=== PATIENT | female | born 1935 | race African-American/Black ===

== ENCOUNTER → 2016-06-04 | Outpatient (CLI) | payer MEDICARE, MEDICAID ==
--- NOTE | 2016-06-05 18:47 | XCELERA REPORT ---
[address] [address] Transthoracic Echocardiogram Report Name: ANI PELAYO Age: 80 yrs Gender: Female : 1935 Patient Status: Outpatient Patient Location: Study Date: 06/04/2016 01:20 PM Height: 65 in Weight: 117 lb BSA: 1.6 m2 Procedure: A two-dimensional transthoracic echocardiogram with color flow and Doppler was performed. Study Quality: Fair. Reason For Study: TIA History: TIA. Ordering Physician: BRYANNA THOMAS Performed By: Kahlil Joseph Interpretation Summary There is no obvious cardiac source of embolus noted on this transthoracic echocardiogram. Follow-up with a MONIKA is suggested if cardiac source is still suspected. The left ventricle is normal in size. There is normal left ventricular wall thickness. Left ventricular systolic function is normal. LV EF is > than 60% Doppler measurements suggest impaired left ventricular relaxation, which is associated with grade I/IV or mild diastolic dysfunction The left ventricular wall motion is normal. There is no thrombus. There is no ventricular septal defect visualized. The left atrial size is normal. The interatrial septum is intact with no evidence for an atrial septal defect. There is no evidence of mitral valve prolapse. There is no vegetation seen on the mitral valve. There is no mitral valve stenosis. There is a trace amount of mitral regurgitation There is no aortic valve stenosis There is no LVOT obstruction. No aortic regurgitation is present. There is no tricuspid stenosis. There is a trace amount of tricuspid regurgitation There is mild pulmonary hypertension by echo RVSP is 33 to 38 mm of Hg , with RA mean of 5 to 10. Small pericardial effusion. There are no echocardiographic or Doppler indications for cardiac tamponade MMode/2D Measurements \T\ Calculations RVDd: 2.9 cm LVIDd: 4.0 cm FS: 25.5 % Ao root diam: 3.2 cm IVSd: 0.79 cm LVIDs: 3.0 cm EDV(Teich): 70.6 ml LVPWd: 0.84 cm ESV(Teich): 34.7 ml Ao root area: 8.2 cm2 EF(Teich): 50.8 % LA dimension: 3.4 cm Doppler Measurements \T\ Calculations MV E max ariela: MV P1/2t max ariela: Ao V2 max: LV V1 max P.0 cm/sec 79.0 cm/sec 177.4 cm/sec 11.2 mmHg MV A max ariela: MV P1/2t: 54.3 msec Ao max PG: LV V1 max: 104.1 cm/sec 12.6 mmHg 167.5 cm/sec MV E/A: 0.77 MVA(P1/2t): 4.1 cm2 MV dec slope: 425.9 cm/sec2 PA V2 max: PI end-d ariela: TR max ariela: RAP systole: 84.4 cm/sec 122.2 cm/sec 263.3 cm/sec 10.0 mmHg PA max PG: TR max P.8 mmHg 27.7 mmHg RVSP(TR): 37.7 mmHg Left Ventricle The left ventricle is normal in size. There is normal left ventricular wall thickness. Left ventricular systolic function is normal. LV EF is > than 60%. Doppler measurements suggest impaired left ventricular relaxation, which is associated with grade I/IV or mild diastolic dysfunction. The left ventricular wall motion is normal. There is no thrombus. There is no ventricular septal defect visualized. Right Ventricle The right ventricle is normal in size and function. Atria The right atrium is normal. The left atrial size is normal. The interatrial septum is intact with no evidence for an atrial septal defect. Mitral Valve There is no evidence of mitral valve prolapse. There is no vegetation seen on the mitral valve. There is no mitral valve stenosis. There is a trace amount of mitral regurgitation. Aortic Valve The aortic valve is trileaflet. The aortic valve opens well. There is no aortic valvular vegetation. There is no aortic valve stenosis. There is no LVOT obstruction. No aortic regurgitation is present. Tricuspid Valve There is no tricuspid stenosis. There is a trace amount of tricuspid regurgitation. There is mild pulmonary hypertension by echo. RVSP is 33 to 38 mm of Hg , with RA mean of 5 to 10. Pulmonic Valve There is no pulmonic valvular stenosis. There is a trace amount of pulmonic regurgitation. Great Vessels The aortic root is normal size. Effusions Small pericardial effusion. There are no echocardiographic or Doppler indications for cardiac tamponade. : BRYANNA THOMAS > Kiera Hays
== END ==
LOC: SP 12:45
PROVIDERS: ATTEND Nurse Practitioner Family
DX: G45.9 Transient cerebral ischemic attack, unspecified (principal); R56.9 Unspecified convulsions
CPT/HCPCS: 93306

== ENCOUNTER 2016-09-22 11:49 | Inpatient (IN) | payer MEDICARE, MEDICAID ==
[2016-09-22] MEDS ORDERED: NORMAL SALINE 1000 ML 1,000 ML IV PRN (13:45)
[2016-09-22] MEDS ORDERED: GUAIFENESIN SYRP 200 MG/10 ML UDC PO PRN (15:16)
[2016-09-22 16:17] LABS: ABSOLUTE EOSINOPHILS # (AUTO) 0.2 10^3/uL (0.0-0.6); ABSOLUTE LYMPHOCYTES (AUTO) 0.7 10^3/uL (0.5-4.7); ABSOLUTE MONOCYTES (AUTO) 0.5 10^3/uL (0.1-1.4); ABSOLUTE NEUT (AUTO) 1.4 10^3/uL (1.7-8.2); BASOPHILS % (AUTO) 0.8 % (0-2); EOSINOPHILS % (AUTO) 5.5 % (0-6); HEMATOCRIT 21.9 % (36.0-47.0); HGB HCT DIFFERENCE -0.9; LYMPHOCYTES % (AUTO) 25.3 % (13-45); MEAN CORPUSCULAR HGB CONC 31.9 g/dL (32.0-36.0); MEAN CORPUSCULAR VOLUME 85 fl (80-97); MONOCYTES % (AUTO) 17.7 % (3-13); RED BLOOD COUNT 2.58 10^6/uL (3.72-5.28); RED CELL DISTRIBUTION WIDTH 15.9 % (11.5-14.0); SEGMENTED NEUTROPHILS % (AUTO) 50.7 % (42-78); WHITE BLOOD COUNT 2.8 10^3/uL (4.0-10.5)
[2016-09-22 16:31] LABS: ALANINE AMINOTRANSFERASE 22 U/L (9-52); ALBUMIN 3.4 g/dL (3.5-5.0); ALKALINE PHOSPHATASE 62 U/L (38-126); ANION GAP 13 (5-19); ASPARTATE AMINO TRANSFERASE 24 U/L (14-36); BILIRUBIN,DIRECT 0.1 mg/dL (0.0-0.4); BILIRUBIN,TOTAL 0.1 mg/dL (0.2-1.3); BLOOD UREA NITROGEN 20 mg/dL (7-20); CALCIUM 8.7 mg/dL (8.4-10.2); CARBON DIOXIDE 22 mmol/L (22-30); CHLORIDE 103 mmol/L (98-107); CREATININE RESULT 0.79 mg/dL (0.52-1.25); GLUCOSE 259 mg/dL (75-110); POTASSIUM 4.4 mmol/L (3.6-5.0); SODIUM 137.8 mmol/L (137-145)
--- NOTE | 2016-09-22 17:15 | PDOC CONSULTATION ---
Consultation Consult Date: 09/22/16 Attending physician:: LATOYA ALEXANDER Consult reason:: Hemorrhoids History of Present Illness Admission Date/PCP: 09/22/16 11:49 LEVI BENÍTEZ MD History of Present Illness: ANI PELAYO is a 81 year old female is admitted to the hospital value to thrive , possible sepsis. Surgery was consulted for evaluation and treatment of hemorrhoids. He reported the patient she's had hemorrhoids for years perhaps even decades. She denies history of hemorrhoidectomy or any treatment on her hemorrhoids. She reports her last colonoscopy was approximately [address] Link with unremarkable findings, however no documentation provided to verify. Patient has becoming increasingly, and is not as aware as she has been involving her bowel movements , bloody bowel movements etc. She states her stools are always dark due to taking iron. She is admitted to [facility] , medicine service with a hemoglobin of 7. Past Medical History Cardiac Medical History: Reports: Hyperlipidema - meds x 10 years, Hypertension - meds x 10 years, Heart Murmur - denies echo Denies: Atrial Fibrillation, Congestive Heart Failure, Coronary Artery Disease, Myocardial Infarction, Peripheral Vascular Disease, Pulmonary Embolism Pulmonary Medical History: Reports: Sleep Apnea - CPAP DC'ed x 1 year Denies: Asthma, Bronchitis, Chronic Obstructive Pulmonary Disease (COPD), Pneumonia, Respiratory Failure, Tuberculosis Neurological Medical History: Denies: Seizures Endocrine Medical History: Reports: Diabetes Mellitus Type 1 Denies: Hyperthyroidism, Hypothyroidism Malignancy Medical History: Reports: Breast Cancer - RT Denies: Cervical Cancer, Leukemia, Lung Cancer, Ovarian Cancer GI Medical History: Reports: Gastroesophageal Reflux Disease - meds x 15 years Denies: Crohn's Disease, Hiatal Hernia Musculoskeltal Medical History: Reports: Arthritis Denies: Fibromyalgia Psychiatric Medical History: Reports: Depression - meds x 30 years Denies: Bipolar Disorder, Dementia, Post Traumatic Stress Disorder Hematology: Reports: Anemia Denies: Hemophilia, Sickle Cell Disease Infectious Medical History: Denies: HIV Past Surgical History Past Surgical History: Reports: Appendectomy, Cholecystectomy, Hysterectomy - 1980, Mastectomy - "partial RIGHT" with lymph node dissection (20) Denies: Amputation, Section, Colostomy, Coronary Artery Bypass Graft , Gastric Bypass Surgery, Herniorrhaphy, Pacemaker, Tonsillectomy, Tubal Ligation Social History Smoking Status: Former Smoker Frequency of Alcohol Use: None Hx Recreational Drug Use: No Drugs: None Hx Prescription Drug Abuse: No Family History Family History: Reviewed & Not Pertinent Parental Family History Reviewed: Yes Children Family History Reviewed: Yes Sibling(s) Family History Reviewed.: Yes Medication/Allergy Allergies/Adverse Reactions: Penicillins Allergy (Severe, Verified 04/15/16 13:11) rash/swelling Sulfa (Sulfonamide Antibiotics) Allergy (Severe, Verified 04/15/16 13:11) rash/swelling Review of Systems Constitutional: PRESENT: as per HPI Eyes: ABSENT: visual disturbances Ears: ABSENT: hearing changes Cardiovascular: ABSENT: chest pain, dyspnea on exertion, edema, orthropnea, palpitations Physical Exam Vital Signs: Temp Pulse Resp BP Pulse Ox 97.4 F 78 16 123/67 99 09/22/16 13:03 09/22/16 13:17 09/22/16 13:03 09/22/16 13:03 09/22/16 13:03 Intake & Output 09/21/16 09/22/16 09/23/16 06:59 06:59 06:59 Weight 53.637 kg General appearance: PRESENT: no acute distress Head exam: PRESENT: normocephalic Eye exam: PRESENT: EOMI Pulses: PRESENT: normal carotid pulses GI/Abdominal exam: PRESENT: other - Soft and nontender. Rectal exam: PRESENT: hemorrhoids - Internal, grade 2, nonthrombosed. Results Laboratory Results: 09/22/16 15:40 09/22/16 15:25 09/22/16 09/22/16 09/22/16 14:30 15:25 15:40 WBC 2.8 L RBC 2.58 L Hgb 7.0 L Hct 21.9 L MCV 85 MCH 27.0 MCHC 31.9 L RDW 15.9 H Plt Count 223 Seg Neutrophils % 50.7 Lymphocytes % 25.3 Monocytes % 17.7 H Eosinophils % 5.5 Basophils % 0.8 Absolute Neutrophils 1.4 L Absolute Lymphocytes 0.7 Absolute Monocytes 0.5 Absolute Eosinophils 0.2 Absolute Basophils 0.0 Sodium 137.8 Potassium 4.4 Chloride 103 Carbon Dioxide 22 Anion Gap 13 BUN 20 Creatinine 0.79 Est GFR ( Amer) > 60 Est GFR (Non-Af Amer) > 60 Glucose 259 H Calcium 8.7 Total Bilirubin 0.1 L AST 24 ALT 22 Alkaline Phosphatase 62 Total Protein 6.0 L Albumin 3.4 L Stool Occult Blood POSITIVE Blood Type Antibody Screen 09/22/16 15:40 WBC RBC Hgb Hct MCV MCH MCHC RDW Plt Count Seg Neutrophils % Lymphocytes % Monocytes % Eosinophils % Basophils % Absolute Neutrophils Absolute Lymphocytes Absolute Monocytes Absolute Eosinophils Absolute Basophils Sodium Potassium Chloride Carbon Dioxide Anion Gap BUN Creatinine Est GFR ( Amer) Est GFR (Non-Af Amer) Glucose Calcium Total Bilirubin AST ALT Alkaline Phosphatase Total Protein Albumin Stool Occult Blood Blood Type O POSITIVE Antibody Screen NEGATIVE Impressions: Chest X-Ray 09/22/16 00:00 IMPRESSION: NO SIGNIFICANT RADIOGRAPHIC FINDING IN THE CHEST. Assessment & Plan - Diagnosis (1) Internal hemorrhoids Is this a current diagnosis for this admission?: YesPlan: 1. Patient has moderate sized internal hemorrhoids, grade 2, currently collapsed slightly raw, chronic. Patient last colonoscopy [address] Link demonstrating lambert diverticulosis and internal hemorrhoids. 2. At this moment given the uncertainty of her mental status changes, possible sepsis, I believe nonoperative management is appropriate. Stool softener plenty of fluids are appropriate. 3. I discussed the above with Dr. Alexander who agrees with the above plan. - Time Time Spent: 30 to 50 Minutes Critical Time spent with patient: Less than 15 minutes
[2016-09-22] MEDS: LEVOFLOXACIN 250 MG/D5W RTU 250 MG/50 ML RTUPB IV SCH (17:46)
[2016-09-22] MEDS ORDERED: NORMAL SALINE 250 ML IV PRN ×2 (17:47)
[2016-09-22] MEDS ORDERED: GLUCAGON,HUMAN RECOMB 1 MG INJ IM PRN (17:47)
[2016-09-22] MEDS ORDERED: DEXTROSE 40% GEL 15 GM TUBE PO PRN ×2 (17:47)
[2016-09-22] MEDS ORDERED: DEXTROSE 50%-WATER 25 GM/50 ML DISP.SYRIN IV PRN ×2 (17:47)
[2016-09-22] MEDS ORDERED: DOCUSATE SODIUM 100 MG CAPSULE PO PRN (17:48)
[2016-09-22] MEDS ORDERED: (PENDING PHARMACY ID) (Linaclotide 145 MCG) PO SCH (18:00)
--- NOTE | 2016-09-22 18:27 | PDOC H&P ---
History of Present Illness Admission Date/PCP: 09/22/16 11:49 LEVI BENÍTEZ MD Patient complains of: Cough, Generalized weakness. Anemia History of Present Illness: ANI PELAYO is a 81 year old female who presented to the office earlier today with complaints of persistent wet cough and generalized weakness. Patient denied any chest pain, expectoration has been difficulty. No fever but there is persistent chills. no nausea or vomiting. No abdominal pain. Daughter and patient reported recurrent episodes of hemorrhoid and daughter claimed that it has been persistently outside of rectum for couple of days. Her stool remain black but she is on iron supplementation for anemia. She denied any obvious red bloody stool. She denied any significant constipation on her current regimen management for opiate induced constipation. Her initial evaluation in the office was suggestive of significant anemia and right lower lobe possible early air space disease process. In view of her presentation, clinical findings and laboratory reports she was advised direct admission from the office to [facility] for further evaluation and management. Past Medical History Cardiac Medical History: Reports: Hyperlipidema - meds x 10 years, Hypertension - meds x 10 years, Heart Murmur - denies echo Denies: Atrial Fibrillation, Congestive Heart Failure, Coronary Artery Disease, Myocardial Infarction, Peripheral Vascular Disease, Pulmonary Embolism Pulmonary Medical History: Reports: Sleep Apnea - CPAP DC'ed x 1 year Denies: Asthma, Bronchitis, Chronic Obstructive Pulmonary Disease (COPD), Pneumonia, Respiratory Failure, Tuberculosis Neurological Medical History: Denies: Seizures Endocrine Medical History: Reports: Diabetes Mellitus Type 1 Denies: Hyperthyroidism, Hypothyroidism Malignancy Medical History: Reports: Breast Cancer - RT Denies: Cervical Cancer, Leukemia, Lung Cancer, Ovarian Cancer GI Medical History: Reports: Gastroesophageal Reflux Disease - meds x 15 years Denies: Crohn's Disease, Hiatal Hernia Musculoskeltal Medical History: Reports: Arthritis Denies: Fibromyalgia Psychiatric Medical History: Reports: Depression - meds x 30 years Denies: Bipolar Disorder, Dementia, Post Traumatic Stress Disorder Hematology: Reports: Anemia Denies: Hemophilia, Sickle Cell Disease Infectious Medical History: Denies: HIV Past Surgical History Past Surgical History: Reports: Appendectomy, Cholecystectomy, Hysterectomy - 1980, Mastectomy - "partial RIGHT" with lymph node dissection (20) Denies: Amputation, Section, Colostomy, Coronary Artery Bypass Graft , Gastric Bypass Surgery, Herniorrhaphy, Pacemaker, Tonsillectomy, Tubal Ligation Social History Smoking Status: Former Smoker Frequency of Alcohol Use: None Hx Recreational Drug Use: No Drugs: None Hx Prescription Drug Abuse: No Family History Family History: Reviewed & Not Pertinent Parental Family History Reviewed: Yes Children Family History Reviewed: Yes Sibling(s) Family History Reviewed.: Yes Medication/Allergy Home Medications: Apixaban [Eliquis 2.5 mg Tablet] 2.5 mg PO Q12 09/22/16 Aspirin [Aspirin EC] 81 mg PO DAILY 09/22/16 Dexlansoprazole [Dexilant 60 mg Capsule] 60 mg PO DAILY 09/22/16 Docusate Sodium [Colace 100 mg Capsule] 100 mg PO DAILYP PRN 09/22/16 Donepezil HCl [Aricept 5 mg Tablet] 5 mg PO DAILY 09/22/16 Ferrous Sulfate [Feosol 325 mg Tablet] 325 mg PO DAILY 09/22/16 Fluticasone Propionate [Flonase Nasal Carey 50 Mcg/Carey 16 gm] 2 sprays NAREB Q12 09/22/16 Gabapentin [Neurontin 300 mg Capsule] 300 mg PO Q12 09/22/16 Linaclotide [Linzess 145 Mcg Capsule] 145 mcg PO TID 09/22/16 Lisinopril [Prinivil 5 mg Tablet] 5 mg PO DAILY 09/22/16 Losartan/Hydrochlorothiazide [Hyzaar 100-25 Tablet] 1 tab PO DAILY 09/22/16 Metformin HCl [Glucophage] 1,000 mg PO BID 09/22/16 Montelukast Sodium [Singulair 10 mg Tablet] 10 mg PO QHS 09/22/16 Oxycodone HCl/Acetaminophen [Percocet 5-325 mg Tablet] 1 tab PO TIDP PRN Rosuvastatin Calcium [Crestor 10 mg Tablet] 10 mg PO DAILY 09/22/16 Sertraline HCl [Zoloft] 100 mg PO DAILY 09/22/16 Tramadol HCl [Ultram 50 mg Tablet] 50 mg PO Q12 09/22/16 Allergies/Adverse Reactions: Penicillins Allergy (Severe, Verified 04/15/16 13:11) rash/swelling Sulfa (Sulfonamide Antibiotics) Allergy (Severe, Verified 04/15/16 13:11) rash/swelling Review of Systems Constitutional: PRESENT: chills, weakness. ABSENT: as per HPI, anorexia, fatigue, fever(s), headache(s), night sweats, weight gain, weight loss, other Eyes: PRESENT: visual disturbances - CAWG Ears: ABSENT: hearing changes Nose, Mouth, and Throat: ABSENT: as per HPI, headache(s), mouth pain, sore throat, vertigo, other Cardiovascular: ABSENT: as per HPI, chest pain, dyspnea on exertion, edema, orthropnea, palpitations, other Respiratory: PRESENT: cough, sputum - with expecturation difficulty. ABSENT: as per HPI, dyspnea, hemoptysis, other Gastrointestinal: ABSENT: abdominal pain, constipation, diarrhea, hematemesis, hematochezia, nausea, vomiting Genitourinary: PRESENT: other - there is indwelling suprapubic magallanes catheter in use. ABSENT: as per HPI, difficulty urinating, dysuria, hematuria, nocturia Musculoskeletal: PRESENT: back pain, deformity, other - multiple joints aches and pain Integumentary: ABSENT: as per HPI, diaphoresis, erythema, lesions, pruritus, rash, wounds, other Neurological: PRESENT: weakness - generalized. ABSENT: as per HPI, abnormal gait, abnormal movements, abnormal speech, confusion, convulsions, dizziness, focal weakness, frequent falls, lack of coordination, memory loss, numbness, paresthesias, restless legs, syncope, tingling, tremor(s), vertigo, other Psychiatric: ABSENT: as per HPI, anxiety, depression, hallucinations, homidical ideation, suicidal ideation, other Endocrine: ABSENT: as per HPI, cold intolerance, flushing, heat intolerance, menstrual abnormalities, polydipsia, polyphagia, polyuria, other Hematologic/Lymphatic: ABSENT: as per HPI, easy bleeding, easy bruising, lymphadenopathy, other Physical Exam Vital Signs: Temp Pulse Resp BP Pulse Ox 97.4 F 78 16 119/43 L 97 09/22/16 16:28 09/22/16 16:28 09/22/16 16:28 09/22/16 16:28 09/22/16 16:28 Intake & Output 09/21/16 09/22/16 09/23/16 06:59 06:59 06:59 Intake Total 670 Output Total 100 Balance 570 Weight 53.637 kg General appearance: PRESENT: no acute distress, cooperative, thin Head exam: PRESENT: atraumatic, normocephalic Eye exam: PRESENT: conjunctiva pink, EOMI, PERRLA. ABSENT: scleral icterus Ear exam: PRESENT: normal external ear exam Mouth exam: PRESENT: moist, tongue midline Throat exam: ABSENT: post pharyngeal erythema, tonsillar erythema, tonsillar exudate, tonsillogmegaly, other Neck exam: PRESENT: full ROM. ABSENT: carotid bruit, JVD, lymphadenopathy, thyromegaly Respiratory exam: PRESENT: clear to auscultation adenike. ABSENT: accessory muscle use, chest wall tenderness, crackles, decreased breath sounds, prolonged expiratory phas, rales, retraction, rhonchi, stridor, symmetrical, tachypnea, unlabored, wheezes, other Cardiovascular exam: PRESENT: RRR. ABSENT: diastolic murmur, rubs, systolic murmur Pulses: PRESENT: normal dorsalis pedis pul, +2 pedal pulses bilateral Vascular exam: PRESENT: normal capillary refill GI/Abdominal exam: PRESENT: normal bowel sounds, soft, other - suprapubc magallanes cath in situ. ABSENT: distended, guarding, mass, organolmegaly, rebound, tenderness Rectal exam: PRESENT: black stool, heme (+) stool, hemorrhoids Gentrourinary exam: ABSENT: ecchymosis, erythema, lacerations, lesions, scrotal swelling, testicular tenderness, urethral discharge, indwelling catheter, other Extremities exam: PRESENT: full ROM Musculoskeletal exam: PRESENT: deformity - due to multiple joint involvement with arthritis Neurological exam: PRESENT: alert, awake, oriented to person, oriented to place , oriented to time, oriented to situation, CN II-XII grossly intact. ABSENT: motor sensory deficit Psychiatric exam: PRESENT: appropriate affect, normal mood. ABSENT: homicidal ideation, suicidal ideation Skin exam: PRESENT: dry, intact, warm. ABSENT: cyanosis, rash Results Laboratory Results: 09/22/16 15:40 09/22/16 15:25 09/22/16 09/22/16 09/22/16 14:30 15:25 15:40 WBC 2.8 L RBC 2.58 L Hgb 7.0 L Hct 21.9 L MCV 85 MCH 27.0 MCHC 31.9 L RDW 15.9 H Plt Count 223 Seg Neutrophils % 50.7 Lymphocytes % 25.3 Monocytes % 17.7 H Eosinophils % 5.5 Basophils % 0.8 Absolute Neutrophils 1.4 L Absolute Lymphocytes 0.7 Absolute Monocytes 0.5 Absolute Eosinophils 0.2 Absolute Basophils 0.0 Sodium 137.8 Potassium 4.4 Chloride 103 Carbon Dioxide 22 Anion Gap 13 BUN 20 Creatinine 0.79 Est GFR ( Amer) > 60 Est GFR (Non-Af Amer) > 60 Glucose 259 H Calcium 8.7 Total Bilirubin 0.1 L AST 24 ALT 22 Alkaline Phosphatase 62 Total Protein 6.0 L Albumin 3.4 L Stool Occult Blood POSITIVE Blood Type Antibody Screen 09/22/16 15:40 WBC RBC Hgb Hct MCV MCH MCHC RDW Plt Count Seg Neutrophils % Lymphocytes % Monocytes % Eosinophils % Basophils % Absolute Neutrophils Absolute Lymphocytes Absolute Monocytes Absolute Eosinophils Absolute Basophils Sodium Potassium Chloride Carbon Dioxide Anion Gap BUN Creatinine Est GFR ( Amer) Est GFR (Non-Af Amer) Glucose Calcium Total Bilirubin AST ALT Alkaline Phosphatase Total Protein Albumin Stool Occult Blood Blood Type O POSITIVE Antibody Screen NEGATIVE Impressions: Chest X-Ray 09/22/16 00:00 IMPRESSION: NO SIGNIFICANT RADIOGRAPHIC FINDING IN THE CHEST. Assessment & Plan - Diagnosis (1) Symptomatic anemia Is this a current diagnosis for this admission?: YesPlan: See admitting physician orders. She will receive 2 units PRBC transfusion. I will obtain post transfusion CBC for further evaluation. (2) Internal hemorrhoids Is this a current diagnosis for this admission?: YesPlan: I will request for surgical team consultation in view of her significant anemia and possible contribution of her hemorrhoid to chronic blood loss, particularly on Eliquis and Aspirin therapy. (3) Diabetes mellitus type 2, uncontrolled, with complications Qualifiers: Diabetes mellitus terminal gauger insulin use: without terminal gauger use Qualified Code(s): E11.8 - Type 2 diabetes mellitus with unspecified complications; E11.65 - Type 2 diabetes mellitus with hyperglycemia Is this a current diagnosis for this admission?: YesPlan: See admitting physician orders. (4) Pneumonia Qualifiers: Pneumonia type: due to unspecified organism Laterality: right Lung location: lower lobe of lung Qualified Code(s): J18.1 - Lobar pneumonia, unspecified organism Is this a current diagnosis for this admission?: YesPlan: See admitting physician orders. (5) HLD (hyperlipidemia) Qualifiers: Hyperlipidemia type: pure hypercholesterolemia Qualified Code(s): E78.00 - Pure hypercholesterolemia, unspecified; E78.0 - Pure hypercholesterolemia Is this a current diagnosis for this admission?: YesPlan: See admitting physician orders. (6) HTN (hypertension) Qualifiers: Hypertension type: essential hypertension Qualified Code(s): I10 - Essential (primary) hypertension Is this a current diagnosis for this admission?: YesPlan: See admitting physician orders. I will clarify Losartan HCTZ and Lisinopril usage. Main well maintain on Lisinopril therapy and adjust dosage as needed. (7) History of pulmonary embolism Is this a current diagnosis for this admission?: YesPlan: See admitting physician orders. I will hold Eliquis and Aspirin usage for now in view of her symptomatic anemia. (8) History of DVT (deep vein thrombosis) Is this a current diagnosis for this admission?: YesPlan: See admitting physician orders. I will hold Eliquis and Aspirin usage for now in view of her symptomatic anemia. (9) Chronic prescription opiate use Is this a current diagnosis for this admission?: YesPlan: I will maintain on current medication management. I will discontinue Tramadol usage. (10) GERD (gastroesophageal reflux disease) Qualifiers: Esophagitis presence: without esophagitis Qualified Code(s): K21.9 - Gastro-esophageal reflux disease without esophagitis Is this a current diagnosis for this admission?: YesPlan: See admitting attending orders. - Time Time Spent: 50 to 70 Minutes Medications reviewed and adjusted accordingly: Yes Anticipated discharge: Home with Homehealth Within: Other - Inpatient Certification Medical Necessity: Need Close Monitoring Due to Risk of Patient Decompensation, Need For IV Fluids, Need For Continuous Telemetry Monitoring, Need for Pain Control, Need for IV Antibiotics, Risk of Complication if Not Cared For in Hospital Post Hospital Care: D/C Wine Specialist Documentation - Plan Summary Plan Summary: See admitting physician orders.
[2016-09-22] MEDS: OXYCODONE-ACETAMINOPHEN 5-325 MG TABLET PO PRN (20:06)
[2016-09-22] MEDS: FLUTICASONE NASAL SPRAY 50 MCG/SPRY 120 SPRAY/16 GM NAREB SCH (21:15)
[2016-09-22] MEDS: METFORMIN HCL 500 MG TABLET PO SCH (21:15)
[2016-09-22] MEDS: GABAPENTIN 300 MG CAPSULE PO SCH (21:15)
[2016-09-22] MEDS: MONTELUKAST SODIUM 10 MG TABLET PO SCH (21:16)
[2016-09-22] MEDS: INSULIN LISPRO 100 UNIT/ML 3 ML VIAL SUBCUT PRN (22:14)
[2016-09-23 07:00] LABS: ABSOLUTE EOSINOPHILS # (AUTO) 0.3 10^3/uL (0.0-0.6); ABSOLUTE LYMPHOCYTES (AUTO) 1.1 10^3/uL (0.5-4.7); ABSOLUTE MONOCYTES (AUTO) 0.5 10^3/uL (0.1-1.4); ABSOLUTE NEUT (AUTO) 1.7 10^3/uL (1.7-8.2); BASOPHILS % (AUTO) 0.4 % (0-2); EOSINOPHILS % (AUTO) 7.6 % (0-6); HEMATOCRIT 29.4 % (36.0-47.0); HGB HCT DIFFERENCE 0.6; LYMPHOCYTES % (AUTO) 30.7 % (13-45); MEAN CORPUSCULAR HEMOGLOBIN 29.3 pg (27.0-33.4); MEAN CORPUSCULAR VOLUME 86 fl (80-97); RED BLOOD COUNT 3.41 10^6/uL (3.72-5.28); RED CELL DISTRIBUTION WIDTH 16.1 % (11.5-14.0); SEGMENTED NEUTROPHILS % (AUTO) 46.3 % (42-78); WHITE BLOOD COUNT 3.6 10^3/uL (4.0-10.5)
[2016-09-23] MEDS: LANSOPRAZOLE 30 MG TAB.RAP.DR PO SCH (07:49)
[2016-09-23] MEDS: METFORMIN HCL 500 MG TABLET PO SCH ×4 (07:50→21:26)
[2016-09-23] MEDS: OXYCODONE-ACETAMINOPHEN 5-325 MG TABLET PO PRN ×2 (07:55→16:50)
[2016-09-23] MEDS ORDERED: (PENDING PHARMACY ID) (Linaclotide 145 MCG) PO SCH ×2 (10:00)
[2016-09-23] MEDS ORDERED: LISINOPRIL 5 MG TABLET PO SCH (10:00)
[2016-09-23] MEDS: DONEPEZIL HCL 5 MG TABLET PO SCH (10:06)
[2016-09-23] MEDS: SERTRALINE HCL 50 MG TABLET PO SCH (10:08)
[2016-09-23] MEDS: ATORVASTATIN CALCIUM 20 MG TABLET PO SCH (10:08)
[2016-09-23] MEDS: GABAPENTIN 300 MG CAPSULE PO SCH ×2 (10:08→21:25)
[2016-09-23] MEDS: FERROUS SULFATE 325 MG TABLET PO SCH (10:08)
[2016-09-23] MEDS: FLUTICASONE NASAL SPRAY 50 MCG/SPRY 120 SPRAY/16 GM NAREB SCH ×2 (10:09→21:31)
[2016-09-23] MEDS: INSULIN LISPRO 100 UNIT/ML 3 ML VIAL SUBCUT PRN ×2 (12:39→22:35)
[2016-09-23] MEDS: LEVOFLOXACIN 250 MG/D5W RTU 250 MG/50 ML RTUPB IV SCH (16:50)
--- NOTE | 2016-09-23 18:35 | PDOC PROGRESS REPORT ---
Subjective Progress Note for:: 09/23/16 Subjective:: Patient reported worsening pain in her legs. She claimed that hse has been using Gabapentin and Percocet at about the same time at home with better pain control. There is concern with chewing her food due to consistency. She denied nay nausea, vomiting or abdominal pain. No chest pain. Breathing is better with improvement in her coughing issue. No reported fever or chills. Physical Exam Vital Signs: Temp Pulse Resp BP Pulse Ox 98.0 F 78 16 156/63 H 95 09/23/16 15:22 09/23/16 15:22 09/23/16 15:22 09/23/16 15:22 09/23/16 15:22 Intake & Output 09/22/16 09/23/16 09/24/16 06:59 06:59 06:59 Intake Total 2210 1766 Output Total 1900 400 Balance 310 1366 Weight 53.637 kg General appearance: PRESENT: no acute distress, cooperative, thin Head exam: PRESENT: atraumatic, normocephalic Eye exam: PRESENT: conjunctiva pink, EOMI, PERRLA. ABSENT: scleral icterus Mouth exam: PRESENT: moist, tongue midline Teeth exam: PRESENT: poor dentation Throat exam: ABSENT: post pharyngeal erythema, tonsillar erythema, tonsillar exudate, tonsillogmegaly, other Neck exam: PRESENT: full ROM. ABSENT: carotid bruit, JVD, lymphadenopathy, thyromegaly Respiratory exam: PRESENT: clear to auscultation adenike, decreased breath sounds - at lung bases Cardiovascular exam: PRESENT: RRR. ABSENT: diastolic murmur, rubs, systolic murmur Pulses: PRESENT: normal dorsalis pedis pul, +2 pedal pulses bilateral Vascular exam: PRESENT: normal capillary refill GI/Abdominal exam: PRESENT: normal bowel sounds, soft, other - suprapubic magallanes catheter in situ. dressing satisfactory.. 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 ABSENT: homicidal ideation, suicidal ideation Skin exam: PRESENT: dry, warm. ABSENT: cyanosis, rash Results Laboratory Results: 09/23/16 04:45 09/22/16 15:25 09/22/16 09/23/16 15:40 04:45 WBC 3.6 L RBC 3.41 L Hgb 10.0 L D Hct 29.4 L MCV 86 MCH 29.3 MCHC 34.0 RDW 16.1 H Plt Count 196 Seg Neutrophils % 46.3 Lymphocytes % 30.7 Monocytes % 15.0 H Eosinophils % 7.6 H Basophils % 0.4 Absolute Neutrophils 1.7 Absolute Lymphocytes 1.1 Absolute Monocytes 0.5 Absolute Eosinophils 0.3 Absolute Basophils 0.0 Blood Type O POSITIVE Antibody Screen NEGATIVE Impressions: Chest X-Ray 09/22/16 00:00 IMPRESSION: NO SIGNIFICANT RADIOGRAPHIC FINDING IN THE CHEST. Assessment & Plan - Diagnosis (1) Symptomatic anemia Is this a current diagnosis for this admission?: YesPlan: See admitting physician orders. She received 2 units PRBC with post-transfusion improvement in her hemoglobin. (2) Internal hemorrhoids Is this a current diagnosis for this admission?: YesPlan: See attending physician orders. (3) Diabetes mellitus type 2, uncontrolled, with complications Qualifiers: Diabetes mellitus mcc insulin use: without biofuels production technician use Qualified Code(s): E11.8 - Type 2 diabetes mellitus with unspecified complications; E11.65 - Type 2 diabetes mellitus with hyperglycemia Is this a current diagnosis for this admission?: YesPlan: See admitting physician orders. I will change dietary consistency to mechanical soft. she will receive glucena oral supplement with her meals. (4) Pneumonia Qualifiers: Pneumonia type: due to unspecified organism Laterality: right Lung location: lower lobe of lung Qualified Code(s): J18.1 - Lobar pneumonia, unspecified organism Is this a current diagnosis for this admission?: YesPlan: See admitting physician orders. Follow up on blood culture. Maintain on IV Levofloxacin coverage. (5) HLD (hyperlipidemia) Qualifiers: Hyperlipidemia type: pure hypercholesterolemia Qualified Code(s): E78.00 - Pure hypercholesterolemia, unspecified; E78.0 - Pure hypercholesterolemia Is this a current diagnosis for this admission?: YesPlan: See attending physician orders. (6) HTN (hypertension) Qualifiers: Hypertension type: essential hypertension Qualified Code(s): I10 - Essential (primary) hypertension Is this a current diagnosis for this admission?: YesPlan: See attending physician orders. (7) History of pulmonary embolism Is this a current diagnosis for this admission?: YesPlan: See attending physician orders. (8) History of DVT (deep vein thrombosis) Is this a current diagnosis for this admission?: YesPlan: See attending physician orders. (9) Chronic prescription opiate use Is this a current diagnosis for this admission?: YesPlan: See attending physician orders. (10) GERD (gastroesophageal reflux disease) Qualifiers: Esophagitis presence: without esophagitis Qualified Code(s): K21.9 - Gastro-esophageal reflux disease without esophagitis Is this a current diagnosis for this admission?: YesPlan: See attending physician orders. - Time Time Spent with patient: 25-34 minutes Medications reviewed and adjusted accordingly: Yes Anticipated discharge: Home with Homehealth Within: Other - Inpatient Certification Based on my medical assessment, after consideration of the patient's comorbidities, presenting symptoms, or acuity I expect that the services needed warrant INPATIENT care.: Yes I certify that my determination is in accordance with my understanding of Medicare's requirements for reasonable and necessary INPATIENT services [42 CFR 412.3e].: Yes Medical Necessity: Need Close Monitoring Due to Risk of Patient Decompensation, Need For IV Fluids, Need For Continuous Telemetry Monitoring, Need for IV Antibiotics, Risk of Complication if Not Cared For in Hospital Post Hospital Care: D/C Spot Man Documentation - Plan Summary Plan Summary: See attending physician orders.
[2016-09-23] MEDS: ACETAMINOPHEN 325 MG TABLET PO PRN (19:43)
[2016-09-23] MEDS: OXYCODONE-ACETAMINOPHEN 5-325 MG TABLET PO SCH (21:25)
[2016-09-23] MEDS: MONTELUKAST SODIUM 10 MG TABLET PO SCH (21:26)
[2016-09-24] MEDS: LANSOPRAZOLE 30 MG TAB.RAP.DR PO SCH (07:33)
[2016-09-24] MEDS: METFORMIN HCL 500 MG TABLET PO SCH ×4 (07:33→21:50)
--- NOTE | 2016-09-24 08:12 | PDOC PROGRESS REPORT ---
Subjective Progress Note for:: 09/24/16 Subjective:: Patient compliant of tightness in head and sinus with nasal congestion. Nop chest pain or difficulty with breathing. No nausea, vomiting or abdominal pain. Appetite and p.o intake satisfactory. No fever or chills. Physical Exam Vital Signs: Temp Pulse Resp BP Pulse Ox 98.3 F 64 16 144/57 H 98 09/24/16 03:31 09/24/16 07:00 09/24/16 03:31 09/24/16 03:31 09/24/16 03:31 Intake & Output 09/23/16 09/24/16 09/25/16 06:59 06:59 06:59 Intake Total 2210 2818 Output Total 1900 1600 Balance 310 1218 Weight 53.637 kg Physical Exam: General appearance: PRESENT: no acute distress, cooperative, thin Head exam: PRESENT: atraumatic, normocephalic Eye exam: PRESENT: conjunctiva pink, EOMI, PERRLA. ABSENT: scleral icterus Neck exam: PRESENT: full ROM. ABSENT: carotid bruit, JVD, lymphadenopathy, thyromegaly Respiratory exam: PRESENT: clear to auscultation adenike, decreased breath sounds - at lung bases Cardiovascular exam: PRESENT: RRR. ABSENT: diastolic murmur, rubs, systolic murmur GI/Abdominal exam: PRESENT: normal bowel sounds, soft, other - suprapubic magallanes catheter in situ. dressing satisfactory.. 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 ABSENT: homicidal ideation, suicidal ideation Skin exam: PRESENT: dry, warm. ABSENT: cyanosis, rash Throat exam: ABSENT: post pharyngeal erythema, tonsillar erythema - No significant nasal congestion or turbinate swelling. No paranasal percussion tenderness., tonsillar exudate, tonsillogmegaly, other Results Laboratory Results: 09/23/16 04:45 09/22/16 15:25 Impressions: Chest X-Ray 09/22/16 00:00 IMPRESSION: NO SIGNIFICANT RADIOGRAPHIC FINDING IN THE CHEST. Assessment & Plan - Diagnosis (1) Symptomatic anemia Is this a current diagnosis for this admission?: YesPlan: See admitting physician orders. (2) Internal hemorrhoids Is this a current diagnosis for this admission?: YesPlan: See attending physician orders. (3) Diabetes mellitus type 2, uncontrolled, with complications Qualifiers: Diabetes mellitus longterm insulin use: without longterm use Qualified Code(s): E11.8 - Type 2 diabetes mellitus with unspecified complications; E11.65 - Type 2 diabetes mellitus with hyperglycemia Is this a current diagnosis for this admission?: YesPlan: See admitting physician orders. (4) Pneumonia Qualifiers: Pneumonia type: due to unspecified organism Laterality: right Lung location: lower lobe of lung Qualified Code(s): J18.1 - Lobar pneumonia, unspecified organism Is this a current diagnosis for this admission?: YesPlan: See admitting physician orders. Follow up on blood culture. Maintain on IV Levofloxacin coverage. (5) HLD (hyperlipidemia) Qualifiers: Hyperlipidemia type: pure hypercholesterolemia Qualified Code(s): E78.00 - Pure hypercholesterolemia, unspecified; E78.0 - Pure hypercholesterolemia Is this a current diagnosis for this admission?: YesPlan: See attending physician orders. (6) HTN (hypertension) Qualifiers: Hypertension type: essential hypertension Qualified Code(s): I10 - Essential (primary) hypertension Is this a current diagnosis for this admission?: YesPlan: See attending physician orders. (7) History of pulmonary embolism Is this a current diagnosis for this admission?: YesPlan: See attending physician orders. (8) History of DVT (deep vein thrombosis) Is this a current diagnosis for this admission?: YesPlan: See attending physician orders. (9) Chronic prescription opiate use Is this a current diagnosis for this admission?: YesPlan: See attending physician orders. (10) GERD (gastroesophageal reflux disease) Qualifiers: Esophagitis presence: without esophagitis Qualified Code(s): K21.9 - Gastro-esophageal reflux disease without esophagitis Is this a current diagnosis for this admission?: YesPlan: See attending physician orders. (11) Seasonal allergic rhinitis Qualifiers: Allergic rhinitis trigger: unspecified Qualified Code(s): J30.2 - Other seasonal allergic rhinitis Is this a current diagnosis for this admission?: YesPlan: Continue on Fluticasone nasal spray therapy. - Time Time Spent with patient: 25-34 minutes Medications reviewed and adjusted accordingly: Yes Anticipated discharge: Home with Homehealth Within: Other - Inpatient Certification Medical Necessity: Need Close Monitoring Due to Risk of Patient Decompensation, Need For IV Fluids, Need For Continuous Telemetry Monitoring, Need for IV Antibiotics, Risk of Complication if Not Cared For in Hospital Post Hospital Care: D/C Dairy Husbandry Worker Documentation - Plan Summary Plan Summary: Obtain CBC with diff, BMP in AM. Continue on all current medication management.
[2016-09-24] MEDS: OXYCODONE-ACETAMINOPHEN 5-325 MG TABLET PO SCH ×4 (09:28→21:50)
[2016-09-24] MEDS: ATORVASTATIN CALCIUM 20 MG TABLET PO SCH (09:28)
[2016-09-24] MEDS: GABAPENTIN 300 MG CAPSULE PO SCH ×2 (09:28→21:50)
[2016-09-24] MEDS: DONEPEZIL HCL 5 MG TABLET PO SCH (09:28)
[2016-09-24] MEDS: FERROUS SULFATE 325 MG TABLET PO SCH (09:28)
[2016-09-24] MEDS: SERTRALINE HCL 50 MG TABLET PO SCH (09:28)
[2016-09-24] MEDS: FLUTICASONE NASAL SPRAY 50 MCG/SPRY 120 SPRAY/16 GM NAREB SCH ×2 (09:29→21:50)
[2016-09-24] MEDS ORDERED: LISINOPRIL 10 MG TABLET PO SCH (10:00)
[2016-09-24] MEDS: INSULIN LISPRO 100 UNIT/ML 3 ML VIAL SUBCUT PRN (11:59)
[2016-09-24] MEDS: LEVOFLOXACIN 250 MG/D5W RTU 250 MG/50 ML RTUPB IV SCH (17:44)
[2016-09-24] MEDS: MONTELUKAST SODIUM 10 MG TABLET PO SCH (21:50)
[2016-09-25] MEDS ORDERED: LISINOPRIL 10 MG TABLET PO ONE (04:45)
[2016-09-25 06:03] LABS: ABSOLUTE EOSINOPHILS # (AUTO) 0.1 10^3/uL (0.0-0.6); ABSOLUTE LYMPHOCYTES (AUTO) 1.3 10^3/uL (0.5-4.7); ABSOLUTE MONOCYTES (AUTO) 0.5 10^3/uL (0.1-1.4); ABSOLUTE NEUT (AUTO) 3.8 10^3/uL (1.7-8.2); BASOPHILS % (AUTO) 0.4 % (0-2); EOSINOPHILS % (AUTO) 1.9 % (0-6); HEMATOCRIT 31.8 % (36.0-47.0); HEMOGLOBIN 10.5 g/dL (12.0-15.5); HGB HCT DIFFERENCE -0.3; LYMPHOCYTES % (AUTO) 22.3 % (13-45); MEAN CORPUSCULAR HEMOGLOBIN 28.7 pg (27.0-33.4); MEAN CORPUSCULAR HGB CONC 33.1 g/dL (32.0-36.0); MEAN CORPUSCULAR VOLUME 87 fl (80-97); MONOCYTES % (AUTO) 9.1 % (3-13); RED BLOOD COUNT 3.67 10^6/uL (3.72-5.28); RED CELL DISTRIBUTION WIDTH 15.9 % (11.5-14.0); SEGMENTED NEUTROPHILS % (AUTO) 66.3 % (42-78); WHITE BLOOD COUNT 5.8 10^3/uL (4.0-10.5)
[2016-09-25 06:41] LABS: ANION GAP 13 (5-19); BLOOD UREA NITROGEN 20 mg/dL (7-20); CALCIUM 9.4 mg/dL (8.4-10.2); CARBON DIOXIDE 24 mmol/L (22-30); CHLORIDE 104 mmol/L (98-107); CREATININE RESULT 0.69 mg/dL (0.52-1.25); GLUCOSE 192 mg/dL (75-110); POTASSIUM 4.6 mmol/L (3.6-5.0); SODIUM 141.1 mmol/L (137-145)
[2016-09-25] MEDS: METFORMIN HCL 500 MG TABLET PO SCH ×4 (08:49→21:44)
[2016-09-25] MEDS: LANSOPRAZOLE 30 MG TAB.RAP.DR PO SCH (08:49)
[2016-09-25] MEDS: HYDROCHLOROTHIAZIDE 25 MG TABLET PO SCH (10:09)
[2016-09-25] MEDS: DONEPEZIL HCL 5 MG TABLET PO SCH (10:10)
[2016-09-25] MEDS: OXYCODONE-ACETAMINOPHEN 5-325 MG TABLET PO SCH ×4 (10:10→21:44)
[2016-09-25] MEDS: GABAPENTIN 300 MG CAPSULE PO SCH ×2 (10:10→21:43)
[2016-09-25] MEDS: FERROUS SULFATE 325 MG TABLET PO SCH (10:10)
[2016-09-25] MEDS: ATORVASTATIN CALCIUM 20 MG TABLET PO SCH (10:10)
[2016-09-25] MEDS: FLUTICASONE NASAL SPRAY 50 MCG/SPRY 120 SPRAY/16 GM NAREB SCH ×2 (10:11→21:44)
[2016-09-25] MEDS: SERTRALINE HCL 50 MG TABLET PO SCH (10:11)
[2016-09-25] MEDS: LISINOPRIL 10 MG TABLET PO SCH (10:11)
[2016-09-25] MEDS: INSULIN LISPRO 100 UNIT/ML 3 ML VIAL SUBCUT PRN (11:27)
[2016-09-25] MEDS: ONDANSETRON HCL INJ/PF 4 MG/2 ML SDV IV PRN (14:52)
[2016-09-25 15:10] LABS: APPEARANCE,URINE SLIGHTLY-CLOUDY; BILIRUBIN,URINE NEGATIVE (NEGATIVE); GLUCOSE, URINE 50 mg/dL (NEGATIVE); KETONES,URINE NEGATIVE (NEGATIVE); LEUKOCYTE ESTERASE,URINE TRACE (NEGATIVE); NITRITE,URINE NEGATIVE (NEGATIVE); PROTEIN,URINE >=500 mg/dL (NEGATIVE); URINE SPECIFIC GRAVITY 1.023; UROBILINOGEN,URINE NEGATIVE mg/dL (<2.0)
[2016-09-25] MEDS: LEVOFLOXACIN 250 MG TABLET PO SCH (15:33)
--- NOTE | 2016-09-25 18:40 | PDOC PROGRESS REPORT ---
Subjective Progress Note for:: 09/25/16 Subjective:: Patient reported worsening suprapubic abdominal pain and worsen sensation with coughing. She has suprapubic indwelling Magallanes catheter. There has been associated nausea and vomiting so far today. She denied any fever or chills. She denied chest pain or difficulty with breathing. Physical Exam Vital Signs: Temp Pulse Resp BP Pulse Ox 97.7 F 83 18 110/49 L 96 09/25/16 15:53 09/25/16 15:53 09/25/16 15:53 09/25/16 15:53 09/25/16 15:53 Intake & Output 09/24/16 09/25/16 09/26/16 06:59 06:59 06:59 Intake Total 2818 2650 320 Output Total 1600 4100 300 Balance 1218 -1450 20 General appearance: PRESENT: cooperative, mild distress - due to suprapubic discomfort Head exam: PRESENT: atraumatic, normocephalic Eye exam: PRESENT: conjunctiva pink, EOMI, PERRLA. ABSENT: scleral icterus Mouth exam: PRESENT: moist, tongue midline Respiratory exam: PRESENT: clear to auscultation adenike Cardiovascular exam: PRESENT: RRR. ABSENT: diastolic murmur, rubs, systolic murmur GI/Abdominal exam: PRESENT: tenderness - suprapubic region with satisfactory dressing of her magallanes cath site. 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 ABSENT: homicidal ideation, suicidal ideation Skin exam: PRESENT: dry, intact, warm. ABSENT: cyanosis, rash Results Laboratory Results: 09/25/16 05:35 09/25/16 05:35 09/25/16 09/25/16 09/25/16 05:35 05:35 14:25 WBC 5.8 RBC 3.67 L Hgb 10.5 L Hct 31.8 L MCV 87 MCH 28.7 MCHC 33.1 RDW 15.9 H Plt Count 227 Seg Neutrophils % 66.3 Lymphocytes % 22.3 Monocytes % 9.1 Eosinophils % 1.9 Basophils % 0.4 Absolute Neutrophils 3.8 Absolute Lymphocytes 1.3 Absolute Monocytes 0.5 Absolute Eosinophils 0.1 Absolute Basophils 0.0 Sodium 141.1 Potassium 4.6 Chloride 104 Carbon Dioxide 24 Anion Gap 13 BUN 20 Creatinine 0.69 Est GFR ( Amer) > 60 Est GFR (Non-Af Amer) > 60 Glucose 192 H Calcium 9.4 Urine Color YELLOW Urine Appearance SLIGHTLY-CLOUDY Urine pH 6.0 Ur Specific Dennard 1.023 Urine Protein >=500 H Urine Glucose (UA) 50 H Urine Ketones NEGATIVE Urine Blood SMALL H Urine Nitrite NEGATIVE Ur Leukocyte Esterase TRACE H Urine WBC (Auto) 10 Urine RBC (Auto) 76 Impressions: Chest X-Ray 09/22/16 00:00 IMPRESSION: NO SIGNIFICANT RADIOGRAPHIC FINDING IN THE CHEST. Assessment & Plan - Diagnosis (1) Symptomatic anemia Is this a current diagnosis for this admission?: YesPlan: See admitting physician orders. (2) Internal hemorrhoids Is this a current diagnosis for this admission?: YesPlan: See attending physician orders. (3) Diabetes mellitus type 2, uncontrolled, with complications Qualifiers: Diabetes mellitus assisted insulin use: without watermaster use Qualified Code(s): E11.8 - Type 2 diabetes mellitus with unspecified complications; E11.65 - Type 2 diabetes mellitus with hyperglycemia Is this a current diagnosis for this admission?: YesPlan: See admitting physician orders. (4) Pneumonia Qualifiers: Pneumonia type: due to unspecified organism Laterality: right Lung location: lower lobe of lung Qualified Code(s): J18.1 - Lobar pneumonia, unspecified organism Is this a current diagnosis for this admission?: YesPlan: See admitting physician orders. Follow up on blood culture. Maintain on IV Levofloxacin coverage. (5) HLD (hyperlipidemia) Qualifiers: Hyperlipidemia type: pure hypercholesterolemia Qualified Code(s): E78.00 - Pure hypercholesterolemia, unspecified; E78.0 - Pure hypercholesterolemia Is this a current diagnosis for this admission?: YesPlan: See attending physician orders. (6) HTN (hypertension) Qualifiers: Hypertension type: essential hypertension Qualified Code(s): I10 - Essential (primary) hypertension Is this a current diagnosis for this admission?: YesPlan: See attending physician orders. I will increase her Lisinopril dosage to 20 mg po daily due to elevated blood pressure. (7) History of pulmonary embolism Is this a current diagnosis for this admission?: YesPlan: See attending physician orders. (8) History of DVT (deep vein thrombosis) Is this a current diagnosis for this admission?: YesPlan: See attending physician orders. (9) Chronic prescription opiate use Is this a current diagnosis for this admission?: YesPlan: See attending physician orders. (10) GERD (gastroesophageal reflux disease) Qualifiers: Esophagitis presence: without esophagitis Qualified Code(s): K21.9 - Gastro-esophageal reflux disease without esophagitis Is this a current diagnosis for this admission?: YesPlan: See attending physician orders. (11) Seasonal allergic rhinitis Qualifiers: Allergic rhinitis trigger: unspecified Qualified Code(s): J30.2 - Other seasonal allergic rhinitis Is this a current diagnosis for this admission?: YesPlan: See attending physician order (12) Suprapubic abdominal pain Is this a current diagnosis for this admission?: NoPlan: With indwelling Magallanes catheter raised the concern for possible UTI. I will request for U/A and urine culture. She will continue on oral Levofloxacin coverage pending further insight into her symptom etiology. She will receive symptomatic treatment for her nausea and vomiting. - Time Time Spent with patient: 25-34 minutes Medications reviewed and adjusted accordingly: Yes Anticipated discharge: Home with Homehealth Within: Other - Inpatient Certification Medical Necessity: Need Close Monitoring Due to Risk of Patient Decompensation, Need For IV Fluids, Need For Continuous Telemetry Monitoring, Risk of Complication if Not Cared For in Hospital Post Hospital Care: D/C Automatic Lump Making Machine Tender Documentation - Plan Summary Plan Summary: See attending physician orders.
[2016-09-25] MEDS: MONTELUKAST SODIUM 10 MG TABLET PO SCH (21:44)
[2016-09-26] MEDS: METFORMIN HCL 500 MG TABLET PO SCH ×4 (08:37→21:50)
[2016-09-26] MEDS: LANSOPRAZOLE 30 MG TAB.RAP.DR PO SCH (08:37)
[2016-09-26] MEDS: SERTRALINE HCL 50 MG TABLET PO SCH (09:00)
[2016-09-26] MEDS: LISINOPRIL 10 MG TABLET PO SCH (09:00)
[2016-09-26] MEDS: ATORVASTATIN CALCIUM 20 MG TABLET PO SCH (09:00)
[2016-09-26] MEDS: FERROUS SULFATE 325 MG TABLET PO SCH (09:00)
[2016-09-26] MEDS: GABAPENTIN 300 MG CAPSULE PO SCH ×2 (09:01→21:50)
[2016-09-26] MEDS: HYDROCHLOROTHIAZIDE 25 MG TABLET PO SCH (09:01)
[2016-09-26] MEDS: DONEPEZIL HCL 5 MG TABLET PO SCH (09:01)
[2016-09-26] MEDS: FLUTICASONE NASAL SPRAY 50 MCG/SPRY 120 SPRAY/16 GM NAREB SCH ×2 (09:02→22:04)
[2016-09-26] MEDS: OXYCODONE-ACETAMINOPHEN 5-325 MG TABLET PO SCH ×4 (09:02→21:50)
[2016-09-26] MEDS: INSULIN LISPRO 100 UNIT/ML 3 ML VIAL SUBCUT PRN (12:21)
[2016-09-26] MEDS: ONDANSETRON HCL INJ/PF 4 MG/2 ML SDV IV PRN (13:14)
[2016-09-26] MEDS: METRONIDAZOLE 500 MG TABLET PO SCH ×2 (14:10→17:30)
[2016-09-26] MEDS: LEVOFLOXACIN 250 MG TABLET PO SCH (16:11)
--- NOTE | 2016-09-26 17:54 | PDOC PROGRESS REPORT ---
Subjective Progress Note for:: 09/26/16 Subjective:: Patient reported improvement in her supra pubic abdominal pain and diarrhea. No significant nausea or vomiting so far today. She denied any fever or chills. No chest pain or difficulty with breathing. She has supra pubic indwelling Magallanes catheter. Physical Exam Vital Signs: Temp Pulse Resp BP Pulse Ox 98.1 F 73 16 146/62 H 97 09/26/16 07:55 09/26/16 07:55 09/26/16 07:55 09/26/16 07:55 09/26/16 07:55 Intake & Output 09/25/16 09/26/16 09/27/16 06:59 06:59 06:59 Intake Total 2650 1050 Output Total 4100 600 Balance -1450 450 General appearance: PRESENT: no acute distress, cooperative Head exam: PRESENT: atraumatic, normocephalic Mouth exam: PRESENT: moist, tongue midline Respiratory exam: PRESENT: clear to auscultation adenike Cardiovascular exam: PRESENT: RRR. ABSENT: diastolic murmur, rubs, systolic murmur GI/Abdominal exam: PRESENT: normal bowel sounds, soft, other - supra pubic magallanes cath in situ and dressing is okay. No significant tenderness. ABSENT: distended, guarding, mass, organolmegaly, rebound, tenderness Neurological exam: PRESENT: alert, awake, oriented to person, oriented to place , oriented to time, oriented to situation, CN II-XII grossly intact. ABSENT: motor sensory deficit Psychiatric exam: PRESENT: appropriate affect, normal mood. ABSENT: homicidal ideation, suicidal ideation Skin exam: PRESENT: dry, intact - except supra pubic magallanes cath site, warm. ABSENT: cyanosis, rash Results Laboratory Results: 09/25/16 05:35 09/25/16 05:35 09/25/16 14:25 Urine Color YELLOW Urine Appearance SLIGHTLY-CLOUDY Urine pH 6.0 Ur Specific Carlyle 1.023 Urine Protein >=500 H Urine Glucose (UA) 50 H Urine Ketones NEGATIVE Urine Blood SMALL H Urine Nitrite NEGATIVE Ur Leukocyte Esterase TRACE H Urine WBC (Auto) 10 Urine RBC (Auto) 76 Impressions: Chest X-Ray 09/22/16 00:00 IMPRESSION: NO SIGNIFICANT RADIOGRAPHIC FINDING IN THE CHEST. Assessment & Plan - Diagnosis (1) Symptomatic anemia Is this a current diagnosis for this admission?: YesPlan: Improved post PRBC transfusion. See admitting physician orders. (2) Internal hemorrhoids Is this a current diagnosis for this admission?: Yes (3) Diabetes mellitus type 2, uncontrolled, with complications Qualifiers: Diabetes mellitus half-way insulin use: without laborer marine terminal use Qualified Code(s): E11.8 - Type 2 diabetes mellitus with unspecified complications; E11.65 - Type 2 diabetes mellitus with hyperglycemia Is this a current diagnosis for this admission?: Yes (4) Pneumonia Qualifiers: Pneumonia type: due to unspecified organism Laterality: right Lung location: lower lobe of lung Qualified Code(s): J18.1 - Lobar pneumonia, unspecified organism Is this a current diagnosis for this admission?: YesPlan: See admitting physician orders. Follow up on blood culture no growth x 4 days. Maintain on IV Levofloxacin coverage. (5) HLD (hyperlipidemia) Qualifiers: Hyperlipidemia type: pure hypercholesterolemia Qualified Code(s): E78.00 - Pure hypercholesterolemia, unspecified; E78.0 - Pure hypercholesterolemia Is this a current diagnosis for this admission?: YesPlan: See attending physician orders. (6) HTN (hypertension) Qualifiers: Hypertension type: essential hypertension Qualified Code(s): I10 - Essential (primary) hypertension Is this a current diagnosis for this admission?: YesPlan: See attending physician orders. There is some improvement in her blood pressure management. (7) History of pulmonary embolism Is this a current diagnosis for this admission?: Yes (8) History of DVT (deep vein thrombosis) Is this a current diagnosis for this admission?: Yes (9) Chronic prescription opiate use Is this a current diagnosis for this admission?: Yes (10) GERD (gastroesophageal reflux disease) Qualifiers: Esophagitis presence: without esophagitis Qualified Code(s): K21.9 - Gastro-esophageal reflux disease without esophagitis Is this a current diagnosis for this admission?: Yes (11) Seasonal allergic rhinitis Qualifiers: Allergic rhinitis trigger: unspecified Qualified Code(s): J30.2 - Other seasonal allergic rhinitis Is this a current diagnosis for this admission?: Yes (12) Suprapubic abdominal pain Is this a current diagnosis for this admission?: NoPlan: Follow up on urine culture. Maintain on IV Levofloxacin coverage. (13) Diarrhea Qualifiers: Diarrhea type: unspecified type Qualified Code(s): R19.7 - Diarrhea , unspecified Plan: Follow up on requested stool C.difficile toxin titer and wbc smear as well as culture. - Time Time Spent with patient: 25-34 minutes Medications reviewed and adjusted accordingly: Yes Anticipated discharge: Home with Homehealth Within: Other - Inpatient Certification Based on my medical assessment, after consideration of the patient's comorbidities, presenting symptoms, or acuity I expect that the services needed warrant INPATIENT care.: Yes I certify that my determination is in accordance with my understanding of Medicare's requirements for reasonable and necessary INPATIENT services [42 CFR 412.3e].: Yes Medical Necessity: Need Close Monitoring Due to Risk of Patient Decompensation, Need For IV Fluids, Need For Continuous Telemetry Monitoring, Need for Nebulizer Therapy and Monitoring of Response, Need for IV Antibiotics, Risk of Complication if Not Cared For in Hospital Post Hospital Care: D/C Steamfitter Apprentice Documentation - Plan Summary Plan Summary: Continue current medication management and follow up on culture findings as well as stool evaluation for source of her diarrhea.
[2016-09-26] MEDS: MONTELUKAST SODIUM 10 MG TABLET PO SCH (21:50)
[2016-09-27] MEDS: LANSOPRAZOLE 30 MG TAB.RAP.DR PO SCH (07:56)
[2016-09-27] MEDS: METFORMIN HCL 500 MG TABLET PO SCH ×4 (07:56→21:59)
[2016-09-27] MEDS: FLUTICASONE NASAL SPRAY 50 MCG/SPRY 120 SPRAY/16 GM NAREB SCH ×2 (09:42→21:59)
[2016-09-27] MEDS: FERROUS SULFATE 325 MG TABLET PO SCH (09:42)
[2016-09-27] MEDS: SERTRALINE HCL 50 MG TABLET PO SCH (09:43)
[2016-09-27] MEDS: DONEPEZIL HCL 5 MG TABLET PO SCH (09:43)
[2016-09-27] MEDS: GABAPENTIN 300 MG CAPSULE PO SCH ×2 (09:43→21:59)
[2016-09-27] MEDS: LISINOPRIL 10 MG TABLET PO SCH (09:43)
[2016-09-27] MEDS: ATORVASTATIN CALCIUM 20 MG TABLET PO SCH (09:43)
[2016-09-27] MEDS: OXYCODONE-ACETAMINOPHEN 5-325 MG TABLET PO SCH ×4 (09:43→21:59)
[2016-09-27] MEDS: HYDROCHLOROTHIAZIDE 25 MG TABLET PO SCH (09:43)
[2016-09-27] MEDS: METRONIDAZOLE 500 MG TABLET PO SCH ×3 (09:43→17:56)
[2016-09-27] MEDS: INSULIN LISPRO 100 UNIT/ML 3 ML VIAL SUBCUT PRN (12:18)
[2016-09-27] MEDS: LEVOFLOXACIN 250 MG TABLET PO SCH (16:23)
--- NOTE | 2016-09-27 17:33 | PDOC PROGRESS REPORT ---
Subjective Progress Note for:: 09/27/16 Subjective:: She was seen by the bedside, she complained of abdominal discomfort she was admitted for pneumonia complicated with C. difficile colitis Physical Exam Vital Signs: Temp Pulse Resp BP Pulse Ox 98.2 F 76 18 131/51 H 95 09/27/16 16:00 09/27/16 16:00 09/27/16 16:00 09/27/16 16:00 09/27/16 16:00 Intake & Output 09/26/16 09/27/16 09/28/16 06:59 06:59 06:59 Intake Total 1050 907 360 Output Total 600 1450 300 Balance 450 -543 60 General appearance: PRESENT: no acute distress Eye exam: PRESENT: PERRLA Respiratory exam: PRESENT: clear to auscultation adenike Cardiovascular exam: PRESENT: +S1, +S2 Neurological exam: PRESENT: alert Results Laboratory Results: 09/25/16 05:35 09/25/16 05:35 09/22/16 15:40 Blood Blood Culture - Final NO GROWTH IN 5 DAYS 09/22/16 15:25 Blood Blood Culture - Final NO GROWTH IN 5 DAYS Impressions: Chest X-Ray 09/22/16 00:00 IMPRESSION: NO SIGNIFICANT RADIOGRAPHIC FINDING IN THE CHEST. Assessment & Plan - Diagnosis (1) Clostridium difficile colitis Is this a current diagnosis for this admission?: YesPlan: Continue Flagyl (2) Symptomatic anemia Is this a current diagnosis for this admission?: Yes (3) Pneumonia Qualifiers: Pneumonia type: due to unspecified organism Laterality: right Lung location: lower lobe of lung Qualified Code(s): J18.1 - Lobar pneumonia, unspecified organism Is this a current diagnosis for this admission?: Yes
[2016-09-27] MEDS: ONDANSETRON HCL INJ/PF 4 MG/2 ML SDV IV PRN (17:56)
[2016-09-27] MEDS: MONTELUKAST SODIUM 10 MG TABLET PO SCH (21:59)
[2016-09-28] MEDS: METFORMIN HCL 500 MG TABLET PO SCH ×4 (09:55→21:50)
[2016-09-28] MEDS: ATORVASTATIN CALCIUM 20 MG TABLET PO SCH (09:56)
[2016-09-28] MEDS: LANSOPRAZOLE 30 MG TAB.RAP.DR PO SCH (09:56)
[2016-09-28] MEDS: LISINOPRIL 10 MG TABLET PO SCH (09:56)
[2016-09-28] MEDS: DONEPEZIL HCL 5 MG TABLET PO SCH (09:58)
[2016-09-28] MEDS: GABAPENTIN 300 MG CAPSULE PO SCH ×2 (09:58→21:50)
[2016-09-28] MEDS: HYDROCHLOROTHIAZIDE 25 MG TABLET PO SCH (09:58)
[2016-09-28] MEDS: FERROUS SULFATE 325 MG TABLET PO SCH (09:58)
[2016-09-28] MEDS: METRONIDAZOLE 500 MG TABLET PO SCH ×3 (09:59→17:27)
[2016-09-28] MEDS: OXYCODONE-ACETAMINOPHEN 5-325 MG TABLET PO SCH ×4 (09:59→21:50)
[2016-09-28] MEDS: SERTRALINE HCL 50 MG TABLET PO SCH (10:00)
[2016-09-28] MEDS: FLUTICASONE NASAL SPRAY 50 MCG/SPRY 120 SPRAY/16 GM NAREB SCH ×2 (10:00→21:50)
[2016-09-28] MEDS: INSULIN LISPRO 100 UNIT/ML 3 ML VIAL SUBCUT PRN ×2 (11:47→17:27)
[2016-09-28] MEDS: LEVOFLOXACIN 250 MG TABLET PO SCH (15:10)
--- NOTE | 2016-09-28 18:15 | PDOC PROGRESS REPORT ---
Subjective Progress Note for:: 09/28/16 Subjective:: There is no new complaints Physical Exam Vital Signs: Temp Pulse Resp BP Pulse Ox 97.4 F 75 18 130/57 H 98 09/28/16 16:00 09/28/16 16:00 09/28/16 16:00 09/28/16 16:00 09/28/16 16:00 Intake & Output 09/27/16 09/28/16 09/29/16 06:59 06:59 06:59 Intake Total 439 107 2084 Output Total 1450 1300 Balance -543 -703 1080 General appearance: PRESENT: no acute distress Eye exam: PRESENT: PERRLA Respiratory exam: PRESENT: clear to auscultation adenike Cardiovascular exam: PRESENT: +S1, +S2 GI/Abdominal exam: PRESENT: soft Results Laboratory Results: 09/25/16 05:35 09/25/16 05:35 09/25/16 14:25 Cystostomy Tube Urine Culture - Final Staphylococcus Epidermidis 09/26/16 12:07 Stool - Stool - Final 09/26/16 12:07 Stool - Stool Stool Culture - Final NO SALMONELLA, SHIGELLA, CAMPYLOBACTER, OR E.COLI 0157 RECOVERED. NEGATIVE FOR SHIGA TOXINS 1&2. 09/22/16 15:40 Blood Blood Culture - Final NO GROWTH IN 5 DAYS 09/22/16 15:25 Blood Blood Culture - Final NO GROWTH IN 5 DAYS Impressions: Chest X-Ray 09/22/16 00:00 IMPRESSION: NO SIGNIFICANT RADIOGRAPHIC FINDING IN THE CHEST. Assessment & Plan - Diagnosis (1) Clostridium difficile colitis Is this a current diagnosis for this admission?: Yes (2) Symptomatic anemia Is this a current diagnosis for this admission?: Yes (3) Pneumonia Qualifiers: Pneumonia type: due to unspecified organism Laterality: right Lung location: lower lobe of lung Qualified Code(s): J18.1 - Lobar pneumonia, unspecified organism Is this a current diagnosis for this admission?: Yes
[2016-09-28] MEDS: MONTELUKAST SODIUM 10 MG TABLET PO SCH (21:50)
[2016-09-29] MEDS: ONDANSETRON HCL INJ/PF 4 MG/2 ML SDV IV PRN ×2 (00:23→17:24)
[2016-09-29] MEDS: METFORMIN HCL 500 MG TABLET PO SCH ×4 (08:53→21:45)
[2016-09-29] MEDS: LANSOPRAZOLE 30 MG TAB.RAP.DR PO SCH (08:53)
[2016-09-29] MEDS: LISINOPRIL 10 MG TABLET PO SCH (09:05)
[2016-09-29] MEDS: HYDROCHLOROTHIAZIDE 25 MG TABLET PO SCH (09:05)
[2016-09-29] MEDS: METRONIDAZOLE 500 MG TABLET PO SCH ×3 (09:05→17:24)
[2016-09-29] MEDS: SERTRALINE HCL 50 MG TABLET PO SCH (09:05)
[2016-09-29] MEDS: OXYCODONE-ACETAMINOPHEN 5-325 MG TABLET PO SCH ×4 (09:06→21:46)
[2016-09-29] MEDS: ATORVASTATIN CALCIUM 20 MG TABLET PO SCH (09:06)
[2016-09-29] MEDS: FERROUS SULFATE 325 MG TABLET PO SCH (09:07)
[2016-09-29] MEDS: DONEPEZIL HCL 5 MG TABLET PO SCH (09:08)
[2016-09-29] MEDS: GABAPENTIN 300 MG CAPSULE PO SCH ×2 (09:08→21:45)
[2016-09-29] MEDS: FLUTICASONE NASAL SPRAY 50 MCG/SPRY 120 SPRAY/16 GM NAREB SCH ×2 (09:08→21:45)
[2016-09-29] MEDS: INSULIN LISPRO 100 UNIT/ML 3 ML VIAL SUBCUT PRN (12:01)
--- NOTE | 2016-09-29 18:55 | PDOC PROGRESS REPORT ---
Subjective Progress Note for:: 09/29/16 Subjective:: Patient had episodes of recurrent nausea and reported vomiting yesterday and today. Appetite and P.O intake remain fair. No significant abdominal pain. She denied any fever or chills. No chest pain or difficulty with breathing. She has supra pubic indwelling Magallanes catheter. Physical Exam Vital Signs: Temp Pulse Resp BP Pulse Ox 98.0 F 70 16 148/60 H 98 09/29/16 16:00 09/29/16 16:00 09/29/16 16:00 09/29/16 16:00 09/29/16 16:00 Intake & Output 09/28/16 09/29/16 09/30/16 06:59 06:59 06:59 Intake Total 597 1100 357 Output Total 1300 1400 600 Balance -703 -300 -243 Physical Exam: General appearance: PRESENT: no acute distress, cooperative Head exam: PRESENT: atraumatic, normocephalic Mouth exam: PRESENT: moist, tongue midline Respiratory exam: PRESENT: clear to auscultation adenike Cardiovascular exam: PRESENT: RRR. ABSENT: diastolic murmur, rubs, systolic murmur GI/Abdominal exam: PRESENT: normal bowel sounds, soft, other - supra pubic magallanes cath in situ and dressing is okay. No significant tenderness. ABSENT: distended, guarding, mass, organolmegaly, rebound, tenderness Neurological exam: PRESENT: alert, awake, oriented to person, oriented to place , oriented to time, oriented to situation, CN II-XII grossly intact. ABSENT: motor sensory deficit Psychiatric exam: PRESENT: appropriate affect, normal mood. ABSENT: homicidal ideation, suicidal ideation Skin exam: PRESENT: dry, intact - except supra pubic magallanes cath site, warm. ABSENT: cyanosis, rash Results Laboratory Results: 09/25/16 05:35 09/25/16 05:35 09/25/16 14:25 Cystostomy Tube Urine Culture - Final Staphylococcus Epidermidis Impressions: Chest X-Ray 09/22/16 00:00 IMPRESSION: NO SIGNIFICANT RADIOGRAPHIC FINDING IN THE CHEST. Assessment & Plan - Diagnosis (1) Symptomatic anemia Is this a current diagnosis for this admission?: YesPlan: See admitting physician orders. (2) Internal hemorrhoids Is this a current diagnosis for this admission?: YesPlan: See attending physician orders. (3) Diabetes mellitus type 2, uncontrolled, with complications Qualifiers: Diabetes mellitus assistant terminal manager insulin use: without mcc use Qualified Code(s): E11.8 - Type 2 diabetes mellitus with unspecified complications; E11.65 - Type 2 diabetes mellitus with hyperglycemia Is this a current diagnosis for this admission?: YesPlan: See admitting physician orders. (4) Pneumonia Qualifiers: Pneumonia type: due to unspecified organism Laterality: right Lung location: lower lobe of lung Qualified Code(s): J18.1 - Lobar pneumonia, unspecified organism Is this a current diagnosis for this admission?: YesPlan: See admitting physician orders. Blood culture no growth x 5 days. (5) HLD (hyperlipidemia) Qualifiers: Hyperlipidemia type: pure hypercholesterolemia Qualified Code(s): E78.00 - Pure hypercholesterolemia, unspecified; E78.0 - Pure hypercholesterolemia Is this a current diagnosis for this admission?: YesPlan: See attending physician orders. (6) HTN (hypertension) Qualifiers: Hypertension type: essential hypertension Qualified Code(s): I10 - Essential (primary) hypertension Is this a current diagnosis for this admission?: YesPlan: See attending physician orders. (7) History of pulmonary embolism Is this a current diagnosis for this admission?: YesPlan: See attending physician orders. (8) History of DVT (deep vein thrombosis) Is this a current diagnosis for this admission?: YesPlan: See attending physician orders. (9) Chronic prescription opiate use Is this a current diagnosis for this admission?: YesPlan: See attending physician orders. (10) GERD (gastroesophageal reflux disease) Qualifiers: Esophagitis presence: without esophagitis Qualified Code(s): K21.9 - Gastro-esophageal reflux disease without esophagitis Is this a current diagnosis for this admission?: YesPlan: See attending physician orders. (11) Seasonal allergic rhinitis Qualifiers: Allergic rhinitis trigger: unspecified Qualified Code(s): J30.2 - Other seasonal allergic rhinitis Is this a current diagnosis for this admission?: Yes (12) Suprapubic abdominal pain Is this a current diagnosis for this admission?: NoPlan: Improved since started on Flagyl therapy. (13) Diarrhea Qualifiers: Diarrhea type: unspecified type Qualified Code(s): R19.7 - Diarrhea , unspecified Plan: Continue oral Flagyl therapy for C.difficile colitis. - Time Time Spent with patient: 25-34 minutes Medications reviewed and adjusted accordingly: Yes Anticipated discharge: Home with Homehealth Within: within 72 hours - Inpatient Certification Medical Necessity: Need Close Monitoring Due to Risk of Patient Decompensation, Need For IV Fluids, Need For Continuous Telemetry Monitoring, Risk of Complication if Not Cared For in Hospital Post Hospital Care: D/C Outside Plant Technician Documentation - Plan Summary Plan Summary: See attending physician orders.
[2016-09-29] MEDS ORDERED: TRIMETHOBENZAMIDE HCL 300 MG CAPSULE PO PRN (20:20)
[2016-09-29] MEDS: MONTELUKAST SODIUM 10 MG TABLET PO SCH (21:46)
[2016-09-30] MEDS: LANSOPRAZOLE 30 MG TAB.RAP.DR PO SCH (09:03)
[2016-09-30] MEDS: METFORMIN HCL 500 MG TABLET PO SCH ×4 (09:04→21:30)
[2016-09-30] MEDS: HYDROCHLOROTHIAZIDE 25 MG TABLET PO SCH (09:05)
[2016-09-30] MEDS: LISINOPRIL 10 MG TABLET PO SCH (09:05)
[2016-09-30] MEDS: GABAPENTIN 300 MG CAPSULE PO SCH ×2 (09:06→21:30)
[2016-09-30] MEDS: METRONIDAZOLE 500 MG TABLET PO SCH ×3 (09:07→17:42)
[2016-09-30] MEDS: SERTRALINE HCL 50 MG TABLET PO SCH (09:07)
[2016-09-30] MEDS: DONEPEZIL HCL 5 MG TABLET PO SCH (09:08)
[2016-09-30] MEDS: OXYCODONE-ACETAMINOPHEN 5-325 MG TABLET PO SCH ×3 (09:08→17:42)
[2016-09-30] MEDS: FERROUS SULFATE 325 MG TABLET PO SCH (09:08)
[2016-09-30] MEDS: ATORVASTATIN CALCIUM 20 MG TABLET PO SCH (09:08)
[2016-09-30] MEDS: FLUTICASONE NASAL SPRAY 50 MCG/SPRY 120 SPRAY/16 GM NAREB SCH ×2 (09:15→21:30)
[2016-09-30] MEDS: GLYCERIN/WITCH HAZEL LEAF 1 EACH MED..PAD TP PRN ×3 (13:30→21:31)
--- NOTE | 2016-09-30 17:39 | PDOC PROGRESS REPORT ---
Subjective Progress Note for:: 09/30/16 Subjective:: Patient reported some improvement in her nausea so far today. Appetite and P.O intake remain fair. No significant abdominal pain. She denied any fever or chills. No chest pain or difficulty with breathing. She has supra pubic indwelling Magallanes catheter. She reported worsening hemorrhoid pain today. Physical Exam Vital Signs: Temp Pulse Resp BP Pulse Ox 98.1 F 72 15 126/47 H 96 09/30/16 15:28 09/30/16 15:28 09/30/16 15:28 09/30/16 15:28 09/30/16 15:28 Intake & Output 09/29/16 09/30/16 10/01/16 06:59 06:59 06:59 Intake Total 1100 717 720 Output Total 9623 208 1405 Balance -300 117 -580 Physical Exam: General appearance: PRESENT: no acute distress, cooperative Head exam: PRESENT: atraumatic, normocephalic Mouth exam: PRESENT: moist, tongue midline Respiratory exam: PRESENT: clear to auscultation adenike Cardiovascular exam: PRESENT: RRR. ABSENT: diastolic murmur, rubs, systolic murmur GI/Abdominal exam: PRESENT: normal bowel sounds, soft, other - supra pubic magallanes cath in situ and dressing is okay. No significant tenderness. ABSENT: distended, guarding, mass, organomegaly, rebound, tenderness Neurological exam: PRESENT: alert, awake, oriented to person, oriented to place , oriented to time, oriented to situation, CN II-XII grossly intact. ABSENT: motor sensory deficit Psychiatric exam: PRESENT: appropriate affect, normal mood. ABSENT: homicidal ideation, suicidal ideation Skin exam: PRESENT: dry, intact - except supra pubic magallanes cath site, warm. ABSENT: cyanosis, rash Results Laboratory Results: 09/25/16 05:35 09/25/16 05:35 Impressions: Chest X-Ray 09/22/16 00:00 IMPRESSION: NO SIGNIFICANT RADIOGRAPHIC FINDING IN THE CHEST. Assessment & Plan - Diagnosis (1) Symptomatic anemia Is this a current diagnosis for this admission?: Yes (2) Internal hemorrhoids Is this a current diagnosis for this admission?: Yes (3) Diabetes mellitus type 2, uncontrolled, with complications Qualifiers: Diabetes mellitus inside sales representative insulin use: without fci use Qualified Code(s): E11.8 - Type 2 diabetes mellitus with unspecified complications; E11.65 - Type 2 diabetes mellitus with hyperglycemia Is this a current diagnosis for this admission?: Yes (4) Pneumonia Qualifiers: Pneumonia type: due to unspecified organism Laterality: right Lung location: lower lobe of lung Qualified Code(s): J18.1 - Lobar pneumonia, unspecified organism Is this a current diagnosis for this admission?: Yes (5) HLD (hyperlipidemia) Qualifiers: Hyperlipidemia type: pure hypercholesterolemia Qualified Code(s): E78.00 - Pure hypercholesterolemia, unspecified; E78.0 - Pure hypercholesterolemia Is this a current diagnosis for this admission?: Yes (6) HTN (hypertension) Qualifiers: Hypertension type: essential hypertension Qualified Code(s): I10 - Essential (primary) hypertension Is this a current diagnosis for this admission?: Yes (7) History of pulmonary embolism Is this a current diagnosis for this admission?: Yes (8) History of DVT (deep vein thrombosis) Is this a current diagnosis for this admission?: Yes (9) Chronic prescription opiate use Is this a current diagnosis for this admission?: Yes (10) GERD (gastroesophageal reflux disease) Qualifiers: Esophagitis presence: without esophagitis Qualified Code(s): K21.9 - Gastro-esophageal reflux disease without esophagitis Is this a current diagnosis for this admission?: Yes (11) Seasonal allergic rhinitis Qualifiers: Allergic rhinitis trigger: unspecified Qualified Code(s): J30.2 - Other seasonal allergic rhinitis Is this a current diagnosis for this admission?: Yes (12) Suprapubic abdominal pain Is this a current diagnosis for this admission?: No (13) Diarrhea Qualifiers: Diarrhea type: unspecified type Qualified Code(s): R19.7 - Diarrhea , unspecified - Time Time Spent with patient: 25-34 minutes - Inpatient Certification Medical Necessity: Need Close Monitoring Due to Risk of Patient Decompensation, Need For IV Fluids, Need For Continuous Telemetry Monitoring, Risk of Complication if Not Cared For in Hospital Post Hospital Care: D/C Gas Dispenser Documentation - Plan Summary Plan Summary: Continue current management. Start on use of Tucks and sitz bath for hemorrhoid management. She participated in physical therapy. Consider discharge home with [facility] very soon.
[2016-09-30 20:34] LABS: ABSOLUTE EOSINOPHILS # (AUTO) 0.1 10^3/uL (0.0-0.6); ABSOLUTE LYMPHOCYTES (AUTO) 1.2 10^3/uL (0.5-4.7); ABSOLUTE MONOCYTES (AUTO) 0.5 10^3/uL (0.1-1.4); ABSOLUTE NEUT (AUTO) 3.7 10^3/uL (1.7-8.2); BASOPHILS % (AUTO) 0.4 % (0-2); EOSINOPHILS % (AUTO) 2.7 % (0-6); HEMATOCRIT 31.8 % (36.0-47.0); HEMOGLOBIN 10.4 g/dL (12.0-15.5); HGB HCT DIFFERENCE -0.6; LYMPHOCYTES % (AUTO) 21.6 % (13-45); MEAN CORPUSCULAR HEMOGLOBIN 28.3 pg (27.0-33.4); MEAN CORPUSCULAR HGB CONC 32.6 g/dL (32.0-36.0); MEAN CORPUSCULAR VOLUME 87 fl (80-97); MONOCYTES % (AUTO) 9.6 % (3-13); RED BLOOD COUNT 3.66 10^6/uL (3.72-5.28); RED CELL DISTRIBUTION WIDTH 16.6 % (11.5-14.0); SEGMENTED NEUTROPHILS % (AUTO) 65.7 % (42-78); WHITE BLOOD COUNT 5.6 10^3/uL (4.0-10.5)
[2016-09-30] MEDS: MONTELUKAST SODIUM 10 MG TABLET PO SCH (21:30)
[2016-10-01] MEDS: LANSOPRAZOLE 30 MG TAB.RAP.DR PO SCH (08:17)
[2016-10-01] MEDS: METFORMIN HCL 500 MG TABLET PO SCH ×4 (08:17→21:39)
[2016-10-01] MEDS: ACETAMINOPHEN 325 MG TABLET PO PRN (08:17)
[2016-10-01] MEDS ORDERED: OXYCODONE-ACETAMINOPHEN 5-325 MG TABLET PO PRN (08:28)
[2016-10-01] MEDS: FLUTICASONE NASAL SPRAY 50 MCG/SPRY 120 SPRAY/16 GM NAREB SCH ×2 (09:26→21:39)
[2016-10-01] MEDS: LISINOPRIL 10 MG TABLET PO SCH (09:28)
[2016-10-01] MEDS: DONEPEZIL HCL 5 MG TABLET PO SCH (09:28)
[2016-10-01] MEDS: ATORVASTATIN CALCIUM 20 MG TABLET PO SCH (09:29)
[2016-10-01] MEDS: GABAPENTIN 300 MG CAPSULE PO SCH ×2 (09:29→21:39)
[2016-10-01] MEDS: SERTRALINE HCL 50 MG TABLET PO SCH (09:29)
[2016-10-01] MEDS: METRONIDAZOLE 500 MG TABLET PO SCH ×3 (09:29→18:54)
[2016-10-01] MEDS: HYDROCHLOROTHIAZIDE 25 MG TABLET PO SCH (09:29)
[2016-10-01] MEDS: FERROUS SULFATE 325 MG TABLET PO SCH (09:29)
[2016-10-01] MEDS ORDERED: OXYCODONE-ACETAMINOPHEN 5-325 MG TABLET PO SCH (14:00)
--- NOTE | 2016-10-01 18:06 | PDOC PROGRESS REPORT ---
Subjective Progress Note for:: 10/01/16 Subjective:: Patient reported persistent episodes of diarrhea x 2 since last clinical evaluation. No nausea or vomiting. Appetite and P.O intake remain fair. No significant abdominal pain. She denied any fever or chills. No chest pain or difficulty with breathing. She has supra pubic indwelling Adan catheter. Physical Exam Vital Signs: Temp Pulse Resp BP Pulse Ox 98.1 F 78 16 127/65 H 98 10/01/16 16:54 10/01/16 16:54 10/01/16 16:54 10/01/16 16:54 10/01/16 16:54 Intake & Output 09/30/16 10/01/16 10/02/16 06:59 06:59 06:59 Intake Total 717 1197 357 Output Total 600 2900 500 Balance 117 -1703 -143 Physical Exam: General appearance: PRESENT: no acute distress, cooperative Head exam: PRESENT: atraumatic, normocephalic Mouth exam: PRESENT: moist, tongue midline Respiratory exam: PRESENT: clear to auscultation adenike Cardiovascular exam: PRESENT: RRR. ABSENT: diastolic murmur, rubs, systolic murmur GI/Abdominal exam: PRESENT: normal bowel sounds, soft, other - supra pubic Adan cath in situ and dressing is okay. No significant tenderness. ABSENT: distended, guarding, mass, organomegaly, rebound, tenderness Neurological exam: PRESENT: alert, awake, oriented to person, oriented to place , oriented to time, oriented to situation, CN II-XII grossly intact. ABSENT: motor sensory deficit Psychiatric exam: PRESENT: appropriate affect, normal mood. ABSENT: homicidal ideation, suicidal ideation Skin exam: PRESENT: dry, intact - except supra pubic Adan cath site, warm. ABSENT: cyanosis, rash Results Laboratory Results: 09/30/16 20:24 09/25/16 05:35 09/30/16 20:24 WBC 5.6 RBC 3.66 L Hgb 10.4 L Hct 31.8 L MCV 87 MCH 28.3 MCHC 32.6 RDW 16.6 H Plt Count 234 Seg Neutrophils % 65.7 Lymphocytes % 21.6 Monocytes % 9.6 Eosinophils % 2.7 Basophils % 0.4 Absolute Neutrophils 3.7 Absolute Lymphocytes 1.2 Absolute Monocytes 0.5 Absolute Eosinophils 0.1 Absolute Basophils 0.0 Impressions: Chest X-Ray 09/22/16 00:00 IMPRESSION: NO SIGNIFICANT RADIOGRAPHIC FINDING IN THE CHEST. Assessment & Plan - Diagnosis (1) Symptomatic anemia Is this a current diagnosis for this admission?: Yes (2) Internal hemorrhoids Is this a current diagnosis for this admission?: Yes (3) Diabetes mellitus type 2, uncontrolled, with complications Qualifiers: Diabetes mellitus long term care phlebotomist insulin use: without long term care phlebotomist use Qualified Code(s): E11.8 - Type 2 diabetes mellitus with unspecified complications; E11.65 - Type 2 diabetes mellitus with hyperglycemia Is this a current diagnosis for this admission?: Yes (4) Pneumonia Qualifiers: Pneumonia type: due to unspecified organism Laterality: right Lung location: lower lobe of lung Qualified Code(s): J18.1 - Lobar pneumonia, unspecified organism Is this a current diagnosis for this admission?: Yes (5) HLD (hyperlipidemia) Qualifiers: Hyperlipidemia type: pure hypercholesterolemia Qualified Code(s): E78.00 - Pure hypercholesterolemia, unspecified; E78.0 - Pure hypercholesterolemia Is this a current diagnosis for this admission?: Yes (6) HTN (hypertension) Qualifiers: Hypertension type: essential hypertension Qualified Code(s): I10 - Essential (primary) hypertension Is this a current diagnosis for this admission?: Yes (7) History of pulmonary embolism Is this a current diagnosis for this admission?: Yes (8) History of DVT (deep vein thrombosis) Is this a current diagnosis for this admission?: Yes (9) Chronic prescription opiate use Is this a current diagnosis for this admission?: Yes (10) GERD (gastroesophageal reflux disease) Qualifiers: Esophagitis presence: without esophagitis Qualified Code(s): K21.9 - Gastro-esophageal reflux disease without esophagitis Is this a current diagnosis for this admission?: Yes (11) Seasonal allergic rhinitis Qualifiers: Allergic rhinitis trigger: unspecified Qualified Code(s): J30.2 - Other seasonal allergic rhinitis Is this a current diagnosis for this admission?: Yes (12) Suprapubic abdominal pain Is this a current diagnosis for this admission?: No (13) Diarrhea Qualifiers: Diarrhea type: unspecified type Qualified Code(s): R19.7 - Diarrhea , unspecified - Time Time Spent with patient: 25-34 minutes Medications reviewed and adjusted accordingly: Yes Anticipated discharge: Home with Homehealth Within: Other - Inpatient Certification Medical Necessity: Need Close Monitoring Due to Risk of Patient Decompensation, Need For Continuous Telemetry Monitoring, Risk of Complication if Not Cared For in Hospital Post Hospital Care: D/C Spot Cleaner Documentation - Plan Summary Plan Summary: Continue oral Metronidazole therapy for C.difficile toxin colitis. Repeat Stool C.difficile titer. Maintain on all other current medication management. Possible discharge on oral Flagyl if diarrhea improve.
[2016-10-01] MEDS: MONTELUKAST SODIUM 10 MG TABLET PO SCH (21:39)
[2016-10-01] MEDS: OXYCODONE-ACETAMINOPHEN 5-325 MG TABLET PO SCH (21:40)
[2016-10-02] MEDS: LANSOPRAZOLE 30 MG TAB.RAP.DR PO SCH (07:49)
[2016-10-02] MEDS: METFORMIN HCL 500 MG TABLET PO SCH ×3 (07:49→21:22)
[2016-10-02] MEDS: DONEPEZIL HCL 5 MG TABLET PO SCH (09:50)
[2016-10-02] MEDS: OXYCODONE-ACETAMINOPHEN 5-325 MG TABLET PO SCH ×2 (09:50→21:22)
[2016-10-02] MEDS: LISINOPRIL 10 MG TABLET PO SCH (09:50)
[2016-10-02] MEDS: GABAPENTIN 300 MG CAPSULE PO SCH ×2 (09:50→21:22)
[2016-10-02] MEDS: ATORVASTATIN CALCIUM 20 MG TABLET PO SCH (09:51)
[2016-10-02] MEDS: METRONIDAZOLE 500 MG TABLET PO SCH ×3 (09:51→17:24)
[2016-10-02] MEDS: FLUTICASONE NASAL SPRAY 50 MCG/SPRY 120 SPRAY/16 GM NAREB SCH ×2 (09:51→21:22)
[2016-10-02] MEDS: SERTRALINE HCL 50 MG TABLET PO SCH (09:51)
[2016-10-02] MEDS: HYDROCHLOROTHIAZIDE 25 MG TABLET PO SCH (09:51)
[2016-10-02] MEDS: FERROUS SULFATE 325 MG TABLET PO SCH (09:51)
[2016-10-02] MEDS: OXYCODONE-ACETAMINOPHEN 5-325 MG TABLET PO PRN (15:41)
--- NOTE | 2016-10-02 18:19 | PDOC PROGRESS REPORT ---
Subjective Progress Note for:: 10/02/16 Subjective:: No chest pain or difficulty with breathing. Patient reported no diarrhea so far today. No nausea or vomiting. Appetite and P.O intake remain fair. No significant abdominal pain. She denied any fever or chills. She has supra pubic indwelling Adan catheter. Physical Exam Vital Signs: Temp Pulse Resp BP Pulse Ox 98.3 F 75 16 110/51 L 99 10/02/16 16:00 10/02/16 16:00 10/02/16 16:00 10/02/16 16:00 10/02/16 16:00 Intake & Output 10/01/16 10/02/16 10/03/16 06:59 06:59 06:59 Intake Total 1197 817 0 Output Total 2900 1100 Balance -1703 -283 0 Physical Exam: General appearance: PRESENT: no acute distress, cooperative Head exam: PRESENT: atraumatic, normocephalic Mouth exam: PRESENT: moist, tongue midline Respiratory exam: PRESENT: clear to auscultation adenike Cardiovascular exam: PRESENT: RRR. ABSENT: diastolic murmur, rubs, systolic murmur GI/Abdominal exam: PRESENT: normal bowel sounds, soft, other - supra pubic Adan cath in situ and dressing is okay. No significant tenderness. ABSENT: distended, guarding, mass, organomegaly, rebound, tenderness Neurological exam: PRESENT: alert, awake, oriented to person, oriented to place , oriented to time, oriented to situation, CN II-XII grossly intact. ABSENT: motor sensory deficit Psychiatric exam: PRESENT: appropriate affect, normal mood. ABSENT: homicidal ideation, suicidal ideation Skin exam: PRESENT: dry, intact - except supra pubic Adan cath site, warm. ABSENT: cyanosis, rash Results Laboratory Results: 09/30/16 20:24 09/25/16 05:35 Impressions: Chest X-Ray 09/22/16 00:00 IMPRESSION: NO SIGNIFICANT RADIOGRAPHIC FINDING IN THE CHEST. Assessment & Plan - Diagnosis (1) Symptomatic anemia Is this a current diagnosis for this admission?: Yes (2) Internal hemorrhoids Is this a current diagnosis for this admission?: Yes (3) Diabetes mellitus type 2, uncontrolled, with complications Qualifiers: Diabetes mellitus half-way insulin use: without half-way use Qualified Code(s): E11.8 - Type 2 diabetes mellitus with unspecified complications; E11.65 - Type 2 diabetes mellitus with hyperglycemia Is this a current diagnosis for this admission?: Yes (4) Pneumonia Qualifiers: Pneumonia type: due to unspecified organism Laterality: right Lung location: lower lobe of lung Qualified Code(s): J18.1 - Lobar pneumonia, unspecified organism Is this a current diagnosis for this admission?: Yes (5) HLD (hyperlipidemia) Qualifiers: Hyperlipidemia type: pure hypercholesterolemia Qualified Code(s): E78.00 - Pure hypercholesterolemia, unspecified; E78.0 - Pure hypercholesterolemia Is this a current diagnosis for this admission?: Yes (6) HTN (hypertension) Qualifiers: Hypertension type: essential hypertension Qualified Code(s): I10 - Essential (primary) hypertension Is this a current diagnosis for this admission?: Yes (7) History of pulmonary embolism Is this a current diagnosis for this admission?: Yes (8) History of DVT (deep vein thrombosis) Is this a current diagnosis for this admission?: Yes (9) Chronic prescription opiate use Is this a current diagnosis for this admission?: Yes (10) GERD (gastroesophageal reflux disease) Qualifiers: Esophagitis presence: without esophagitis Qualified Code(s): K21.9 - Gastro-esophageal reflux disease without esophagitis Is this a current diagnosis for this admission?: Yes (11) Seasonal allergic rhinitis Qualifiers: Allergic rhinitis trigger: unspecified Qualified Code(s): J30.2 - Other seasonal allergic rhinitis Is this a current diagnosis for this admission?: Yes (12) Suprapubic abdominal pain Is this a current diagnosis for this admission?: No (13) Diarrhea Qualifiers: Diarrhea type: unspecified type Qualified Code(s): R19.7 - Diarrhea , unspecified - Time Time Spent with patient: 25-34 minutes Medications reviewed and adjusted accordingly: Yes Anticipated discharge: Home with Homehealth Within: Other - Inpatient Certification Medical Necessity: Need Close Monitoring Due to Risk of Patient Decompensation, Need For Continuous Telemetry Monitoring, Risk of Complication if Not Cared For in Hospital Post Hospital Care: D/C Clinical Recruiter Documentation - Plan Summary Plan Summary: Continue current medication management. If her diarrhea is fairly control she is agreeable to discharge home tomorrow.
[2016-10-02] MEDS: MONTELUKAST SODIUM 10 MG TABLET PO SCH (21:22)
[2016-10-03] MEDS: METFORMIN HCL 500 MG TABLET PO SCH ×2 (08:47→11:44)
[2016-10-03] MEDS: LANSOPRAZOLE 30 MG TAB.RAP.DR PO SCH (08:47)
[2016-10-03] MEDS: DONEPEZIL HCL 5 MG TABLET PO SCH (09:53)
[2016-10-03] MEDS: METRONIDAZOLE 500 MG TABLET PO SCH (09:53)
[2016-10-03] MEDS: SERTRALINE HCL 50 MG TABLET PO SCH (09:53)
[2016-10-03] MEDS: ATORVASTATIN CALCIUM 20 MG TABLET PO SCH (09:53)
[2016-10-03] MEDS: FERROUS SULFATE 325 MG TABLET PO SCH (09:54)
[2016-10-03] MEDS: LISINOPRIL 10 MG TABLET PO SCH (09:54)
[2016-10-03] MEDS: HYDROCHLOROTHIAZIDE 25 MG TABLET PO SCH (09:55)
[2016-10-03] MEDS: OXYCODONE-ACETAMINOPHEN 5-325 MG TABLET PO SCH (09:55)
[2016-10-03] MEDS: GABAPENTIN 300 MG CAPSULE PO SCH (09:55)
[2016-10-03] MEDS: FLUTICASONE NASAL SPRAY 50 MCG/SPRY 120 SPRAY/16 GM NAREB SCH (09:56)
[2016-10-03 12:14] VITALS: BP 139/66
--- NOTE | 2016-10-03 16:02 | PDOC DISCHARGE SUMMARY ---
General - Admit/Disc Date/PCP Admission Date/Primary Care Provider: 09/22/16 11:49 LEVI BENÍTEZ MD Discharge Date: 10/03/16 - Discharge Diagnosis (1) Symptomatic anemia Is this a current diagnosis for this admission?: Yes (2) Internal hemorrhoids Is this a current diagnosis for this admission?: Yes (3) Diabetes mellitus type 2, uncontrolled, with complications Is this a current diagnosis for this admission?: Yes (4) Pneumonia Is this a current diagnosis for this admission?: Yes (5) HLD (hyperlipidemia) Is this a current diagnosis for this admission?: Yes (6) HTN (hypertension) Is this a current diagnosis for this admission?: Yes (7) History of pulmonary embolism Is this a current diagnosis for this admission?: Yes (8) History of DVT (deep vein thrombosis) Is this a current diagnosis for this admission?: Yes (9) Chronic prescription opiate use Is this a current diagnosis for this admission?: Yes (10) GERD (gastroesophageal reflux disease) Is this a current diagnosis for this admission?: Yes (11) Seasonal allergic rhinitis Is this a current diagnosis for this admission?: Yes (12) Suprapubic abdominal pain Is this a current diagnosis for this admission?: No - Additional Information Home Medications: Apixaban [Eliquis 2.5 mg Tablet] 2.5 mg PO Q12 09/22/16 Aspirin [Aspirin EC] 81 mg PO DAILY 09/22/16 Dexlansoprazole [Dexilant 60 mg Capsule] 60 mg PO DAILY 09/22/16 Docusate Sodium [Colace 100 mg Capsule] 100 mg PO DAILYP PRN 09/22/16 Donepezil HCl [Aricept 5 mg Tablet] 5 mg PO DAILY 09/22/16 Ferrous Sulfate [Feosol 325 mg Tablet] 325 mg PO DAILY 09/22/16 Fluticasone Propionate [Flonase Nasal [place] 50 Mcg/[place] 16 gm] 2 sprays NAREB Q12 09/22/16 Gabapentin [Neurontin 300 mg Capsule] 300 mg PO Q12 09/22/16 Linaclotide [Linzess 145 Mcg Capsule] 145 mcg PO TID 09/22/16 Lisinopril [Prinivil 5 mg Tablet] 5 mg PO DAILY 09/22/16 Losartan/Hydrochlorothiazide [Hyzaar 100-25 Tablet] 1 tab PO DAILY 09/22/16 Metformin HCl [Glucophage] 1,000 mg PO BID 09/22/16 Montelukast Sodium [Singulair 10 mg Tablet] 10 mg PO QHS 09/22/16 Oxycodone HCl/Acetaminophen [Percocet 5-325 mg Tablet] 1 tab PO TIDP PRN Rosuvastatin Calcium [Crestor 10 mg Tablet] 10 mg PO DAILY 09/22/16 Sertraline HCl [Zoloft] 100 mg PO DAILY 09/22/16 Tramadol HCl [Ultram 50 mg Tablet] 50 mg PO Q12 09/22/16 History of Present Illness History of Present Illness: ANI PELAYO is a 81 year old female who presented to the office earlier today with complaints of persistent wet cough and generalized weakness. Patient denied any chest pain, expectoration has been difficulty. No fever but there is persistent chills. no nausea or vomiting. No abdominal pain. Daughter and patient reported recurrent episodes of hemorrhoid and daughter claimed that it has been persistently outside of rectum for couple of days. Her stool remain black but she is on iron supplementation for anemia. She denied any obvious red bloody stool. She denied any significant constipation on her current regimen management for opiate induced constipation. Her initial evaluation in the office was suggestive of significant anemia and right lower lobe possible early air space disease process. In view of her presentation, clinical findings and laboratory reports she was advised direct admission from the office to [facility] for further evaluation and management. Hospital Course Hospital Course: She was admitted for symptomatic anemia and possible pneumonia. received 2 units of PRBC. There was concern for possible pneumonia. She was managed with IV antibiotics. Her hospital stay was complicated by development of c. difficile colitis with significant diarrhea. She did respond to oral flagyl therapy. She will be discharge home on oral Flagly for 5 more days, She will follow up in the office as instructed upon discharge. Physical Exam Vital Signs: Temp Pulse Resp BP Pulse Ox 98.0 F 79 18 139/66 H 97 10/03/16 12:00 10/03/16 14:00 10/03/16 12:00 10/03/16 12:00 10/03/16 12:00 Intake & Output 10/02/16 10/03/16 10/04/16 06:59 06:59 06:59 Intake Total 817 737 390 Output Total 1100 1100 400 Balance -283 -363 -10 Physical Exam: General appearance: PRESENT: no acute distress, cooperative Head exam: PRESENT: atraumatic, normocephalic Mouth exam: PRESENT: moist, tongue midline Respiratory exam: PRESENT: clear to auscultation adenike Cardiovascular exam: PRESENT: RRR. ABSENT: diastolic murmur, rubs, systolic murmur GI/Abdominal exam: PRESENT: normal bowel sounds, soft, other - supra pubic Adan cath in situ and dressing is okay. No significant tenderness. ABSENT: distended, guarding, mass, organomegaly, rebound, tenderness Neurological exam: PRESENT: alert, awake, oriented to person, oriented to place , oriented to time, oriented to situation, CN II-XII grossly intact. ABSENT: motor sensory deficit Psychiatric exam: PRESENT: appropriate affect, normal mood. ABSENT: homicidal ideation, suicidal ideation Skin exam: PRESENT: dry, intact - except supra pubic Adan cath site, warm. ABSENT: cyanosis, rash Results Laboratory Results: 09/30/16 20:24 09/25/16 05:35 Impressions: Chest X-Ray 09/22/16 00:00 IMPRESSION: NO SIGNIFICANT RADIOGRAPHIC FINDING IN THE CHEST. Qualifiers PATEINT BEING DISCHARGED WITH ANY OF THE FOLLOWING DIAGNOSIS?: No Plan Discharge Plan: Patient will be dischage home today with [employer]. She will follow up in the office on 10/15/2016 at 10 am. Time Spent: Less than 30 Minutes
[2016-10-03] MEDS: OXYCODONE-ACETAMINOPHEN 5-325 MG TABLET PO PRN (16:38)
== END 2016-10-03 17:15 | disposition home health service (06) | DRG 811 ==
LOC: EH 11:49 → 5 12:42
PROVIDERS: ADMIT Internal Medicine Geriatric Medicine; ATTEND Internal Medicine Geriatric Medicine
PROC: 30233N1 Transfusion of Nonautologous Red Blood Cells into Peripheral Vein, Percutaneous Approach (ICD-10-PCS; principal; 2016-09-22)
DX: D50.0 Iron deficiency anemia secondary to blood loss (chronic) (principal); J18.1 Lobar pneumonia, unspecified organism; A04.7 Enterocolitis due to Clostridium difficile; N39.0 Urinary tract infection, site not specified; K64.1 Second degree hemorrhoids; E11.65 Type 2 diabetes mellitus with hyperglycemia; E78.5 Hyperlipidemia, unspecified; I10 Essential (primary) hypertension; K21.9 Gastro-esophageal reflux disease without esophagitis; J30.2 Other seasonal allergic rhinitis; K59.03 Drug induced constipation; T40.605A Adverse effect of unspecified narcotics, initial encounter; G47.30 Sleep apnea, unspecified; M19.90 Unspecified osteoarthritis, unspecified site; F32.9 Major depressive disorder, single episode, unspecified; K57.90 Diverticulosis of intestine, part unspecified, without perforation or abscess without bleeding; Z79.82 Long term (current) use of aspirin; Z79.4 Long term (current) use of insulin; Z79.899 Other long term (current) drug therapy; Z87.11 Personal history of peptic ulcer disease; Z86.718 Personal history of other venous thrombosis and embolism; Z86.711 Personal history of pulmonary embolism; Z85.3 Personal history of malignant neoplasm of breast; Z90.49 Acquired absence of other specified parts of digestive tract; Z90.710 Acquired absence of both cervix and uterus; Z90.11 Acquired absence of right breast and nipple; Z87.891 Personal history of nicotine dependence; Z88.0 Allergy status to penicillin; Z88.2 Allergy status to sulfonamides; Z79.891 Long term (current) use of opiate analgesic; Z95.9 Presence of cardiac and vascular implant and graft, unspecified
CPT/HCPCS: 36415; 36430; 71020; 80048; 80053; 81001; 82272; 82962; 85025; 86850; 86900; 86901; 86920; 87040; 87045; 87086; 87088; 87186; 87205; 87493; 89055; G8978-GP; G8979-GP; J1642; J1815; J1956; J2405; J3490; J7030; P9016

== ENCOUNTER 2017-01-27 11:44 | Emergency (ER) | payer MEDICARE, MEDICAID ==
--- NOTE | 2017-01-27 12:22 | ER Document Report ---
ED Medical Screen (RME) - General Chief Complaint: Urinary Problem Stated Complaint: VAGINAL PAIN Time Seen by Provider: 01/27/17 12:21 Notes: Patient states that she has had a suprapubic catheter for the last 4 years. She states that this was placed because after a shoulder surgery she was never able to urinate properly. She states she has had no problems with the catheter until last night. Last night she states that urine once again started to come from her vaginal area and now it is burning and painful in the vaginal area. She also states she has some bilateral lower abdominal pain. No bleeding. No problems with bowel movements. No fevers. No vomiting. TRAVEL OUTSIDE OF THE [place] IN LAST 30 DAYS: No - Related Data Allergies/Adverse Reactions: Penicillins Allergy (Severe, Verified 01/27/17 12:07) rash/swelling Sulfa (Sulfonamide Antibiotics) Allergy (Severe, Verified 01/27/17 12:07) rash/swelling Past Medical History - Past Medical History Cardiac Medical History: Reports: Hx Hypercholesterolemia - meds x 10 years, Hx Hypertension - meds x 10 years, Hx Heart Murmur - denies echo Denies: Hx Atrial Fibrillation, Hx Congestive Heart Failure, Hx Coronary Artery Disease, Hx Heart Attack, Hx Peripheral Vascular Disease, Hx Pulmonary Embolism Pulmonary Medical History: Reports: Hx Sleep Apnea - CPAP DC'ed x 1 year Denies: Hx Asthma, Hx Bronchitis, Hx COPD, Hx Pneumonia, Hx Respiratory Failure, Hx Tuberculosis Neurological Medical History: Denies: Hx Cerebrovascular Accident, Hx Seizures Endocrine Medical History: Reports: Hx Diabetes Mellitus Type 1. Denies: Hx Graves' Disease, Hx Hyperthyroidism, Hx Hypothyroidism Renal/ Medical History: Reports: Hx Ovarian Cysts. Denies: Hx Peritoneal Dialysis Malignancy Medical History: Reports: Hx Breast Cancer - RT. Denies: Hx Cervical Cancer, Hx Leukemia, Hx Lung Cancer, Hx Ovarian Cancer GI Medical History: Reports: Hx Gastroesophageal Reflux Disease - meds x 15 years, Hx Ulcer - approx 15 years ago. Denies: Hx Crohn's Disease, Hx Hiatal Hernia, Hx Irritable Bowel, Hx Liver Failure Musculoskeltal Medical History: Reports Hx Arthritis, Denies Hx Fibromyalgia, Denies Hx Multiple Sclerosis, Denies Hx Muscular Dystrophy Psychiatric Medical History: Reports: Hx Depression - meds x 30 years Denies: Hx Bipolar Disorder, Hx Dementia, Hx Post Traumatic Stress Disorder, Hx Schizophrenia Traumatic Medical History: Reports: Hx Fractures - hx clavicle fx & rib fx's Infectious Medical History: Denies: Hx HIV Past Surgical History: Reports: Hx Appendectomy, Hx Cholecystectomy, Hx Hysterectomy - 1980, Hx Mastectomy - "partial RIGHT" with lymph node dissection (20). Denies: Hx Bowel Surgery, Hx Section, Hx Colostomy, Hx Coronary Artery Bypass Graft, Hx Gastric Bypass Surgery, Hx Herniorrhaphy, Hx Pacemaker, Hx Tonsillectomy, Hx Tubal Ligation - Immunizations Hx Diphtheria, Pertussis, Tetanus Vaccination: No
[2017-01-27 13:18] LABS: ABSOLUTE EOSINOPHILS # (AUTO) 0.2 10^3/uL (0.0-0.6); ABSOLUTE LYMPHOCYTES (AUTO) 0.9 10^3/uL (0.5-4.7); ABSOLUTE MONOCYTES (AUTO) 0.3 10^3/uL (0.1-1.4); ABSOLUTE NEUT (AUTO) 2.6 10^3/uL (1.7-8.2); BASOPHILS % (AUTO) 0.4 % (0-2); EOSINOPHILS % (AUTO) 4.2 % (0-6); HEMATOCRIT 30.7 % (36.0-47.0); HEMOGLOBIN 10.2 g/dL (12.0-15.5); HGB HCT DIFFERENCE -0.1; LYMPHOCYTES % (AUTO) 22.3 % (13-45); MEAN CORPUSCULAR HEMOGLOBIN 30.8 pg (27.0-33.4); MEAN CORPUSCULAR HGB CONC 33.3 g/dL (32.0-36.0); MEAN CORPUSCULAR VOLUME 92 fl (80-97); MONOCYTES % (AUTO) 8.4 % (3-13); RED BLOOD COUNT 3.32 10^6/uL (3.72-5.28); RED CELL DISTRIBUTION WIDTH 14.4 % (11.5-14.0); SEGMENTED NEUTROPHILS % (AUTO) 64.7 % (42-78)
[2017-01-27 13:39] LABS: ALANINE AMINOTRANSFERASE 19 U/L (9-52); ALBUMIN 3.8 g/dL (3.5-5.0); ALKALINE PHOSPHATASE 54 U/L (38-126); ANION GAP 11 (5-19); ASPARTATE AMINO TRANSFERASE 23 U/L (14-36); BILIRUBIN,DIRECT 0.3 mg/dL (0.0-0.4); BILIRUBIN,TOTAL 0.3 mg/dL (0.2-1.3); BLOOD UREA NITROGEN 20 mg/dL (7-20); CALCIUM 9.7 mg/dL (8.4-10.2); CARBON DIOXIDE 25 mmol/L (22-30); CHLORIDE 99 mmol/L (98-107); CREATININE RESULT 0.73 mg/dL (0.52-1.25); GLUCOSE 226 mg/dL (75-110); POTASSIUM 4.2 mmol/L (3.6-5.0); SODIUM 134.7 mmol/L (137-145); TOTAL PROTEIN 6.6 g/dL (6.3-8.2)
[2017-01-27 15:35] LABS: APPEARANCE,URINE CLOUDY; BILIRUBIN,URINE NEGATIVE (NEGATIVE); GLUCOSE, URINE NEGATIVE (NEGATIVE); KETONES,URINE NEGATIVE (NEGATIVE); LEUKOCYTE ESTERASE,URINE LARGE (NEGATIVE); NITRITE,URINE NEGATIVE (NEGATIVE); PROTEIN,URINE NEGATIVE (NEGATIVE); URINE SPECIFIC GRAVITY 1.004; UROBILINOGEN,URINE NEGATIVE mg/dL (<2.0)
[2017-01-27] MEDS ORDERED: CIPROFLOXACIN HCL 500 MG TABLET PO ONE (15:54)
--- NOTE | 2017-01-27 15:58 | ER Document Report ---
ED GI/ - General Chief Complaint: Urinary Problem Stated Complaint: VAGINAL PAIN Time Seen by Provider: 01/27/17 12:21 Mode of Arrival: Wheelchair Information source: Patient Notes: Patient is an 81-year-old female who has had a suprapubic catheter for years who presents to the ER today Because last night she started having dysuria from her urethra. She states there is a little bit of blood around the suprapubic catheter as well that was not there before. She states that she has not had any "leaking" from her urethra in the past 4 years. She denies any abnormal vaginal discharge, fevers, chills. Family states that she is acting normally. She denies any abdominal pain. TRAVEL OUTSIDE OF THE [place] IN LAST 30 DAYS: No - Related Data Allergies/Adverse Reactions: Penicillins Allergy (Severe, Verified 01/27/17 12:07) rash/swelling Sulfa (Sulfonamide Antibiotics) Allergy (Severe, Verified 01/27/17 12:07) rash/swelling Past Medical History - General Information source: Patient - Social History Smoking Status: Never Smoker Chew tobacco use (# tins/day): No Frequency of alcohol use: None Drug Abuse: None Family History: Reviewed & Not Pertinent Patient has suicidal ideation: No Patient has homicidal ideation: No - Past Medical History Cardiac Medical History: Reports: Hx Hypercholesterolemia - meds x 10 years, Hx Hypertension - meds x 10 years, Hx Heart Murmur - denies echo Denies: Hx Atrial Fibrillation, Hx Congestive Heart Failure, Hx Coronary Artery Disease, Hx Heart Attack, Hx Peripheral Vascular Disease, Hx Pulmonary Embolism Pulmonary Medical History: Reports: Hx Sleep Apnea - CPAP DC'ed x 1 year Denies: Hx Asthma, Hx Bronchitis, Hx COPD, Hx Pneumonia, Hx Respiratory Failure, Hx Tuberculosis Neurological Medical History: Denies: Hx Cerebrovascular Accident, Hx Seizures Endocrine Medical History: Reports: Hx Diabetes Mellitus Type 1. Denies: Hx Graves' Disease, Hx Hyperthyroidism, Hx Hypothyroidism Renal/ Medical History: Reports: Hx Ovarian Cysts. Denies: Hx Peritoneal Dialysis Malignancy Medical History: Reports: Hx Breast Cancer - RT. Denies: Hx Cervical Cancer, Hx Leukemia, Hx Lung Cancer, Hx Ovarian Cancer GI Medical History: Reports: Hx Gastroesophageal Reflux Disease - meds x 15 years, Hx Ulcer - approx 15 years ago. Denies: Hx Crohn's Disease, Hx Hiatal Hernia, Hx Irritable Bowel, Hx Liver Failure Musculoskeltal Medical History: Reports Hx Arthritis, Denies Hx Fibromyalgia, Denies Hx Multiple Sclerosis, Denies Hx Muscular Dystrophy Psychiatric Medical History: Reports: Hx Depression - meds x 30 years Denies: Hx Bipolar Disorder, Hx Dementia, Hx Post Traumatic Stress Disorder, Hx Schizophrenia Traumatic Medical History: Reports: Hx Fractures - hx clavicle fx & rib fx's Infectious Medical History: Denies: Hx HIV Past Surgical History: Reports: Hx Appendectomy, Hx Cholecystectomy, Hx Hysterectomy - 1980, Hx Mastectomy - "partial RIGHT" with lymph node dissection (20). Denies: Hx Bowel Surgery, Hx Section, Hx Colostomy, Hx Coronary Artery Bypass Graft, Hx Gastric Bypass Surgery, Hx Herniorrhaphy, Hx Pacemaker, Hx Tonsillectomy, Hx Tubal Ligation - Immunizations Hx Diphtheria, Pertussis, Tetanus Vaccination: No Hx Pneumococcal Vaccination: 02/19/09 Review of Systems - Review of Systems Constitutional: No symptoms reported EENT: No symptoms reported Cardiovascular: No symptoms reported Respiratory: No symptoms reported Gastrointestinal: No symptoms reported Genitourinary: See HPI Female Genitourinary: No symptoms reported Musculoskeletal: No symptoms reported Skin: No symptoms reported Hematologic/Lymphatic: No symptoms reported Neurological/Psychological: No symptoms reported Physical Exam - Vital signs Vitals: Temp Pulse Resp BP Pulse Ox 98.7 F 77 16 128/57 H 100 01/27/17 12:08 01/27/17 12:08 01/27/17 12:08 01/27/17 12:08 01/27/17 12:08 - Notes Notes: PHYSICAL EXAMINATION: GENERAL: Elderly, in no acute distress. HEAD: Atraumatic, normocephalic. EYES: Pupils equal round and reactive to light, extraocular movements intact, sclera anicteric, conjunctiva are normal. NECK: Normal range of motion, supple without lymphadenopathy LUNGS: CTAB and equal. No wheezes rales or rhonchi. HEART: Regular rate and rhythm without murmurs ABDOMEN: Soft, suprapubic catheter in place, dried blood around, no erythema or drainage otherewise, no tenderness. No guarding, no rebound BACK: no vertebral tenderness, normal ROM GI/: no CVA tenderness EXTREMITIES: Normal range of motion, no pitting edema. No cyanosis. NEUROLOGICAL: Cranial nerves grossly intact. Normal sensory/motor exams. PSYCH: Normal mood, normal affect. SKIN: Warm, Dry, normal turgor, no rashes or lesions noted Course - Re-evaluation Re-evalutation: 01/27/17 16:57 Urinalysis has hematuria and greater than 182 white blood cells with large leukocytes. Patient will be treated for urinary tract infection. Her WBC is normal and she is afebrile. She is not altered. 01/27/17 16:58 - Vital Signs Vital signs: Temp Pulse Resp BP Pulse Ox 98.7 F 67 14 159/63 H 97 01/27/17 12:08 01/27/17 16:37 01/27/17 16:37 01/27/17 16:37 01/27/17 16:37 - Laboratory Result Diagrams: 01/27/17 12:55 01/27/17 12:55 Laboratory results interpreted by me: 01/27/17 01/27/17 01/27/17 12:55 12:55 15:14 RBC 3.32 L Hgb 10.2 L Hct 30.7 L RDW 14.4 H Sodium 134.7 L Glucose 226 H Urine Blood LARGE H Ur Leukocyte Esterase LARGE H Discharge - Discharge Clinical Impression: UTI (urinary tract infection) Qualifiers: Urinary tract infection type: site unspecified Hematuria presence: with hematuria Qualified Code(s): N39.0 - Urinary tract infection, site not specified Condition: Stable Disposition: HOME, SELF-CARE Instructions: Urinary Tract Infection ([facility]) Additional Instructions: Drink plenty of fluids Return immediately for any new or worsening symptoms. Follow up with primary care provider, call tomorrow to make followup appointment. Prescriptions: Ciprofloxacin HCl [Cipro 500 mg Tablet] 500 mg PO BID #20 tablet Phenazopyridine HCl [Pyridium 200 mg Tablet] 200 mg PO TID #15 tablet Referrals: LATOYA ALEXANDER MD [Primary Care Provider] - Follow up as needed
[2017-01-27 16:39] VITALS: BP 159/63
== END 2017-01-27 16:37 | disposition home or self-care (01) ==
LOC: ER 11:44
DX: N39.0 Urinary tract infection, site not specified (principal); R31.9 Hematuria, unspecified; I10 Essential (primary) hypertension; E10.9 Type 1 diabetes mellitus without complications; Z88.2 Allergy status to sulfonamides; Z88.0 Allergy status to penicillin; Z85.3 Personal history of malignant neoplasm of breast
CPT/HCPCS: 99283; 51701; 36415; 85025; 80053; 81001; A9270

== ENCOUNTER → 2017-02-09 | Outpatient (CLI) | payer MEDICAID, MEDICARE ==
--- NOTE | 2017-02-09 15:19 | RADIOLOGY REPORT (SQ) ---
EXAM DESCRIPTION: BARIUM SWALLOW PHARYNX ONLY COMPLETED DATE/TIME: 02/09/2017 9:33 am REASON FOR STUDY: DYSPHAGIA (R13.10) R13.10 DYSPHAGIA, UNSPECIFIED COMPARISON: None. TECHNIQUE: Under fluoroscopic guidance, patient ingested effervescent granules followed by thick and thin barium. Fluoroscopic spot images and routine radiographic images acquired and stored on PACS. 12 MM BARIUM TABLET GIVEN: Yes. No significant delay in passage. LIMITATIONS: None. FLUOROSCOPY TIME: FLUORO TIME: 52 seconds 14 series of digital images saved to PACS. FINDINGS: NEUROMUSCULAR COORDINATION OF SWALLOW: Normal. No aspiration. ESOPHAGEAL MOTILITY: Prominent tertiary contractions ESOPHAGEAL MUCOSA: Normal mucosa without masses or ulceration. GASTRO-ESOPHAGEAL JUNCTION: No hiatal hernia or reflux. NON-GI TRACT STRUCTURES: No significant finding. OTHER: No other significant finding. IMPRESSION: Tertiary contractions of the esophagus. No fixed esophageal stricture. No gross mucosa l lesions or gastroesophageal reflux COMMENT: Quality ID [id number]: Final reports for procedures using fluoroscopy that document radiation exp osure indices, or exposure time and number of fluorographic images (if radiation exposure indices are not available) TECHNICAL DOCUMENTATION: JOB ID: [id number] [employer]- All Rights Reserved
== END ==
LOC: RAD 08:07
PROVIDERS: ATTEND Internal Medicine Geriatric Medicine
DX: R13.10 Dysphagia, unspecified (principal); K22.4 Dyskinesia of esophagus
CPT/HCPCS: 74210

== ENCOUNTER → 2017-06-23 | Outpatient (CLI) | payer MEDICAID, MEDICARE ==
--- NOTE | 2017-06-23 15:22 | RADIOLOGY REPORT (SQ) ---
EXAM DESCRIPTION: CT ABD/PELVIS WITH IV ORAL COMPLETED DATE/TIME: 06/23/2017 3:09 pm REASON FOR STUDY: UNSPECIFIED ABDOMINAL PAIN R10.9 UNSPECIFIED ABDOMINAL PAIN COMPARISON: 12/31/2014. TECHNIQUE: CT scan of the abdomen and pelvis performed using helical scanning technique with dynamic intravenous contrast injection and with oral contrast. Images reviewed with lung, soft tissue, and b one windows. Reconstructed coronal and sagittal MPR images reviewed. Delayed images for evaluation of the urinary system also acquired. All images stored on PACS. All CT scanners at this facility use dose modulation, iterative reconstruction, and/or weight based d osing when appropriate to reduce radiation dose to as low as reasonably achievable (ALARA). [facility]: Dose Right [facility]: CareDose [facility]: Dose Right [facility]: Teradose 4D [facility]: Who What Wear CONTRAST TYPE AND DOSE: contrast/concentration: Isovue 370.00 mg/ml; Total Contrast Delivered: 67.0 ml; Total Saline Delivered: 43.0 ml RENAL FUNCTION: Creatinine 0.7. RADIATION DOSE: CT Rad equipment meets quality standard of care and radiation dose reduction techniq ues were employed. CTDIvol: 3.5 - 4.0 mGy. DLP: 412 mGy-cm.. LIMITATIONS: None. FINDINGS: LOWER CHEST: Moderate pericardial effusion. No nodules or infiltrates. LIVER: Normal size. No masses. No dilated ducts. SPLEEN: Normal size. No focal lesions. PANCREAS: No masses. No significant calcifications. No adjacent inflammation or peripancreatic fluid collections. Pancreatic duct not dilated. GALLBLADDER: Surgically absent. ADRENAL GLANDS: No significant masses or asymmetry. RIGHT KIDNEY AND URETER: No solid masses. No significant calcifications. No hydronephrosis or hyd roureter. LEFT KIDNEY AND URETER: No solid masses. No significant calcifications. No hydronephrosis or hydr oureter. AORTA AND VESSELS: No aneurysm. No dissection. Renal arteries, SMA, celiac without stenosis. RETROPERITONEUM: No retroperitoneal adenopathy, hemorrhage or masses. BOWEL AND PERITONEAL CAVITY: Mild dilation of the proximal small bowel. Contrast is present througho ut the small bowel and colon. No masses or inflammatory changes. No free fluid or peritoneal masses. APPENDIX: Normal. PELVIS: No mass. No free fluid. Suprapubic catheter in the bladder. ABDOMINAL WALL: No masses. No hernias. BONES: No significant or acute findings. OTHER: No other significant finding. IMPRESSION: 1. MILD DILATION OF THE PROXIMAL SMALL BOWEL. THIS COULD BE DUE TO MILD FOCAL ILEUS. OBSTRUCTION NO T LIKELY THERE IS CONTRAST PRESENT THROUGHOUT THE SMALL BOWEL AND COLON. NO OTHER SIGNIFICANT OR ACUTE FINDING IN THE ABDOMEN OR PELVIS ON CT SCAN WITH IV CONTRAST. 2. MODERATE PERICARDIAL EFFUSION. TECHNICAL DOCUMENTATION: JOB ID: [id number] Quality ID # [id number]: Final reports with documentation of one or more dose reduction techniques (e.g., Au tomated exposure control, adjustment of the mA and/or kV according to patient size, use of iterative reconstruction technique) 2010 [employer]- All Rights Reserved
== END ==
LOC: RAD 12:53
PROVIDERS: ATTEND Internal Medicine Geriatric Medicine
DX: R10.9 Unspecified abdominal pain (principal)
CPT/HCPCS: 74177; 82565

== ENCOUNTER 2017-07-26 07:04 | Emergency (ER) | payer MEDICARE, MEDICAID ==
[2017-07-26] MEDS ORDERED: NORMAL SALINE 1000 ML 500 ML IV ONE (08:49)
--- NOTE | 2017-07-26 08:54 | ER Document Report ---
ED GI/ - General Chief Complaint: Vaginal Pain Stated Complaint: STOMACH/VAGINAL BURNING Time Seen by Provider: 07/26/17 08:48 Mode of Arrival: Ambulatory Notes: 82 years old female with a history of suprapubic catheter presents today with retention of urine and lower abdominal discomfort. No fever chills nausea vomiting. No diarrhea or constipation. Denies any other constitutional symptoms. TRAVEL OUTSIDE OF THE [place] IN LAST 30 DAYS: No - HPI Patient complains to provider of: Abdominal pain - Related Data Allergies/Adverse Reactions: Penicillins Allergy (Severe, Verified 07/26/17 07:07) rash/swelling Sulfa (Sulfonamide Antibiotics) Allergy (Severe, Verified 07/26/17 07:07) rash/swelling Past Medical History - General Information source: Patient - Social History Smoking Status: Never Smoker Frequency of alcohol use: None Drug Abuse: None Family History: Reviewed & Not Pertinent - Past Medical History Cardiac Medical History: Reports: Hx Coronary Artery Disease, Hx Hypercholesterolemia - meds x 10 years, Hx Hypertension - meds x 10 years, Hx Heart Murmur - denies echo Denies: Hx Atrial Fibrillation, Hx Congestive Heart Failure, Hx Heart Attack , Hx Peripheral Vascular Disease, Hx Pulmonary Embolism Pulmonary Medical History: Reports: Hx Sleep Apnea - CPAP DC'ed x 1 year Denies: Hx Asthma, Hx Bronchitis, Hx COPD, Hx Pneumonia, Hx Respiratory Failure, Hx Tuberculosis Neurological Medical History: Reports: Hx Seizures - LAST SEIZURE 6 MONTHS AGO. Denies: Hx Cerebrovascular Accident Endocrine Medical History: Reports: Hx Diabetes Mellitus Type 1. Denies: Hx Graves' Disease, Hx Hyperthyroidism, Hx Hypothyroidism Renal/ Medical History: Reports: Hx Ovarian Cysts. Denies: Hx Peritoneal Dialysis Malignancy Medical History: Reports: Hx Breast Cancer - RT. Denies: Hx Cervical Cancer, Hx Leukemia, Hx Lung Cancer, Hx Ovarian Cancer GI Medical History: Reports: Hx Gastroesophageal Reflux Disease - meds x 15 years, Hx Ulcer - approx 15 years ago. Denies: Hx Crohn's Disease, Hx Hiatal Hernia, Hx Irritable Bowel, Hx Liver Failure, Hx Pancreatitis Musculoskeltal Medical History: Reports Hx Arthritis, Denies Hx Fibromyalgia, Denies Hx Multiple Sclerosis, Denies Hx Muscular Dystrophy Psychiatric Medical History: Reports: Hx Depression - meds x 30 years Denies: Hx Bipolar Disorder, Hx Dementia, Hx Post Traumatic Stress Disorder, Hx Schizophrenia Traumatic Medical History: Reports: Hx Fractures - hx clavicle fx & rib fx's Infectious Medical History: Denies: Hx HIV Past Surgical History: Reports: Hx Appendectomy, Hx Cholecystectomy, Hx Hysterectomy, Hx Mastectomy - "partial RIGHT" with lymph node dissection (20). Denies: Hx Bowel Surgery, Hx Section, Hx Colostomy, Hx Coronary Artery Bypass Graft, Hx Gastric Bypass Surgery, Hx Herniorrhaphy, Hx Pacemaker, Hx Tonsillectomy, Hx Tubal Ligation - Immunizations Hx Diphtheria, Pertussis, Tetanus Vaccination: No Hx Pneumococcal Vaccination: 02/19/09 Review of Systems - Review of Systems Constitutional: denies: No symptoms reported, See HPI, Chills, Diaphoresis, Fever, Malaise, Weakness, Other, Weight gain, Weight loss, Recent illness EENT: denies: No symptoms reported, See HPI, Eye pain, Eye discharge, Blurred vision, Tearing, Double vision, Ear pain, Ear discharge, Nose pain, Nose congestion, Nose discharge, Sinus pressure, Sinus discharge, Throat pain, Difficulty swallowing, Throat swelling, Mouth pain, Mouth swelling, Dental problem, Vertigo, Other Cardiovascular: denies: No symptoms reported, See HPI, Chest pain, Palpitations , Heart racing, Orthopnea, Dyspnea, Syncope, Dizziness, Lightheaded, Edema, Other, Paroxysmal Nocturnal Dysp Respiratory: denies: No symptoms reported, See HPI, Cough, Hurts to breathe, Hemoptysis, Short of breath, Sputum, Stridor, Wheezing, Other Female Genitourinary: denies: No symptoms reported, See HPI, Last menstrual period, , Post menopausal, Heavy/abnormal periods, Irregular period, Vaginal bleeding, Vaginal discharge, Vaginal odor, Painful intercourse, Other Skin: denies: No symptoms reported, See HPI, Change in color, Change in hair/ nails, Dryness, Lesions, Lumps, Rash, Other Neurological/Psychological: denies: No symptoms reported, See HPI, Confusion, Dementia, Depression, Hallucinations, Anxiety, Homicidal ideation, Sensory change, Weakness, Gait changes, Loss of power, Paralysis, Seizure, Lost consciousness, Headaches, Speech impairment, Numbness, Suicidal ideation, Tingling, Tremor, Other Physical Exam - Vital signs Vitals: Temp Pulse Resp BP Pulse Ox 98.6 F 71 19 143/61 H 96 07/26/17 07:10 07/26/17 07:10 07/26/17 07:10 07/26/17 07:10 07/26/17 07:10 - Notes Notes: PHYSICAL EXAMINATION: GENERAL: Well-appearing, well-nourished and in no acute distress. Appears comfortable pleasant female not in any acute distress HEAD: Atraumatic, normocephalic. EYES: Pupils equal round and reactive to light, extraocular movements intact, conjunctiva are normal. ENT: Nares patent, oropharynx clear without exudates. Moist mucous membranes. NECK: Normal range of motion, supple without lymphadenopathy LUNGS: Breath sounds clear to auscultation bilaterally and equal. No wheezes rales or rhonchi. HEART: Regular rate and rhythm without murmurs ABDOMEN: Soft, mild to moderate tenderness over the left lower quadrant, there is no suprapubic tenderness noted, on palpation of the bladder appears empty., nondistended abdomen. No guarding, no rebound. No masses appreciated. Female : deferred Musculoskeletal: Normal range of motion, no pitting or edema. No cyanosis. NEUROLOGICAL: Cranial nerves grossly intact. Normal speech, normal gait. Normal sensory, motor exams PSYCH: Normal mood, normal affect. SKIN: Warm, Dry, normal turgor, no rashes or lesions noted. Course - Vital Signs Vital signs: Temp Pulse Resp BP Pulse Ox 98.5 F 61 16 150/60 H 97 07/26/17 11:29 07/26/17 11:29 07/26/17 11:29 07/26/17 11:29 07/26/17 11:29 - Laboratory Result Diagrams: 07/26/17 09:40 07/26/17 09:40 Laboratory results interpreted by me: 07/26/17 07/26/17 07/26/17 09:40 09:40 09:40 RBC 3.11 L Hgb 9.5 L Hct 28.7 L RDW 14.5 H Sodium 135.2 L Chloride 96 L Glucose 167 H Urine Blood MODERATE H Urine Nitrite POSITIVE H Ur Leukocyte Esterase LARGE H Discharge - Discharge Clinical Impression: UTI (urinary tract infection) Qualifiers: Urinary tract infection type: acute cystitis Hematuria presence: without hematuria Qualified Code(s): N30.00 - Acute cystitis without hematuria Condition: Fair Disposition: HOME, SELF-CARE Instructions: Nitrofurantoin ([facility]), Urinary Tract Infection ([facility]) Prescriptions: Nitrofurantoin Macrocrystal [Macrodantin] 100 mg PO BID #20 capsule Referrals: LATOYA ALEXANDER MD [Primary Care Provider] - Follow up as needed
[2017-07-26 10:22] LABS: ABSOLUTE EOSINOPHILS # (AUTO) 0.1 10^3/uL (0.0-0.6); ABSOLUTE LYMPHOCYTES (AUTO) 0.8 10^3/uL (0.5-4.7); ABSOLUTE MONOCYTES (AUTO) 0.3 10^3/uL (0.1-1.4); ABSOLUTE NEUT (AUTO) 3.2 10^3/uL (1.7-8.2); BASOPHILS % (AUTO) 0.4 % (0-2); EOSINOPHILS % (AUTO) 2.9 % (0-6); HEMATOCRIT 28.7 % (36.0-47.0); HEMOGLOBIN 9.5 g/dL (12.0-15.5); LYMPHOCYTES % (AUTO) 18.7 % (13-45); MEAN CORPUSCULAR HEMOGLOBIN 30.6 pg (27.0-33.4); MEAN CORPUSCULAR HGB CONC 33.1 g/dL (32.0-36.0); MEAN CORPUSCULAR VOLUME 92 fl (80-97); MONOCYTES % (AUTO) 6.9 % (3-13); PLATELET COUNT 192 10^3/uL (150-450); RED BLOOD COUNT 3.11 10^6/uL (3.72-5.28); RED CELL DISTRIBUTION WIDTH 14.5 % (11.5-14.0); SEGMENTED NEUTROPHILS % (AUTO) 71.1 % (42-78); TOTAL CELLS COUNTED % (AUTO) 100 %; WHITE BLOOD COUNT 4.5 10^3/uL (4.0-10.5)
[2017-07-26 10:33] LABS: ANION GAP 12 (5-19); BLOOD UREA NITROGEN 20 mg/dL (7-20); CALCIUM 9.1 mg/dL (8.4-10.2); CARBON DIOXIDE 27 mmol/L (22-30); CHLORIDE 96 mmol/L (98-107); GLUCOSE 167 mg/dL (75-110); POTASSIUM 4.3 mmol/L (3.6-5.0); SODIUM 135.2 mmol/L (137-145)
[2017-07-26 10:51] LABS: APPEARANCE,URINE SLIGHTLY-CLOUDY; BILIRUBIN,URINE NEGATIVE (NEGATIVE); COLOR,URINE YELLOW; GLUCOSE, URINE NEGATIVE (NEGATIVE); KETONES,URINE NEGATIVE (NEGATIVE); LEUKOCYTE ESTERASE,URINE LARGE (NEGATIVE); NITRITE,URINE POSITIVE (NEGATIVE); PROTEIN,URINE NEGATIVE (NEGATIVE); URINE SPECIFIC GRAVITY 1.006; UROBILINOGEN,URINE NEGATIVE mg/dL (<2.0)
[2017-07-26] MEDS ORDERED: NITROFURANTOIN 5 MG/ML SUSP 60 ML PO ONE (12:49)
[2017-07-26] MEDS ORDERED: NITROFURANTOIN MONOHYD/M-CRYST 100 MG CAPSULE PO ONE (13:45)
[2017-07-26 14:20] VITALS: BP 150/61
== END 2017-07-26 14:10 | disposition home or self-care (01) ==
LOC: ER 07:04
DX: N30.00 Acute cystitis without hematuria (principal); R10.2 Pelvic and perineal pain; R10.9 Unspecified abdominal pain; R33.9 Retention of urine, unspecified; R10.30 Lower abdominal pain, unspecified
CPT/HCPCS: 36591; 99284; 36415; 85025; 80048; 81001; J7030; A9270; J3490; J8499

== ENCOUNTER 2017-08-03 12:45 | Emergency (ER) | payer MEDICARE, MEDICAID ==
--- NOTE | 2017-08-03 14:21 | ER Document Report ---
ED Medical Screen (RME) - General Chief Complaint: Urinary Problem Stated Complaint: ABDOMINAL PAIN Time Seen by Provider: 08/03/17 14:20 Notes: Patient has a chronic indwelling suprapubic catheter. However today she states she is having urine from her vaginal area and it is burning. She also states she is having problem with hemorrhoids. TRAVEL OUTSIDE OF THE [place] IN LAST 30 DAYS: No - Related Data Allergies/Adverse Reactions: Penicillins Allergy (Severe, Verified 08/03/17 12:51) rash/swelling Sulfa (Sulfonamide Antibiotics) Allergy (Severe, Verified 08/03/17 12:51) rash/swelling Past Medical History - Social History Chew tobacco use (# tins/day): No Frequency of alcohol use: None Drug Abuse: None - Past Medical History Cardiac Medical History: Reports: Hx Coronary Artery Disease, Hx Hypercholesterolemia - meds x 10 years, Hx Hypertension - meds x 10 years, Hx Heart Murmur - denies echo Denies: Hx Atrial Fibrillation, Hx Congestive Heart Failure, Hx Heart Attack , Hx Peripheral Vascular Disease, Hx Pulmonary Embolism Pulmonary Medical History: Reports: Hx Sleep Apnea - CPAP DC'ed x 1 year Denies: Hx Asthma, Hx Bronchitis, Hx COPD, Hx Pneumonia, Hx Respiratory Failure, Hx Tuberculosis Neurological Medical History: Reports: Hx Seizures - LAST SEIZURE 6 MONTHS AGO. Denies: Hx Cerebrovascular Accident Endocrine Medical History: Reports: Hx Diabetes Mellitus Type 1, Hx Diabetes Mellitus Type 2. Denies: Hx Graves' Disease, Hx Hyperthyroidism, Hx Hypothyroidism Renal/ Medical History: Reports: Hx Ovarian Cysts. Denies: Hx Peritoneal Dialysis Malignancy Medical History: Reports: Hx Breast Cancer - RT. Denies: Hx Cervical Cancer, Hx Leukemia, Hx Lung Cancer, Hx Ovarian Cancer GI Medical History: Reports: Hx Gastroesophageal Reflux Disease - meds x 15 years, Hx Ulcer - approx 15 years ago. Denies: Hx Crohn's Disease, Hx Hiatal Hernia, Hx Irritable Bowel, Hx Liver Failure, Hx Pancreatitis Musculoskeltal Medical History: Reports Hx Arthritis, Denies Hx Fibromyalgia, Denies Hx Multiple Sclerosis, Denies Hx Muscular Dystrophy Psychiatric Medical History: Reports: Hx Depression - meds x 30 years Denies: Hx Bipolar Disorder, Hx Dementia, Hx Post Traumatic Stress Disorder, Hx Schizophrenia Traumatic Medical History: Reports: Hx Fractures - hx clavicle fx & rib fx's Infectious Medical History: Denies: Hx HIV Past Surgical History: Reports: Hx Appendectomy, Hx Cholecystectomy, Hx Hysterectomy, Hx Mastectomy - "partial RIGHT" with lymph node dissection (20). Denies: Hx Bowel Surgery, Hx Section, Hx Colostomy, Hx Coronary Artery Bypass Graft, Hx Gastric Bypass Surgery, Hx Herniorrhaphy, Hx Pacemaker, Hx Tonsillectomy, Hx Tubal Ligation - Immunizations Hx Diphtheria, Pertussis, Tetanus Vaccination: No Influenza Administration Date for 03/2017 - 07/2017 Season: 04/01/17 Physical Exam - Vital signs Vitals: Temp Pulse Resp BP Pulse Ox 98.4 F 71 20 161/65 H 97 08/03/17 13:02 08/03/17 13:02 08/03/17 13:02 08/03/17 13:02 08/03/17 13:02 Course - Vital Signs Vital signs: Temp Pulse Resp BP Pulse Ox 98.4 F 71 20 161/65 H 97 08/03/17 13:02 08/03/17 13:02 08/03/17 13:02 08/03/17 13:02 08/03/17 13:02
[2017-08-03 14:47] LABS: ABSOLUTE EOSINOPHILS # (AUTO) 0.2 10^3/uL (0.0-0.6); ABSOLUTE LYMPHOCYTES (AUTO) 0.8 10^3/uL (0.5-4.7); ABSOLUTE MONOCYTES (AUTO) 0.4 10^3/uL (0.1-1.4); ABSOLUTE NEUT (AUTO) 3.5 10^3/uL (1.7-8.2); BASOPHILS % (AUTO) 0.3 % (0-2); EOSINOPHILS % (AUTO) 3.7 % (0-6); HEMATOCRIT 33.5 % (36.0-47.0); HEMOGLOBIN 11.1 g/dL (12.0-15.5); LYMPHOCYTES % (AUTO) 16.4 % (13-45); MEAN CORPUSCULAR HEMOGLOBIN 30.5 pg (27.0-33.4); MEAN CORPUSCULAR HGB CONC 33.1 g/dL (32.0-36.0); MEAN CORPUSCULAR VOLUME 92 fl (80-97); MONOCYTES % (AUTO) 7.4 % (3-13); PLATELET COUNT 247 10^3/uL (150-450); RED BLOOD COUNT 3.63 10^6/uL (3.72-5.28); RED CELL DISTRIBUTION WIDTH 14.5 % (11.5-14.0); SEGMENTED NEUTROPHILS % (AUTO) 72.2 % (42-78); TOTAL CELLS COUNTED % (AUTO) 100 %; WHITE BLOOD COUNT 4.9 10^3/uL (4.0-10.5)
[2017-08-03 14:54] LABS: APPEARANCE,URINE SLIGHTLY-CLOUDY; BILIRUBIN,URINE NEGATIVE (NEGATIVE); COLOR,URINE YELLOW; GLUCOSE, URINE 50 mg/dL (NEGATIVE); KETONES,URINE NEGATIVE (NEGATIVE); LEUKOCYTE ESTERASE,URINE MODERATE (NEGATIVE); NITRITE,URINE POSITIVE (NEGATIVE); PROTEIN,URINE NEGATIVE (NEGATIVE); URINE SPECIFIC GRAVITY 1.008; UROBILINOGEN,URINE NEGATIVE mg/dL (<2.0)
[2017-08-03 15:05] LABS: ALANINE AMINOTRANSFERASE 38 U/L (9-52); ALBUMIN 4.4 g/dL (3.5-5.0); ALKALINE PHOSPHATASE 66 U/L (38-126); ANION GAP 11 (5-19); ASPARTATE AMINO TRANSFERASE 33 U/L (14-36); BILIRUBIN,DIRECT 0.2 mg/dL (0.0-0.4); BILIRUBIN,TOTAL 0.2 mg/dL (0.2-1.3); BLOOD UREA NITROGEN 21 mg/dL (7-20); CALCIUM 10.6 mg/dL (8.4-10.2); CARBON DIOXIDE 27 mmol/L (22-30); CHLORIDE 99 mmol/L (98-107); GLUCOSE 159 mg/dL (75-110); POTASSIUM 4.6 mmol/L (3.6-5.0); SODIUM 136.6 mmol/L (137-145)
--- NOTE | 2017-08-03 15:54 | ER Document Report ---
ED General - General Chief Complaint: Urinary Problem Stated Complaint: ABDOMINAL PAIN Time Seen by Provider: 08/03/17 14:20 TRAVEL OUTSIDE OF THE [place] IN LAST 30 DAYS: No - HPI Patient complains to provider of: UTI Notes: 82-year-old female presents with continued dysuria. Patient diagnosed with urinary tract infection 6 days ago has had continued pain in her back. Patient' s vital signs are stable within normal limits, no leukocytosis. Patient's pain is burning 6/10 radiation to her left flank. Denies nausea vomiting. Nothing has made the pain better or worse. - Related Data Allergies/Adverse Reactions: Penicillins Allergy (Severe, Verified 08/03/17 12:51) rash/swelling Sulfa (Sulfonamide Antibiotics) Allergy (Severe, Verified 08/03/17 12:51) rash/swelling Past Medical History - Social History Smoking Status: Former Smoker Chew tobacco use (# tins/day): No Frequency of alcohol use: None Drug Abuse: None Family History: Reviewed & Not Pertinent Patient has suicidal ideation: No Patient has homicidal ideation: No - Past Medical History Cardiac Medical History: Reports: Hx Coronary Artery Disease, Hx Hypercholesterolemia - meds x 10 years, Hx Hypertension - meds x 10 years, Hx Heart Murmur - denies echo Denies: Hx Atrial Fibrillation, Hx Congestive Heart Failure, Hx Heart Attack , Hx Peripheral Vascular Disease, Hx Pulmonary Embolism Pulmonary Medical History: Reports: Hx Sleep Apnea - CPAP DC'ed x 1 year Denies: Hx Asthma, Hx Bronchitis, Hx COPD, Hx Pneumonia, Hx Respiratory Failure, Hx Tuberculosis Neurological Medical History: Reports: Hx Seizures - LAST SEIZURE 6 MONTHS AGO. Denies: Hx Cerebrovascular Accident Endocrine Medical History: Reports: Hx Diabetes Mellitus Type 1, Hx Diabetes Mellitus Type 2. Denies: Hx Graves' Disease, Hx Hyperthyroidism, Hx Hypothyroidism Renal/ Medical History: Reports: Hx Ovarian Cysts. Denies: Hx Peritoneal Dialysis Malignancy Medical History: Reports: Hx Breast Cancer - RT. Denies: Hx Cervical Cancer, Hx Leukemia, Hx Lung Cancer, Hx Ovarian Cancer GI Medical History: Reports: Hx Gastroesophageal Reflux Disease - meds x 15 years, Hx Ulcer - approx 15 years ago. Denies: Hx Crohn's Disease, Hx Hiatal Hernia, Hx Irritable Bowel, Hx Liver Failure, Hx Pancreatitis Musculoskeltal Medical History: Reports Hx Arthritis, Denies Hx Fibromyalgia, Denies Hx Multiple Sclerosis, Denies Hx Muscular Dystrophy Psychiatric Medical History: Reports: Hx Depression - meds x 30 years Denies: Hx Bipolar Disorder, Hx Dementia, Hx Post Traumatic Stress Disorder, Hx Schizophrenia Traumatic Medical History: Reports: Hx Fractures - hx clavicle fx & rib fx's Infectious Medical History: Denies: Hx HIV Past Surgical History: Reports: Hx Appendectomy, Hx Cholecystectomy, Hx Hysterectomy, Hx Mastectomy - "partial RIGHT" with lymph node dissection (20). Denies: Hx Bowel Surgery, Hx Section, Hx Colostomy, Hx Coronary Artery Bypass Graft, Hx Gastric Bypass Surgery, Hx Herniorrhaphy, Hx Pacemaker, Hx Tonsillectomy, Hx Tubal Ligation - Immunizations Hx Diphtheria, Pertussis, Tetanus Vaccination: No Hx Pneumococcal Vaccination: 02/19/09 Review of Systems - Review of Systems Notes: REVIEW OF SYSTEMS: CONSTITUTIONAL: -fevers, -chills EENT: -eye pain, -difficulty swallowing, -nasal congestion CARDIOVASCULAR: -chest pain, -syncope. RESPIRATORY: -cough, -SOB GASTROINTESTINAL: -abdominal pain, -nausea, -vomiting, -diarrhea GENITOURINARY: Positive dysuria MUSCULOSKELETAL: Positive back SKIN: -rash or skin lesions. HEMATOLOGIC: -easy bruising or bleeding. LYMPHATIC: -swollen, enlarged glands. NEUROLOGICAL: -altered mental status or loss of consciousness, -headache, - neurologic symptoms PSYCHIATRIC: -anxiety, -depression. ALL OTHER SYSTEMS REVIEWED AND NEGATIVE. Physical Exam - Vital signs Vitals: Temp Pulse Resp BP Pulse Ox 98.4 F 71 20 161/65 H 97 08/03/17 13:02 08/03/17 13:02 08/03/17 13:02 08/03/17 13:02 08/03/17 13:02 - Notes Notes: PHYSICAL EXAMINATION: GENERAL: Well-appearing, well-nourished and in no acute distress. HEAD: Atraumatic, normocephalic. EYES: Pupils equal round and reactive to light, extraocular movements intact, sclera anicteric, conjunctiva are normal. ENT: nares patent, oropharynx clear without exudates. Moist mucous membranes. NECK: Normal range of motion, supple without lymphadenopathy LUNGS: Breath sounds clear to auscultation bilaterally and equal. No wheezes rales or rhonchi. HEART: Regular rate and rhythm without murmurs ABDOMEN: Soft, nontender, normoactive bowel sounds. No guarding, no rebound. No masses appreciated. EXTREMITIES: Normal range of motion, no pitting or edema. No cyanosis. NEUROLOGICAL: Cranial nerves grossly intact. Normal speech, normal gait. Normal sensory and motor exams. PSYCH: Normal mood, normal affect. SKIN: Warm, Dry, normal turgor, no rashes or lesions noted. Course - Re-evaluation Re-evalutation: 08/03/17 16:08 Well-appearing 82-year-old female presents with a urinary tract infection. No leukocytosis, stable vital signs within normal limits tolerating oral intake. Patient given initial dose ceftriaxone in the emergency department, also intramuscular pain medication. Patient had no urine culture performed a previous sample will send urine culture at this time. Patient has been taking Macrobid without improvement in symptoms 08/03/17 16:42 Patient given intramuscular ceftriaxone, opioid pain medicine feeling much improved. Will be discharged home with prescription for cefdinir 300 mg twice daily. Follow-up PCP - Vital Signs Vital signs: Temp Pulse Resp BP Pulse Ox 98.4 F 71 20 161/65 H 97 08/03/17 13:02 08/03/17 13:02 08/03/17 13:02 08/03/17 13:02 08/03/17 13:02 - Laboratory Result Diagrams: 08/03/17 14:32 08/03/17 14:32 Laboratory results interpreted by me: 08/03/17 08/03/17 08/03/17 14:28 14:32 14:32 RBC 3.63 L Hgb 11.1 L Hct 33.5 L RDW 14.5 H Sodium 136.6 L BUN 21 H Glucose 159 H Calcium 10.6 H Urine Glucose (UA) 50 H Urine Blood LARGE H Urine Nitrite POSITIVE H Ur Leukocyte Esterase MODERATE H Discharge - Discharge Clinical Impression: UTI (urinary tract infection) Qualifiers: Urinary tract infection type: acute pyelonephritis Qualified Code(s): N10 - Acute pyelonephritis Condition: Stable Disposition: HOME, SELF-CARE Instructions: Urinary Tract Infection, Child ([facility]) Prescriptions: Cefdinir [Omnicef 300 mg Capsule] 1 cap PO BID #20 capsule Oxycodone HCl [Oxycontin Ir 5 Mg Tablet] 1 - 2 mg PO Q4H PRN #15 tablet PRN Reason: For Pain Referrals: LATOYA ALEXANDER MD [Primary Care Provider] - Follow up as needed
[2017-08-03] MEDS ORDERED: CEFTRIAXONE INJ 1000 MG VIAL IM ONE (16:02)
[2017-08-03] MEDS ORDERED: ACETAMINOPHEN 325 MG TABLET PO ONE (16:04)
[2017-08-03] MEDS ORDERED: HYDROMORPHONE HCL INJ/PF 2 MG/ML AMPULE IM ONE (16:04)
[2017-08-03] MEDS ORDERED: LIDOCAINE 1% INJ-PF (10 MG/ML) 30 ML SDV ONE (16:23)
[2017-08-03 16:59] VITALS: BP 146/61
== END 2017-08-03 16:59 | disposition home or self-care (01) ==
LOC: ER 12:45
DX: N10 Acute pyelonephritis (principal); I10 Essential (primary) hypertension; I25.10 Atherosclerotic heart disease of native coronary artery without angina pectoris; E11.9 Type 2 diabetes mellitus without complications; Z88.0 Allergy status to penicillin; Z88.2 Allergy status to sulfonamides; Z87.891 Personal history of nicotine dependence
CPT/HCPCS: 99283; 96372; 96374; 36415; 85025; 80053; 81001; A9270; J3490; J1170; J0696

== ENCOUNTER 2018-03-23 14:50 | Emergency (ER) | payer MEDICARE, MEDICAID ==
--- NOTE | 2018-03-23 15:09 | ER Document Report ---
ED General - General Stated Complaint: NAUSEA/VOMITING Time Seen by Provider: 03/23/18 14:57 Mode of Arrival: Medic Information source: Patient Notes: This is an 82-year-old female with a history of breast cancer (right mastectomy) , diabetes, chronic kidney disease, a contractile bladder (suprapubic catheter) , who was referred to by oncology clinic because of nausea, vomiting and shaking chills. Patient denied fever. Patient states she was usual state of health until going to clinic today. Patient currently states that she is in no pain. TRAVEL OUTSIDE OF THE [place] IN LAST 30 DAYS: No - HPI Onset: Just prior to arrival Onset/Duration: Sudden Quality of pain: No pain Severity: None Pain Level: Denies Associated symptoms: Nausea, Vomiting. denies: Chills, Fever, Shortness of breath Exacerbated by: Denies, Standing Similar symptoms previously: Yes Recently seen / treated by doctor: Yes - Related Data Allergies/Adverse Reactions: Penicillins Allergy (Severe, Verified 08/03/17 12:51) rash/swelling Sulfa (Sulfonamide Antibiotics) Allergy (Severe, Verified 08/03/17 12:51) rash/swelling Past Medical History - General Information source: Patient - Social History Smoking Status: Never Smoker Cigarette use (# per day): No Chew tobacco use (# tins/day): No Frequency of alcohol use: None Drug Abuse: None Lives with: Family Family History: Reviewed & Not Pertinent Patient has suicidal ideation: No Patient has homicidal ideation: No - Past Medical History Cardiac Medical History: Reports: Hx Coronary Artery Disease, Hx Hypercholesterolemia - meds x 10 years, Hx Hypertension - meds x 10 years, Hx Heart Murmur - denies echo Denies: Hx Atrial Fibrillation, Hx Congestive Heart Failure, Hx Heart Attack , Hx Peripheral Vascular Disease, Hx Pulmonary Embolism Pulmonary Medical History: Reports: Hx Sleep Apnea - CPAP DC'ed x 1 year Denies: Hx Asthma, Hx Bronchitis, Hx COPD, Hx Pneumonia, Hx Respiratory Failure, Hx Tuberculosis Neurological Medical History: Reports: Hx Seizures - LAST SEIZURE 6 MONTHS AGO. Denies: Hx Cerebrovascular Accident Endocrine Medical History: Reports: Hx Diabetes Mellitus Type 1, Hx Diabetes Mellitus Type 2. Denies: Hx Graves' Disease, Hx Hyperthyroidism, Hx Hypothyroidism Renal/ Medical History: Reports: Hx Ovarian Cysts. Denies: Hx Peritoneal Dialysis Malignancy Medical History: Reports: Hx Breast Cancer - RT. Denies: Hx Cervical Cancer, Hx Leukemia, Hx Lung Cancer, Hx Ovarian Cancer GI Medical History: Reports: Hx Gastroesophageal Reflux Disease - meds x 15 years, Hx Ulcer - approx 15 years ago. Denies: Hx Crohn's Disease, Hx Hiatal Hernia, Hx Irritable Bowel, Hx Liver Failure, Hx Pancreatitis Musculoskeletal Medical History: Reports Hx Arthritis, Denies Hx Fibromyalgia, Denies Hx Multiple Sclerosis, Denies Hx Muscular Dystrophy Psychiatric Medical History: Reports: Hx Depression - meds x 30 years Denies: Hx Bipolar Disorder, Hx Dementia, Hx Post Traumatic Stress Disorder, Hx Schizophrenia Traumatic Medical History: Reports: Hx Fractures - hx clavicle fx & rib fx's Infectious Medical History: Denies: Hx HIV Past Surgical History: Reports: Hx Appendectomy, Hx Cholecystectomy, Hx Hysterectomy, Hx Mastectomy - "partial RIGHT" with lymph node dissection (20). Denies: Hx Bowel Surgery, Hx Section, Hx Colostomy, Hx Coronary Artery Bypass Graft, Hx Gastric Bypass Surgery, Hx Herniorrhaphy, Hx Pacemaker, Hx Tonsillectomy, Hx Tubal Ligation - Immunizations Hx Diphtheria, Pertussis, Tetanus Vaccination: No Hx Pneumococcal Vaccination: 02/19/09 Review of Systems - Review of Systems Constitutional: denies: Chills, Fever EENT: No symptoms reported Cardiovascular: No symptoms reported Respiratory: No symptoms reported Gastrointestinal: See HPI Genitourinary: No symptoms reported Female Genitourinary: No symptoms reported Musculoskeletal: No symptoms reported Skin: No symptoms reported Hematologic/Lymphatic: No symptoms reported Neurological/Psychological: No symptoms reported Physical Exam - Vital signs Vitals: Temp 97.8 F 03/23/18 15:20 Notes: Physical exam: GENERAL: Elderly woman who is alert and orient x3, no acute distress HEAD: Atraumatic, normocephalic. EYES: Pupils equal round and reactive to light, extraocular movements intact, sclera anicteric, conjunctiva are normal. ENT: TMs normal, nares patent, oropharynx clear without exudates. Moist mucous membranes. NECK: Normal range of motion, supple without obvious mass or JVD. LUNGS: Breath sounds clear to auscultation bilaterally and equal. No wheezes rales or rhonchi. HEART: Regular rate and rhythm without murmurs, rubs or gallops. ABDOMEN: Soft, normoactive bowel sounds. No tenderness to palpation. No guarding, no rebound. No masses appreciated. The supra pubic catheter in place , EXTREMITIES: Normal range of motion, no pitting or edema. No clubbing or cyanosis. NEUROLOGICAL: Cranial nerves II through XII grossly intact. Normal speech, moving all extremities. PSYCH: Normal mood, normal affect. SKIN: Warm, Dry, normal turgor, no rashes or lesions noted. Course - Vital Signs Vital signs: Temp Pulse Resp BP Pulse Ox 97.8 F 12 146/62 H 96 03/23/18 15:20 03/23/18 17:01 03/23/18 17:01 03/23/18 17:01 - Laboratory Result Diagrams: 03/23/18 15:28 03/23/18 15:28 Laboratory results interpreted by me: 03/23/18 03/23/18 03/23/18 15:28 15:28 16:06 RBC 2.85 L Hgb 8.6 L Hct 26.2 L RDW 15.9 H Seg Neutrophils % 89.8 H Lymphocytes % 5.3 L Absolute Lymphocytes 0.4 L Sodium 133.5 L Chloride 97 L Glucose 150 H Total Protein 6.2 L Urine Protein 30 H Urine Blood LARGE H Urine Nitrite POSITIVE H Ur Leukocyte Esterase LARGE H Urine Ascorbic Acid 40 H - Diagnostic Test Radiology reviewed: Image reviewed, Reports reviewed - No infiltrates - EKG Interpretation by Me Rate: Normal Rhythm: NSR - EKG shows normal sinus rhythm with a ventricular rate of 86, no acute ST-T wave changes Discharge - Discharge Clinical Impression: Vomiting with nausea Condition: Stable Disposition: HOME, SELF-CARE Additional Instructions: As we discussed, your labs look good today. Take Zofran for nausea. I want you to follow-up with Dr. Hartmann for the iron transfusion. Call the office tomorrow. Also follow-up with Dr. Hilton. Return to the emergency room for worsening nausea, vomiting, not tolerating fluids or any concerns or getting worse. Continue current medicines.
[2018-03-23] MEDS ORDERED: ONDANSETRON HCL INJ/PF 4 MG/2 ML SDV IV ONE (15:15)
[2018-03-23] MEDS ORDERED: NORMAL SALINE 500 ML IV ONE (15:16)
[2018-03-23 15:41] LABS: ABSOLUTE LYMPHOCYTES (AUTO) 0.4 10^3/uL (0.5-4.7); ABSOLUTE MONOCYTES (AUTO) 0.3 10^3/uL (0.1-1.4); ABSOLUTE NEUT (AUTO) 6.9 10^3/uL (1.7-8.2); BASOPHILS % (AUTO) 0.1 % (0-2); EOSINOPHILS % (AUTO) 0.5 % (0-6); HEMATOCRIT 26.2 % (36.0-47.0); HEMOGLOBIN 8.6 g/dL (12.0-15.5); LYMPHOCYTES % (AUTO) 5.3 % (13-45); MEAN CORPUSCULAR HEMOGLOBIN 30.2 pg (27.0-33.4); MEAN CORPUSCULAR HGB CONC 32.8 g/dL (32.0-36.0); MEAN CORPUSCULAR VOLUME 92 fl (80-97); MONOCYTES % (AUTO) 4.3 % (3-13); PLATELET COUNT 278 10^3/uL (150-450); RED BLOOD COUNT 2.85 10^6/uL (3.72-5.28); RED CELL DISTRIBUTION WIDTH 15.9 % (11.5-14.0); SEGMENTED NEUTROPHILS % (AUTO) 89.8 % (42-78); TOTAL CELLS COUNTED % (AUTO) 100 %; WHITE BLOOD COUNT 7.7 10^3/uL (4.0-10.5)
--- NOTE | 2018-03-23 15:54 | RADIOLOGY REPORT (SQ) ---
EXAM DESCRIPTION: CHEST SINGLE VIEW COMPLETED DATE/TIME: 03/23/2018 3:46 pm REASON FOR STUDY: chest pain COMPARISON: 09/22/2016. EXAM PARAMETERS: NUMBER OF VIEWS: One view. TECHNIQUE: Single frontal radiographic view of the chest acquired. RADIATION DOSE: NA LIMITATIONS: None. FINDINGS: LUNGS AND PLEURA: No opacities, masses or pneumothorax. No pleural effusion. MEDIASTINUM AND HILAR STRUCTURES: No masses. Contour normal. HEART AND VASCULAR STRUCTURES: Heart normal in size. Normal vasculature. BONES: No acute findings. HARDWARE: Vascular port. The shoulder prosthesis. Surgical clips in the soft tissues on the right. OTHER: No other significant finding. IMPRESSION: NO ACUTE RADIOGRAPHIC FINDING IN THE CHEST. TECHNICAL DOCUMENTATION: JOB ID: [id number] [employer]- All Rights Reserved Reading location - IP/workstation name: [email or web address]
[2018-03-23 16:02] LABS: ALANINE AMINOTRANSFERASE 32 U/L (9-52); ALBUMIN 3.6 g/dL (3.5-5.0); ALKALINE PHOSPHATASE 76 U/L (38-126); ANION GAP 15 (5-19); ASPARTATE AMINO TRANSFERASE 35 U/L (14-36); BILIRUBIN,DIRECT 0.1 mg/dL (0.0-0.4); BILIRUBIN,TOTAL 0.2 mg/dL (0.2-1.3); BLOOD UREA NITROGEN 14 mg/dL (7-20); CALCIUM 8.7 mg/dL (8.4-10.2); CARBON DIOXIDE 22 mmol/L (22-30); CHLORIDE 97 mmol/L (98-107); GLUCOSE 150 mg/dL (75-110); LIPASE 260.5 U/L (23-300); POTASSIUM 4.5 mmol/L (3.6-5.0); SODIUM 133.5 mmol/L (137-145); TOTAL PROTEIN 6.2 g/dL (6.3-8.2)
[2018-03-23 16:33] LABS: AMORPHOUS SEDIMENT,URINE TRACE /HPF; APPEARANCE,URINE CLOUDY; BILIRUBIN,URINE NEGATIVE (NEGATIVE); COLOR,URINE YELLOW; GLUCOSE, URINE NEGATIVE (NEGATIVE); KETONES,URINE NEGATIVE (NEGATIVE); LEUKOCYTE ESTERASE,URINE LARGE (NEGATIVE); NITRITE,URINE POSITIVE (NEGATIVE); PROTEIN,URINE 30 mg/dL (NEGATIVE); URINE SPECIFIC GRAVITY 1.015; UROBILINOGEN,URINE NEGATIVE mg/dL (<2.0)
[2018-03-23] MEDS ORDERED: ONDANSETRON ODT 4 MG TAB (6 TAB/ER DISP) PO PRN (18:28)
[2018-03-23 18:59] VITALS: BP 158/71
--- NOTE | 2018-03-23 21:08 | EKG REPORT ---
SEVERITY:- NORMAL ECG - SINUS RHYTHM : Confirmed by: Carla Wallace 23-Mar-2018 21:06:32
== END 2018-03-23 18:59 | disposition home or self-care (01) ==
LOC: ER 14:50
DX: R11.2 Nausea with vomiting, unspecified (principal); R68.83 Chills (without fever); E11.9 Type 2 diabetes mellitus without complications; I25.10 Atherosclerotic heart disease of native coronary artery without angina pectoris; I10 Essential (primary) hypertension; Z85.3 Personal history of malignant neoplasm of breast; Z88.0 Allergy status to penicillin; Z88.2 Allergy status to sulfonamides; Z87.19 Personal history of other diseases of the digestive system
CPT/HCPCS: 93005; 36591; 99284; 96361; 96374; 36415; 87086; 83690; 85025; 87088; 80053; 81001; 87186; 71045; 93010; J2405; J7040; A9270

== ENCOUNTER 2018-04-12 08:20 | Inpatient (IN) | payer MEDICARE, MEDICAID ==
[2018-04-12] MEDS ORDERED: NORMAL SALINE 500 ML IV ONE ×2 (08:52→10:56)
--- NOTE | 2018-04-12 09:31 | RADIOLOGY REPORT (SQ) ---
EXAM DESCRIPTION: CHEST SINGLE VIEW COMPLETED DATE/TIME: 04/12/2018 9:13 am REASON FOR STUDY: drowiness COMPARISON: 03/23/2018 EXAM PARAMETERS: NUMBER OF VIEWS: One view. TECHNIQUE: Single frontal radiographic view of the chest acquired. RADIATION DOSE: NA LIMITATIONS: None. FINDINGS: LUNGS AND PLEURA: No opacities, masses or pneumothorax. No pleural effusion. MEDIASTINUM AND HILAR STRUCTURES: No masses. Contour normal. HEART AND VASCULAR STRUCTURES: Heart normal in size. Normal vasculature. BONES: No acute findings. HARDWARE: Left [id number] catheter and left shoulder prostheses, stable findings. OTHER: Multiple surgical metallic clips in the soft tissues of the right lateral chest wall. Prior right mastectomy. IMPRESSION: 1. No significant interval changes since the prior study dated 03/23/2018. No acute fi ndings. TECHNICAL DOCUMENTATION: JOB ID: [id number] [employer]- All Rights Reserved Reading location - IP/workstation name: [email or web address]
[2018-04-12 10:22] LABS: APPEARANCE,URINE TURBID; BILIRUBIN,URINE NEGATIVE (NEGATIVE); COLOR,URINE YELLOW; GLUCOSE, URINE NEGATIVE (NEGATIVE); KETONES,URINE NEGATIVE (NEGATIVE); LEUKOCYTE ESTERASE,URINE LARGE (NEGATIVE); NITRITE,URINE NEGATIVE (NEGATIVE); PROTEIN,URINE 100 mg/dL (NEGATIVE); UROBILINOGEN,URINE NEGATIVE mg/dL (<2.0)
[2018-04-12 10:26] LABS: INTERNATIONAL RATION (INR) 1.09; PROTHROMBIN TIME 14.7 SEC (11.4-15.4)
[2018-04-12 10:34] LABS: HEMATOCRIT 30.7 % (36.0-47.0); MEAN CORPUSCULAR HEMOGLOBIN 30.4 pg (27.0-33.4); MEAN CORPUSCULAR HGB CONC 32.4 g/dL (32.0-36.0); MEAN CORPUSCULAR VOLUME 94 fl (80-97); PLATELET COUNT 329 10^3/uL (150-450); RED BLOOD COUNT 3.27 10^6/uL (3.72-5.28); RED CELL DISTRIBUTION WIDTH 17.2 % (11.5-14.0); WHITE BLOOD COUNT 11.1 10^3/uL (4.0-10.5)
--- NOTE | 2018-04-12 10:34 | EKG REPORT ---
SEVERITY:- ABNORMAL ECG - SINUS RHYTHM PROBABLE INFERIOR INFARCT, OLD : Confirmed by: Carla Wallace 12-Apr-2018 10:33:45
[2018-04-12 10:39] LABS: VENOUS BLOOD BASE EXCESS -5.4 mmol/L; VENOUS BLOOD HCO3 21.1 mmol/L (20-32); VENOUS BLOOD PCO2 44.9 mmHg (35-63); VENOUS BLOOD PH 7.29 (7.30-7.42)
[2018-04-12 10:40] LABS: ALANINE AMINOTRANSFERASE 22 U/L (9-52); ALBUMIN 3.1 g/dL (3.5-5.0); ALKALINE PHOSPHATASE 66 U/L (38-126); ANION GAP 16 (5-19); ASPARTATE AMINO TRANSFERASE 24 U/L (14-36); BILIRUBIN,DIRECT 0.2 mg/dL (0.0-0.4); BILIRUBIN,TOTAL 0.2 mg/dL (0.2-1.3); BLOOD UREA NITROGEN 45 mg/dL (7-20); CALCIUM 10.3 mg/dL (8.4-10.2); CARBON DIOXIDE 22 mmol/L (22-30); CHLORIDE 98 mmol/L (98-107); GLUCOSE 214 mg/dL (75-110); POTASSIUM 5.8 mmol/L (3.6-5.0); SODIUM 135.7 mmol/L (137-145); TOTAL PROTEIN 5.8 g/dL (6.3-8.2)
[2018-04-12] MEDS ORDERED: NORMAL SALINE 1000 ML 1,000 ML IV ONE (10:56)
[2018-04-12 10:59] LABS: ABSOLUTE LYMPHOCYTES# (MANUAL) 0.8 10^3/uL (0.5-4.7); ABSOLUTE MONOCYTES # (MANUAL) 1.2 10^3/uL (0.1-1.4); ANISOCYTOSIS 2+; BASOPHILS % (MANUAL) 0 % (0-2); EOSINOPHILS % (MANUAL) 1 % (0-6); LYMPHOCYTES % (MANUAL) 7 % (13-45); MONOCYTES % (MANUAL) 11 % (3-13); SEGMENTED NEUTROPHILS % (MAN) 81 % (42-78); TOTAL CELLS COUNTED 100
[2018-04-12 11:10] LABS: PLATELET COMMENT ADEQUATE; TOXIC GRANULATION SLIGHT
[2018-04-12] MEDS ORDERED: INSULIN REG, HUMAN 100 UNIT/ML 3 ML VIAL (PYX) IV ONE (11:55)
[2018-04-12] MEDS ORDERED: CALCIUM GLUCONATE 1000 MG/10 ML INJ IV ONE (11:55)
[2018-04-12] MEDS ORDERED: DEXTROSE 50%-WATER 25 GM/50 ML DISP.SYRIN IV ONE (11:55)
--- NOTE | 2018-04-12 14:00 | RADIOLOGY REPORT (SQ) ---
EXAM DESCRIPTION: CT ABD/PELVIS ORAL ONLY COMPLETED DATE/TIME: 04/12/2018 1:37 pm REASON FOR STUDY: abd pain COMPARISON: CT abdomen pelvis 06/23/2017, 12/31/2014, 12/17/2014 TECHNIQUE: CT scan of the abdomen and pelvis performed without intravenous or oral contrast. Images reviewed with lung, soft tissue, and bone windows. Reconstructed coronal and sagittal MPR images revi ewed. All images stored on PACS. All CT scanners at this facility use dose modulation, iterative reconstruction, and/or weight based d osing when appropriate to reduce radiation dose to as low as reasonably achievable (ALARA). [facility]: Dose Right [facility]: CareDose [facility]: Dose Right [facility]: Teradose 4D [facility]: [employer] RADIATION DOSE: CT Rad equipment meets quality standard of care and radiation dose reduction techniq ues were employed. CTDIvol: 5.6 mGy. DLP: 324 mGy-cm.mGy. LIMITATIONS: None. FINDINGS: LOWER CHEST: No significant findings. No nodules or infiltrates. NON-CONTRASTED LIVER, SPLEEN, ADRENALS: Evaluation limited by lack of IV contrast. No identified sign ificant masses. PANCREAS: No masses. No peripancreatic inflammatory changes. GALLBLADDER: Surgically absent. RIGHT KIDNEY AND URETER: No suspicious masses. Assessment limited by lack of IV contrast. No signif icant calcifications. No hydronephrosis or hydroureter. LEFT KIDNEY AND URETER: No suspicious masses. Assessment limited by lack of IV contrast. No signifi cant calcifications. No hydronephrosis or hydroureter. AORTA AND RETROPERITONEUM: No aneurysm. No retroperitoneal masses or adenopathy. BOWEL AND PERITONEAL CAVITY: Patient drank oral contrast. No CT evidence of bowel obstruction. No f ree intraperitoneal air or fluid. Moderate stool in the colon. APPENDIX: Surgically absent PELVIS, BLADDER, AND ABDOMINAL WALL:Post hysterectomy. Suprapubic catheter drains the urinary bladde r. No free pelvic fluid, no adenopathy or masses. Calcified pelvic phlebolith right hemipelvis BONES: No significant findings. OTHER: No other significant finding. IMPRESSION: NO SIGNIFICANT OR ACUTE PROCESS IN THE ABDOMEN OR PELVIS. COMMENT: Quality ID # [id number]: Final reports with documentation of one or more dose reduction techniques (e.g., Automated exposure control, adjustment of the mA and/or kV according to patient size, use of iterative reconstruction technique) TECHNICAL DOCUMENTATION: JOB ID: [id number] [employer]- All Rights Reserved Reading location - IP/workstation name: [email or web address]
--- NOTE | 2018-04-12 14:34 | ER Document Report ---
ED General - General Chief Complaint: Abdominal Swelling Stated Complaint: DROWSINESS Time Seen by Provider: 04/12/18 08:28 TRAVEL OUTSIDE OF THE [place] IN LAST 30 DAYS: No - HPI Patient complains to provider of: Somnolence abdominal swelling Notes: Patient coming in by EMS for abdominal swelling. According EMS report given to me by the nurse EMS found the patient with suprapubic catheter that was clamped this was unclamped in approximately 1600 cc of urine was drained from the bladder improving her abdominal distention. Upon my evaluation patient somewhat sleepy however able to answer all questions. Patient denies any pain at this time states that her abdomen feels much better. Denies any nausea or vomiting patient states she has not been eating all that well over the last few days. Patient otherwise is resting comfortably. Family members did eventually arrive to the ER. Upon further questioning concern for possible altered mental status states that she is increasing sleeping and not acting like herself. Denies any history of fevers denies any history of recent antibiotics. - Related Data Allergies/Adverse Reactions: Penicillins Allergy (Severe, Verified 08/03/17 12:51) rash/swelling Sulfa (Sulfonamide Antibiotics) Allergy (Severe, Verified 08/03/17 12:51) rash/swelling Past Medical History - Social History Smoking Status: Never Smoker Chew tobacco use (# tins/day): No Frequency of alcohol use: None Drug Abuse: None Family History: Reviewed & Not Pertinent Patient has suicidal ideation: No Patient has homicidal ideation: No - Past Medical History Cardiac Medical History: Reports: Hx Coronary Artery Disease, Hx Hypercholesterolemia - meds x 10 years, Hx Hypertension - meds x 10 years, Hx Heart Murmur - denies echo Denies: Hx Atrial Fibrillation, Hx Congestive Heart Failure, Hx Heart Attack , Hx Peripheral Vascular Disease, Hx Pulmonary Embolism Pulmonary Medical History: Reports: Hx Sleep Apnea - CPAP DC'ed x 1 year Denies: Hx Asthma, Hx Bronchitis, Hx COPD, Hx Pneumonia, Hx Respiratory Failure, Hx Tuberculosis Neurological Medical History: Reports: Hx Seizures - LAST SEIZURE 6 MONTHS AGO. Denies: Hx Cerebrovascular Accident Endocrine Medical History: Reports: Hx Diabetes Mellitus Type 1, Hx Diabetes Mellitus Type 2. Denies: Hx Graves' Disease, Hx Hyperthyroidism, Hx Hypothyroidism Renal/ Medical History: Reports: Hx Ovarian Cysts. Denies: Hx Peritoneal Dialysis Malignancy Medical History: Reports: Hx Breast Cancer - RT. Denies: Hx Cervical Cancer, Hx Leukemia, Hx Lung Cancer, Hx Ovarian Cancer GI Medical History: Reports: Hx Gastroesophageal Reflux Disease - meds x 15 years, Hx Ulcer - approx 15 years ago. Denies: Hx Crohn's Disease, Hx Hiatal Hernia, Hx Irritable Bowel, Hx Liver Failure, Hx Pancreatitis Musculoskeletal Medical History: Reports Hx Arthritis, Denies Hx Fibromyalgia, Denies Hx Multiple Sclerosis, Denies Hx Muscular Dystrophy Psychiatric Medical History: Reports: Hx Depression - meds x 30 years Denies: Hx Bipolar Disorder, Hx Dementia, Hx Post Traumatic Stress Disorder, Hx Schizophrenia Traumatic Medical History: Reports: Hx Fractures - hx clavicle fx & rib fx's Infectious Medical History: Denies: Hx HIV Past Surgical History: Reports: Hx Appendectomy, Hx Cholecystectomy, Hx Hysterectomy, Hx Mastectomy - "partial RIGHT" with lymph node dissection (20). Denies: Hx Bowel Surgery, Hx Section, Hx Colostomy, Hx Coronary Artery Bypass Graft, Hx Gastric Bypass Surgery, Hx Herniorrhaphy, Hx Pacemaker, Hx Tonsillectomy, Hx Tubal Ligation - Immunizations Hx Diphtheria, Pertussis, Tetanus Vaccination: No Hx Pneumococcal Vaccination: 02/19/09 Review of Systems - Review of Systems Constitutional: No symptoms reported EENT: No symptoms reported Cardiovascular: No symptoms reported Respiratory: No symptoms reported Gastrointestinal: Abdominal pain Genitourinary: No symptoms reported Female Genitourinary: No symptoms reported Musculoskeletal: No symptoms reported Skin: No symptoms reported Hematologic/Lymphatic: No symptoms reported Neurological/Psychological: No symptoms reported -: Yes All other systems reviewed and negative Physical Exam - Vital signs Vitals: Resp Pulse Ox 17 94 04/12/18 08:27 04/12/18 08:27 Interpretation: Normal - General General appearance: Appears well, Alert - HEENT Head: Normocephalic, Atraumatic Eyes: Normal Pupils: PERRL - Respiratory Respiratory status: No respiratory distress Chest status: Nontender Breath sounds: Normal Chest palpation: Normal - Cardiovascular Rhythm: Regular Heart sounds: Normal auscultation Murmur: No - Abdominal Inspection: Normal Distension: No distension Bowel sounds: Normal Tenderness: Nontender Organomegaly: No organomegaly Notes: Superior catheter in place no signs of infection - Back Back: Normal, Nontender - Extremities General upper extremity: Normal inspection, Nontender, Normal color, Normal ROM , Normal temperature General lower extremity: Normal inspection, Nontender, Normal color, Normal ROM , Normal temperature, Normal weight bearing. No: Eda's sign - Neurological Neuro grossly intact: Yes Cognition: Normal Orientation: AAOx4 Lizz Coma Scale Eye Opening: Spontaneous Lizz Coma Scale Verbal: Oriented Lizz Coma Scale Motor: Obeys Commands [place] Coma Scale Total: 15 Speech: Normal Motor strength normal: LUE, RUE, LLE, RLE Sensory: Normal - Psychological Associated symptoms: Normal affect, Normal mood - Skin Skin Temperature: Warm Skin Moisture: Dry Skin Color: Normal Course - Re-evaluation Re-evalutation: 04/12/18 15:22 Laboratory studies showed elevated lactic acid with acute renal failure and hyperkalemia. Patient was given treatment for hyperkalemia IV fluids for the lactic acid and the renal failure more likely renal failure and hyperkalemia due to obstructive process of the patient's suprapubic catheter was clamped. Because of the elevated lactic acid and complaints of abdominal pain I did go ahead with a CT scan is did show no acute pathology. Urinalysis obtained from the superior catheter does show signs of bacteria and white count patient has a CBC would like white count of 11 with a left shift of 81. Discussed the patient 's case with PCP Dr. Hilton. Request treatment on the urine at this time and Rocephin is that the patient does have a white count left shift and lactic acidosis. Urine culture has been sent. Patient acidosis on VBG kidney failure and hyperkalemia more likely due to clamping of the suprapubic catheter. Patient will be admitted to the eyes [facility] - Vital Signs Vital signs: Temp Pulse Resp BP Pulse Ox 12 116/49 L 100 04/12/18 15:00 04/12/18 14:00 04/12/18 14:00 - Laboratory Result Diagrams: 04/12/18 10:00 04/12/18 10:00 Laboratory results interpreted by me: 04/12/18 04/12/18 04/12/18 10:00 10:00 10:00 WBC 11.1 H RBC 3.27 L Hgb 10.0 L Hct 30.7 L RDW 17.2 H Seg Neuts % (Manual) 81 H Lymphocytes % (Manual) 7 L Abs Neuts (Manual) 9.0 H VBG pH Sodium 135.7 L Potassium 5.8 H BUN 45 H Creatinine 2.76 H Est GFR ( Amer) 20 L Est GFR (Non-Af Amer) 16 L Glucose 214 H POC Glucose Lactic Acid 4.3 H Calcium 10.3 H Total Protein 5.8 L Albumin 3.1 L Urine Protein Urine Blood Ur Leukocyte Esterase Urine Ascorbic Acid 04/12/18 04/12/18 04/12/18 10:00 10:00 12:23 WBC RBC Hgb Hct RDW Seg Neuts % (Manual) Lymphocytes % (Manual) Abs Neuts (Manual) VBG pH 7.29 L Sodium Potassium BUN Creatinine Est GFR ( Amer) Est GFR (Non-Af Amer) Glucose POC Glucose 187 H Lactic Acid Calcium Total Protein Albumin Urine Protein 100 H Urine Blood LARGE H Ur Leukocyte Esterase LARGE H Urine Ascorbic Acid 20 H 04/12/18 13:08 WBC RBC Hgb Hct RDW Seg Neuts % (Manual) Lymphocytes % (Manual) Abs Neuts (Manual) VBG pH Sodium Potassium BUN Creatinine Est GFR ( Amer) Est GFR (Non-Af Amer) Glucose POC Glucose 234 H Lactic Acid Calcium Total Protein Albumin Urine Protein Urine Blood Ur Leukocyte Esterase Urine Ascorbic Acid Critical Care Note - Critical Care Note Total time excluding time spent on procedures (mins): 35 Comments: Multiple evaluation for patient with acute renal failure hyperkalemia Discharge - Discharge Clinical Impression: Hyperkalemia, Lactic acidosis ARF (acute renal failure) Qualifiers: Acute renal failure type: unspecified Qualified Code(s): N17.9 - Acute kidney failure, unspecified UTI (urinary tract infection) Qualifiers: Urinary tract infection type: site unspecified Hematuria presence: without hematuria Qualified Code(s): N39.0 - Urinary tract infection, site not specified Altered mental state Qualifiers: Altered mental status type: unspecified Qualified Code(s): R41.82 - Altered mental status, unspecified Condition: Stable Disposition: ADMITTED INPATIENT Admitting Provider: Lida Unit Admitted: [facility]
[2018-04-12 15:58] LABS: ALANINE AMINOTRANSFERASE 22 U/L (9-52); ALBUMIN 2.6 g/dL (3.5-5.0); ALKALINE PHOSPHATASE 54 U/L (38-126); ANION GAP 11 (5-19); ASPARTATE AMINO TRANSFERASE 22 U/L (14-36); BILIRUBIN,DIRECT 0.2 mg/dL (0.0-0.4); BILIRUBIN,TOTAL 0.2 mg/dL (0.2-1.3); BLOOD UREA NITROGEN 47 mg/dL (7-20); CALCIUM 9.5 mg/dL (8.4-10.2); CARBON DIOXIDE 23 mmol/L (22-30); CHLORIDE 99 mmol/L (98-107); GLUCOSE 137 mg/dL (75-110); POTASSIUM 4.9 mmol/L (3.6-5.0); SODIUM 133.4 mmol/L (137-145); TOTAL PROTEIN 5.1 g/dL (6.3-8.2)
[2018-04-12] MEDS ORDERED: DEXTROSE 50%-WATER 25 GM/50 ML DISP.SYRIN IV PRN ×2 (16:05)
[2018-04-12] MEDS ORDERED: DEXTROSE 40% GEL 15 GM TUBE PO PRN ×2 (16:05)
[2018-04-12] MEDS ORDERED: GLUCAGON,HUMAN RECOMB 1 MG INJ IM PRN (16:05)
[2018-04-12] MEDS ORDERED: (PENDING PHARMACY ID) (Levocetirizine Dihydrochloride [Allergy Relief] 5 MG) PO PRN (16:07)
[2018-04-12] MEDS ORDERED: CETIRIZINE 5 MG TABLET PO PRN (16:12)
[2018-04-12] MEDS ORDERED: LEVOFLOXACIN 500 MG/D5W RTU 500 MG/100 ML RTUPB IV SCH (17:00)
[2018-04-12] MEDS: INSULIN LISPRO 100 UNIT/ML 3 ML VIAL SUBCUT PRN ×2 (17:30→21:37)
--- NOTE | 2018-04-12 18:07 | PDOC H&P ---
History of Present Illness Admission Date/PCP: 04/12/18 14:39 Patient complains of: Abdominal pain, change in mental status History of Present Illness: ANI PELAYO is a 82 year old female patient known to my practice who was brought to the Ed by EMS with complain of abdominal pain. Patient reported associated poor oral intake for several days and family reported increase sleepiness. EMS personnel reported finding her suprapubic magallanes catheter clamped and upon release of the clamp, patient passed about 1600 cc of urine with resolution of her abdominal pain. She denied any diarrhea, nausea or vomiting. There is no definite fever or chills. She denied any chest pain or difficulty with breathing. She reported generalized weakness and she has been bed bound for several days. Her initial ED evaluation revealed abnormal lab results suggestive of acute renal failure with abnormal urinalysis, mild leukocytosis with left shift. Her morbidities include Diabetes mellitus type 2, Hypertension, CAD, Hyperlipidemia, Gastroesophageal Reflux Disease, Seizures, Depression, Osteoarthritis, and Right breast cancer s/p mastectomy. In view of her laboratory and clinical findings the ED physician recommend hospitalization for further evaluation and management. Past Medical History Cardiac Medical History: Reports: Coronary Artery Disease, Hyperlipidema - meds x 10 years, Hypertension - meds x 10 years, Heart Murmur - denies echo Denies: Atrial Fibrillation, Congestive Heart Failure, Myocardial Infarction , Peripheral Vascular Disease, Pulmonary Embolism Pulmonary Medical History: Reports: Sleep Apnea - CPAP CT'ed x 1 year Denies: Asthma, Bronchitis, Chronic Obstructive Pulmonary Disease (COPD), Pneumonia, Respiratory Failure, Tuberculosis Neurological Medical History: Reports: Seizures - LAST SEIZURE 6 MONTHS AGO Endocrine Medical History: Reports: Diabetes Mellitus Type 1, Diabetes Mellitus Type 2 Denies: Hyperthyroidism, Hypothyroidism Malignancy Medical History: Reports: Breast Cancer - RT Denies: Cervical Cancer, Leukemia, Lung Cancer, Ovarian Cancer GI Medical History: Reports: Gastroesophageal Reflux Disease - meds x 15 years Denies: Crohn's Disease, Hiatal Hernia Musculoskeltal Medical History: Reports: Arthritis Denies: Fibromyalgia Psychiatric Medical History: Reports: Depression - meds x 30 years Denies: Bipolar Disorder, Dementia, Post Traumatic Stress Disorder Hematology: Reports: Anemia Denies: Hemophilia, Sickle Cell Disease Infectious Medical History: Denies: HIV Past Surgical History Past Surgical History: Reports: Appendectomy, Cholecystectomy, Hysterectomy, Mastectomy - "partial RIGHT" with lymph node dissection (20) Denies: Amputation, Section, Colostomy, Coronary Artery Bypass Graft , Gastric Bypass Surgery, Herniorrhaphy, Pacemaker, Tonsillectomy, Tubal Ligation Social History Smoking Status: Never Smoker Frequency of Alcohol Use: None Hx Recreational Drug Use: No Drugs: None Hx Prescription Drug Abuse: No Family History Family History: Reviewed & Not Pertinent Parental Family History Reviewed: Yes Children Family History Reviewed: Yes Sibling(s) Family History Reviewed.: Yes Medication/Allergy Home Medications: Apixaban [Eliquis 2.5 mg Tablet] 2.5 mg PO BID 04/12/18 Aspirin [Aspirin 81 mg Chewable Tablet] 81 mg PO DAILY 04/12/18 Ferrous Sulfate [Feosol 325 mg Tablet] 325 mg PO DAILY 04/12/18 Fluticasone Propionate [Flonase Nasal [place] 50 Mcg/[place] 16 gm] 2 sprays NAREB DAILY 04/12/18 Gabapentin [Neurontin 300 mg Capsule] 300 mg PO Q8 04/12/18 Hydrocodone/Acetaminophen [[place] 5-325 mg Tablet] 1 tab PO Q6HP PRN 04/12/18 Insulin Lispro [Humalog Insulin 100 Unit/1 ml 3 ml Vial] 0 unit SUBCUT .SLD SCALE 04/12/18 Lacosamide [Vimpat 100 mg Tablet] 100 mg PO Q12 04/12/18 Levocetirizine Dihydrochloride [Allergy Relief] 5 mg PO DAILYP PRN 04/12/18 Linagliptin [Tradjenta] 5 mg PO DAILY 04/12/18 Lisinopril [Prinivil 5 mg Tablet] 5 mg PO DAILY 04/12/18 Losartan/Hydrochlorothiazide [Losartan-Hctz 100-25 mg Tab] 1 tab PO DAILY Lubiprostone [Amitiza 24 Mcg Capsule] 24 mcg PO BID 04/12/18 Melatonin [Melatonin 5 mg Tablet] 5 mg PO QHS 04/12/18 Memantine HCl/Donepezil HCl [Namzaric 28 mg-10 mg Capsule] 1 cap PO DAILY Metformin HCl [Glucophage] 1,000 mg PO BIDACBS 04/12/18 Mirabegron [Myrbetriq] 25 mg PO DAILY 04/12/18 Montelukast Sodium [Singulair 10 mg Tablet] 10 mg PO QHS 04/12/18 Pantoprazole Sodium [Protonix] 40 mg PO DAILY 04/12/18 Polyethylene Glycol 3350 [Miralax Powder 17 gm/Packet] 1 packet PO DAILY Rosuvastatin Calcium [Crestor 10 mg Tablet] 10 mg PO DAILY 04/12/18 Sertraline HCl [Zoloft] 100 mg PO DAILY 04/12/18 Allergies/Adverse Reactions: Penicillins Allergy (Severe, Verified 08/03/17 12:51) rash/swelling Sulfa (Sulfonamide Antibiotics) Allergy (Severe, Verified 08/03/17 12:51) rash/swelling Review of Systems Constitutional: PRESENT: anorexia, fatigue, weakness - generalized. ABSENT: as per HPI, chills, fever(s), headache(s), night sweats, weight gain, weight loss, other Eyes: PRESENT: visual disturbances Ears: PRESENT: hearing changes Nose, Mouth, and Throat: ABSENT: as per HPI, headache(s), mouth pain, sore throat, vertigo, other Cardiovascular: ABSENT: chest pain, dyspnea on exertion, edema, orthropnea, palpitations Respiratory: ABSENT: cough, hemoptysis Gastrointestinal: PRESENT: abdominal pain - resolved after release of magallanes clamp. ABSENT: as per HPI, bloating, coffee ground emesis, constipation, diarrhea, dysphagia, heartburn, hematemesis, hematochezia, melena, nausea, vomiting, other Genitourinary: ABSENT: dysuria, hematuria Musculoskeletal: ABSENT: joint swelling Integumentary: ABSENT: rash, wounds Neurological: PRESENT: weakness - generalized and bed bound for several days. ABSENT: abnormal speech, confusion, dizziness, focal weakness, syncope Psychiatric: ABSENT: anxiety, depression, homidical ideation, suicidal ideation Endocrine: ABSENT: cold intolerance, heat intolerance, polydipsia, polyuria Hematologic/Lymphatic: ABSENT: easy bleeding, easy bruising, lymphadenopathy Allergic/Immunologic: ABSENT: seasonal rhinorrhea Physical Exam Vital Signs: Temp Pulse Resp BP Pulse Ox 97.6 F 83 13 124/40 L 96 04/12/18 16:42 04/12/18 16:42 04/12/18 16:42 04/12/18 16:42 04/12/18 16:42 Intake & Output 04/11/18 04/12/18 04/13/18 06:59 06:59 06:59 Weight 63.2 kg General appearance: PRESENT: no acute distress - elderly female patient acutely ill looking Head exam: PRESENT: atraumatic, normocephalic Eye exam: PRESENT: conjunctiva pink, EOMI, PERRLA. ABSENT: scleral icterus Ear exam: PRESENT: normal external ear exam Mouth exam: PRESENT: moist - fairly Neck exam: PRESENT: full ROM. ABSENT: carotid bruit, JVD, lymphadenopathy, thyromegaly Respiratory exam: PRESENT: clear to auscultation adenike, decreased breath sounds - at lung bases Cardiovascular exam: PRESENT: RRR, +S1, +S2, systolic murmur. ABSENT: gallop Murmur grade: 3 Pulses: PRESENT: +1 pedal pulses bilateral Vascular exam: PRESENT: normal capillary refill. ABSENT: pallor GI/Abdominal exam: PRESENT: normal bowel sounds, soft, other - suprapubic magallanes catheter site with some mucoid drainage. ABSENT: distended, guarding, mass, organolmegaly, rebound, tenderness Rectal exam: PRESENT: deferred Extremities exam: ABSENT: pedal edema Musculoskeletal exam: PRESENT: deformity - related to multiple joints involvement with arthritis. ABSENT: tenderness Neurological exam: PRESENT: alert, awake - and appropriate in simple responses at the time of my evaluation Psychiatric exam: PRESENT: appropriate affect, normal mood. ABSENT: homicidal ideation, suicidal ideation Skin exam: PRESENT: dry, warm, other - suprapubic magallanes cath site with minimal mucoid drainage. Results Laboratory Results: I reviewed her lab results on [employer] and form significant part of my medical decision making in this case. 04/12/18 14:50 04/12/18 14:50 Sodium 133.4 L Potassium 4.9 Chloride 99 Carbon Dioxide 23 Anion Gap 11 BUN 47 H Creatinine 2.74 H Est GFR ( Amer) 20 L Est GFR (Non-Af Amer) 17 L Glucose 137 H Calcium 9.5 Total Bilirubin 0.2 AST 22 ALT 22 Alkaline Phosphatase 54 Total Protein 5.1 L Albumin 2.6 L Impressions: Abdomen/Pelvis CT 04/12/18 00:00 IMPRESSION: NO SIGNIFICANT OR ACUTE PROCESS IN THE ABDOMEN OR PELVIS. Chest X-Ray 04/12/18 08:51 IMPRESSION: 1. No significant interval changes since the prior study dated . No acute findings. Assessment & Plan - Diagnosis (1) Toxic metabolic encephalopathy Is this a current diagnosis for this admission?: Yes Plan: Start patient in IV fluid support and antibiotic therapy. Maintain adequate oxygenation level and use supplemental oxygen as needed. (2) ARF (acute renal failure) Qualifiers: Acute renal failure type: with acute tubular necrosis Qualified Code(s): N17.0 - Acute kidney failure with tubular necrosis Is this a current diagnosis for this admission?: Yes Plan: Start on IV fluid therapy with normal saline infusion. Monitor renal indices via BMP. (3) Lactic acidosis Is this a current diagnosis for this admission?: Yes Plan: Start on IV antibiotic therapy and hydration with IV fluid infusion. (4) UTI (urinary tract infection) Qualifiers: Urinary tract infection type: catheter-associated UTI Indwelling urinary catheter type: cystostomy catheter Encounter type: initial encounter Qualified Code(s): T83.510A - Infection and inflammatory reaction due to cystostomy catheter, initial encounter; N39.0 - Urinary tract infection, site not specified; N39.0 - Urinary tract infection, site not specified Is this a current diagnosis for this admission?: Yes Plan: Start on empiric antibiotic therapy. Obtain urine culture and sensitivity to direct coverage. Maintain on adequate hydration via IV fluid infusion. (5) Diabetes mellitus type 2 in nonobese Is this a current diagnosis for this admission?: Yes Plan: Maintain on pre-admission diabetic management with humalog insulin sliding scale coverage. (6) HTN (hypertension) Qualifiers: Hypertension type: essential hypertension Qualified Code(s): I10 - Essential (primary) hypertension Is this a current diagnosis for this admission?: Yes Plan: Continue preadmission medication management as indicated with holding limitation if sbp < 110mmHg. (7) HLD (hyperlipidemia) Qualifiers: Hyperlipidemia type: unspecified Qualified Code(s): E78.5 - Hyperlipidemia , unspecified Is this a current diagnosis for this admission?: Yes Plan: Continue preadmission medication management (8) GERD (gastroesophageal reflux disease) Qualifiers: Esophagitis presence: without esophagitis Qualified Code(s): K21.9 - Gastro -esophageal reflux disease without esophagitis Plan: Continue preadmission medication management. - Time Time Spent: 50 to 70 Minutes Medications reviewed and adjusted accordingly: Yes Anticipated discharge: SNF Within: Other - Inpatient Certification Based on my medical assessment, after consideration of the patient's comorbidities, presenting symptoms, or acuity I expect that the services needed warrant INPATIENT care.: Yes I certify that my determination is in accordance with my understanding of Medicare's requirements for reasonable and necessary INPATIENT services [42 CFR 412.3e].: Yes Medical Necessity: Need Close Monitoring Due to Risk of Patient Decompensation, Need For IV Fluids, Need For Continuous Telemetry Monitoring, Need for IV Antibiotics, Risk of Complication if Not Cared For in Hospital Post Hospital Care: D/C or Transfer Summary - Plan Summary Plan Summary: See admitting physician orders as related to above care plan.
[2018-04-12] MEDS: LUBIPROSTONE 24 MCG CAPSULE PO SCH (18:49)
[2018-04-12] MEDS: NORMAL SALINE 1000 ML 1,000 ML IV PRN (21:23)
[2018-04-12] MEDS: ATORVASTATIN CALCIUM 20 MG TABLET PO SCH (21:25)
[2018-04-12] MEDS: GABAPENTIN 300 MG CAPSULE PO SCH (21:25)
[2018-04-12] MEDS: MONTELUKAST SODIUM 10 MG TABLET PO SCH (21:25)
[2018-04-12] MEDS: HYDROCODONE/ACETAMINOPHEN 5-325 MG TABLET PO PRN (21:26)
[2018-04-12] MEDS: HEPARIN SOD (PORCINE) 5,000 UNIT/ML 1 ML SYRINGE SUBCUT SCH (21:27)
[2018-04-12] MEDS: MELATONIN 5 MG TABLET PO SCH (21:37)
[2018-04-12] MEDS: LACOSAMIDE 100 MG TABLET PO SCH (21:37)
[2018-04-13] MEDS: HYDROCODONE/ACETAMINOPHEN 5-325 MG TABLET PO PRN ×2 (03:34→19:38)
[2018-04-13] MEDS: LANSOPRAZOLE 30 MG TAB.RAP.DR PO SCH (05:51)
[2018-04-13] MEDS: GABAPENTIN 300 MG CAPSULE PO SCH ×3 (05:51→22:19)
[2018-04-13 05:59] LABS: ABSOLUTE EOSINOPHILS # (AUTO) 0.2 10^3/uL (0.0-0.6); ABSOLUTE LYMPHOCYTES (AUTO) 0.9 10^3/uL (0.5-4.7); ABSOLUTE MONOCYTES (AUTO) 0.7 10^3/uL (0.1-1.4); ABSOLUTE NEUT (AUTO) 4.9 10^3/uL (1.7-8.2); BASOPHILS % (AUTO) 0.3 % (0-2); EOSINOPHILS % (AUTO) 3.2 % (0-6); HEMATOCRIT 22.4 % (36.0-47.0); MEAN CORPUSCULAR HEMOGLOBIN 31.4 pg (27.0-33.4); MEAN CORPUSCULAR HGB CONC 33.2 g/dL (32.0-36.0); MEAN CORPUSCULAR VOLUME 95 fl (80-97); MONOCYTES % (AUTO) 10.6 % (3-13); PLATELET COUNT 230 10^3/uL (150-450); RED BLOOD COUNT 2.37 10^6/uL (3.72-5.28); RED CELL DISTRIBUTION WIDTH 17.3 % (11.5-14.0); SEGMENTED NEUTROPHILS % (AUTO) 71.9 % (42-78); TOTAL CELLS COUNTED % (AUTO) 100 %; WHITE BLOOD COUNT 6.7 10^3/uL (4.0-10.5)
[2018-04-13 06:08] LABS: HEMOGLOBIN 7.4 g/dL (12.0-15.5)
[2018-04-13 06:27] LABS: ALANINE AMINOTRANSFERASE 24 U/L (9-52); ALBUMIN 2.3 g/dL (3.5-5.0); ALKALINE PHOSPHATASE 52 U/L (38-126); ANION GAP 12 (5-19); ASPARTATE AMINO TRANSFERASE 19 U/L (14-36); BILIRUBIN,DIRECT 0.1 mg/dL (0.0-0.4); BILIRUBIN,TOTAL 0.1 mg/dL (0.2-1.3); BLOOD UREA NITROGEN 50 mg/dL (7-20); CALCIUM 8.6 mg/dL (8.4-10.2); CARBON DIOXIDE 19 mmol/L (22-30); CHLORIDE 103 mmol/L (98-107); GLUCOSE 127 mg/dL (75-110); POTASSIUM 5.1 mmol/L (3.6-5.0); SODIUM 134.1 mmol/L (137-145); TOTAL PROTEIN 4.6 g/dL (6.3-8.2)
[2018-04-13] MEDS: NORMAL SALINE 1000 ML 1,000 ML IV PRN (07:37)
[2018-04-13] MEDS: METFORMIN HCL 500 MG TABLET PO SCH ×2 (07:37→16:07)
[2018-04-13] MEDS ORDERED: SODIUM POLYSTYRENE SULFONATE 15 GM/60 ML PO ONE (09:00)
[2018-04-13] MEDS: POLYETHYLENE GLYCOL 3350 POWDER 17 GM/1 PACKET PO SCH (09:54)
[2018-04-13] MEDS: FLUTICASONE NASAL SPRAY 50 MCG/SPRY 120 SPRAY/16 GM NAREB SCH (09:55)
[2018-04-13] MEDS: LUBIPROSTONE 24 MCG CAPSULE PO SCH ×2 (09:55→17:57)
[2018-04-13] MEDS: SERTRALINE HCL 50 MG TABLET PO SCH (09:55)
[2018-04-13] MEDS: FERROUS SULFATE 325 MG TABLET PO SCH (09:56)
[2018-04-13] MEDS: ASPIRIN 81 MG TABLET, CHEWABLE PO SCH (09:56)
[2018-04-13] MEDS: SITAGLIPTIN PHOSPHATE 25 MG TABLET PO SCH (09:56)
[2018-04-13] MEDS: LISINOPRIL 5 MG TABLET PO SCH (09:56)
[2018-04-13] MEDS ORDERED: (PENDING PHARMACY ID) (Mirabegron [Myrbetriq] 25 MG) PO SCH (10:00)
[2018-04-13] MEDS ORDERED: (PENDING PHARMACY ID) (Memantine Hcl/Donepezil Hcl [Namzaric 28 Mg-10 Mg Capsule] 1 CAP) PO SCH (10:00)
[2018-04-13] MEDS ORDERED: (PENDING PHARMACY ID) (Linagliptin [Tradjenta] 5 MG) PO SCH (10:00)
[2018-04-13] MEDS: HEPARIN SOD (PORCINE) 5,000 UNIT/ML 1 ML SYRINGE SUBCUT SCH ×2 (10:17→22:18)
[2018-04-13] MEDS: LACOSAMIDE 100 MG TABLET PO SCH ×2 (13:09→22:23)
[2018-04-13] MEDS: INSULIN LISPRO 100 UNIT/ML 3 ML VIAL SUBCUT PRN ×2 (14:36→17:58)
[2018-04-13 19:41] LABS: ABSOLUTE RETICS # 0.085 10^6/uL (0.028-0.122); RETICULOCYTE COUNT (AUTO) 3.51 % (0.66-2.85)
--- NOTE | 2018-04-13 19:45 | PDOC PROGRESS REPORT ---
Subjective Progress Note for:: 04/13/18 Subjective:: Patient is improving in her lucidity but still demonstrate episodes of confusion as per daughter and nursing staff reported. She denied chest pain or difficulty with breathing. No fever or chills. No nausea or vomiting. She reported intermittent lower abdominal region tenderness. Her magallanes catheter did get clogged earlier with need for flushing. She will receive 2 units of PRBC due to drop in her hemoglobin. Reason For Visit: ACUTE RENAL INJURY/HYPERKELMIA,COMPLICATE UTI WITH Physical Exam Vital Signs: Temp Pulse Resp BP Pulse Ox 97.6 F 75 11 L 118/43 L 93 04/13/18 07:51 04/13/18 07:51 04/13/18 07:51 04/13/18 07:51 04/13/18 07:51 Intake & Output 04/12/18 04/13/18 04/14/18 06:59 06:59 06:59 Intake Total 1220 1000 Output Total 60 Balance 1160 1000 Weight 74.2 kg General appearance: PRESENT: no acute distress Head exam: PRESENT: atraumatic, normocephalic Eye exam: PRESENT: conjunctiva pink, EOMI, PERRLA. ABSENT: scleral icterus Ear exam: PRESENT: normal external ear exam Mouth exam: PRESENT: dry mucosa - fairly Respiratory exam: PRESENT: clear to auscultation adenike, decreased breath sounds - at lung bases Cardiovascular exam: PRESENT: RRR, +S1, +S2, systolic murmur Murmur grade: 3 Vascular exam: PRESENT: normal capillary refill, pallor GI/Abdominal exam: PRESENT: normal bowel sounds, soft, other - suprapubic magallanes cath in situ. ABSENT: distended, guarding, mass, organolmegaly, rebound, tenderness Rectal exam: PRESENT: deferred Extremities exam: ABSENT: pedal edema Musculoskeletal exam: PRESENT: deformity - related to multiple joints involvement with arthritis Neurological exam: PRESENT: alert, awake - and appropriate in simple responses Psychiatric exam: PRESENT: appropriate affect, normal mood. ABSENT: homicidal ideation, suicidal ideation Skin exam: PRESENT: dry, warm Results Laboratory Results: 04/13/18 05:29 04/13/18 05:29 04/12/18 04/13/18 04/13/18 14:50 05:29 05:29 WBC 6.7 RBC 2.37 L Hgb 7.4 L D Hct 22.4 L MCV 95 MCH 31.4 MCHC 33.2 RDW 17.3 H Plt Count 230 Seg Neutrophils % 71.9 Lymphocytes % 14.0 Monocytes % 10.6 Eosinophils % 3.2 Basophils % 0.3 Absolute Neutrophils 4.9 Absolute Lymphocytes 0.9 Absolute Monocytes 0.7 Absolute Eosinophils 0.2 Absolute Basophils 0.0 Sodium 133.4 L 134.1 L Potassium 4.9 5.1 H Chloride 99 103 Carbon Dioxide 23 19 L Anion Gap 11 12 BUN 47 H 50 H Creatinine 2.74 H 3.79 H Est GFR ( Amer) 20 L 14 L Est GFR (Non-Af Amer) 17 L 11 L Glucose 137 H 127 H Lactic Acid Calcium 9.5 8.6 Total Bilirubin 0.2 0.1 L AST 22 19 ALT 22 24 Alkaline Phosphatase 54 52 Total Protein 5.1 L 4.6 L Albumin 2.6 L 2.3 L Blood Type Antibody Screen 04/13/18 04/13/18 05:29 06:48 WBC RBC Hgb Hct MCV MCH MCHC RDW Plt Count Seg Neutrophils % Lymphocytes % Monocytes % Eosinophils % Basophils % Absolute Neutrophils Absolute Lymphocytes Absolute Monocytes Absolute Eosinophils Absolute Basophils Sodium Potassium Chloride Carbon Dioxide Anion Gap BUN Creatinine Est GFR ( Amer) Est GFR (Non-Af Amer) Glucose Lactic Acid < 0.5 L Calcium Total Bilirubin AST ALT Alkaline Phosphatase Total Protein Albumin Blood Type O POSITIVE Antibody Screen NEGATIVE Impressions: Abdomen/Pelvis CT 04/12/18 00:00 IMPRESSION: NO SIGNIFICANT OR ACUTE PROCESS IN THE ABDOMEN OR PELVIS. Chest X-Ray 04/12/18 08:51 IMPRESSION: 1. No significant interval changes since the prior study dated . No acute findings. Assessment & Plan - Diagnosis (1) Toxic metabolic encephalopathy Is this a current diagnosis for this admission?: Yes Plan: Continue IV fluid support and antibiotic therapy with Levofloxacin. (2) ARF (acute renal failure) Qualifiers: Acute renal failure type: with acute tubular necrosis Qualified Code(s): N17.0 - Acute kidney failure with tubular necrosis Is this a current diagnosis for this admission?: Yes Plan: Maintain on IV fluid support and monitor renal indices. (3) Lactic acidosis Is this a current diagnosis for this admission?: Yes Plan: Improved. Continue IV fluid support and antibiotic therapy with Levofloxacin. (4) UTI (urinary tract infection) Qualifiers: Urinary tract infection type: catheter-associated UTI Indwelling urinary catheter type: cystostomy catheter Encounter type: initial encounter Qualified Code(s): T83.510A - Infection and inflammatory reaction due to cystostomy catheter, initial encounter; N39.0 - Urinary tract infection, site not specified; N39.0 - Urinary tract infection, site not specified Is this a current diagnosis for this admission?: Yes Plan: Continue IV fluid support and antibiotic therapy with Levofloxacin. There is possibility of colonization due to her indwelling magallanes catheter but in view of her presentation real ongoing infection merit consideration in the elderly patient. (5) Diabetes mellitus type 2 in nonobese Is this a current diagnosis for this admission?: Yes Plan: Maintain on current medication management. (6) HTN (hypertension) Qualifiers: Hypertension type: essential hypertension Qualified Code(s): I10 - Essential (primary) hypertension Is this a current diagnosis for this admission?: Yes Plan: Maintain on current medication management. (7) HLD (hyperlipidemia) Qualifiers: Hyperlipidemia type: unspecified Qualified Code(s): E78.5 - Hyperlipidemia , unspecified Is this a current diagnosis for this admission?: Yes Plan: Maintain on current medication management. (8) GERD (gastroesophageal reflux disease) Qualifiers: Esophagitis presence: without esophagitis Qualified Code(s): K21.9 - Gastro -esophageal reflux disease without esophagitis Is this a current diagnosis for this admission?: Yes Plan: Maintain on current medication management. (9) Anemia of chronic disease Is this a current diagnosis for this admission?: Yes Plan: Obtain post transfusion CBC with diff in AM. Obtain stool guiaic test x 2 and anemia studies from 04/12/18 pre-transfusion blood specimen. - Time Time Spent with patient: 25-34 minutes Medications reviewed and adjusted accordingly: Yes Anticipated discharge: SNF - fr short term rehabilitation. Within: Other - Inpatient Certification Based on my medical assessment, after consideration of the patient's comorbidities, presenting symptoms, or acuity I expect that the services needed warrant INPATIENT care.: Yes I certify that my determination is in accordance with my understanding of Medicare's requirements for reasonable and necessary INPATIENT services [42 CFR 412.3e].: Yes Medical Necessity: Need Close Monitoring Due to Risk of Patient Decompensation, Need For IV Fluids, Need For Continuous Telemetry Monitoring, Need for IV Antibiotics, Risk of Complication if Not Cared For in Hospital Post Hospital Care: D/C or Transfer Summary - Plan Summary Plan Summary: Maintain on current medication management. Follow up on culture findings. Obtain post transfusion CBC and CMP in AM. Obtain stool guiaic test x 2, Obtain anemia studies from 04/12/18 pre-transfusion blood specimen.
[2018-04-13 20:53] LABS: FOLATE > 20.00 ng/mL (>2.76); IRON(TIBC) < 10.1 ug/dL (37-170)
[2018-04-13 21:52] LABS: ABSOLUTE EOSINOPHILS # (AUTO) 0.3 10^3/uL (0.0-0.6); ABSOLUTE LYMPHOCYTES (AUTO) 1.1 10^3/uL (0.5-4.7); ABSOLUTE MONOCYTES (AUTO) 1.3 10^3/uL (0.1-1.4); ABSOLUTE NEUT (AUTO) 6.5 10^3/uL (1.7-8.2); BASOPHILS % (AUTO) 0.3 % (0-2); EOSINOPHILS % (AUTO) 3.1 % (0-6); HEMATOCRIT 32.4 % (36.0-47.0); LYMPHOCYTES % (AUTO) 11.9 % (13-45); MEAN CORPUSCULAR HEMOGLOBIN 29.9 pg (27.0-33.4); MONOCYTES % (AUTO) 14.3 % (3-13); PLATELET COUNT 253 10^3/uL (150-450); RED BLOOD COUNT 3.57 10^6/uL (3.72-5.28); RED CELL DISTRIBUTION WIDTH 18.8 % (11.5-14.0); SEGMENTED NEUTROPHILS % (AUTO) 70.4 % (42-78); TOTAL CELLS COUNTED % (AUTO) 100 %; WHITE BLOOD COUNT 9.3 10^3/uL (4.0-10.5)
[2018-04-13 21:55] LABS: HEMOGLOBIN 10.7 g/dL (12.0-15.5); MEAN CORPUSCULAR VOLUME 91 fl (80-97)
[2018-04-13] MEDS: ATORVASTATIN CALCIUM 20 MG TABLET PO SCH (22:19)
[2018-04-13] MEDS: MONTELUKAST SODIUM 10 MG TABLET PO SCH (22:20)
[2018-04-13] MEDS: MELATONIN 5 MG TABLET PO SCH (22:20)
[2018-04-14] MEDS: NORMAL SALINE 1000 ML 1,000 ML IV PRN ×3 (00:50→18:14)
[2018-04-14] MEDS: HYDROCODONE/ACETAMINOPHEN 5-325 MG TABLET PO PRN (03:37)
[2018-04-14] MEDS: GABAPENTIN 300 MG CAPSULE PO SCH ×3 (06:41→21:29)
[2018-04-14] MEDS: LANSOPRAZOLE 30 MG TAB.RAP.DR PO SCH (06:41)
[2018-04-14] MEDS: METFORMIN HCL 500 MG TABLET PO SCH ×2 (07:53→16:07)
[2018-04-14] MEDS: INSULIN LISPRO 100 UNIT/ML 3 ML VIAL SUBCUT PRN ×2 (07:54→13:11)
[2018-04-14] MEDS ORDERED: ONDANSETRON HCL INJ/PF 4 MG/2 ML SDV IV PRN (09:19)
[2018-04-14] MEDS: FERROUS SULFATE 325 MG TABLET PO SCH (10:21)
[2018-04-14] MEDS: HEPARIN SOD (PORCINE) 5,000 UNIT/ML 1 ML SYRINGE SUBCUT SCH ×2 (10:21→21:30)
[2018-04-14] MEDS: ASPIRIN 81 MG TABLET, CHEWABLE PO SCH (10:21)
[2018-04-14] MEDS: LISINOPRIL 5 MG TABLET PO SCH (10:21)
[2018-04-14] MEDS: LUBIPROSTONE 24 MCG CAPSULE PO SCH ×2 (10:21→17:21)
[2018-04-14] MEDS: SERTRALINE HCL 50 MG TABLET PO SCH (10:21)
[2018-04-14] MEDS: SITAGLIPTIN PHOSPHATE 25 MG TABLET PO SCH (10:21)
[2018-04-14] MEDS: FLUTICASONE NASAL SPRAY 50 MCG/SPRY 120 SPRAY/16 GM NAREB SCH (10:22)
[2018-04-14] MEDS: POLYETHYLENE GLYCOL 3350 POWDER 17 GM/1 PACKET PO SCH (10:22)
[2018-04-14] MEDS: LACOSAMIDE 100 MG TABLET PO SCH ×2 (10:26→21:29)
[2018-04-14] MEDS ORDERED: LEVOFLOXACIN 250 MG/D5W RTU 250 MG/50 ML RTUPB IV SCH (20:00)
--- NOTE | 2018-04-14 20:11 | PDOC PROGRESS REPORT ---
Subjective Progress Note for:: 04/14/18 Subjective:: Patient denied chest pain or difficulty with breathing. No fever or chills. Tolerating oral self feeding. No nausea or vomiting. There is concern about comparative poor urine output but her oral intake is not optimal and she was in deficit upon admission. Reason For Visit: ACUTE RENAL INJURY/HYPERKELMIA,COMPLICATE UTI WITH Physical Exam Vital Signs: Temp Pulse Resp BP Pulse Ox 98.4 F 89 16 136/54 H 95 04/14/18 16:09 04/14/18 16:09 04/14/18 16:09 04/14/18 16:09 04/14/18 16:09 Intake & Output 04/13/18 04/14/18 04/15/18 06:59 06:59 06:59 Intake Total 1220 2493 2312 Output Total 60 200 370 Balance 1160 2293 1942 Weight 74.2 kg 79.7 kg Physical Exam: General appearance: PRESENT: no acute distress Head exam: PRESENT: atraumatic, normocephalic Eye exam: PRESENT: conjunctiva pink, EOMI, PERRLA. ABSENT: scleral icterus Ear exam: PRESENT: normal external ear exam Mouth exam: PRESENT: moist mucosa - fairly Respiratory exam: PRESENT: clear to auscultation adenike, decreased breath sounds - at lung bases Cardiovascular exam: PRESENT: RRR, +S1, +S2, systolic murmur Murmur grade: 3 Vascular exam: PRESENT: normal capillary refill, pallor GI/Abdominal exam: PRESENT: normal bowel sounds, soft, other - suprapubic magallanes cath in situ. ABSENT: distended, guarding, mass, organomegaly, rebound, tenderness Rectal exam: PRESENT: deferred Extremities exam: ABSENT: pedal edema Musculoskeletal exam: PRESENT: deformity - related to multiple joints involvement with arthritis Neurological exam: PRESENT: alert, awake - and appropriate in simple responses Psychiatric exam: PRESENT: appropriate affect, normal mood. ABSENT: homicidal ideation, suicidal ideation Skin exam: PRESENT: dry, warm Murmur grade: 3 Results Laboratory Results: 04/13/18 21:04 04/13/18 05:29 04/13/18 04/13/18 05:29 21:04 WBC 9.3 RBC 3.57 L Hgb 10.7 L D Hct 32.4 L MCV 91 D MCH 29.9 MCHC 33.0 RDW 18.8 H Plt Count 253 Seg Neutrophils % 70.4 Lymphocytes % 11.9 L Monocytes % 14.3 H Eosinophils % 3.1 Basophils % 0.3 Absolute Neutrophils 6.5 Absolute Lymphocytes 1.1 Absolute Monocytes 1.3 Absolute Eosinophils 0.3 Absolute Basophils 0.0 Iron < 10.1 L TIBC 228 L % Saturation UNABLE TO CALCULATE Ferritin 61.90 Vitamin B12 901.0 Folate > 20.00 Impressions: Abdomen/Pelvis CT 04/12/18 00:00 IMPRESSION: NO SIGNIFICANT OR ACUTE PROCESS IN THE ABDOMEN OR PELVIS. Chest X-Ray 04/12/18 08:51 IMPRESSION: 1. No significant interval changes since the prior study dated . No acute findings. Assessment & Plan - Diagnosis (1) Toxic metabolic encephalopathy Is this a current diagnosis for this admission?: Yes Plan: Improving. Continue IV fluid support and antibiotic therapy with Levofloxacin. (2) ARF (acute renal failure) Qualifiers: Acute renal failure type: with acute tubular necrosis Qualified Code(s): N17.0 - Acute kidney failure with tubular necrosis Is this a current diagnosis for this admission?: Yes Plan: Maintain on IV fluid support and monitor renal indices. Obtain CMP in am. Obtain renal ultrasound. (3) Lactic acidosis Is this a current diagnosis for this admission?: Yes (4) UTI (urinary tract infection) Qualifiers: Urinary tract infection type: catheter-associated UTI Indwelling urinary catheter type: cystostomy catheter Encounter type: initial encounter Qualified Code(s): T83.510A - Infection and inflammatory reaction due to cystostomy catheter, initial encounter; N39.0 - Urinary tract infection, site not specified; N39.0 - Urinary tract infection, site not specified Is this a current diagnosis for this admission?: Yes Plan: Continue IV fluid support and antibiotic therapy with Levofloxacin. Organism identification and sensitivity are pending. (5) Diabetes mellitus type 2 in nonobese Is this a current diagnosis for this admission?: Yes Plan: D/C Metformin. Maintain on all other current medication management. (6) HTN (hypertension) Qualifiers: Hypertension type: essential hypertension Qualified Code(s): I10 - Essential (primary) hypertension Is this a current diagnosis for this admission?: Yes Plan: D/C Lisinopril. Start on Amlodipine 5 mg po daily to hold for sbp < 140mmHg. (7) HLD (hyperlipidemia) Qualifiers: Hyperlipidemia type: unspecified Qualified Code(s): E78.5 - Hyperlipidemia , unspecified Is this a current diagnosis for this admission?: Yes (8) GERD (gastroesophageal reflux disease) Qualifiers: Esophagitis presence: without esophagitis Qualified Code(s): K21.9 - Gastro -esophageal reflux disease without esophagitis Is this a current diagnosis for this admission?: Yes (9) Anemia of chronic disease Is this a current diagnosis for this admission?: Yes - Time Time Spent with patient: 25-34 minutes Medications reviewed and adjusted accordingly: Yes Anticipated discharge: SNF - short term rehabilitation. - Inpatient Certification Based on my medical assessment, after consideration of the patient's comorbidities, presenting symptoms, or acuity I expect that the services needed warrant INPATIENT care.: Yes I certify that my determination is in accordance with my understanding of Medicare's requirements for reasonable and necessary INPATIENT services [42 CFR 412.3e].: Yes Medical Necessity: Need Close Monitoring Due to Risk of Patient Decompensation, Need For IV Fluids, Need For Continuous Telemetry Monitoring, Need for IV Antibiotics, Risk of Complication if Not Cared For in Hospital Post Hospital Care: D/C or Transfer Summary - Plan Summary Plan Summary: Maintain on current medication management. Adjust IV Levofloxacin to 250 mg q48 hours from tonight. Follow up on urine and blood culture findings. Add Beneprotein 1 packet with meals tid. Obtain renal ultrasound.
[2018-04-14] MEDS: ATORVASTATIN CALCIUM 20 MG TABLET PO SCH (21:30)
[2018-04-14] MEDS: MONTELUKAST SODIUM 10 MG TABLET PO SCH (21:30)
[2018-04-14] MEDS: MELATONIN 5 MG TABLET PO SCH (21:32)
[2018-04-14] MEDS: LEVOFLOXACIN 250 MG/D5W RTU 250 MG/50 ML RTUPB IV SCH (21:59)
[2018-04-15] MEDS: GABAPENTIN 300 MG CAPSULE PO SCH ×3 (05:31→21:36)
[2018-04-15] MEDS: LANSOPRAZOLE 30 MG TAB.RAP.DR PO SCH (05:31)
[2018-04-15] MEDS: NORMAL SALINE 1000 ML 1,000 ML IV PRN ×3 (05:32→23:56)
[2018-04-15 06:18] LABS: ABSOLUTE LYMPHOCYTES (AUTO) 0.7 10^3/uL (0.5-4.7); ABSOLUTE MONOCYTES (AUTO) 0.7 10^3/uL (0.1-1.4); ABSOLUTE NEUT (AUTO) 5.3 10^3/uL (1.7-8.2); BASOPHILS % (AUTO) 0.4 % (0-2); EOSINOPHILS % (AUTO) 0.4 % (0-6); HEMATOCRIT 31.6 % (36.0-47.0); HEMOGLOBIN 10.5 g/dL (12.0-15.5); LYMPHOCYTES % (AUTO) 10.5 % (13-45); MEAN CORPUSCULAR HEMOGLOBIN 30.1 pg (27.0-33.4); MEAN CORPUSCULAR HGB CONC 33.1 g/dL (32.0-36.0); MEAN CORPUSCULAR VOLUME 91 fl (80-97); MONOCYTES % (AUTO) 10.3 % (3-13); PLATELET COUNT 228 10^3/uL (150-450); RED BLOOD COUNT 3.48 10^6/uL (3.72-5.28); RED CELL DISTRIBUTION WIDTH 17.8 % (11.5-14.0); SEGMENTED NEUTROPHILS % (AUTO) 78.4 % (42-78); TOTAL CELLS COUNTED % (AUTO) 100 %; WHITE BLOOD COUNT 6.8 10^3/uL (4.0-10.5)
[2018-04-15 06:36] LABS: ALANINE AMINOTRANSFERASE 35 U/L (9-52); ALBUMIN 2.6 g/dL (3.5-5.0); ALKALINE PHOSPHATASE 73 U/L (38-126); ASPARTATE AMINO TRANSFERASE 40 U/L (14-36); BILIRUBIN,DIRECT 0.2 mg/dL (0.0-0.4); BILIRUBIN,TOTAL 0.2 mg/dL (0.2-1.3); BLOOD UREA NITROGEN 63 mg/dL (7-20); CALCIUM 7.4 mg/dL (8.4-10.2); CARBON DIOXIDE 11 mmol/L (22-30); GLUCOSE 117 mg/dL (75-110); TOTAL PROTEIN 5.1 g/dL (6.3-8.2)
[2018-04-15 06:42] LABS: CHLORIDE 102 mmol/L (98-107); SODIUM 133.1 mmol/L (137-145)
[2018-04-15 06:50] LABS: ANION GAP 20 (5-19)
[2018-04-15 06:51] LABS: POTASSIUM 6.3 mmol/L (3.6-5.0)
[2018-04-15] MEDS ORDERED: DEXTROSE 50%-WATER 25 GM/50 ML DISP.SYRIN IV ONE (07:07)
[2018-04-15] MEDS ORDERED: INSULIN REG, HUMAN 100 UNIT/ML 3 ML VIAL (PYX) IV ONE (07:07)
--- NOTE | 2018-04-15 07:18 | PDOC PROGRESS REPORT ---
Subjective Progress Note for:: 04/15/18 Subjective:: No chest pain or difficulty with breathing. No fever or chills. Urine output remain suboptimal. No nausea, vomiting or abdominal pain. Reason For Visit: ACUTE RENAL INJURY/HYPERKELMIA,COMPLICATE UTI WITH Physical Exam Vital Signs: Temp Pulse Resp BP Pulse Ox 97.9 F 95 16 135/47 H 97 04/15/18 03:03 04/15/18 03:03 04/15/18 03:03 04/15/18 03:03 04/15/18 03:03 Intake & Output 04/14/18 04/15/18 04/16/18 06:59 06:59 06:59 Intake Total 2493 3562 Output Total 200 920 Balance 2293 2642 Weight 79.7 kg 80.8 kg Physical Exam: General appearance: PRESENT: no acute distress Head exam: PRESENT: atraumatic, normocephalic Eye exam: PRESENT: conjunctiva pink, EOMI, PERRLA. ABSENT: scleral icterus Ear exam: PRESENT: normal external ear exam Mouth exam: PRESENT: moist mucosa - fairly Respiratory exam: PRESENT: clear to auscultation adenike, decreased breath sounds - at lung bases Cardiovascular exam: PRESENT: RRR, +S1, +S2, systolic murmur Murmur grade: 3 Vascular exam: PRESENT: normal capillary refill, pallor GI/Abdominal exam: PRESENT: normal bowel sounds, soft, other - suprapubic magallanes cath in situ. ABSENT: distended, guarding, mass, organomegaly, rebound, tenderness Extremities exam: ABSENT: pedal edema Musculoskeletal exam: PRESENT: deformity - related to multiple joints involvement with arthritis Neurological exam: PRESENT: alert, awake - and appropriate in simple responses Psychiatric exam: PRESENT: appropriate affect, normal mood. ABSENT: homicidal ideation, suicidal ideation Skin exam: PRESENT: dry, warm Murmur grade: 3 Results Laboratory Results: 04/15/18 05:35 04/15/18 05:35 04/15/18 04/15/18 05:35 05:35 WBC 6.8 RBC 3.48 L Hgb 10.5 L Hct 31.6 L MCV 91 MCH 30.1 MCHC 33.1 RDW 17.8 H Plt Count 228 Seg Neutrophils % 78.4 H Lymphocytes % 10.5 L Monocytes % 10.3 Eosinophils % 0.4 Basophils % 0.4 Absolute Neutrophils 5.3 Absolute Lymphocytes 0.7 Absolute Monocytes 0.7 Absolute Eosinophils 0.0 Absolute Basophils 0.0 Sodium 133.1 L Potassium 6.3 H* Chloride 102 Carbon Dioxide 11 L Anion Gap 20 H BUN 63 H Creatinine 5.36 H Est GFR ( Amer) 9 L Est GFR (Non-Af Amer) 8 L Glucose 117 H Calcium 7.4 L Total Bilirubin 0.2 AST 40 H ALT 35 Alkaline Phosphatase 73 Total Protein 5.1 L Albumin 2.6 L Impressions: Abdomen/Pelvis CT 04/12/18 00:00 IMPRESSION: NO SIGNIFICANT OR ACUTE PROCESS IN THE ABDOMEN OR PELVIS. Chest X-Ray 04/12/18 08:51 IMPRESSION: 1. No significant interval changes since the prior study dated . No acute findings. Assessment & Plan - Diagnosis (1) Toxic metabolic encephalopathy Is this a current diagnosis for this admission?: Yes Plan: Continue IV fluid support and antibiotic therapy with Levofloxacin. (2) ARF (acute renal failure) Qualifiers: Acute renal failure type: with acute tubular necrosis Qualified Code(s): N17.0 - Acute kidney failure with tubular necrosis Is this a current diagnosis for this admission?: Yes Plan: Worsening renal indices with hyperkalemia. Decrease IV N/S fluid rate to 50mL/ hour. Hortense hyperkalemia treatment with calcium gluconate/D50W/25gm and 190 units of Regular insulin infusion x 1 dose. Kayexalate 15 gm po x 1 dose. Continue cardia monitoring. Repeat BMP at 12:00 hour. (3) Lactic acidosis Is this a current diagnosis for this admission?: Yes (4) UTI (urinary tract infection) Qualifiers: Urinary tract infection type: catheter-associated UTI Indwelling urinary catheter type: cystostomy catheter Encounter type: initial encounter Qualified Code(s): T83.510A - Infection and inflammatory reaction due to cystostomy catheter, initial encounter; N39.0 - Urinary tract infection, site not specified; N39.0 - Urinary tract infection, site not specified Is this a current diagnosis for this admission?: Yes Plan: Maintain on antibiotic therapy with Levofloxacin. Organism identification and sensitivity are pending. (5) Diabetes mellitus type 2 in nonobese Is this a current diagnosis for this admission?: Yes (6) HTN (hypertension) Qualifiers: Hypertension type: essential hypertension Qualified Code(s): I10 - Essential (primary) hypertension Is this a current diagnosis for this admission?: Yes (7) HLD (hyperlipidemia) Qualifiers: Hyperlipidemia type: unspecified Qualified Code(s): E78.5 - Hyperlipidemia , unspecified Is this a current diagnosis for this admission?: Yes (8) GERD (gastroesophageal reflux disease) Qualifiers: Esophagitis presence: without esophagitis Qualified Code(s): K21.9 - Gastro -esophageal reflux disease without esophagitis Is this a current diagnosis for this admission?: Yes (9) Anemia of chronic disease Is this a current diagnosis for this admission?: Yes - Time Time Spent with patient: 25-34 minutes Anticipated discharge: SNF Within: Other - Inpatient Certification Based on my medical assessment, after consideration of the patient's comorbidities, presenting symptoms, or acuity I expect that the services needed warrant INPATIENT care.: Yes I certify that my determination is in accordance with my understanding of Medicare's requirements for reasonable and necessary INPATIENT services [42 CFR 412.3e].: Yes Medical Necessity: Need Close Monitoring Due to Risk of Patient Decompensation, Need For IV Fluids, Need For Continuous Telemetry Monitoring, Need for IV Antibiotics, Risk of Complication if Not Cared For in Hospital Post Hospital Care: D/C or Transfer Summary - Plan Summary Plan Summary: Continue outlined care plan. Follow up on BMP for potassium level. I discussed care plan woth patient and daughter at this time agreeable and disposition plan will be for SNF placement for short term rehabilitation.
[2018-04-15] MEDS ORDERED: CALCIUM GLUCONATE 1000 MG/10 ML INJ IV ONE (08:00)
[2018-04-15] MEDS ORDERED: SODIUM POLYSTYRENE SULFONATE 15 GM/60 ML PO ONE (08:00)
[2018-04-15] MEDS: SITAGLIPTIN PHOSPHATE 25 MG TABLET PO SCH (09:03)
[2018-04-15] MEDS: HEPARIN SOD (PORCINE) 5,000 UNIT/ML 1 ML SYRINGE SUBCUT SCH ×2 (09:04→21:35)
[2018-04-15] MEDS: FERROUS SULFATE 325 MG TABLET PO SCH (09:04)
[2018-04-15] MEDS: ASPIRIN 81 MG TABLET, CHEWABLE PO SCH (09:04)
[2018-04-15] MEDS: POLYETHYLENE GLYCOL 3350 POWDER 17 GM/1 PACKET PO SCH (09:04)
[2018-04-15] MEDS: FLUTICASONE NASAL SPRAY 50 MCG/SPRY 120 SPRAY/16 GM NAREB SCH (09:05)
[2018-04-15] MEDS: LUBIPROSTONE 24 MCG CAPSULE PO SCH ×2 (09:06→17:26)
[2018-04-15] MEDS: SERTRALINE HCL 50 MG TABLET PO SCH (09:13)
[2018-04-15] MEDS: LACOSAMIDE 100 MG TABLET PO SCH ×2 (09:16→21:40)
[2018-04-15] MEDS: INSULIN LISPRO 100 UNIT/ML 3 ML VIAL SUBCUT PRN ×2 (12:45→17:26)
[2018-04-15 16:28] LABS: ANION GAP 18 (5-19); BLOOD UREA NITROGEN 62 mg/dL (7-20); CALCIUM 7.3 mg/dL (8.4-10.2); CARBON DIOXIDE 12 mmol/L (22-30); CHLORIDE 103 mmol/L (98-107); GLUCOSE 163 mg/dL (75-110); POTASSIUM 5.7 mmol/L (3.6-5.0)
[2018-04-15] MEDS: ATORVASTATIN CALCIUM 20 MG TABLET PO SCH (21:36)
[2018-04-15] MEDS: MELATONIN 5 MG TABLET PO SCH (21:36)
[2018-04-15] MEDS: MONTELUKAST SODIUM 10 MG TABLET PO SCH (21:36)
[2018-04-16] MEDS: GABAPENTIN 300 MG CAPSULE PO SCH ×3 (05:10→21:14)
[2018-04-16] MEDS: LANSOPRAZOLE 30 MG TAB.RAP.DR PO SCH (05:11)
[2018-04-16] MEDS: HYDROCODONE/ACETAMINOPHEN 5-325 MG TABLET PO PRN (10:35)
--- NOTE | 2018-04-16 11:08 | RADIOLOGY REPORT (SQ) ---
EXAM DESCRIPTION: FOREARM RIGHT; WRIST RIGHT 3 VIEWS COMPLETED DATE/TIME: 04/16/2018 10:39 am REASON FOR STUDY: pain COMPARISON: None. FINDINGS: Three views right wrist: Osteopenic. No displaced fracture or malalignment appreciated. Regional soft tissue swelling. Chondrocalcinosis in the TFCC. Two views right forearm: Osteopenic. No fracture or bone lesion. IMPRESSION: Osteopenia. No fracture evident. TECHNICAL DOCUMENTATION: JOB ID: [id number] Reading location - IP/workstation name: [email or web address]
--- NOTE | 2018-04-16 11:08 | RADIOLOGY REPORT (SQ) ---
EXAM DESCRIPTION: FOREARM RIGHT; WRIST RIGHT 3 VIEWS COMPLETED DATE/TIME: 04/16/2018 10:39 am REASON FOR STUDY: pain COMPARISON: None. FINDINGS: Three views right wrist: Osteopenic. No displaced fracture or malalignment appreciated. Regional soft tissue swelling. Chondrocalcinosis in the TFCC. Two views right forearm: Osteopenic. No fracture or bone lesion. IMPRESSION: Osteopenia. No fracture evident. TECHNICAL DOCUMENTATION: JOB ID: [id number] Reading location - IP/workstation name: [email or web address]
[2018-04-16 11:17] LABS: ABSOLUTE LYMPHOCYTES (AUTO) 0.3 10^3/uL (0.5-4.7); ABSOLUTE MONOCYTES (AUTO) 0.5 10^3/uL (0.1-1.4); ABSOLUTE NEUT (AUTO) 4.3 10^3/uL (1.7-8.2); BASOPHILS % (AUTO) 0.1 % (0-2); EOSINOPHILS % (AUTO) 0.4 % (0-6); HEMOGLOBIN 9.9 g/dL (12.0-15.5); LYMPHOCYTES % (AUTO) 6.1 % (13-45); MEAN CORPUSCULAR HEMOGLOBIN 29.8 pg (27.0-33.4); MEAN CORPUSCULAR HGB CONC 33.1 g/dL (32.0-36.0); MEAN CORPUSCULAR VOLUME 90 fl (80-97); MONOCYTES % (AUTO) 9.3 % (3-13); PLATELET COUNT 222 10^3/uL (150-450); RED BLOOD COUNT 3.33 10^6/uL (3.72-5.28); RED CELL DISTRIBUTION WIDTH 17.9 % (11.5-14.0); SEGMENTED NEUTROPHILS % (AUTO) 84.1 % (42-78); TOTAL CELLS COUNTED % (AUTO) 100 %; WHITE BLOOD COUNT 5.1 10^3/uL (4.0-10.5)
[2018-04-16 11:39] LABS: ANION GAP 14 (5-19); BLOOD UREA NITROGEN 50 mg/dL (7-20); CALCIUM 7.4 mg/dL (8.4-10.2); CARBON DIOXIDE 17 mmol/L (22-30); CHLORIDE 108 mmol/L (98-107); GLUCOSE 316 mg/dL (75-110); SODIUM 138.7 mmol/L (137-145)
[2018-04-16 11:50] LABS: POTASSIUM 4.7 mmol/L (3.6-5.0)
[2018-04-16] MEDS: POLYETHYLENE GLYCOL 3350 POWDER 17 GM/1 PACKET PO SCH (12:35)
[2018-04-16] MEDS: ASPIRIN 81 MG TABLET, CHEWABLE PO SCH (12:35)
[2018-04-16] MEDS: SERTRALINE HCL 50 MG TABLET PO SCH (12:35)
[2018-04-16] MEDS: INSULIN LISPRO 100 UNIT/ML 3 ML VIAL SUBCUT PRN ×3 (12:36→21:59)
[2018-04-16] MEDS: HEPARIN SOD (PORCINE) 5,000 UNIT/ML 1 ML SYRINGE SUBCUT SCH ×2 (12:36→21:13)
[2018-04-16] MEDS: FLUTICASONE NASAL SPRAY 50 MCG/SPRY 120 SPRAY/16 GM NAREB SCH (12:40)
[2018-04-16] MEDS: SITAGLIPTIN PHOSPHATE 25 MG TABLET PO SCH (12:40)
[2018-04-16] MEDS: LACOSAMIDE 100 MG TABLET PO SCH ×2 (12:44→21:14)
[2018-04-16] MEDS: LUBIPROSTONE 24 MCG CAPSULE PO SCH ×2 (12:57→18:40)
[2018-04-16] MEDS: FERROUS SULFATE 325 MG TABLET PO SCH (12:57)
[2018-04-16] MEDS: OXYCODONE-ACETAMINOPHEN 5-325 MG TABLET PO PRN (18:40)
[2018-04-16] MEDS: METHYLPREDNISOLONE INJ 40 MG/1 ML SDV IV SCH (19:56)
[2018-04-16] MEDS: NORMAL SALINE 1000 ML 1,000 ML IV PRN (19:58)
[2018-04-16] MEDS: MONTELUKAST SODIUM 10 MG TABLET PO SCH (21:14)
[2018-04-16] MEDS: ATORVASTATIN CALCIUM 20 MG TABLET PO SCH (21:14)
[2018-04-16] MEDS: LEVOFLOXACIN 250 MG/D5W RTU 250 MG/50 ML RTUPB IV SCH (21:18)
[2018-04-16] MEDS: MELATONIN 5 MG TABLET PO SCH (21:19)
--- NOTE | 2018-04-16 21:19 | PDOC PROGRESS REPORT ---
Subjective Progress Note for:: 04/16/18 Subjective:: Patient was seen by the bedside, she was admitted for the management of acute kidney failure due to obstructive uropathy. She has suprapubic catheter, this was mistakenly clamped resulting in acute kidney injury. She also have swelling pain of the right wrist that suggest acute gout arthropathy Reason For Visit: ACUTE RENAL INJURY/HYPERKELMIA,COMPLICATE UTI WITH Physical Exam Vital Signs: Temp Pulse Resp BP Pulse Ox 99.0 F 86 20 131/51 H 97 04/16/18 20:06 04/16/18 20:06 04/16/18 20:06 04/16/18 20:06 04/16/18 20:06 Intake & Output 04/15/18 04/16/18 04/17/18 06:59 06:59 06:59 Intake Total 3562 1266 1495 Output Total 920 1475 2675 Balance 8039 -671 -6871 Weight 80.8 kg 77.7 kg General appearance: PRESENT: no acute distress Eye exam: PRESENT: PERRLA Respiratory exam: PRESENT: clear to auscultation adenike Cardiovascular exam: PRESENT: +S1 Murmur grade: 3 GI/Abdominal exam: PRESENT: soft Musculoskeletal exam: PRESENT: tenderness, other - Swelling tenderness of the right wrist Neurological exam: PRESENT: alert, CN II-XII grossly intact Results Laboratory Results: 04/16/18 11:00 04/16/18 11:00 04/16/18 04/16/18 04/16/18 11:00 11:00 19:45 WBC 5.1 RBC 3.33 L Hgb 9.9 L Hct 30.0 L MCV 90 MCH 29.8 MCHC 33.1 RDW 17.9 H Plt Count 222 Seg Neutrophils % 84.1 H Lymphocytes % 6.1 L Monocytes % 9.3 Eosinophils % 0.4 Basophils % 0.1 Absolute Neutrophils 4.3 Absolute Lymphocytes 0.3 L Absolute Monocytes 0.5 Absolute Eosinophils 0.0 Absolute Basophils 0.0 Sodium 138.7 Potassium 4.7 D Chloride 108 H Carbon Dioxide 17 L Anion Gap 14 BUN 50 H Creatinine 3.66 H Est GFR ( Amer) 14 L Est GFR (Non-Af Amer) 12 L Glucose 316 H Uric Acid 5.2 Calcium 7.4 L Impressions: Abdomen/Pelvis CT 04/12/18 00:00 IMPRESSION: NO SIGNIFICANT OR ACUTE PROCESS IN THE ABDOMEN OR PELVIS. Chest X-Ray 04/12/18 08:51 IMPRESSION: 1. No significant interval changes since the prior study dated . No acute findings. Forearm X-Ray 04/16/18 00:00 IMPRESSION: Osteopenia. No fracture evident. Wrist X-Ray 04/16/18 00:00 IMPRESSION: Osteopenia. No fracture evident. Assessment & Plan - Diagnosis (1) Acute kidney injury Is this a current diagnosis for this admission?: Yes Plan: Kidney function improving (2) Acute gouty arthritis Is this a current diagnosis for this admission?: Yes Plan: Start Solu-Medrol IV for 3 doses
[2018-04-16 23:33] LABS: UR PRO/CREAT RATIO RESULT 1.2 mg/mg (0.0-0.2); URINE CREATININE 37.6 mg/dL (15-278); URINE PROTEIN 43.8 mg/dL (<12)
[2018-04-17] MEDS: CIPROFLOXACIN HCL 0.3% OPH SOLN 2.5 ML OU SCH ×4 (00:40→19:23)
[2018-04-17] MEDS: METHYLPREDNISOLONE INJ 40 MG/1 ML SDV IV SCH ×3 (02:40→19:22)
[2018-04-17] MEDS: GABAPENTIN 300 MG CAPSULE PO SCH ×3 (05:05→21:40)
[2018-04-17] MEDS: LANSOPRAZOLE 30 MG TAB.RAP.DR PO SCH (05:05)
[2018-04-17 07:29] LABS: MEAN CORPUSCULAR HEMOGLOBIN 29.9 pg (27.0-33.4); MEAN CORPUSCULAR HGB CONC 33.3 g/dL (32.0-36.0); MEAN CORPUSCULAR VOLUME 90 fl (80-97); PLATELET COUNT 222 10^3/uL (150-450); RED BLOOD COUNT 3.34 10^6/uL (3.72-5.28); RED CELL DISTRIBUTION WIDTH 17.5 % (11.5-14.0); WHITE BLOOD COUNT 5.5 10^3/uL (4.0-10.5)
[2018-04-17 07:44] LABS: ANION GAP 11 (5-19); BLOOD UREA NITROGEN 35 mg/dL (7-20); CALCIUM 7.4 mg/dL (8.4-10.2); CARBON DIOXIDE 21 mmol/L (22-30); CHLORIDE 110 mmol/L (98-107); GLUCOSE 293 mg/dL (75-110); POTASSIUM 4.3 mmol/L (3.6-5.0); SODIUM 141.5 mmol/L (137-145)
[2018-04-17] MEDS: FERROUS SULFATE 325 MG TABLET PO SCH (10:21)
[2018-04-17] MEDS: SITAGLIPTIN PHOSPHATE 25 MG TABLET PO SCH (10:21)
[2018-04-17] MEDS: POLYETHYLENE GLYCOL 3350 POWDER 17 GM/1 PACKET PO SCH (10:22)
[2018-04-17] MEDS: OXYCODONE-ACETAMINOPHEN 5-325 MG TABLET PO PRN (10:22)
[2018-04-17] MEDS: SERTRALINE HCL 50 MG TABLET PO SCH (10:23)
[2018-04-17] MEDS: LUBIPROSTONE 24 MCG CAPSULE PO SCH ×2 (10:23→19:18)
[2018-04-17] MEDS: ASPIRIN 81 MG TABLET, CHEWABLE PO SCH (10:23)
[2018-04-17] MEDS: FLUTICASONE NASAL SPRAY 50 MCG/SPRY 120 SPRAY/16 GM NAREB SCH (10:24)
[2018-04-17] MEDS: HEPARIN SOD (PORCINE) 5,000 UNIT/ML 1 ML SYRINGE SUBCUT SCH ×2 (10:25→21:41)
[2018-04-17] MEDS: LACOSAMIDE 100 MG TABLET PO SCH ×2 (10:28→21:46)
[2018-04-17] MEDS: INSULIN LISPRO 100 UNIT/ML 3 ML VIAL SUBCUT PRN ×3 (13:02→21:40)
--- NOTE | 2018-04-17 13:15 | PDOC PROGRESS REPORT ---
Subjective Progress Note for:: 04/17/18 Subjective:: Patient was seen by the bedside, she is much improved, better today, the inflammatory swelling of the right wrist is completely resolved on Solu-Medrol intravenously. She probably have underlining chronic kidney disease, she has hypocalcemia, corrected for hypoalbuminemia is about 9, she has significant proteinuria, nonnephrotic range, the serum creatinine is improving Reason For Visit: ACUTE RENAL INJURY/HYPERKELMIA,COMPLICATE UTI WITH Physical Exam Vital Signs: Temp Pulse Resp BP Pulse Ox 98.5 F 81 16 170/73 H 96 04/17/18 07:44 04/17/18 07:44 04/17/18 07:44 04/17/18 07:44 04/17/18 07:44 Intake & Output 04/16/18 04/17/18 04/18/18 06:59 06:59 06:59 Intake Total 1266 1545 Output Total 1475 4575 Balance -209 -3030 Weight 77.7 kg 66.3 kg General appearance: PRESENT: no acute distress Head exam: PRESENT: atraumatic, normocephalic Eye exam: PRESENT: PERRLA Neck exam: PRESENT: full ROM Respiratory exam: PRESENT: clear to auscultation adenike Cardiovascular exam: PRESENT: RRR, +S2 Murmur grade: 3 Pulses: PRESENT: normal dorsalis pedis pul, +2 pedal pulses bilateral Vascular exam: PRESENT: normal capillary refill GI/Abdominal exam: PRESENT: normal bowel sounds, soft Rectal exam: PRESENT: deferred Neurological exam: PRESENT: alert, CN II-XII grossly intact Psychiatric exam: PRESENT: appropriate affect, normal mood Skin exam: PRESENT: dry, intact, warm Results Laboratory Results: 04/17/18 07:10 04/17/18 07:10 04/16/18 04/17/18 04/17/18 19:45 07:10 07:10 WBC 5.5 RBC 3.34 L Hgb 10.0 L Hct 30.0 L MCV 90 MCH 29.9 MCHC 33.3 RDW 17.5 H Plt Count 222 Sodium 141.5 Potassium 4.3 Chloride 110 H Carbon Dioxide 21 L Anion Gap 11 BUN 35 H Creatinine 2.08 H Est GFR ( Amer) 28 L Est GFR (Non-Af Amer) 23 L Glucose 293 H Uric Acid 5.2 Calcium 7.4 L Impressions: Abdomen/Pelvis CT 04/12/18 00:00 IMPRESSION: NO SIGNIFICANT OR ACUTE PROCESS IN THE ABDOMEN OR PELVIS. Chest X-Ray 04/12/18 08:51 IMPRESSION: 1. No significant interval changes since the prior study dated . No acute findings. Forearm X-Ray 04/16/18 00:00 IMPRESSION: Osteopenia. No fracture evident. Wrist X-Ray 04/16/18 00:00 IMPRESSION: Osteopenia. No fracture evident. Assessment & Plan - Diagnosis (1) Acute kidney injury Is this a current diagnosis for this admission?: Yes Plan: Continue current treatment (2) Acute gouty arthritis Is this a current diagnosis for this admission?: Yes (3) Diabetes mellitus type 2 in nonobese Is this a current diagnosis for this admission?: Yes (4) UTI (urinary tract infection) Qualifiers: Urinary tract infection type: catheter-associated UTI Indwelling urinary catheter type: cystostomy catheter Encounter type: initial encounter Qualified Code(s): T83.510A - Infection and inflammatory reaction due to cystostomy catheter, initial encounter; N39.0 - Urinary tract infection, site not specified; N39.0 - Urinary tract infection, site not specified Is this a current diagnosis for this admission?: Yes
[2018-04-17] MEDS: NORMAL SALINE 1000 ML 1,000 ML IV PRN (19:22)
[2018-04-17] MEDS: MONTELUKAST SODIUM 10 MG TABLET PO SCH (21:40)
[2018-04-17] MEDS: ATORVASTATIN CALCIUM 20 MG TABLET PO SCH (21:40)
[2018-04-17] MEDS: MELATONIN 5 MG TABLET PO SCH (21:42)
[2018-04-18] MEDS: METHYLPREDNISOLONE INJ 40 MG/1 ML SDV IV SCH ×3 (01:05→17:26)
[2018-04-18] MEDS: CIPROFLOXACIN HCL 0.3% OPH SOLN 2.5 ML OU SCH ×4 (01:05→17:27)
[2018-04-18] MEDS: GABAPENTIN 300 MG CAPSULE PO SCH ×3 (06:47→21:01)
[2018-04-18] MEDS: LANSOPRAZOLE 30 MG TAB.RAP.DR PO SCH (06:48)
[2018-04-18] MEDS: INSULIN LISPRO 100 UNIT/ML 3 ML VIAL SUBCUT PRN ×4 (09:02→22:01)
[2018-04-18] MEDS: LUBIPROSTONE 24 MCG CAPSULE PO SCH ×2 (09:06→17:21)
[2018-04-18] MEDS: POLYETHYLENE GLYCOL 3350 POWDER 17 GM/1 PACKET PO SCH (09:07)
[2018-04-18] MEDS: ASPIRIN 81 MG TABLET, CHEWABLE PO SCH (10:07)
[2018-04-18] MEDS: SERTRALINE HCL 50 MG TABLET PO SCH (10:07)
[2018-04-18] MEDS: HEPARIN SOD (PORCINE) 5,000 UNIT/ML 1 ML SYRINGE SUBCUT SCH ×2 (10:07→21:02)
[2018-04-18] MEDS: SITAGLIPTIN PHOSPHATE 25 MG TABLET PO SCH (10:07)
[2018-04-18] MEDS: FERROUS SULFATE 325 MG TABLET PO SCH (10:07)
[2018-04-18] MEDS: LACOSAMIDE 100 MG TABLET PO SCH ×2 (10:07→21:01)
[2018-04-18] MEDS: FLUTICASONE NASAL SPRAY 50 MCG/SPRY 120 SPRAY/16 GM NAREB SCH (10:08)
--- NOTE | 2018-04-18 10:52 | EKG REPORT ---
SEVERITY:- NORMAL ECG - SINUS RHYTHM : Confirmed by: Carla Wallace 18-Apr-2018 10:51:29
[2018-04-18] MEDS: NORMAL SALINE 1000 ML 1,000 ML IV PRN ×2 (15:23→15:25)
--- NOTE | 2018-04-18 15:36 | PDOC PROGRESS REPORT ---
Subjective Progress Note for:: 04/18/18 Subjective:: Patient was seen by the bedside, she is much improved, better today, the inflammatory swelling of the right wrist is completely resolved on Solu-Medrol intravenously. She probably have underlining chronic kidney disease, she has hypocalcemia, corrected for hypoalbuminemia is about 9, she has significant proteinuria, nonnephrotic range, the serum creatinine is improving Reason For Visit: ACUTE RENAL INJURY/HYPERKELMIA,COMPLICATE UTI WITH Physical Exam Vital Signs: Temp Pulse Resp BP Pulse Ox 98.6 F 78 14 167/62 H 100 04/18/18 11:18 04/18/18 14:00 04/18/18 11:18 04/18/18 11:18 04/18/18 11:18 Intake & Output 04/17/18 04/18/18 04/19/18 06:59 06:59 06:59 Intake Total 1545 1920 1000 Output Total 4575 2750 Balance -3030 -830 1000 Weight 66.3 kg 77.4 kg General appearance: PRESENT: no acute distress Eye exam: PRESENT: PERRLA Respiratory exam: PRESENT: clear to auscultation adenike Cardiovascular exam: PRESENT: +S1, +S2 Murmur grade: 3 GI/Abdominal exam: PRESENT: soft Neurological exam: PRESENT: alert Results Laboratory Results: 04/17/18 07:10 04/17/18 07:10 Impressions: Abdomen/Pelvis CT 04/12/18 00:00 IMPRESSION: NO SIGNIFICANT OR ACUTE PROCESS IN THE ABDOMEN OR PELVIS. Chest X-Ray 04/12/18 08:51 IMPRESSION: 1. No significant interval changes since the prior study dated . No acute findings. Forearm X-Ray 04/16/18 00:00 IMPRESSION: Osteopenia. No fracture evident. Wrist X-Ray 04/16/18 00:00 IMPRESSION: Osteopenia. No fracture evident. Assessment & Plan - Diagnosis (1) Acute kidney injury Is this a current diagnosis for this admission?: Yes (2) Acute gouty arthritis Is this a current diagnosis for this admission?: Yes (3) Diabetes mellitus type 2 in nonobese Is this a current diagnosis for this admission?: Yes (4) UTI (urinary tract infection) Qualifiers: Urinary tract infection type: catheter-associated UTI Indwelling urinary catheter type: cystostomy catheter Encounter type: initial encounter Qualified Code(s): T83.510A - Infection and inflammatory reaction due to cystostomy catheter, initial encounter; N39.0 - Urinary tract infection, site not specified; N39.0 - Urinary tract infection, site not specified Is this a current diagnosis for this admission?: Yes - Plan Summary Plan Summary: Patient is improving continue present treatment
[2018-04-18 16:16] LABS: HEMATOCRIT 31.7 % (36.0-47.0); HEMOGLOBIN 10.5 g/dL (12.0-15.5); MEAN CORPUSCULAR HEMOGLOBIN 29.6 pg (27.0-33.4); MEAN CORPUSCULAR HGB CONC 33.1 g/dL (32.0-36.0); MEAN CORPUSCULAR VOLUME 89 fl (80-97); PLATELET COUNT 282 10^3/uL (150-450); RED BLOOD COUNT 3.54 10^6/uL (3.72-5.28); RED CELL DISTRIBUTION WIDTH 17.5 % (11.5-14.0); WHITE BLOOD COUNT 7.4 10^3/uL (4.0-10.5)
[2018-04-18 16:34] LABS: ALANINE AMINOTRANSFERASE 24 U/L (9-52); ALBUMIN 2.8 g/dL (3.5-5.0); ALKALINE PHOSPHATASE 81 U/L (38-126); ANION GAP 13 (5-19); ASPARTATE AMINO TRANSFERASE 20 U/L (14-36); BLOOD UREA NITROGEN 24 mg/dL (7-20); CALCIUM 7.9 mg/dL (8.4-10.2); CARBON DIOXIDE 22 mmol/L (22-30); CHLORIDE 105 mmol/L (98-107); GLUCOSE 366 mg/dL (75-110); POTASSIUM 3.8 mmol/L (3.6-5.0); SODIUM 139.5 mmol/L (137-145); TOTAL PROTEIN 5.5 g/dL (6.3-8.2)
[2018-04-18 16:35] LABS: ABSOLUTE LYMPHOCYTES# (MANUAL) 0.2 10^3/uL (0.5-4.7); ABSOLUTE MONOCYTES # (MANUAL) 0.5 10^3/uL (0.1-1.4); ABSOLUTE NEUTROPHILS# (MANUAL) 6.7 10^3/uL (1.7-8.2); BASOPHILS % (MANUAL) 0 % (0-2); EOSINOPHILS % (MANUAL) 0 % (0-6); LYMPHOCYTES % (MANUAL) 3 % (13-45); MONOCYTES % (MANUAL) 7 % (3-13); SEGMENTED NEUTROPHILS % (MAN) 90 % (42-78); TOTAL CELLS COUNTED 100
[2018-04-18 16:36] LABS: ANISOCYTOSIS 1+; PLATELET COMMENT ADEQUATE
[2018-04-18 16:37] LABS: BILIRUBIN,TOTAL < 0.1 mg/dL (0.2-1.3)
[2018-04-18] MEDS: ATORVASTATIN CALCIUM 20 MG TABLET PO SCH (21:01)
[2018-04-18] MEDS: MONTELUKAST SODIUM 10 MG TABLET PO SCH (21:01)
[2018-04-18] MEDS: LEVOFLOXACIN 250 MG/D5W RTU 250 MG/50 ML RTUPB IV SCH (21:01)
[2018-04-18] MEDS: MELATONIN 5 MG TABLET PO SCH (21:08)
[2018-04-19] MEDS: OXYCODONE-ACETAMINOPHEN 5-325 MG TABLET PO PRN (00:02)
[2018-04-19] MEDS: CIPROFLOXACIN HCL 0.3% OPH SOLN 2.5 ML OU SCH ×5 (00:05→23:34)
[2018-04-19] MEDS: METHYLPREDNISOLONE INJ 40 MG/1 ML SDV IV SCH ×3 (02:15→18:53)
[2018-04-19] MEDS ORDERED: AMLODIPINE BESYLATE 2.5 MG TABLET PO ONE ×2 (05:00→20:30)
[2018-04-19] MEDS: GABAPENTIN 300 MG CAPSULE PO SCH ×3 (05:19→21:07)
[2018-04-19] MEDS: LANSOPRAZOLE 30 MG TAB.RAP.DR PO SCH (05:19)
[2018-04-19] MEDS: INSULIN LISPRO 100 UNIT/ML 3 ML VIAL SUBCUT PRN ×3 (08:07→16:52)
[2018-04-19] MEDS: POLYETHYLENE GLYCOL 3350 POWDER 17 GM/1 PACKET PO SCH (10:09)
[2018-04-19] MEDS: FERROUS SULFATE 325 MG TABLET PO SCH (10:11)
[2018-04-19] MEDS: SERTRALINE HCL 50 MG TABLET PO SCH (10:11)
[2018-04-19] MEDS: LACOSAMIDE 100 MG TABLET PO SCH ×2 (10:11→21:07)
[2018-04-19] MEDS: LUBIPROSTONE 24 MCG CAPSULE PO SCH ×2 (10:11→18:54)
[2018-04-19] MEDS: ASPIRIN 81 MG TABLET, CHEWABLE PO SCH (10:12)
[2018-04-19] MEDS: HEPARIN SOD (PORCINE) 5,000 UNIT/ML 1 ML SYRINGE SUBCUT SCH ×2 (10:14→21:07)
[2018-04-19] MEDS: FLUTICASONE NASAL SPRAY 50 MCG/SPRY 120 SPRAY/16 GM NAREB SCH (10:15)
[2018-04-19] MEDS: SITAGLIPTIN PHOSPHATE 25 MG TABLET PO SCH (10:25)
[2018-04-19] MEDS: NORMAL SALINE 1000 ML 1,000 ML IV PRN (12:48)
--- NOTE | 2018-04-19 20:08 | PDOC PROGRESS REPORT ---
Subjective Progress Note for:: 04/19/18 Subjective:: No chest pain or difficulty with breathing. No fever or chills. No nausea, vomiting or abdominal pain. Her urine output have greatly improved with improvement in her renal indices. Reason For Visit: ACUTE RENAL INJURY/HYPERKELMIA,COMPLICATE UTI WITH Physical Exam Vital Signs: Temp Pulse Resp BP Pulse Ox 98.8 F 68 20 178/69 H 99 04/19/18 15:10 04/19/18 15:10 04/19/18 15:10 04/19/18 15:10 04/19/18 15:10 Intake & Output 04/18/18 04/19/18 04/20/18 06:59 06:59 06:59 Intake Total 1921999 Output Total 275 1965 2500 Balance -830 35 -769 Weight 77.4 kg 77.1 kg Physical Exam: General appearance: PRESENT: no acute distress Head exam: PRESENT: atraumatic, normocephalic Eye exam: PRESENT: conjunctiva pink, EOMI, PERRLA. ABSENT: scleral icterus Ear exam: PRESENT: normal external ear exam Mouth exam: PRESENT: moist mucosa - fairly Respiratory exam: PRESENT: clear to auscultation adenike, decreased breath sounds - at lung bases Cardiovascular exam: PRESENT: RRR, +S1, +S2, systolic murmur Murmur grade: 3 Vascular exam: PRESENT: normal capillary refill ABSENT: pallor GI/Abdominal exam: PRESENT: normal bowel sounds, soft, other - suprapubic Adan cath in situ. ABSENT: distended, guarding, mass, organomegaly, rebound, tenderness Extremities exam: ABSENT: pedal edema Musculoskeletal exam: PRESENT: deformity - related to multiple joints involvement with arthritis Neurological exam: PRESENT: alert, awake - and appropriate in simple responses Psychiatric exam: PRESENT: appropriate affect, normal mood. ABSENT: homicidal ideation, suicidal ideation Skin exam: PRESENT: dry, warm Murmur grade: 3 Results Laboratory Results: 04/18/18 16:00 04/18/18 16:00 Impressions: Abdomen/Pelvis CT 04/12/18 00:00 IMPRESSION: NO SIGNIFICANT OR ACUTE PROCESS IN THE ABDOMEN OR PELVIS. Chest X-Ray 04/12/18 08:51 IMPRESSION: 1. No significant interval changes since the prior study dated . No acute findings. Forearm X-Ray 04/16/18 00:00 IMPRESSION: Osteopenia. No fracture evident. Wrist X-Ray 04/16/18 00:00 IMPRESSION: Osteopenia. No fracture evident. Assessment & Plan - Diagnosis (1) Toxic metabolic encephalopathy Is this a current diagnosis for this admission?: Yes Plan: Improving. (2) ARF (acute renal failure) Qualifiers: Acute renal failure type: with acute tubular necrosis Qualified Code(s): N17.0 - Acute kidney failure with tubular necrosis Is this a current diagnosis for this admission?: Yes Plan: Improving renal indices on IV fluid support. (3) Lactic acidosis Is this a current diagnosis for this admission?: Yes Plan: Resolved. (4) UTI (urinary tract infection) Qualifiers: Urinary tract infection type: catheter-associated UTI Indwelling urinary catheter type: cystostomy catheter Encounter type: initial encounter Qualified Code(s): T83.510A - Infection and inflammatory reaction due to cystostomy catheter, initial encounter; N39.0 - Urinary tract infection, site not specified; N39.0 - Urinary tract infection, site not specified Is this a current diagnosis for this admission?: Yes Plan: D/C Levofloxacin due to lack of coverage for E. coli. Start on Doxycycline 100 mg po bid based on Tetracycline response of the sensitivity report. (5) Diabetes mellitus type 2 in nonobese Is this a current diagnosis for this admission?: Yes Plan: Start on Lantus Insulin 20 units SC qhs. Maintain on Januvia 25 mg po daily and sliding scale coverage with Lispro Insulin achs. (6) HTN (hypertension) Qualifiers: Hypertension type: essential hypertension Qualified Code(s): I10 - Essential (primary) hypertension Is this a current diagnosis for this admission?: Yes Plan: Increase Amlodipine to 5 mg po daily with 2.5 mg x 1 dose tonight. (7) HLD (hyperlipidemia) Qualifiers: Hyperlipidemia type: unspecified Qualified Code(s): E78.5 - Hyperlipidemia , unspecified Is this a current diagnosis for this admission?: Yes (8) GERD (gastroesophageal reflux disease) Qualifiers: Esophagitis presence: without esophagitis Qualified Code(s): K21.9 - Gastro -esophageal reflux disease without esophagitis Is this a current diagnosis for this admission?: Yes (9) Anemia of chronic disease Is this a current diagnosis for this admission?: Yes Plan: Hold off on Ferrous sulfate administration due to possible drug-drug interaction with Doxycycline - Time Time Spent with patient: 25-34 minutes Medications reviewed and adjusted accordingly: Yes Anticipated discharge: SNF - for short term rehabilitation. Within: Other - Inpatient Certification Based on my medical assessment, after consideration of the patient's comorbidities, presenting symptoms, or acuity I expect that the services needed warrant INPATIENT care.: Yes I certify that my determination is in accordance with my understanding of Medicare's requirements for reasonable and necessary INPATIENT services [42 CFR 412.3e].: Yes Medical Necessity: Need Close Monitoring Due to Risk of Patient Decompensation, Need For IV Fluids, Need For Continuous Telemetry Monitoring, Need for IV Antibiotics, Risk of Complication if Not Cared For in Hospital Post Hospital Care: D/C or Transfer Summary - Plan Summary Plan Summary: See attending physician orders as outlined above.
[2018-04-19] MEDS: ATORVASTATIN CALCIUM 20 MG TABLET PO SCH (21:07)
[2018-04-19] MEDS: MELATONIN 5 MG TABLET PO SCH (21:07)
[2018-04-19] MEDS: MONTELUKAST SODIUM 10 MG TABLET PO SCH (21:07)
[2018-04-19 21:57] LABS: ABSOLUTE LYMPHOCYTES (AUTO) 1.1 10^3/uL (0.5-4.7); ABSOLUTE MONOCYTES (AUTO) 0.9 10^3/uL (0.1-1.4); ABSOLUTE NEUT (AUTO) 6.2 10^3/uL (1.7-8.2); BASOPHILS % (AUTO) 0.4 % (0-2); EOSINOPHILS % (AUTO) 0.3 % (0-6); HEMATOCRIT 33.8 % (36.0-47.0); HEMOGLOBIN 11.4 g/dL (12.0-15.5); LYMPHOCYTES % (AUTO) 13.3 % (13-45); MEAN CORPUSCULAR HEMOGLOBIN 29.6 pg (27.0-33.4); MEAN CORPUSCULAR HGB CONC 33.7 g/dL (32.0-36.0); MEAN CORPUSCULAR VOLUME 88 fl (80-97); MONOCYTES % (AUTO) 11.3 % (3-13); PLATELET COUNT 310 10^3/uL (150-450); RED BLOOD COUNT 3.84 10^6/uL (3.72-5.28); RED CELL DISTRIBUTION WIDTH 17.1 % (11.5-14.0); SEGMENTED NEUTROPHILS % (AUTO) 74.7 % (42-78); TOTAL CELLS COUNTED % (AUTO) 100 %; WHITE BLOOD COUNT 8.2 10^3/uL (4.0-10.5)
[2018-04-19 22:12] LABS: ALANINE AMINOTRANSFERASE 24 U/L (9-52); ALKALINE PHOSPHATASE 89 U/L (38-126); ANION GAP 14 (5-19); ASPARTATE AMINO TRANSFERASE 24 U/L (14-36); BILIRUBIN,DIRECT 0.1 mg/dL (0.0-0.4); BILIRUBIN,TOTAL 0.1 mg/dL (0.2-1.3); BLOOD UREA NITROGEN 23 mg/dL (7-20); CALCIUM 8.2 mg/dL (8.4-10.2); CARBON DIOXIDE 24 mmol/L (22-30); CHLORIDE 100 mmol/L (98-107); GLUCOSE 281 mg/dL (75-110); POTASSIUM 3.5 mmol/L (3.6-5.0)
[2018-04-19] MEDS: INSULIN GLARGINE,HUM.REC.ANLOG 300 UNIT/3 ML INSULN.PEN SUBCUT SCH (22:13)
[2018-04-19] MEDS: DOXYCYCLINE HYCLATE 100 MG TABLET PO SCH (22:13)
[2018-04-20] MEDS: GABAPENTIN 300 MG CAPSULE PO SCH ×3 (05:06→22:23)
[2018-04-20] MEDS: LANSOPRAZOLE 30 MG TAB.RAP.DR PO SCH (05:06)
[2018-04-20] MEDS: CIPROFLOXACIN HCL 0.3% OPH SOLN 2.5 ML OU SCH ×3 (05:06→17:35)
[2018-04-20] MEDS: NORMAL SALINE 1000 ML 1,000 ML IV PRN ×2 (05:07→22:54)
[2018-04-20] MEDS: OXYCODONE-ACETAMINOPHEN 5-325 MG TABLET PO PRN ×4 (05:13→22:23)
[2018-04-20] MEDS ORDERED: POTASSIUM CHLORIDE 10 MEQ CAPSULE.ER PO ONE (08:37)
[2018-04-20] MEDS: INSULIN LISPRO 100 UNIT/ML 3 ML VIAL SUBCUT PRN ×4 (08:41→22:26)
--- NOTE | 2018-04-20 08:45 | PDOC PROGRESS REPORT ---
Subjective Progress Note for:: 04/20/18 Subjective:: Patient denied any chest pain or difficulty with breathing. No nausea, vomiting or abdominal pain. No fever or chills. Reason For Visit: ACUTE RENAL INJURY/HYPERKELMIA,COMPLICATE UTI WITH Physical Exam Vital Signs: Temp Pulse Resp BP Pulse Ox 98.5 F 74 16 151/67 H 99 04/20/18 03:03 04/20/18 03:03 04/20/18 03:03 04/20/18 03:03 04/20/18 03:03 Intake & Output 04/19/18 04/20/18 04/21/18 06:59 06:59 06:59 Intake Total 1999 2730 Output Total 1964 4650 Balance 35 -1919 Weight 77.1 kg 74.4 kg Physical Exam: General appearance: PRESENT: no acute distress Head exam: PRESENT: atraumatic, normocephalic Eye exam: PRESENT: conjunctiva pink, EOMI, PERRLA. ABSENT: scleral icterus Ear exam: PRESENT: normal external ear exam Mouth exam: PRESENT: moist mucous Respiratory exam: PRESENT: clear to auscultation adenike, decreased breath sounds - at lung bases Cardiovascular exam: PRESENT: RRR, +S1, +S2, systolic murmur Murmur grade: 3 Vascular exam: PRESENT: normal capillary refill ABSENT: pallor GI/Abdominal exam: PRESENT: normal bowel sounds, soft, other - suprapubic Adan cath in situ. ABSENT: distended, guarding, mass, organomegaly, rebound, tenderness Extremities exam: ABSENT: pedal edema Musculoskeletal exam: PRESENT: deformity - related to multiple joints involvement with arthritis Neurological exam: PRESENT: alert, awake - and appropriate in simple responses Psychiatric exam: PRESENT: appropriate affect, normal mood. ABSENT: homicidal ideation, suicidal ideation Skin exam: PRESENT: dry, warm Murmur grade: 3 Results Laboratory Results: 04/19/18 21:25 04/19/18 21:25 04/19/18 04/19/18 21:25 21:25 WBC 8.2 RBC 3.84 Hgb 11.4 L Hct 33.8 L MCV 88 MCH 29.6 MCHC 33.7 RDW 17.1 H Plt Count 310 Seg Neutrophils % 74.7 Lymphocytes % 13.3 Monocytes % 11.3 Eosinophils % 0.3 Basophils % 0.4 Absolute Neutrophils 6.2 Absolute Lymphocytes 1.1 Absolute Monocytes 0.9 Absolute Eosinophils 0.0 Absolute Basophils 0.0 Sodium 138.0 Potassium 3.5 L Chloride 100 Carbon Dioxide 24 Anion Gap 14 BUN 23 H Creatinine 0.95 Est GFR ( Amer) > 60 Est GFR (Non-Af Amer) 56 L Glucose 281 H Calcium 8.2 L Total Bilirubin 0.1 L AST 24 ALT 24 Alkaline Phosphatase 89 Total Protein 6.0 L Albumin 3.0 L Impressions: Abdomen/Pelvis CT 04/12/18 00:00 IMPRESSION: NO SIGNIFICANT OR ACUTE PROCESS IN THE ABDOMEN OR PELVIS. Chest X-Ray 04/12/18 08:51 IMPRESSION: 1. No significant interval changes since the prior study dated . No acute findings. Forearm X-Ray 04/16/18 00:00 IMPRESSION: Osteopenia. No fracture evident. Wrist X-Ray 04/16/18 00:00 IMPRESSION: Osteopenia. No fracture evident. Assessment & Plan - Diagnosis (1) Toxic metabolic encephalopathy Is this a current diagnosis for this admission?: Yes (2) ARF (acute renal failure) Qualifiers: Acute renal failure type: with acute tubular necrosis Qualified Code(s): N17.0 - Acute kidney failure with tubular necrosis Is this a current diagnosis for this admission?: Yes (3) Lactic acidosis Is this a current diagnosis for this admission?: Yes (4) UTI (urinary tract infection) Qualifiers: Urinary tract infection type: catheter-associated UTI Indwelling urinary catheter type: cystostomy catheter Encounter type: initial encounter Qualified Code(s): T83.510A - Infection and inflammatory reaction due to cystostomy catheter, initial encounter; N39.0 - Urinary tract infection, site not specified; N39.0 - Urinary tract infection, site not specified Is this a current diagnosis for this admission?: Yes (5) Diabetes mellitus type 2 in nonobese Is this a current diagnosis for this admission?: Yes (6) HTN (hypertension) Qualifiers: Hypertension type: essential hypertension Qualified Code(s): I10 - Essential (primary) hypertension Is this a current diagnosis for this admission?: Yes (7) HLD (hyperlipidemia) Qualifiers: Hyperlipidemia type: unspecified Qualified Code(s): E78.5 - Hyperlipidemia , unspecified Is this a current diagnosis for this admission?: Yes (8) GERD (gastroesophageal reflux disease) Qualifiers: Esophagitis presence: without esophagitis Qualified Code(s): K21.9 - Gastro -esophageal reflux disease without esophagitis Is this a current diagnosis for this admission?: Yes (9) Anemia of chronic disease Is this a current diagnosis for this admission?: Yes - Time Time Spent with patient: 25-34 minutes Medications reviewed and adjusted accordingly: Yes Anticipated discharge: SNF - Inpatient Certification Based on my medical assessment, after consideration of the patient's comorbidities, presenting symptoms, or acuity I expect that the services needed warrant INPATIENT care.: Yes I certify that my determination is in accordance with my understanding of Medicare's requirements for reasonable and necessary INPATIENT services [42 CFR 412.3e].: Yes Medical Necessity: Need Close Monitoring Due to Risk of Patient Decompensation, Need For IV Fluids, Need For Continuous Telemetry Monitoring, Risk of Complication if Not Cared For in Hospital Post Hospital Care: D/C or Transfer Summary - Plan Summary Plan Summary: Patient will receive potassium replacement, Obtain BMP and Magnesium level. Request PT and OT evaluation. Continue all other current medication management. funeral planner to look into SNF placement for short term rehabilitation.
[2018-04-20] MEDS: SERTRALINE HCL 50 MG TABLET PO SCH (09:54)
[2018-04-20] MEDS: LUBIPROSTONE 24 MCG CAPSULE PO SCH ×2 (09:55→17:34)
[2018-04-20] MEDS: LACOSAMIDE 100 MG TABLET PO SCH ×2 (09:55→22:24)
[2018-04-20] MEDS: AMLODIPINE BESYLATE 5 MG TABLET PO SCH (09:56)
[2018-04-20] MEDS: ASPIRIN 81 MG TABLET, CHEWABLE PO SCH (09:56)
[2018-04-20] MEDS: FLUTICASONE NASAL SPRAY 50 MCG/SPRY 120 SPRAY/16 GM NAREB SCH (09:57)
[2018-04-20] MEDS: DONEPEZIL HCL 5 MG TABLET PO SCH (09:57)
[2018-04-20] MEDS: HEPARIN SOD (PORCINE) 5,000 UNIT/ML 1 ML SYRINGE SUBCUT SCH ×2 (09:57→22:22)
[2018-04-20] MEDS: POLYETHYLENE GLYCOL 3350 POWDER 17 GM/1 PACKET PO SCH (09:57)
[2018-04-20] MEDS: DOXYCYCLINE HYCLATE 100 MG TABLET PO SCH ×2 (09:58→22:25)
[2018-04-20] MEDS ORDERED: AMLODIPINE BESYLATE 2.5 MG TABLET PO SCH (10:00)
[2018-04-20] MEDS ORDERED: VALSARTAN 160 MG TABLET PO SCH (10:00)
[2018-04-20] MEDS ORDERED: LIDOCAINE 5% OINTMENT 35.44 GM TP SCH (10:00)
[2018-04-20] MEDS: SITAGLIPTIN PHOSPHATE 25 MG TABLET PO SCH (10:14)
[2018-04-20] MEDS: INSULIN GLARGINE,HUM.REC.ANLOG 300 UNIT/3 ML INSULN.PEN SUBCUT SCH (22:22)
[2018-04-20] MEDS: MONTELUKAST SODIUM 10 MG TABLET PO SCH (22:24)
[2018-04-20] MEDS: ATORVASTATIN CALCIUM 20 MG TABLET PO SCH (22:24)
[2018-04-20] MEDS: MELATONIN 5 MG TABLET PO SCH (22:52)
[2018-04-21] MEDS: CIPROFLOXACIN HCL 0.3% OPH SOLN 2.5 ML OU SCH ×5 (01:01→23:21)
[2018-04-21] MEDS: GABAPENTIN 300 MG CAPSULE PO SCH ×3 (05:43→22:45)
[2018-04-21] MEDS: LANSOPRAZOLE 30 MG TAB.RAP.DR PO SCH (05:43)
[2018-04-21] MEDS: DOXYCYCLINE HYCLATE 100 MG TABLET PO SCH ×2 (10:14→22:45)
[2018-04-21] MEDS: LUBIPROSTONE 24 MCG CAPSULE PO SCH ×2 (10:14→17:01)
[2018-04-21] MEDS: VALSARTAN 160 MG TABLET PO SCH ×2 (10:15→22:44)
[2018-04-21] MEDS: SERTRALINE HCL 50 MG TABLET PO SCH (10:15)
[2018-04-21] MEDS: AMLODIPINE BESYLATE 5 MG TABLET PO SCH (10:15)
[2018-04-21] MEDS: HEPARIN SOD (PORCINE) 5,000 UNIT/ML 1 ML SYRINGE SUBCUT SCH ×2 (10:15→22:46)
[2018-04-21] MEDS: DONEPEZIL HCL 5 MG TABLET PO SCH (10:15)
[2018-04-21] MEDS: LACOSAMIDE 100 MG TABLET PO SCH ×2 (10:15→22:45)
[2018-04-21] MEDS: ASPIRIN 81 MG TABLET, CHEWABLE PO SCH (10:15)
[2018-04-21] MEDS: FLUTICASONE NASAL SPRAY 50 MCG/SPRY 120 SPRAY/16 GM NAREB SCH (10:15)
[2018-04-21] MEDS: POLYETHYLENE GLYCOL 3350 POWDER 17 GM/1 PACKET PO SCH (10:15)
[2018-04-21] MEDS: SITAGLIPTIN PHOSPHATE 25 MG TABLET PO SCH (10:15)
[2018-04-21] MEDS: INSULIN LISPRO 100 UNIT/ML 3 ML VIAL SUBCUT PRN ×2 (12:21→18:06)
[2018-04-21] MEDS: NORMAL SALINE 1000 ML 1,000 ML IV PRN (18:08)
--- NOTE | 2018-04-21 19:26 | PDOC PROGRESS REPORT ---
Subjective Progress Note for:: 04/21/18 Subjective:: No chest pain or difficulty with breathing. No nausea, vomiting or abdominal pain. No fever or chills. Awaiting D/C sr. merchandise planner input regarding SNF placement for rehabilitation. Reason For Visit: ACUTE RENAL INJURY/HYPERKELMIA,COMPLICATE UTI WITH Physical Exam Vital Signs: Temp Pulse Resp BP Pulse Ox 97.9 F 72 16 148/61 H 98 04/21/18 07:51 04/21/18 07:51 04/21/18 07:51 04/21/18 07:51 04/21/18 07:51 Intake & Output 04/20/18 04/21/18 04/22/18 06:59 06:59 06:59 Intake Total 2731 1481 Output Total 4650 2825 Balance -1919 -1344 Weight 74.4 kg 64.4 kg Physical Exam: General appearance: PRESENT: no acute distress Head exam: PRESENT: atraumatic, normocephalic Eye exam: PRESENT: conjunctiva pink ABSENT: scleral icterus Ear exam: PRESENT: normal external ear exam Mouth exam: PRESENT: moist mucous Respiratory exam: PRESENT: clear to auscultation adenike, decreased breath sounds - at lung bases Cardiovascular exam: PRESENT: RRR, +S1, +S2, systolic murmur Murmur grade: 3 Vascular exam: ABSENT: pallor GI/Abdominal exam: PRESENT: normal bowel sounds, soft, other - suprapubic Adan cath in situ. ABSENT: distended, guarding, mass, organomegaly, rebound, tenderness Extremities exam: ABSENT: pedal edema Musculoskeletal exam: PRESENT: deformity - related to multiple joints involvement with arthritis Neurological exam: PRESENT: alert, awake - and appropriate in simple responses Psychiatric exam: PRESENT: appropriate affect, normal mood. ABSENT: homicidal ideation, suicidal ideation Skin exam: PRESENT: dry, warm Murmur grade: 3 Results Laboratory Results: 04/19/18 21:25 04/19/18 21:25 Impressions: Abdomen/Pelvis CT 04/12/18 00:00 IMPRESSION: NO SIGNIFICANT OR ACUTE PROCESS IN THE ABDOMEN OR PELVIS. Chest X-Ray 04/12/18 08:51 IMPRESSION: 1. No significant interval changes since the prior study dated . No acute findings. Forearm X-Ray 04/16/18 00:00 IMPRESSION: Osteopenia. No fracture evident. Wrist X-Ray 04/16/18 00:00 IMPRESSION: Osteopenia. No fracture evident. Assessment & Plan - Diagnosis (1) Toxic metabolic encephalopathy Is this a current diagnosis for this admission?: Yes (2) ARF (acute renal failure) Qualifiers: Acute renal failure type: with acute tubular necrosis Qualified Code(s): N17.0 - Acute kidney failure with tubular necrosis Is this a current diagnosis for this admission?: Yes (3) Lactic acidosis Is this a current diagnosis for this admission?: Yes (4) UTI (urinary tract infection) Qualifiers: Urinary tract infection type: catheter-associated UTI Indwelling urinary catheter type: cystostomy catheter Encounter type: initial encounter Qualified Code(s): T83.510A - Infection and inflammatory reaction due to cystostomy catheter, initial encounter; N39.0 - Urinary tract infection, site not specified; N39.0 - Urinary tract infection, site not specified Is this a current diagnosis for this admission?: Yes (5) Diabetes mellitus type 2 in nonobese Is this a current diagnosis for this admission?: Yes (6) HTN (hypertension) Qualifiers: Hypertension type: essential hypertension Qualified Code(s): I10 - Essential (primary) hypertension Is this a current diagnosis for this admission?: Yes (7) HLD (hyperlipidemia) Qualifiers: Hyperlipidemia type: unspecified Qualified Code(s): E78.5 - Hyperlipidemia , unspecified Is this a current diagnosis for this admission?: Yes (8) GERD (gastroesophageal reflux disease) Qualifiers: Esophagitis presence: without esophagitis Qualified Code(s): K21.9 - Gastro -esophageal reflux disease without esophagitis Is this a current diagnosis for this admission?: Yes (9) Anemia of chronic disease Is this a current diagnosis for this admission?: Yes - Time Time Spent with patient: 25-34 minutes Medications reviewed and adjusted accordingly: Yes Anticipated discharge: SNF Within: Other - Inpatient Certification Based on my medical assessment, after consideration of the patient's comorbidities, presenting symptoms, or acuity I expect that the services needed warrant INPATIENT care.: Yes I certify that my determination is in accordance with my understanding of Medicare's requirements for reasonable and necessary INPATIENT services [42 CFR 412.3e].: Yes Medical Necessity: Need Close Monitoring Due to Risk of Patient Decompensation, Need For IV Fluids, Need For Continuous Telemetry Monitoring, Risk of Complication if Not Cared For in Hospital Post Hospital Care: D/C or Transfer Summary - Plan Summary Plan Summary: Continue current medication management. Follow up on SNF placement for short term rehabilitation.
[2018-04-21] MEDS: MONTELUKAST SODIUM 10 MG TABLET PO SCH (22:45)
[2018-04-21] MEDS: ATORVASTATIN CALCIUM 20 MG TABLET PO SCH (22:45)
[2018-04-21] MEDS: INSULIN GLARGINE,HUM.REC.ANLOG 300 UNIT/3 ML INSULN.PEN SUBCUT SCH (22:45)
[2018-04-21] MEDS: MELATONIN 5 MG TABLET PO SCH (22:55)
[2018-04-22] MEDS: OXYCODONE-ACETAMINOPHEN 5-325 MG TABLET PO PRN (04:44)
[2018-04-22] MEDS: GABAPENTIN 300 MG CAPSULE PO SCH ×3 (06:22→22:00)
[2018-04-22] MEDS: CIPROFLOXACIN HCL 0.3% OPH SOLN 2.5 ML OU SCH ×3 (06:22→17:27)
[2018-04-22] MEDS: LANSOPRAZOLE 30 MG TAB.RAP.DR PO SCH (06:22)
[2018-04-22] MEDS: SERTRALINE HCL 50 MG TABLET PO SCH (09:32)
[2018-04-22] MEDS: SITAGLIPTIN PHOSPHATE 25 MG TABLET PO SCH (09:33)
[2018-04-22] MEDS: HEPARIN SOD (PORCINE) 5,000 UNIT/ML 1 ML SYRINGE SUBCUT SCH ×2 (09:33→21:59)
[2018-04-22] MEDS: FLUTICASONE NASAL SPRAY 50 MCG/SPRY 120 SPRAY/16 GM NAREB SCH (09:33)
[2018-04-22] MEDS: POLYETHYLENE GLYCOL 3350 POWDER 17 GM/1 PACKET PO SCH (09:33)
[2018-04-22] MEDS: VALSARTAN 160 MG TABLET PO SCH ×2 (09:33→22:00)
[2018-04-22] MEDS: LACOSAMIDE 100 MG TABLET PO SCH ×2 (09:33→22:00)
[2018-04-22] MEDS: DONEPEZIL HCL 5 MG TABLET PO SCH (09:33)
[2018-04-22] MEDS: AMLODIPINE BESYLATE 5 MG TABLET PO SCH (09:33)
[2018-04-22] MEDS: ASPIRIN 81 MG TABLET, CHEWABLE PO SCH (09:33)
[2018-04-22] MEDS: DOXYCYCLINE HYCLATE 100 MG TABLET PO SCH ×2 (09:34→22:03)
[2018-04-22] MEDS: LUBIPROSTONE 24 MCG CAPSULE PO SCH ×2 (09:34→17:27)
[2018-04-22] MEDS: INSULIN LISPRO 100 UNIT/ML 3 ML VIAL SUBCUT PRN ×2 (12:55→21:59)
[2018-04-22] MEDS: NORMAL SALINE 1000 ML 1,000 ML IV PRN (12:56)
[2018-04-22] MEDS: MONTELUKAST SODIUM 10 MG TABLET PO SCH (22:00)
[2018-04-22] MEDS: ATORVASTATIN CALCIUM 20 MG TABLET PO SCH (22:01)
[2018-04-22] MEDS: INSULIN GLARGINE,HUM.REC.ANLOG 300 UNIT/3 ML INSULN.PEN SUBCUT SCH (22:01)
[2018-04-22] MEDS: MELATONIN 5 MG TABLET PO SCH (22:05)
[2018-04-23] MEDS: CIPROFLOXACIN HCL 0.3% OPH SOLN 2.5 ML OU SCH ×5 (01:05→23:12)
[2018-04-23] MEDS: GABAPENTIN 300 MG CAPSULE PO SCH ×3 (06:13→23:10)
[2018-04-23] MEDS: LANSOPRAZOLE 30 MG TAB.RAP.DR PO SCH (06:13)
[2018-04-23] MEDS: NORMAL SALINE 1000 ML 1,000 ML IV PRN (08:29)
[2018-04-23] MEDS: DONEPEZIL HCL 5 MG TABLET PO SCH (10:58)
[2018-04-23] MEDS: LUBIPROSTONE 24 MCG CAPSULE PO SCH ×2 (10:58→17:23)
[2018-04-23] MEDS: AMLODIPINE BESYLATE 5 MG TABLET PO SCH (10:58)
[2018-04-23] MEDS: SERTRALINE HCL 50 MG TABLET PO SCH (10:58)
[2018-04-23] MEDS: SITAGLIPTIN PHOSPHATE 25 MG TABLET PO SCH (10:59)
[2018-04-23] MEDS: DOXYCYCLINE HYCLATE 100 MG TABLET PO SCH ×2 (10:59→23:11)
[2018-04-23] MEDS: POLYETHYLENE GLYCOL 3350 POWDER 17 GM/1 PACKET PO SCH (10:59)
[2018-04-23] MEDS: ASPIRIN 81 MG TABLET, CHEWABLE PO SCH (10:59)
[2018-04-23] MEDS: LACOSAMIDE 100 MG TABLET PO SCH ×2 (10:59→23:10)
[2018-04-23] MEDS: VALSARTAN 160 MG TABLET PO SCH ×2 (10:59→23:10)
[2018-04-23] MEDS: HEPARIN SOD (PORCINE) 5,000 UNIT/ML 1 ML SYRINGE SUBCUT SCH ×2 (10:59→23:10)
[2018-04-23] MEDS: FLUTICASONE NASAL SPRAY 50 MCG/SPRY 120 SPRAY/16 GM NAREB SCH (10:59)
[2018-04-23] MEDS: INSULIN LISPRO 100 UNIT/ML 3 ML VIAL SUBCUT PRN (13:37)
--- NOTE | 2018-04-23 15:52 | PDOC PROGRESS REPORT ---
Subjective Progress Note for:: 04/23/18 Subjective:: Patient is currently doing well Patient is denied any chest pain denies shortness of the breath Patient currently waiting to transfer to the nursing facility Reason For Visit: ACUTE RENAL INJURY/HYPERKELMIA,COMPLICATE UTI WITH Physical Exam Vital Signs: Temp Pulse Resp BP Pulse Ox 97.8 F 95 16 148/62 H 96 04/23/18 03:06 04/23/18 14:00 04/23/18 03:06 04/23/18 03:31 04/23/18 03:06 Intake & Output 04/22/18 04/23/18 04/24/18 06:59 06:59 06:59 Intake Total 1697 1989 978 Output Total 2900 2875 Balance -1203 -885 978 Weight 74.5 kg 74.1 kg General appearance: PRESENT: no acute distress, well-developed, well-nourished Head exam: PRESENT: atraumatic, normocephalic Eye exam: PRESENT: conjunctiva pink, EOMI, PERRLA. ABSENT: scleral icterus Ear exam: PRESENT: normal external ear exam Mouth exam: PRESENT: moist, tongue midline Neck exam: PRESENT: full ROM. ABSENT: carotid bruit, JVD, lymphadenopathy, thyromegaly Respiratory exam: PRESENT: clear to auscultation adenike Cardiovascular exam: PRESENT: RRR. ABSENT: diastolic murmur, rubs, systolic murmur Murmur grade: 3 Pulses: PRESENT: normal dorsalis pedis pul, +2 pedal pulses bilateral Vascular exam: PRESENT: normal capillary refill GI/Abdominal exam: PRESENT: normal bowel sounds, soft. ABSENT: distended, guarding, mass, organolmegaly, rebound, tenderness Rectal exam: PRESENT: deferred Neurological exam: PRESENT: alert, awake, oriented to person, oriented to place , oriented to time, oriented to situation, CN II-XII grossly intact. ABSENT: motor sensory deficit Psychiatric exam: PRESENT: appropriate affect, normal mood. ABSENT: homicidal ideation, suicidal ideation Skin exam: PRESENT: dry, intact, warm. ABSENT: cyanosis, rash Results Laboratory Results: 04/19/18 21:25 04/19/18 21:25 Impressions: Abdomen/Pelvis CT 04/12/18 00:00 IMPRESSION: NO SIGNIFICANT OR ACUTE PROCESS IN THE ABDOMEN OR PELVIS. Chest X-Ray 04/12/18 08:51 IMPRESSION: 1. No significant interval changes since the prior study dated . No acute findings. Forearm X-Ray 04/16/18 00:00 IMPRESSION: Osteopenia. No fracture evident. Wrist X-Ray 04/16/18 00:00 IMPRESSION: Osteopenia. No fracture evident. Assessment & Plan - Diagnosis (1) ARF (acute renal failure) Qualifiers: Acute renal failure type: with acute tubular necrosis Qualified Code(s): N17.0 - Acute kidney failure with tubular necrosis Is this a current diagnosis for this admission?: Yes (2) Diabetes mellitus type 2 in nonobese Is this a current diagnosis for this admission?: Yes (3) UTI (urinary tract infection) Qualifiers: Urinary tract infection type: catheter-associated UTI Indwelling urinary catheter type: cystostomy catheter Encounter type: initial encounter Qualified Code(s): T83.510A - Infection and inflammatory reaction due to cystostomy catheter, initial encounter; N39.0 - Urinary tract infection, site not specified; N39.0 - Urinary tract infection, site not specified Is this a current diagnosis for this admission?: Yes (4) Weakness Is this a current diagnosis for this admission?: Yes (5) GERD (gastroesophageal reflux disease) Qualifiers: Esophagitis presence: without esophagitis Qualified Code(s): K21.9 - Gastro -esophageal reflux disease without esophagitis Is this a current diagnosis for this admission?: Yes (6) HTN (hypertension) Qualifiers: Hypertension type: essential hypertension Qualified Code(s): I10 - Essential (primary) hypertension Is this a current diagnosis for this admission?: Yes - Time Time Spent with patient: 15-24 minutes Medications reviewed and adjusted accordingly: Yes Anticipated discharge: SNF Within: when bed available - Inpatient Certification I certify that my determination is in accordance with my understanding of Medicare's requirements for reasonable and necessary INPATIENT services [42 CFR 412.3e].: Yes Medical Necessity: Need Close Monitoring Due to Risk of Patient Decompensation Post Hospital Care: D/C Cloth Examiner Documentation - Plan Summary Plan Summary: Continues to current medications
--- NOTE | 2018-04-23 19:50 | PDOC PROGRESS REPORT ---
Subjective Progress Note for:: 04/22/18 Subjective:: No chest pain or difficulty with breathing. No nausea, vomiting or abdominal pain. No fever or chills. Tolerating oral feeding. Reason For Visit: ACUTE RENAL INJURY/HYPERKELMIA,COMPLICATE UTI WITH Physical Exam Vital Signs: Temp Pulse Resp BP Pulse Ox 98.2 F 82 18 153/52 H 98 04/22/18 16:34 04/22/18 16:34 04/22/18 16:34 04/22/18 16:34 04/22/18 16:34 Intake & Output 04/21/18 04/22/18 04/23/18 06:59 06:59 06:59 Intake Total 1481 1697 1990 Output Total 2825 2900 1375 Balance -1344 -1203 615 Weight 64.4 kg 74.5 kg Physical Exam: General appearance: PRESENT: no acute distress Head exam: PRESENT: atraumatic, normocephalic Eye exam: PRESENT: conjunctiva pink ABSENT: scleral icterus Ear exam: PRESENT: normal external ear exam Mouth exam: PRESENT: moist mucous Respiratory exam: PRESENT: clear to auscultation adenike, decreased breath sounds - at lung bases Cardiovascular exam: PRESENT: RRR, +S1, +S2, systolic murmur Murmur grade: 3 Vascular exam: ABSENT: pallor GI/Abdominal exam: PRESENT: normal bowel sounds, soft, other - suprapubic Adan cath in situ. ABSENT: distended, guarding, mass, organomegaly, rebound, tenderness Extremities exam: ABSENT: pedal edema Musculoskeletal exam: PRESENT: deformity - related to multiple joints involvement with arthritis Neurological exam: PRESENT: alert, awake - and appropriate in simple responses Psychiatric exam: PRESENT: appropriate affect, normal mood. ABSENT: homicidal ideation, suicidal ideation Skin exam: PRESENT: dry, warm Murmur grade: 3 Results Laboratory Results: 04/19/18 21:25 04/19/18 21:25 Impressions: Abdomen/Pelvis CT 04/12/18 00:00 IMPRESSION: NO SIGNIFICANT OR ACUTE PROCESS IN THE ABDOMEN OR PELVIS. Chest X-Ray 04/12/18 08:51 IMPRESSION: 1. No significant interval changes since the prior study dated . No acute findings. Forearm X-Ray 04/16/18 00:00 IMPRESSION: Osteopenia. No fracture evident. Wrist X-Ray 04/16/18 00:00 IMPRESSION: Osteopenia. No fracture evident. Assessment & Plan - Diagnosis (1) Toxic metabolic encephalopathy Is this a current diagnosis for this admission?: Yes (2) ARF (acute renal failure) Qualifiers: Acute renal failure type: with acute tubular necrosis Qualified Code(s): N17.0 - Acute kidney failure with tubular necrosis Is this a current diagnosis for this admission?: Yes (3) Lactic acidosis Is this a current diagnosis for this admission?: Yes (4) UTI (urinary tract infection) Qualifiers: Urinary tract infection type: catheter-associated UTI Indwelling urinary catheter type: cystostomy catheter Encounter type: initial encounter Qualified Code(s): T83.510A - Infection and inflammatory reaction due to cystostomy catheter, initial encounter; N39.0 - Urinary tract infection, site not specified; N39.0 - Urinary tract infection, site not specified Is this a current diagnosis for this admission?: Yes (5) Diabetes mellitus type 2 in nonobese Is this a current diagnosis for this admission?: Yes (6) HTN (hypertension) Qualifiers: Hypertension type: essential hypertension Qualified Code(s): I10 - Essential (primary) hypertension Is this a current diagnosis for this admission?: Yes (7) HLD (hyperlipidemia) Qualifiers: Hyperlipidemia type: unspecified Qualified Code(s): E78.5 - Hyperlipidemia , unspecified Is this a current diagnosis for this admission?: Yes (8) GERD (gastroesophageal reflux disease) Qualifiers: Esophagitis presence: without esophagitis Qualified Code(s): K21.9 - Gastro -esophageal reflux disease without esophagitis Is this a current diagnosis for this admission?: Yes (9) Anemia of chronic disease Is this a current diagnosis for this admission?: Yes - Time Time Spent with patient: 25-34 minutes Medications reviewed and adjusted accordingly: Yes Anticipated discharge: SNF Within: Other - Inpatient Certification Based on my medical assessment, after consideration of the patient's comorbidities, presenting symptoms, or acuity I expect that the services needed warrant INPATIENT care.: Yes I certify that my determination is in accordance with my understanding of Medicare's requirements for reasonable and necessary INPATIENT services [42 CFR 412.3e].: Yes Medical Necessity: Need Close Monitoring Due to Risk of Patient Decompensation, Need For IV Fluids, Need For Continuous Telemetry Monitoring, Risk of Complication if Not Cared For in Hospital Post Hospital Care: D/C or Transfer Summary - Plan Summary Plan Summary: Continue current medication management. Follow up on disposition plan with meeting planner. Patient has an open claim which is delaying her acceptance to SNF for short term rehabilitation program.
[2018-04-23] MEDS: ATORVASTATIN CALCIUM 20 MG TABLET PO SCH (23:10)
[2018-04-23] MEDS: MONTELUKAST SODIUM 10 MG TABLET PO SCH (23:10)
[2018-04-23] MEDS: INSULIN GLARGINE,HUM.REC.ANLOG 300 UNIT/3 ML INSULN.PEN SUBCUT SCH (23:10)
[2018-04-23] MEDS: MELATONIN 5 MG TABLET PO SCH (23:13)
[2018-04-24] MEDS: NORMAL SALINE 1000 ML 1,000 ML IV PRN (02:59)
[2018-04-24] MEDS: LANSOPRAZOLE 30 MG TAB.RAP.DR PO SCH (05:57)
[2018-04-24] MEDS: GABAPENTIN 300 MG CAPSULE PO SCH ×3 (05:57→22:52)
[2018-04-24 06:30] LABS: ABSOLUTE EOSINOPHILS # (AUTO) 0.2 10^3/uL (0.0-0.6); ABSOLUTE MONOCYTES (AUTO) 0.6 10^3/uL (0.1-1.4); ABSOLUTE NEUT (AUTO) 7.3 10^3/uL (1.7-8.2); BASOPHILS % (AUTO) 0.4 % (0-2); EOSINOPHILS % (AUTO) 2.4 % (0-6); HEMOGLOBIN 10.3 g/dL (12.0-15.5); LYMPHOCYTES % (AUTO) 10.6 % (13-45); MEAN CORPUSCULAR HEMOGLOBIN 29.6 pg (27.0-33.4); MEAN CORPUSCULAR HGB CONC 33.4 g/dL (32.0-36.0); MEAN CORPUSCULAR VOLUME 89 fl (80-97); MONOCYTES % (AUTO) 6.7 % (3-13); PLATELET COUNT 300 10^3/uL (150-450); RED BLOOD COUNT 3.49 10^6/uL (3.72-5.28); RED CELL DISTRIBUTION WIDTH 17.7 % (11.5-14.0); SEGMENTED NEUTROPHILS % (AUTO) 79.9 % (42-78); TOTAL CELLS COUNTED % (AUTO) 100 %; WHITE BLOOD COUNT 9.2 10^3/uL (4.0-10.5)
[2018-04-24 06:42] LABS: ANION GAP 8 (5-19); BLOOD UREA NITROGEN 14 mg/dL (7-20); CALCIUM 8.5 mg/dL (8.4-10.2); CARBON DIOXIDE 27 mmol/L (22-30); CHLORIDE 107 mmol/L (98-107); GLUCOSE 137 mg/dL (75-110); POTASSIUM 3.1 mmol/L (3.6-5.0); SODIUM 141.7 mmol/L (137-145)
[2018-04-24] MEDS ORDERED: POTASSIUM CHLORIDE 10 MEQ CAPSULE.ER PO ONE ×2 (07:40→10:08)
--- NOTE | 2018-04-24 09:03 | PDOC PROGRESS REPORT ---
Subjective Progress Note for:: 04/24/18 Subjective:: Patient is currently doing well Patient is denied any chest pain denies shortness of the breath Patient currently waiting to transfer to the nursing facility Reason For Visit: ACUTE RENAL INJURY/HYPERKELMIA,COMPLICATE UTI WITH Physical Exam Vital Signs: Temp Pulse Resp BP Pulse Ox 97.9 F 66 13 172/62 H 98 04/24/18 07:16 04/24/18 07:16 04/24/18 07:16 04/24/18 07:16 04/24/18 07:16 Intake & Output 04/23/18 04/24/18 04/25/18 06:59 06:59 06:59 Intake Total 1989 2821 Output Total 5 2725 Balance -885 97 Weight 74.1 kg 75.3 kg General appearance: PRESENT: no acute distress, well-developed, well-nourished Head exam: PRESENT: atraumatic, normocephalic Eye exam: PRESENT: conjunctiva pink, EOMI, PERRLA. ABSENT: scleral icterus Ear exam: PRESENT: normal external ear exam Mouth exam: PRESENT: moist, tongue midline Neck exam: PRESENT: full ROM. ABSENT: carotid bruit, JVD, lymphadenopathy, thyromegaly Respiratory exam: PRESENT: clear to auscultation adenike Cardiovascular exam: PRESENT: RRR. ABSENT: diastolic murmur, rubs, systolic murmur Murmur grade: 3 Pulses: PRESENT: normal dorsalis pedis pul, +2 pedal pulses bilateral Vascular exam: PRESENT: normal capillary refill GI/Abdominal exam: PRESENT: normal bowel sounds, soft. ABSENT: distended, guarding, mass, organolmegaly, rebound, tenderness Rectal exam: PRESENT: deferred Neurological exam: PRESENT: alert, awake, oriented to person, oriented to place. ABSENT: motor sensory deficit Psychiatric exam: PRESENT: appropriate affect, normal mood. ABSENT: homicidal ideation, suicidal ideation Skin exam: PRESENT: dry, intact, warm. ABSENT: cyanosis, rash Results Laboratory Results: 04/24/18 06:00 04/24/18 06:00 04/24/18 04/24/18 06:00 06:00 WBC 9.2 RBC 3.49 L Hgb 10.3 L Hct 31.0 L MCV 89 MCH 29.6 MCHC 33.4 RDW 17.7 H Plt Count 300 Seg Neutrophils % 79.9 H Lymphocytes % 10.6 L Monocytes % 6.7 Eosinophils % 2.4 Basophils % 0.4 Absolute Neutrophils 7.3 Absolute Lymphocytes 1.0 Absolute Monocytes 0.6 Absolute Eosinophils 0.2 Absolute Basophils 0.0 Sodium 141.7 Potassium 3.1 L Chloride 107 Carbon Dioxide 27 Anion Gap 8 BUN 14 Creatinine 0.70 Est GFR ( Amer) > 60 Est GFR (Non-Af Amer) > 60 Glucose 137 H Calcium 8.5 Impressions: Abdomen/Pelvis CT 04/12/18 00:00 IMPRESSION: NO SIGNIFICANT OR ACUTE PROCESS IN THE ABDOMEN OR PELVIS. Chest X-Ray 04/12/18 08:51 IMPRESSION: 1. No significant interval changes since the prior study dated . No acute findings. Forearm X-Ray 04/16/18 00:00 IMPRESSION: Osteopenia. No fracture evident. Wrist X-Ray 04/16/18 00:00 IMPRESSION: Osteopenia. No fracture evident. Assessment & Plan - Diagnosis (1) ARF (acute renal failure) Qualifiers: Acute renal failure type: with acute tubular necrosis Qualified Code(s): N17.0 - Acute kidney failure with tubular necrosis Is this a current diagnosis for this admission?: Yes (2) Diabetes mellitus type 2 in nonobese Is this a current diagnosis for this admission?: Yes (3) UTI (urinary tract infection) Qualifiers: Urinary tract infection type: catheter-associated UTI Indwelling urinary catheter type: cystostomy catheter Encounter type: initial encounter Qualified Code(s): T83.510A - Infection and inflammatory reaction due to cystostomy catheter, initial encounter; N39.0 - Urinary tract infection, site not specified; N39.0 - Urinary tract infection, site not specified Is this a current diagnosis for this admission?: Yes (4) Weakness Is this a current diagnosis for this admission?: Yes (5) GERD (gastroesophageal reflux disease) Qualifiers: Esophagitis presence: without esophagitis Qualified Code(s): K21.9 - Gastro -esophageal reflux disease without esophagitis Is this a current diagnosis for this admission?: Yes (6) HTN (hypertension) Qualifiers: Hypertension type: essential hypertension Qualified Code(s): I10 - Essential (primary) hypertension Is this a current diagnosis for this admission?: Yes - Time Time Spent with patient: 15-24 minutes Medications reviewed and adjusted accordingly: Yes Anticipated discharge: SNF Within: Other - Inpatient Certification Based on my medical assessment, after consideration of the patient's comorbidities, presenting symptoms, or acuity I expect that the services needed warrant INPATIENT care.: Yes I certify that my determination is in accordance with my understanding of Medicare's requirements for reasonable and necessary INPATIENT services [42 CFR 412.3e].: Yes Medical Necessity: Need Close Monitoring Due to Risk of Patient Decompensation Post Hospital Care: D/C Drilling Superintendent Documentation - Plan Summary Plan Summary: rePlaced the potassium
[2018-04-24] MEDS: LUBIPROSTONE 24 MCG CAPSULE PO SCH ×2 (10:01→22:40)
[2018-04-24] MEDS: POLYETHYLENE GLYCOL 3350 POWDER 17 GM/1 PACKET PO SCH (10:02)
[2018-04-24] MEDS: HEPARIN SOD (PORCINE) 5,000 UNIT/ML 1 ML SYRINGE SUBCUT SCH ×2 (10:17→22:52)
[2018-04-24] MEDS: VALSARTAN 160 MG TABLET PO SCH ×2 (10:18→22:52)
[2018-04-24] MEDS: SITAGLIPTIN PHOSPHATE 25 MG TABLET PO SCH (10:18)
[2018-04-24] MEDS: LACOSAMIDE 100 MG TABLET PO SCH ×2 (10:18→22:52)
[2018-04-24] MEDS: SERTRALINE HCL 50 MG TABLET PO SCH (10:18)
[2018-04-24] MEDS: DONEPEZIL HCL 5 MG TABLET PO SCH (10:18)
[2018-04-24] MEDS: FLUTICASONE NASAL SPRAY 50 MCG/SPRY 120 SPRAY/16 GM NAREB SCH (10:19)
[2018-04-24] MEDS: AMLODIPINE BESYLATE 5 MG TABLET PO SCH (10:19)
[2018-04-24] MEDS: ASPIRIN 81 MG TABLET, CHEWABLE PO SCH (10:19)
[2018-04-24] MEDS: DOXYCYCLINE HYCLATE 100 MG TABLET PO SCH ×2 (10:20→22:57)
[2018-04-24] MEDS: ACETAMINOPHEN 325 MG TABLET PO PRN ×3 (11:46→22:57)
[2018-04-24] MEDS: INSULIN LISPRO 100 UNIT/ML 3 ML VIAL SUBCUT PRN ×2 (12:08→17:40)
[2018-04-24] MEDS: MONTELUKAST SODIUM 10 MG TABLET PO SCH (22:52)
[2018-04-24] MEDS: ATORVASTATIN CALCIUM 20 MG TABLET PO SCH (22:52)
[2018-04-24] MEDS: INSULIN GLARGINE,HUM.REC.ANLOG 300 UNIT/3 ML INSULN.PEN SUBCUT SCH (22:53)
[2018-04-24] MEDS: MELATONIN 5 MG TABLET PO SCH (23:02)
[2018-04-25] MEDS: GABAPENTIN 300 MG CAPSULE PO SCH ×3 (05:23→21:30)
[2018-04-25] MEDS: LANSOPRAZOLE 30 MG TAB.RAP.DR PO SCH (05:23)
[2018-04-25] MEDS: NORMAL SALINE 1000 ML 1,000 ML IV PRN (05:32)
[2018-04-25] MEDS: ACETAMINOPHEN 325 MG TABLET PO PRN ×3 (06:40→20:03)
[2018-04-25 06:42] LABS: ANION GAP 11 (5-19); BLOOD UREA NITROGEN 14 mg/dL (7-20); CALCIUM 8.4 mg/dL (8.4-10.2); CARBON DIOXIDE 23 mmol/L (22-30); CHLORIDE 108 mmol/L (98-107); GLUCOSE 143 mg/dL (75-110); POTASSIUM 3.4 mmol/L (3.6-5.0); SODIUM 142.3 mmol/L (137-145)
[2018-04-25] MEDS: INSULIN LISPRO 100 UNIT/ML 3 ML VIAL SUBCUT PRN ×4 (07:46→22:03)
--- NOTE | 2018-04-25 08:58 | PDOC PROGRESS REPORT ---
Subjective Progress Note for:: 04/25/18 Subjective:: Patient is currently doing well Patient is denied any chest pain denies shortness of the breath Patient currently waiting to transfer to the nursing facility Reason For Visit: ACUTE RENAL INJURY/HYPERKELMIA,COMPLICATE UTI WITH Physical Exam Vital Signs: Temp Pulse Resp BP Pulse Ox 97.9 F 74 14 171/67 H 100 04/25/18 07:17 04/25/18 07:17 04/25/18 07:17 04/25/18 07:17 04/25/18 07:17 Intake & Output 04/24/18 04/25/18 04/26/18 06:59 06:59 06:59 Intake Total 2822 2073 150 Output Total 2725 2800 Balance 97 -727 150 Weight 75.3 kg 73.7 kg General appearance: PRESENT: no acute distress, well-developed, well-nourished Head exam: PRESENT: atraumatic, normocephalic Eye exam: PRESENT: conjunctiva pink, EOMI, PERRLA. ABSENT: scleral icterus Ear exam: PRESENT: normal external ear exam Mouth exam: PRESENT: moist, tongue midline Neck exam: PRESENT: full ROM. ABSENT: carotid bruit, JVD, lymphadenopathy, thyromegaly Respiratory exam: PRESENT: clear to auscultation adenike Cardiovascular exam: PRESENT: RRR. ABSENT: diastolic murmur, rubs, systolic murmur Murmur grade: 3 Pulses: PRESENT: normal dorsalis pedis pul, +2 pedal pulses bilateral Vascular exam: PRESENT: normal capillary refill GI/Abdominal exam: PRESENT: normal bowel sounds, soft. ABSENT: distended, guarding, mass, organolmegaly, rebound, tenderness Rectal exam: PRESENT: deferred Extremities exam: ABSENT: pedal edema Neurological exam: PRESENT: alert, awake, oriented to person, oriented to place , oriented to time, oriented to situation, CN II-XII grossly intact. ABSENT: motor sensory deficit Psychiatric exam: PRESENT: appropriate affect, normal mood. ABSENT: homicidal ideation, suicidal ideation Skin exam: PRESENT: dry, intact, warm. ABSENT: cyanosis, rash Results Laboratory Results: 04/24/18 06:00 04/25/18 05:30 04/25/18 05:30 Sodium 142.3 Potassium 3.4 L Chloride 108 H Carbon Dioxide 23 Anion Gap 11 BUN 14 Creatinine 0.66 Est GFR ( Amer) > 60 Est GFR (Non-Af Amer) > 60 Glucose 143 H Calcium 8.4 Impressions: Abdomen/Pelvis CT 04/12/18 00:00 IMPRESSION: NO SIGNIFICANT OR ACUTE PROCESS IN THE ABDOMEN OR PELVIS. Chest X-Ray 04/12/18 08:51 IMPRESSION: 1. No significant interval changes since the prior study dated . No acute findings. Forearm X-Ray 04/16/18 00:00 IMPRESSION: Osteopenia. No fracture evident. Wrist X-Ray 04/16/18 00:00 IMPRESSION: Osteopenia. No fracture evident. Assessment & Plan - Diagnosis (1) ARF (acute renal failure) Qualifiers: Acute renal failure type: with acute tubular necrosis Qualified Code(s): N17.0 - Acute kidney failure with tubular necrosis Is this a current diagnosis for this admission?: Yes (2) Diabetes mellitus type 2 in nonobese Is this a current diagnosis for this admission?: Yes (3) UTI (urinary tract infection) Qualifiers: Urinary tract infection type: catheter-associated UTI Indwelling urinary catheter type: cystostomy catheter Encounter type: initial encounter Qualified Code(s): T83.510A - Infection and inflammatory reaction due to cystostomy catheter, initial encounter; N39.0 - Urinary tract infection, site not specified; N39.0 - Urinary tract infection, site not specified Is this a current diagnosis for this admission?: Yes (4) Weakness Is this a current diagnosis for this admission?: Yes (5) GERD (gastroesophageal reflux disease) Qualifiers: Esophagitis presence: without esophagitis Qualified Code(s): K21.9 - Gastro -esophageal reflux disease without esophagitis Is this a current diagnosis for this admission?: Yes (6) HTN (hypertension) Qualifiers: Hypertension type: essential hypertension Qualified Code(s): I10 - Essential (primary) hypertension Is this a current diagnosis for this admission?: Yes - Time Time Spent with patient: 15-24 minutes Medications reviewed and adjusted accordingly: Yes Anticipated discharge: SNF Within: Other - Inpatient Certification Based on my medical assessment, after consideration of the patient's comorbidities, presenting symptoms, or acuity I expect that the services needed warrant INPATIENT care.: Yes I certify that my determination is in accordance with my understanding of Medicare's requirements for reasonable and necessary INPATIENT services [42 CFR 412.3e].: Yes Medical Necessity: Need Close Monitoring Due to Risk of Patient Decompensation Post Hospital Care: D/C Health Teacher Documentation - Plan Summary Plan Summary: Will DC the doxycycline Continues to current medications Patients probably need to go to the rehab Will DC the Adan catheter
[2018-04-25] MEDS ORDERED: POTASSIUM CHLORIDE 10 MEQ CAPSULE.ER PO ONE (09:00)
[2018-04-25] MEDS: LUBIPROSTONE 24 MCG CAPSULE PO SCH ×2 (09:01→17:03)
[2018-04-25] MEDS: POLYETHYLENE GLYCOL 3350 POWDER 17 GM/1 PACKET PO SCH (09:01)
[2018-04-25] MEDS: FLUTICASONE NASAL SPRAY 50 MCG/SPRY 120 SPRAY/16 GM NAREB SCH (09:29)
[2018-04-25] MEDS: LACOSAMIDE 100 MG TABLET PO SCH ×2 (09:29→21:30)
[2018-04-25] MEDS: VALSARTAN 160 MG TABLET PO SCH ×2 (09:29→21:29)
[2018-04-25] MEDS: AMLODIPINE BESYLATE 5 MG TABLET PO SCH (09:29)
[2018-04-25] MEDS: DOXYCYCLINE HYCLATE 100 MG TABLET PO SCH ×2 (09:29→21:31)
[2018-04-25] MEDS: DONEPEZIL HCL 5 MG TABLET PO SCH (09:29)
[2018-04-25] MEDS: SERTRALINE HCL 50 MG TABLET PO SCH (09:29)
[2018-04-25] MEDS: SITAGLIPTIN PHOSPHATE 25 MG TABLET PO SCH (09:29)
[2018-04-25] MEDS: ASPIRIN 81 MG TABLET, CHEWABLE PO SCH (09:29)
[2018-04-25] MEDS: HEPARIN SOD (PORCINE) 5,000 UNIT/ML 1 ML SYRINGE SUBCUT SCH ×2 (09:30→21:30)
[2018-04-25] MEDS: ATORVASTATIN CALCIUM 20 MG TABLET PO SCH (21:30)
[2018-04-25] MEDS: MONTELUKAST SODIUM 10 MG TABLET PO SCH (21:30)
[2018-04-25] MEDS: INSULIN GLARGINE,HUM.REC.ANLOG 300 UNIT/3 ML INSULN.PEN SUBCUT SCH (21:31)
[2018-04-25] MEDS: MELATONIN 5 MG TABLET PO SCH (21:42)
[2018-04-26] MEDS: LANSOPRAZOLE 30 MG TAB.RAP.DR PO SCH (05:16)
[2018-04-26] MEDS: GABAPENTIN 300 MG CAPSULE PO SCH ×3 (05:16→21:44)
[2018-04-26 05:44] LABS: ANION GAP 8 (5-19); BLOOD UREA NITROGEN 19 mg/dL (7-20); CALCIUM 9.4 mg/dL (8.4-10.2); CARBON DIOXIDE 28 mmol/L (22-30); CHLORIDE 108 mmol/L (98-107); GLUCOSE 66 mg/dL (75-110); POTASSIUM 3.8 mmol/L (3.6-5.0); SODIUM 143.6 mmol/L (137-145)
[2018-04-26] MEDS: AMLODIPINE BESYLATE 5 MG TABLET PO SCH (10:00)
[2018-04-26] MEDS: ASPIRIN 81 MG TABLET, CHEWABLE PO SCH (10:00)
[2018-04-26] MEDS: VALSARTAN 160 MG TABLET PO SCH ×2 (10:01→21:44)
[2018-04-26] MEDS: DONEPEZIL HCL 5 MG TABLET PO SCH (10:01)
[2018-04-26] MEDS: SERTRALINE HCL 50 MG TABLET PO SCH (10:02)
[2018-04-26] MEDS: LUBIPROSTONE 24 MCG CAPSULE PO SCH ×2 (10:02→17:29)
[2018-04-26] MEDS: FLUTICASONE NASAL SPRAY 50 MCG/SPRY 120 SPRAY/16 GM NAREB SCH (10:03)
[2018-04-26] MEDS: POLYETHYLENE GLYCOL 3350 POWDER 17 GM/1 PACKET PO SCH (10:05)
[2018-04-26] MEDS: LACOSAMIDE 100 MG TABLET PO SCH ×2 (10:05→21:44)
[2018-04-26] MEDS: DOXYCYCLINE HYCLATE 100 MG TABLET PO SCH ×2 (10:14→21:46)
[2018-04-26] MEDS: HEPARIN SOD (PORCINE) 5,000 UNIT/ML 1 ML SYRINGE SUBCUT SCH ×2 (10:16→21:46)
[2018-04-26] MEDS: SITAGLIPTIN PHOSPHATE 25 MG TABLET PO SCH (10:20)
[2018-04-26] MEDS: INSULIN LISPRO 100 UNIT/ML 3 ML VIAL SUBCUT PRN ×3 (12:18→21:46)
[2018-04-26] MEDS: OXYCODONE-ACETAMINOPHEN 5-325 MG TABLET PO PRN (15:21)
[2018-04-26] MEDS: MELATONIN 5 MG TABLET PO SCH (21:44)
[2018-04-26] MEDS: ACETAMINOPHEN 325 MG TABLET PO PRN (21:44)
[2018-04-26] MEDS: ATORVASTATIN CALCIUM 20 MG TABLET PO SCH (21:44)
[2018-04-26] MEDS: MONTELUKAST SODIUM 10 MG TABLET PO SCH (21:45)
[2018-04-26] MEDS: INSULIN GLARGINE,HUM.REC.ANLOG 300 UNIT/3 ML INSULN.PEN SUBCUT SCH (21:45)
[2018-04-27] MEDS: GABAPENTIN 300 MG CAPSULE PO SCH ×3 (06:14→21:47)
[2018-04-27] MEDS: LANSOPRAZOLE 30 MG TAB.RAP.DR PO SCH (06:14)
[2018-04-27] MEDS: LUBIPROSTONE 24 MCG CAPSULE PO SCH ×2 (09:28→17:18)
[2018-04-27] MEDS: FLUTICASONE NASAL SPRAY 50 MCG/SPRY 120 SPRAY/16 GM NAREB SCH (09:29)
[2018-04-27] MEDS: HEPARIN SOD (PORCINE) 5,000 UNIT/ML 1 ML SYRINGE SUBCUT SCH ×2 (09:29→21:44)
[2018-04-27] MEDS: VALSARTAN 160 MG TABLET PO SCH ×2 (09:29→21:46)
[2018-04-27] MEDS: ASPIRIN 81 MG TABLET, CHEWABLE PO SCH (09:29)
[2018-04-27] MEDS: DONEPEZIL HCL 5 MG TABLET PO SCH (09:29)
[2018-04-27] MEDS: SERTRALINE HCL 50 MG TABLET PO SCH (09:30)
[2018-04-27] MEDS: LACOSAMIDE 100 MG TABLET PO SCH ×2 (09:30→21:47)
[2018-04-27] MEDS: DOXYCYCLINE HYCLATE 100 MG TABLET PO SCH ×2 (09:30→21:46)
[2018-04-27] MEDS: AMLODIPINE BESYLATE 5 MG TABLET PO SCH (09:30)
[2018-04-27] MEDS: SITAGLIPTIN PHOSPHATE 25 MG TABLET PO SCH (09:32)
[2018-04-27] MEDS: POLYETHYLENE GLYCOL 3350 POWDER 17 GM/1 PACKET PO SCH (09:35)
[2018-04-27] MEDS: INSULIN LISPRO 100 UNIT/ML 3 ML VIAL SUBCUT PRN ×2 (12:58→16:52)
[2018-04-27] MEDS: OXYCODONE-ACETAMINOPHEN 5-325 MG TABLET PO PRN (18:17)
--- NOTE | 2018-04-27 19:34 | PDOC PROGRESS REPORT ---
Subjective Progress Note for:: 04/26/18 Subjective:: No chest pain or difficulty with breathing. No nausea, vomiting or abdominal pain. Tolerating oral feeding. Patient reported increase pain in her upper and lower back with demand for pain medication. No fever or chills. Reason For Visit: ACUTE RENAL INJURY/HYPERKELMIA,COMPLICATE UTI WITH Physical Exam Vital Signs: Temp Pulse Resp BP Pulse Ox 97.9 F 64 16 138/59 H 97 04/26/18 07:09 04/26/18 07:09 04/26/18 07:09 04/26/18 07:09 04/26/18 07:09 Intake & Output 04/25/18 04/26/18 04/27/18 06:59 06:59 06:59 Intake Total 2073 1090 Output Total 2800 2800 Balance -727 -1710 Weight 73.7 kg 71.7 kg Physical Exam: General appearance: PRESENT: no acute distress Head exam: PRESENT: atraumatic, normocephalic Eye exam: PRESENT: conjunctiva pink ABSENT: scleral icterus Ear exam: PRESENT: normal external ear exam Mouth exam: PRESENT: moist mucous Respiratory exam: PRESENT: clear to auscultation adenike Cardiovascular exam: PRESENT: RRR, +S1, +S2, systolic murmur Murmur grade: 3 Vascular exam: ABSENT: pallor GI/Abdominal exam: PRESENT: normal bowel sounds, soft, other - suprapubic Adan cath in situ. ABSENT: distended, guarding, mass, organomegaly, rebound, tenderness Extremities exam: ABSENT: pedal edema Musculoskeletal exam: PRESENT: deformity - related to multiple joints involvement with arthritis Neurological exam: PRESENT: alert, awake - and appropriate in simple responses Psychiatric exam: PRESENT: appropriate affect, normal mood. ABSENT: homicidal ideation, suicidal ideation Skin exam: PRESENT: dry, warm Murmur grade: 3 Results Laboratory Results: 04/24/18 06:00 04/26/18 04:31 04/26/18 04:31 Sodium 143.6 Potassium 3.8 Chloride 108 H Carbon Dioxide 28 Anion Gap 8 BUN 19 Creatinine 0.84 Est GFR ( Amer) > 60 Est GFR (Non-Af Amer) > 60 Glucose 66 L Calcium 9.4 Impressions: Abdomen/Pelvis CT 04/12/18 00:00 IMPRESSION: NO SIGNIFICANT OR ACUTE PROCESS IN THE ABDOMEN OR PELVIS. Chest X-Ray 04/12/18 08:51 IMPRESSION: 1. No significant interval changes since the prior study dated . No acute findings. Forearm X-Ray 04/16/18 00:00 IMPRESSION: Osteopenia. No fracture evident. Wrist X-Ray 04/16/18 00:00 IMPRESSION: Osteopenia. No fracture evident. Assessment & Plan - Diagnosis (1) Toxic metabolic encephalopathy Is this a current diagnosis for this admission?: Yes (2) ARF (acute renal failure) Qualifiers: Acute renal failure type: with acute tubular necrosis Qualified Code(s): N17.0 - Acute kidney failure with tubular necrosis Is this a current diagnosis for this admission?: Yes (3) Lactic acidosis Is this a current diagnosis for this admission?: Yes (4) UTI (urinary tract infection) Qualifiers: Urinary tract infection type: catheter-associated UTI Indwelling urinary catheter type: cystostomy catheter Encounter type: initial encounter Qualified Code(s): T83.510A - Infection and inflammatory reaction due to cystostomy catheter, initial encounter; N39.0 - Urinary tract infection, site not specified; N39.0 - Urinary tract infection, site not specified Is this a current diagnosis for this admission?: Yes (5) Diabetes mellitus type 2 in nonobese Is this a current diagnosis for this admission?: Yes (6) HTN (hypertension) Qualifiers: Hypertension type: essential hypertension Qualified Code(s): I10 - Essential (primary) hypertension Is this a current diagnosis for this admission?: Yes (7) HLD (hyperlipidemia) Qualifiers: Hyperlipidemia type: unspecified Qualified Code(s): E78.5 - Hyperlipidemia , unspecified Is this a current diagnosis for this admission?: Yes (8) GERD (gastroesophageal reflux disease) Qualifiers: Esophagitis presence: without esophagitis Qualified Code(s): K21.9 - Gastro -esophageal reflux disease without esophagitis Is this a current diagnosis for this admission?: Yes (9) Anemia of chronic disease Is this a current diagnosis for this admission?: Yes - Time Time Spent with patient: 25-34 minutes Medications reviewed and adjusted accordingly: Yes Anticipated discharge: SNF Within: Other - Inpatient Certification Based on my medical assessment, after consideration of the patient's comorbidities, presenting symptoms, or acuity I expect that the services needed warrant INPATIENT care.: Yes I certify that my determination is in accordance with my understanding of Medicare's requirements for reasonable and necessary INPATIENT services [42 CFR 412.3e].: Yes Medical Necessity: Need Close Monitoring Due to Risk of Patient Decompensation, Need For Continuous Telemetry Monitoring, Need for Pain Control, Risk of Complication if Not Cared For in Hospital Post Hospital Care: D/C or Transfer Summary - Plan Summary Plan Summary: Continue current medication management. Patient will remain on Percocet 5/325 mg po q 8hours prn for pain management. Folow up on placement efforts for short term rehabilitation at SNF.
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
[2018-04-27] MEDS: INSULIN GLARGINE,HUM.REC.ANLOG 300 UNIT/3 ML INSULN.PEN SUBCUT SCH (21:45)
[2018-04-27] MEDS: MONTELUKAST SODIUM 10 MG TABLET PO SCH (21:47)
[2018-04-27] MEDS: ATORVASTATIN CALCIUM 20 MG TABLET PO SCH (21:47)
[2018-04-27] MEDS: MELATONIN 5 MG TABLET PO SCH (22:22)
[2018-04-28] MEDS: OXYCODONE-ACETAMINOPHEN 5-325 MG TABLET PO PRN ×3 (01:47→21:18)
[2018-04-28] MEDS: LANSOPRAZOLE 30 MG TAB.RAP.DR PO SCH (05:16)
[2018-04-28] MEDS: GABAPENTIN 300 MG CAPSULE PO SCH ×3 (05:16→21:19)
[2018-04-28] MEDS: AMLODIPINE BESYLATE 5 MG TABLET PO SCH (09:29)
[2018-04-28] MEDS: VALSARTAN 160 MG TABLET PO SCH ×2 (09:29→21:18)
[2018-04-28] MEDS: SERTRALINE HCL 50 MG TABLET PO SCH (09:29)
[2018-04-28] MEDS: HEPARIN SOD (PORCINE) 5,000 UNIT/ML 1 ML SYRINGE SUBCUT SCH ×2 (09:29→21:20)
[2018-04-28] MEDS: ASPIRIN 81 MG TABLET, CHEWABLE PO SCH (09:29)
[2018-04-28] MEDS: DONEPEZIL HCL 5 MG TABLET PO SCH (09:29)
[2018-04-28] MEDS: POLYETHYLENE GLYCOL 3350 POWDER 17 GM/1 PACKET PO SCH (09:30)
[2018-04-28] MEDS: SITAGLIPTIN PHOSPHATE 25 MG TABLET PO SCH (09:30)
[2018-04-28] MEDS: LUBIPROSTONE 24 MCG CAPSULE PO SCH ×2 (09:35→18:10)
[2018-04-28] MEDS: FLUTICASONE NASAL SPRAY 50 MCG/SPRY 120 SPRAY/16 GM NAREB SCH (09:35)
[2018-04-28] MEDS: ACETAMINOPHEN 325 MG TABLET PO PRN (13:02)
[2018-04-28] MEDS: INSULIN LISPRO 100 UNIT/ML 3 ML VIAL SUBCUT PRN (13:03)
[2018-04-28] MEDS: LACOSAMIDE 100 MG TABLET PO SCH ×2 (13:07→21:19)
--- NOTE | 2018-04-28 19:25 | PDOC PROGRESS REPORT ---
Subjective Progress Note for:: 04/28/18 Subjective:: No chest pain or difficulty with breathing. No fever or chills. No nausea, vomiting or abdominal pain. There is continue concern about SNF rehabilitation coverage. Presently, the SNF is awaiting written documentation from Medicare regarding open claim status. Reason For Visit: ACUTE RENAL INJURY/HYPERKELMIA,COMPLICATE UTI WITH Physical Exam Vital Signs: Temp Pulse Resp BP Pulse Ox 97.7 F 69 12 117/49 L 99 04/28/18 15:28 04/28/18 15:28 04/28/18 15:28 04/28/18 15:28 04/28/18 15:28 Intake & Output 04/27/18 04/28/18 04/29/18 06:59 06:59 06:59 Intake Total 1210 474 604 Output Total 7330 625 1000 Balance -1540 -151 -396 Weight 69.6 kg 72.4 kg Physical Exam: General appearance: PRESENT: no acute distress Head exam: PRESENT: atraumatic, normocephalic Eye exam: PRESENT: conjunctiva pink ABSENT: pallor, scleral icterus Ear exam: PRESENT: normal external ear exam Mouth exam: PRESENT: moist mucous Respiratory exam: PRESENT: clear to auscultation adenike, decreased breath sounds - at lung bases Cardiovascular exam: PRESENT: RRR, +S1, +S2, systolic murmur Murmur grade: 3 GI/Abdominal exam: PRESENT: normal bowel sounds, soft, other - suprapubic Adan cath in situ. ABSENT: distended, guarding, mass, organomegaly, rebound, tenderness Extremities exam: ABSENT: pedal edema Musculoskeletal exam: PRESENT: deformity - related to multiple joints involvement with arthritis Neurological exam: PRESENT: alert, awake - and appropriate in simple responses Psychiatric exam: PRESENT: appropriate affect, normal mood. ABSENT: homicidal ideation, suicidal ideation Skin exam: PRESENT: dry, warm Murmur grade: 3 Results Laboratory Results: 04/24/18 06:00 04/26/18 04:31 Impressions: Abdomen/Pelvis CT 04/12/18 00:00 IMPRESSION: NO SIGNIFICANT OR ACUTE PROCESS IN THE ABDOMEN OR PELVIS. Chest X-Ray 04/12/18 08:51 IMPRESSION: 1. No significant interval changes since the prior study dated . No acute findings. Forearm X-Ray 04/16/18 00:00 IMPRESSION: Osteopenia. No fracture evident. Wrist X-Ray 04/16/18 00:00 IMPRESSION: Osteopenia. No fracture evident. Assessment & Plan - Diagnosis (1) Toxic metabolic encephalopathy Is this a current diagnosis for this admission?: Yes (2) ARF (acute renal failure) Qualifiers: Acute renal failure type: with acute tubular necrosis Qualified Code(s): N17.0 - Acute kidney failure with tubular necrosis Is this a current diagnosis for this admission?: Yes (3) Lactic acidosis Is this a current diagnosis for this admission?: Yes (4) UTI (urinary tract infection) Qualifiers: Urinary tract infection type: catheter-associated UTI Indwelling urinary catheter type: cystostomy catheter Encounter type: initial encounter Qualified Code(s): T83.510A - Infection and inflammatory reaction due to cystostomy catheter, initial encounter; N39.0 - Urinary tract infection, site not specified; N39.0 - Urinary tract infection, site not specified Is this a current diagnosis for this admission?: Yes (5) Diabetes mellitus type 2 in nonobese Is this a current diagnosis for this admission?: Yes Plan: Change Lantus Insulin 20 units SC qam and 10 units qhs. Maintain on all other current medication management. (6) HTN (hypertension) Qualifiers: Hypertension type: essential hypertension Qualified Code(s): I10 - Essential (primary) hypertension Is this a current diagnosis for this admission?: Yes (7) HLD (hyperlipidemia) Qualifiers: Hyperlipidemia type: unspecified Qualified Code(s): E78.5 - Hyperlipidemia , unspecified Is this a current diagnosis for this admission?: Yes (8) GERD (gastroesophageal reflux disease) Qualifiers: Esophagitis presence: without esophagitis Qualified Code(s): K21.9 - Gastro -esophageal reflux disease without esophagitis Is this a current diagnosis for this admission?: Yes (9) Anemia of chronic disease Is this a current diagnosis for this admission?: Yes - Time Time Spent with patient: 25-34 minutes Medications reviewed and adjusted accordingly: Yes Anticipated discharge: SNF - [facility].. - Inpatient Certification Based on my medical assessment, after consideration of the patient's comorbidities, presenting symptoms, or acuity I expect that the services needed warrant INPATIENT care.: Yes I certify that my determination is in accordance with my understanding of Medicare's requirements for reasonable and necessary INPATIENT services [42 CFR 412.3e].: Yes Medical Necessity: Need Close Monitoring Due to Risk of Patient Decompensation, Need For IV Fluids, Need For Continuous Telemetry Monitoring, Need for Pain Control, Risk of Complication if Not Cared For in Hospital Post Hospital Care: D/C 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 Follow up with sr. merchandise planner regarding continue efforts with placement.
[2018-04-28] MEDS: MELATONIN 5 MG TABLET PO SCH (21:19)
[2018-04-28] MEDS: ATORVASTATIN CALCIUM 20 MG TABLET PO SCH (21:19)
[2018-04-28] MEDS: MONTELUKAST SODIUM 10 MG TABLET PO SCH (21:19)
[2018-04-28] MEDS: INSULIN GLARGINE,HUM.REC.ANLOG 300 UNIT/3 ML INSULN.PEN SUBCUT SCH (21:25)
[2018-04-29] MEDS: GABAPENTIN 300 MG CAPSULE PO SCH ×3 (05:12→21:30)
[2018-04-29] MEDS: LANSOPRAZOLE 30 MG TAB.RAP.DR PO SCH (05:12)
[2018-04-29] MEDS: OXYCODONE-ACETAMINOPHEN 5-325 MG TABLET PO PRN ×2 (08:47→19:30)
[2018-04-29] MEDS: INSULIN GLARGINE,HUM.REC.ANLOG 300 UNIT/3 ML INSULN.PEN SUBCUT SCH ×2 (08:52→21:33)
[2018-04-29] MEDS: LUBIPROSTONE 24 MCG CAPSULE PO SCH ×2 (10:00→17:35)
[2018-04-29] MEDS: HEPARIN SOD (PORCINE) 5,000 UNIT/ML 1 ML SYRINGE SUBCUT SCH ×2 (10:41→21:32)
[2018-04-29] MEDS: SERTRALINE HCL 50 MG TABLET PO SCH (10:42)
[2018-04-29] MEDS: AMLODIPINE BESYLATE 5 MG TABLET PO SCH (10:42)
[2018-04-29] MEDS: POLYETHYLENE GLYCOL 3350 POWDER 17 GM/1 PACKET PO SCH (10:42)
[2018-04-29] MEDS: SITAGLIPTIN PHOSPHATE 25 MG TABLET PO SCH (10:42)
[2018-04-29] MEDS: ASPIRIN 81 MG TABLET, CHEWABLE PO SCH (10:42)
[2018-04-29] MEDS: DONEPEZIL HCL 5 MG TABLET PO SCH (10:42)
[2018-04-29] MEDS: VALSARTAN 160 MG TABLET PO SCH ×2 (10:42→21:30)
[2018-04-29] MEDS: FLUTICASONE NASAL SPRAY 50 MCG/SPRY 120 SPRAY/16 GM NAREB SCH (10:48)
[2018-04-29] MEDS: LACOSAMIDE 100 MG TABLET PO SCH ×2 (13:37→21:30)
[2018-04-29] MEDS: INSULIN LISPRO 100 UNIT/ML 3 ML VIAL SUBCUT PRN (13:38)
--- NOTE | 2018-04-29 19:43 | PDOC PROGRESS REPORT ---
Subjective Progress Note for:: 04/29/18 Subjective:: No chest pain or difficulty with breathing. No nausea, vomiting or abdominal pain. No fever or chills. Patient continue to demonstrate early AM hypoglycemia with episodes of hyperglycemia after breakfast and throughout the day. She is not compliant with diabetic snack consumption at bedtime. Still awaiting SNF placement. Reason For Visit: ACUTE RENAL INJURY/HYPERKELMIA,COMPLICATE UTI WITH Physical Exam Vital Signs: Temp Pulse Resp BP Pulse Ox 97.6 F 63 12 128/44 H 97 04/29/18 08:20 04/29/18 08:20 04/29/18 08:20 04/29/18 08:20 04/29/18 08:20 Intake & Output 04/28/18 04/29/18 04/30/18 06:59 06:59 06:59 Intake Total 474 844 Output Total 625 2150 Balance -151 -1306 Weight 72.4 kg 70.2 kg Physical Exam: General appearance: PRESENT: no acute distress Head exam: PRESENT: atraumatic, normocephalic Eye exam: PRESENT: conjunctiva pink ABSENT: pallor, scleral icterus Ear exam: PRESENT: normal external ear exam Mouth exam: PRESENT: moist mucous Respiratory exam: PRESENT: clear to auscultation adenike, decreased breath sounds - at lung bases Cardiovascular exam: PRESENT: RRR, +S1, +S2, systolic murmur Murmur grade: 3 GI/Abdominal exam: PRESENT: normal bowel sounds, soft, other - suprapubic Adan cath in situ. ABSENT: distended, guarding, mass, organomegaly, rebound, tenderness Extremities exam: ABSENT: pedal edema Musculoskeletal exam: PRESENT: deformity - related to multiple joints involvement with arthritis Neurological exam: PRESENT: alert, awake - and appropriate in simple responses Psychiatric exam: PRESENT: appropriate affect, normal mood. ABSENT: homicidal ideation, suicidal ideation Skin exam: PRESENT: dry, warm Murmur grade: 3 Results Laboratory Results: 04/24/18 06:00 04/26/18 04:31 Impressions: Abdomen/Pelvis CT 04/12/18 00:00 IMPRESSION: NO SIGNIFICANT OR ACUTE PROCESS IN THE ABDOMEN OR PELVIS. Chest X-Ray 04/12/18 08:51 IMPRESSION: 1. No significant interval changes since the prior study dated . No acute findings. Forearm X-Ray 04/16/18 00:00 IMPRESSION: Osteopenia. No fracture evident. Wrist X-Ray 04/16/18 00:00 IMPRESSION: Osteopenia. No fracture evident. Assessment & Plan - Diagnosis (1) Toxic metabolic encephalopathy Is this a current diagnosis for this admission?: Yes (2) ARF (acute renal failure) Qualifiers: Acute renal failure type: with acute tubular necrosis Qualified Code(s): N17.0 - Acute kidney failure with tubular necrosis Is this a current diagnosis for this admission?: Yes (3) Lactic acidosis Is this a current diagnosis for this admission?: Yes (4) UTI (urinary tract infection) Qualifiers: Urinary tract infection type: catheter-associated UTI Indwelling urinary catheter type: cystostomy catheter Encounter type: initial encounter Qualified Code(s): T83.510A - Infection and inflammatory reaction due to cystostomy catheter, initial encounter; N39.0 - Urinary tract infection, site not specified; N39.0 - Urinary tract infection, site not specified Is this a current diagnosis for this admission?: Yes (5) Diabetes mellitus type 2 in nonobese Is this a current diagnosis for this admission?: Yes Plan: Continue Lantus Insulin 20 units SC qam and 10 units qhs. Emphasized consumption of diabetic snack at bedtime. (6) HTN (hypertension) Qualifiers: Hypertension type: essential hypertension Qualified Code(s): I10 - Essential (primary) hypertension Is this a current diagnosis for this admission?: Yes (7) HLD (hyperlipidemia) Qualifiers: Hyperlipidemia type: unspecified Qualified Code(s): E78.5 - Hyperlipidemia , unspecified Is this a current diagnosis for this admission?: Yes (8) GERD (gastroesophageal reflux disease) Qualifiers: Esophagitis presence: without esophagitis Qualified Code(s): K21.9 - Gastro -esophageal reflux disease without esophagitis Is this a current diagnosis for this admission?: Yes (9) Anemia of chronic disease Is this a current diagnosis for this admission?: Yes - Time Time Spent with patient: 25-34 minutes Medications reviewed and adjusted accordingly: Yes Anticipated discharge: SNF Within: Other - Inpatient Certification Based on my medical assessment, after consideration of the patient's comorbidities, presenting symptoms, or acuity I expect that the services needed warrant INPATIENT care.: Yes I certify that my determination is in accordance with my understanding of Medicare's requirements for reasonable and necessary INPATIENT services [42 CFR 412.3e].: Yes Medical Necessity: Need Close Monitoring Due to Risk of Patient Decompensation, Need For IV Fluids, Need For Continuous Telemetry Monitoring, Need for Pain Control, Risk of Complication if Not Cared For in Hospital Post Hospital Care: D/C or Transfer Summary - Plan Summary Plan Summary: Adjust Lantus insulin as noted above. Follow up on SNF placement efforts. Continue all other current medication management.
[2018-04-29] MEDS: ATORVASTATIN CALCIUM 20 MG TABLET PO SCH (21:30)
[2018-04-29] MEDS: MONTELUKAST SODIUM 10 MG TABLET PO SCH (21:30)
[2018-04-29] MEDS: MELATONIN 5 MG TABLET PO SCH (21:31)
[2018-04-30] MEDS: OXYCODONE-ACETAMINOPHEN 5-325 MG TABLET PO PRN ×3 (02:32→21:58)
[2018-04-30] MEDS: GABAPENTIN 300 MG CAPSULE PO SCH ×3 (05:23→21:56)
[2018-04-30] MEDS: LANSOPRAZOLE 30 MG TAB.RAP.DR PO SCH (05:23)
[2018-04-30] MEDS: ACETAMINOPHEN 325 MG TABLET PO PRN (05:24)
[2018-04-30] MEDS: INSULIN GLARGINE,HUM.REC.ANLOG 300 UNIT/3 ML INSULN.PEN SUBCUT SCH (08:53)
[2018-04-30] MEDS: VALSARTAN 160 MG TABLET PO SCH ×2 (09:08→21:56)
[2018-04-30] MEDS: SERTRALINE HCL 50 MG TABLET PO SCH (09:08)
[2018-04-30] MEDS: AMLODIPINE BESYLATE 5 MG TABLET PO SCH (09:08)
[2018-04-30] MEDS: ASPIRIN 81 MG TABLET, CHEWABLE PO SCH (09:09)
[2018-04-30] MEDS: DONEPEZIL HCL 5 MG TABLET PO SCH (09:10)
[2018-04-30] MEDS: LACOSAMIDE 100 MG TABLET PO SCH ×2 (09:10→21:57)
[2018-04-30] MEDS: POLYETHYLENE GLYCOL 3350 POWDER 17 GM/1 PACKET PO SCH (09:11)
[2018-04-30] MEDS: FLUTICASONE NASAL SPRAY 50 MCG/SPRY 120 SPRAY/16 GM NAREB SCH (09:14)
[2018-04-30] MEDS: LUBIPROSTONE 24 MCG CAPSULE PO SCH ×2 (09:14→18:40)
[2018-04-30] MEDS: SITAGLIPTIN PHOSPHATE 25 MG TABLET PO SCH (09:17)
[2018-04-30] MEDS: HEPARIN SOD (PORCINE) 5,000 UNIT/ML 1 ML SYRINGE SUBCUT SCH ×2 (09:19→22:59)
--- NOTE | 2018-04-30 16:17 | PDOC PROGRESS REPORT ---
Subjective Progress Note for:: 04/30/18 Subjective:: No chest pain or difficulty with breathing. No nausea, vomiting or abdominal pain. No fever or chills. Patient continue to demonstrate early AM hypoglycemia. She refused her sliding scale last night. Still awaiting SNF placement. Reason For Visit: ACUTE RENAL INJURY/HYPERKELMIA,COMPLICATE UTI WITH Physical Exam Vital Signs: Temp Pulse Resp BP Pulse Ox 98.0 F 66 16 121/50 L 97 04/30/18 12:45 04/30/18 12:45 04/30/18 12:45 04/30/18 12:45 04/30/18 12:45 Intake & Output 04/29/18 04/30/18 05/01/18 06:59 06:59 06:59 Intake Total 844 591 Output Total 2150 875 Balance -1306 -284 Weight 70.2 kg 60.6 kg Physical Exam: General appearance: PRESENT: no acute distress Head exam: PRESENT: atraumatic, normocephalic Eye exam: PRESENT: conjunctiva pink ABSENT: pallor, scleral icterus Ear exam: PRESENT: normal external ear exam Mouth exam: PRESENT: moist mucous Respiratory exam: PRESENT: clear to auscultation adenike, decreased breath sounds - at lung bases Cardiovascular exam: PRESENT: RRR, +S1, +S2, systolic murmur Murmur grade: 3 GI/Abdominal exam: PRESENT: normal bowel sounds, soft, other - suprapubic Adan cath in situ. ABSENT: distended, guarding, mass, organomegaly, rebound, tenderness Extremities exam: ABSENT: pedal edema Musculoskeletal exam: PRESENT: deformity - related to multiple joints involvement with arthritis Neurological exam: PRESENT: alert, awake - and appropriate in simple responses Psychiatric exam: PRESENT: appropriate affect, normal mood. ABSENT: homicidal ideation, suicidal ideation Skin exam: PRESENT: dry, warm Murmur grade: 3 Results Laboratory Results: 04/24/18 06:00 04/26/18 04:31 Impressions: Abdomen/Pelvis CT 04/12/18 00:00 IMPRESSION: NO SIGNIFICANT OR ACUTE PROCESS IN THE ABDOMEN OR PELVIS. Chest X-Ray 04/12/18 08:51 IMPRESSION: 1. No significant interval changes since the prior study dated . No acute findings. Forearm X-Ray 04/16/18 00:00 IMPRESSION: Osteopenia. No fracture evident. Wrist X-Ray 04/16/18 00:00 IMPRESSION: Osteopenia. No fracture evident. Assessment & Plan - Diagnosis (1) Toxic metabolic encephalopathy Is this a current diagnosis for this admission?: Yes (2) ARF (acute renal failure) Qualifiers: Acute renal failure type: with acute tubular necrosis Qualified Code(s): N17.0 - Acute kidney failure with tubular necrosis Is this a current diagnosis for this admission?: Yes (3) Lactic acidosis Is this a current diagnosis for this admission?: Yes (4) UTI (urinary tract infection) Qualifiers: Urinary tract infection type: catheter-associated UTI Indwelling urinary catheter type: cystostomy catheter Encounter type: initial encounter Qualified Code(s): T83.510A - Infection and inflammatory reaction due to cystostomy catheter, initial encounter; N39.0 - Urinary tract infection, site not specified; N39.0 - Urinary tract infection, site not specified Is this a current diagnosis for this admission?: Yes (5) Diabetes mellitus type 2 in nonobese Is this a current diagnosis for this admission?: Yes (6) HTN (hypertension) Qualifiers: Hypertension type: essential hypertension Qualified Code(s): I10 - Essential (primary) hypertension Is this a current diagnosis for this admission?: Yes (7) HLD (hyperlipidemia) Qualifiers: Hyperlipidemia type: unspecified Qualified Code(s): E78.5 - Hyperlipidemia , unspecified Is this a current diagnosis for this admission?: Yes (8) GERD (gastroesophageal reflux disease) Qualifiers: Esophagitis presence: without esophagitis Qualified Code(s): K21.9 - Gastro -esophageal reflux disease without esophagitis Is this a current diagnosis for this admission?: Yes (9) Anemia of chronic disease Is this a current diagnosis for this admission?: Yes - Time Time Spent with patient: 25-34 minutes Medications reviewed and adjusted accordingly: Yes Anticipated discharge: SNF Within: Other - Inpatient Certification Based on my medical assessment, after consideration of the patient's comorbidities, presenting symptoms, or acuity I expect that the services needed warrant INPATIENT care.: Yes I certify that my determination is in accordance with my understanding of Medicare's requirements for reasonable and necessary INPATIENT services [42 CFR 412.3e].: Yes Medical Necessity: Need Close Monitoring Due to Risk of Patient Decompensation, Need For IV Fluids, Need For Continuous Telemetry Monitoring, Risk of Complication if Not Cared For in Hospital Post Hospital Care: D/C or Transfer Summary - Plan Summary Plan Summary: Change Lantus Insulin to 28 units qam from 05/01/18. Maintain on all other current medication management. Follow up on SNF placement efforts.
[2018-04-30] MEDS: ATORVASTATIN CALCIUM 20 MG TABLET PO SCH (21:56)
[2018-04-30] MEDS: MONTELUKAST SODIUM 10 MG TABLET PO SCH (21:57)
[2018-04-30] MEDS: MELATONIN 5 MG TABLET PO SCH (22:02)
[2018-05-01] MEDS: OXYCODONE-ACETAMINOPHEN 5-325 MG TABLET PO PRN ×2 (04:21→17:10)
[2018-05-01] MEDS: GABAPENTIN 300 MG CAPSULE PO SCH ×3 (05:20→21:52)
[2018-05-01] MEDS: LANSOPRAZOLE 30 MG TAB.RAP.DR PO SCH (05:20)
[2018-05-01] MEDS: INSULIN LISPRO 100 UNIT/ML 3 ML VIAL SUBCUT PRN ×3 (08:31→17:11)
[2018-05-01] MEDS: INSULIN GLARGINE,HUM.REC.ANLOG 300 UNIT/3 ML INSULN.PEN SUBCUT SCH (08:32)
[2018-05-01] MEDS: FLUTICASONE NASAL SPRAY 50 MCG/SPRY 120 SPRAY/16 GM NAREB SCH (09:40)
[2018-05-01] MEDS: ASPIRIN 81 MG TABLET, CHEWABLE PO SCH (09:41)
[2018-05-01] MEDS: AMLODIPINE BESYLATE 5 MG TABLET PO SCH (09:41)
[2018-05-01] MEDS: POLYETHYLENE GLYCOL 3350 POWDER 17 GM/1 PACKET PO SCH (09:42)
[2018-05-01] MEDS: SITAGLIPTIN PHOSPHATE 25 MG TABLET PO SCH (09:42)
[2018-05-01] MEDS: VALSARTAN 160 MG TABLET PO SCH ×2 (09:42→21:53)
[2018-05-01] MEDS: LACOSAMIDE 100 MG TABLET PO SCH ×2 (09:42→21:52)
[2018-05-01] MEDS: SERTRALINE HCL 50 MG TABLET PO SCH (09:42)
[2018-05-01] MEDS: LUBIPROSTONE 24 MCG CAPSULE PO SCH ×2 (09:42→17:11)
[2018-05-01] MEDS: DONEPEZIL HCL 5 MG TABLET PO SCH (09:42)
[2018-05-01 11:09] LABS: ABSOLUTE EOSINOPHILS # (AUTO) 0.1 10^3/uL (0.0-0.6); ABSOLUTE LYMPHOCYTES (AUTO) 0.8 10^3/uL (0.5-4.7); ABSOLUTE MONOCYTES (AUTO) 0.4 10^3/uL (0.1-1.4); ABSOLUTE NEUT (AUTO) 2.6 10^3/uL (1.7-8.2); BASOPHILS % (AUTO) 0.6 % (0-2); EOSINOPHILS % (AUTO) 3.7 % (0-6); HEMATOCRIT 30.2 % (36.0-47.0); HEMOGLOBIN 10.1 g/dL (12.0-15.5); LYMPHOCYTES % (AUTO) 20.1 % (13-45); MEAN CORPUSCULAR HEMOGLOBIN 30.1 pg (27.0-33.4); MEAN CORPUSCULAR HGB CONC 33.6 g/dL (32.0-36.0); MEAN CORPUSCULAR VOLUME 90 fl (80-97); MONOCYTES % (AUTO) 10.3 % (3-13); PLATELET COUNT 230 10^3/uL (150-450); RED BLOOD COUNT 3.36 10^6/uL (3.72-5.28); RED CELL DISTRIBUTION WIDTH 17.5 % (11.5-14.0); SEGMENTED NEUTROPHILS % (AUTO) 65.3 % (42-78); TOTAL CELLS COUNTED % (AUTO) 100 %
[2018-05-01 11:38] LABS: ANION GAP 10 (5-19); BLOOD UREA NITROGEN 22 mg/dL (7-20); CALCIUM 9.8 mg/dL (8.4-10.2); CARBON DIOXIDE 27 mmol/L (22-30); CHLORIDE 102 mmol/L (98-107); GLUCOSE 218 mg/dL (75-110); POTASSIUM 4.1 mmol/L (3.6-5.0); SODIUM 138.7 mmol/L (137-145)
[2018-05-01] MEDS: HEPARIN SOD (PORCINE) 5,000 UNIT/ML 1 ML SYRINGE SUBCUT SCH ×2 (12:40→21:54)
--- NOTE | 2018-05-01 18:04 | PDOC PROGRESS REPORT ---
Subjective Progress Note for:: 05/01/18 Subjective:: Patient seen by the bedside, awaiting disposition Reason For Visit: ACUTE RENAL INJURY/HYPERKELMIA,COMPLICATE UTI WITH Physical Exam Vital Signs: Temp Pulse Resp BP Pulse Ox 98.1 F 69 16 121/45 L 98 05/01/18 15:40 05/01/18 15:40 05/01/18 15:40 05/01/18 15:40 05/01/18 15:40 Intake & Output 04/30/18 05/01/18 05/02/18 06:59 06:59 06:59 Intake Total 591 1396 Output Total 875 2750 Balance -284 -1354 Weight 60.6 kg 71 kg General appearance: PRESENT: no acute distress Eye exam: PRESENT: PERRLA Respiratory exam: PRESENT: clear to auscultation adenike Cardiovascular exam: PRESENT: +S1, +S2 Murmur grade: 3 GI/Abdominal exam: PRESENT: soft Neurological exam: PRESENT: alert Results Laboratory Results: 05/01/18 10:45 05/01/18 10:45 05/01/18 05/01/18 10:45 10:45 WBC 4.0 RBC 3.36 L Hgb 10.1 L Hct 30.2 L MCV 90 MCH 30.1 MCHC 33.6 RDW 17.5 H Plt Count 230 Seg Neutrophils % 65.3 Lymphocytes % 20.1 Monocytes % 10.3 Eosinophils % 3.7 Basophils % 0.6 Absolute Neutrophils 2.6 Absolute Lymphocytes 0.8 Absolute Monocytes 0.4 Absolute Eosinophils 0.1 Absolute Basophils 0.0 Sodium 138.7 Potassium 4.1 Chloride 102 Carbon Dioxide 27 Anion Gap 10 BUN 22 H Creatinine 0.81 Est GFR ( Amer) > 60 Est GFR (Non-Af Amer) > 60 Glucose 218 H Calcium 9.8 Impressions: Abdomen/Pelvis CT 04/12/18 00:00 IMPRESSION: NO SIGNIFICANT OR ACUTE PROCESS IN THE ABDOMEN OR PELVIS. Chest X-Ray 04/12/18 08:51 IMPRESSION: 1. No significant interval changes since the prior study dated . No acute findings. Forearm X-Ray 04/16/18 00:00 IMPRESSION: Osteopenia. No fracture evident. Wrist X-Ray 04/16/18 00:00 IMPRESSION: Osteopenia. No fracture evident. Assessment & Plan - Diagnosis (1) Acute kidney injury Is this a current diagnosis for this admission?: Yes (2) Acute gouty arthritis Is this a current diagnosis for this admission?: Yes (3) Diabetes mellitus type 2 in nonobese Is this a current diagnosis for this admission?: Yes (4) UTI (urinary tract infection) Qualifiers: Urinary tract infection type: catheter-associated UTI Indwelling urinary catheter type: cystostomy catheter Encounter type: initial encounter Qualified Code(s): T83.510A - Infection and inflammatory reaction due to cystostomy catheter, initial encounter; N39.0 - Urinary tract infection, site not specified; N39.0 - Urinary tract infection, site not specified Is this a current diagnosis for this admission?: Yes
[2018-05-01] MEDS: ATORVASTATIN CALCIUM 20 MG TABLET PO SCH (21:52)
[2018-05-01] MEDS: ACETAMINOPHEN 325 MG TABLET PO PRN (21:53)
[2018-05-01] MEDS: MONTELUKAST SODIUM 10 MG TABLET PO SCH (21:53)
[2018-05-01] MEDS: MELATONIN 5 MG TABLET PO SCH (21:55)
[2018-05-02] MEDS: OXYCODONE-ACETAMINOPHEN 5-325 MG TABLET PO PRN (05:25)
[2018-05-02] MEDS: LANSOPRAZOLE 30 MG TAB.RAP.DR PO SCH (05:25)
[2018-05-02] MEDS: GABAPENTIN 300 MG CAPSULE PO SCH ×3 (05:25→21:43)
[2018-05-02] MEDS: INSULIN GLARGINE,HUM.REC.ANLOG 300 UNIT/3 ML INSULN.PEN SUBCUT SCH (08:00)
[2018-05-02] MEDS: ACETAMINOPHEN 325 MG TABLET PO PRN (08:03)
[2018-05-02] MEDS: POLYETHYLENE GLYCOL 3350 POWDER 17 GM/1 PACKET PO SCH (09:42)
[2018-05-02] MEDS: ASPIRIN 81 MG TABLET, CHEWABLE PO SCH (09:43)
[2018-05-02] MEDS: LACOSAMIDE 100 MG TABLET PO SCH ×2 (09:43→21:43)
[2018-05-02] MEDS: AMLODIPINE BESYLATE 5 MG TABLET PO SCH (09:43)
[2018-05-02] MEDS: SITAGLIPTIN PHOSPHATE 25 MG TABLET PO SCH (09:43)
[2018-05-02] MEDS: LUBIPROSTONE 24 MCG CAPSULE PO SCH ×2 (09:43→17:13)
[2018-05-02] MEDS: VALSARTAN 160 MG TABLET PO SCH ×2 (09:43→21:42)
[2018-05-02] MEDS: SERTRALINE HCL 50 MG TABLET PO SCH (09:44)
[2018-05-02] MEDS: FLUTICASONE NASAL SPRAY 50 MCG/SPRY 120 SPRAY/16 GM NAREB SCH (09:44)
[2018-05-02] MEDS: DONEPEZIL HCL 5 MG TABLET PO SCH (09:44)
[2018-05-02] MEDS: HEPARIN SOD (PORCINE) 5,000 UNIT/ML 1 ML SYRINGE SUBCUT SCH ×2 (09:44→21:47)
[2018-05-02] MEDS: INSULIN LISPRO 100 UNIT/ML 3 ML VIAL SUBCUT PRN ×3 (13:26→21:52)
--- NOTE | 2018-05-02 18:43 | PDOC PROGRESS REPORT ---
Subjective Progress Note for:: 05/02/18 Subjective:: Patient seen by the bedside there is no new complaints Reason For Visit: ACUTE RENAL INJURY/HYPERKELMIA,COMPLICATE UTI WITH Physical Exam Vital Signs: Temp Pulse Resp BP Pulse Ox 97.8 F 64 16 122/47 L 98 05/02/18 16:00 05/02/18 16:00 05/02/18 16:00 05/02/18 16:00 05/02/18 16:00 Intake & Output 05/01/18 05/02/18 05/03/18 06:59 06:59 06:59 Intake Total 1396 1636 1247 Output Total 2750 5495 300 Balance -4866 -854 947 Weight 71 kg 70.1 kg General appearance: PRESENT: no acute distress Eye exam: PRESENT: PERRLA Respiratory exam: PRESENT: clear to auscultation adenike Cardiovascular exam: PRESENT: +S1, +S2 Murmur grade: 3 GI/Abdominal exam: PRESENT: soft Neurological exam: PRESENT: alert, CN II-XII grossly intact Results Laboratory Results: 05/01/18 10:45 05/01/18 10:45 Impressions: Abdomen/Pelvis CT 04/12/18 00:00 IMPRESSION: NO SIGNIFICANT OR ACUTE PROCESS IN THE ABDOMEN OR PELVIS. Chest X-Ray 04/12/18 08:51 IMPRESSION: 1. No significant interval changes since the prior study dated . No acute findings. Forearm X-Ray 04/16/18 00:00 IMPRESSION: Osteopenia. No fracture evident. Wrist X-Ray 04/16/18 00:00 IMPRESSION: Osteopenia. No fracture evident. Assessment & Plan - Diagnosis (1) Acute kidney injury Is this a current diagnosis for this admission?: Yes (2) Acute gouty arthritis Is this a current diagnosis for this admission?: Yes (3) Diabetes mellitus type 2 in nonobese Is this a current diagnosis for this admission?: Yes (4) UTI (urinary tract infection) Qualifiers: Urinary tract infection type: catheter-associated UTI Indwelling urinary catheter type: cystostomy catheter Encounter type: initial encounter Qualified Code(s): T83.510A - Infection and inflammatory reaction due to cystostomy catheter, initial encounter; N39.0 - Urinary tract infection, site not specified; N39.0 - Urinary tract infection, site not specified Is this a current diagnosis for this admission?: Yes - Plan Summary Plan Summary: There is no change
[2018-05-02] MEDS: MONTELUKAST SODIUM 10 MG TABLET PO SCH (21:43)
[2018-05-02] MEDS: ATORVASTATIN CALCIUM 20 MG TABLET PO SCH (21:43)
[2018-05-02] MEDS: MELATONIN 5 MG TABLET PO SCH (21:51)
[2018-05-03] MEDS: GABAPENTIN 300 MG CAPSULE PO SCH ×3 (05:42→21:32)
[2018-05-03] MEDS: LANSOPRAZOLE 30 MG TAB.RAP.DR PO SCH (05:42)
[2018-05-03] MEDS: INSULIN GLARGINE,HUM.REC.ANLOG 300 UNIT/3 ML INSULN.PEN SUBCUT SCH (08:38)
[2018-05-03] MEDS: LUBIPROSTONE 24 MCG CAPSULE PO SCH ×2 (10:06→18:03)
[2018-05-03] MEDS: FLUTICASONE NASAL SPRAY 50 MCG/SPRY 120 SPRAY/16 GM NAREB SCH (10:07)
[2018-05-03] MEDS: LACOSAMIDE 100 MG TABLET PO SCH (10:07)
[2018-05-03] MEDS: VALSARTAN 160 MG TABLET PO SCH ×2 (10:07→21:32)
[2018-05-03] MEDS: SITAGLIPTIN PHOSPHATE 25 MG TABLET PO SCH (10:07)
[2018-05-03] MEDS: SERTRALINE HCL 50 MG TABLET PO SCH (10:07)
[2018-05-03] MEDS: ASPIRIN 81 MG TABLET, CHEWABLE PO SCH (10:07)
[2018-05-03] MEDS: AMLODIPINE BESYLATE 5 MG TABLET PO SCH (10:07)
[2018-05-03] MEDS: DONEPEZIL HCL 5 MG TABLET PO SCH (10:07)
[2018-05-03] MEDS: POLYETHYLENE GLYCOL 3350 POWDER 17 GM/1 PACKET PO SCH (10:08)
[2018-05-03] MEDS: HEPARIN SOD (PORCINE) 5,000 UNIT/ML 1 ML SYRINGE SUBCUT SCH ×2 (10:08→21:32)
[2018-05-03] MEDS: INSULIN LISPRO 100 UNIT/ML 3 ML VIAL SUBCUT PRN ×2 (13:42→21:42)
--- NOTE | 2018-05-03 19:36 | PDOC PROGRESS REPORT ---
Subjective Progress Note for:: 05/03/18 Subjective:: No chest pain or difficulty with breathing. No nausea, vomiting or abdominal pain. No fever or chills. D/C partner integration planner communicated possible acceptance at [facility] tomorrow. Reason For Visit: ACUTE RENAL INJURY/HYPERKELMIA,COMPLICATE UTI WITH Physical Exam Vital Signs: Temp Pulse Resp BP Pulse Ox 98.6 F 67 16 122/47 L 99 05/03/18 16:00 05/03/18 16:00 05/03/18 16:00 05/03/18 16:00 05/03/18 16:00 Intake & Output 05/02/18 05/03/18 05/04/18 06:59 06:59 06:59 Intake Total 1636 1247 594 Output Total 5834 1450 1050 Balance -659 -203 -148 Weight 70.1 kg 69.8 kg Physical Exam: General appearance: PRESENT: no acute distress Head exam: PRESENT: atraumatic, normocephalic Eye exam: PRESENT: conjunctiva pink ABSENT: pallor, scleral icterus Ear exam: PRESENT: normal external ear exam Mouth exam: PRESENT: moist mucous Respiratory exam: PRESENT: clear to auscultation adenike Cardiovascular exam: PRESENT: RRR, +S1, +S2, systolic murmur Murmur grade: 3 GI/Abdominal exam: PRESENT: normal bowel sounds, soft, other - suprapubic Adan cath in situ. ABSENT: distended, guarding, mass, organomegaly, rebound, tenderness Extremities exam: ABSENT: pedal edema Musculoskeletal exam: PRESENT: deformity - related to multiple joints involvement with arthritis Neurological exam: PRESENT: alert, awake - and appropriate in simple responses Psychiatric exam: PRESENT: appropriate affect, normal mood. ABSENT: homicidal ideation, suicidal ideation Skin exam: PRESENT: dry, warm Murmur grade: 3 Results Laboratory Results: 05/01/18 10:45 05/01/18 10:45 Impressions: Abdomen/Pelvis CT 04/12/18 00:00 IMPRESSION: NO SIGNIFICANT OR ACUTE PROCESS IN THE ABDOMEN OR PELVIS. Chest X-Ray 04/12/18 08:51 IMPRESSION: 1. No significant interval changes since the prior study dated . No acute findings. Forearm X-Ray 04/16/18 00:00 IMPRESSION: Osteopenia. No fracture evident. Wrist X-Ray 04/16/18 00:00 IMPRESSION: Osteopenia. No fracture evident. Assessment & Plan - Diagnosis (1) Toxic metabolic encephalopathy Is this a current diagnosis for this admission?: Yes (2) ARF (acute renal failure) Qualifiers: Acute renal failure type: with acute tubular necrosis Qualified Code(s): N17.0 - Acute kidney failure with tubular necrosis Is this a current diagnosis for this admission?: Yes (3) Lactic acidosis Is this a current diagnosis for this admission?: Yes (4) UTI (urinary tract infection) Qualifiers: Urinary tract infection type: catheter-associated UTI Indwelling urinary catheter type: cystostomy catheter Encounter type: initial encounter Qualified Code(s): T83.510A - Infection and inflammatory reaction due to cystostomy catheter, initial encounter; N39.0 - Urinary tract infection, site not specified; N39.0 - Urinary tract infection, site not specified Is this a current diagnosis for this admission?: Yes (5) Diabetes mellitus type 2 in nonobese Is this a current diagnosis for this admission?: Yes (6) HTN (hypertension) Qualifiers: Hypertension type: essential hypertension Qualified Code(s): I10 - Essential (primary) hypertension Is this a current diagnosis for this admission?: Yes (7) HLD (hyperlipidemia) Qualifiers: Hyperlipidemia type: unspecified Qualified Code(s): E78.5 - Hyperlipidemia , unspecified Is this a current diagnosis for this admission?: Yes (8) GERD (gastroesophageal reflux disease) Qualifiers: Esophagitis presence: without esophagitis Qualified Code(s): K21.9 - Gastro -esophageal reflux disease without esophagitis Is this a current diagnosis for this admission?: Yes (9) Anemia of chronic disease Is this a current diagnosis for this admission?: Yes - Time Time Spent with patient: 25-34 minutes Medications reviewed and adjusted accordingly: Yes Anticipated discharge: SNF Within: within 24 hours - Inpatient Certification Based on my medical assessment, after consideration of the patient's comorbidities, presenting symptoms, or acuity I expect that the services needed warrant INPATIENT care.: Yes I certify that my determination is in accordance with my understanding of Medicare's requirements for reasonable and necessary INPATIENT services [42 CFR 412.3e].: Yes Medical Necessity: Need Close Monitoring Due to Risk of Patient Decompensation, Need For Continuous Telemetry Monitoring, Risk of Complication if Not Cared For in Hospital Post Hospital Care: D/C or Transfer Summary - Plan Summary Plan Summary: Continue current medication management. Possible transfer to SNF tomorrow.
[2018-05-03] MEDS: OXYCODONE-ACETAMINOPHEN 5-325 MG TABLET PO PRN (20:42)
[2018-05-03] MEDS: MELATONIN 5 MG TABLET PO SCH (21:32)
[2018-05-03] MEDS: ATORVASTATIN CALCIUM 20 MG TABLET PO SCH (21:32)
[2018-05-03] MEDS: MONTELUKAST SODIUM 10 MG TABLET PO SCH (21:32)
[2018-05-04] MEDS: LANSOPRAZOLE 30 MG TAB.RAP.DR PO SCH (05:44)
[2018-05-04] MEDS: GABAPENTIN 300 MG CAPSULE PO SCH ×2 (05:44→13:27)
[2018-05-04] MEDS: INSULIN GLARGINE,HUM.REC.ANLOG 300 UNIT/3 ML INSULN.PEN SUBCUT SCH (08:32)
[2018-05-04] MEDS: OXYCODONE-ACETAMINOPHEN 5-325 MG TABLET PO PRN (08:39)
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
[2018-05-04] MEDS: VALSARTAN 160 MG TABLET PO SCH (11:31)
[2018-05-04] MEDS: LUBIPROSTONE 24 MCG CAPSULE PO SCH (11:31)
[2018-05-04] MEDS: HEPARIN SOD (PORCINE) 5,000 UNIT/ML 1 ML SYRINGE SUBCUT SCH (11:31)
[2018-05-04] MEDS: SERTRALINE HCL 50 MG TABLET PO SCH (11:31)
[2018-05-04] MEDS: DONEPEZIL HCL 5 MG TABLET PO SCH (11:32)
[2018-05-04] MEDS: AMLODIPINE BESYLATE 5 MG TABLET PO SCH (11:32)
[2018-05-04] MEDS: ASPIRIN 81 MG TABLET, CHEWABLE PO SCH (11:32)
[2018-05-04] MEDS: SITAGLIPTIN PHOSPHATE 25 MG TABLET PO SCH (11:32)
[2018-05-04] MEDS: POLYETHYLENE GLYCOL 3350 POWDER 17 GM/1 PACKET PO SCH (11:33)
[2018-05-04] MEDS: FLUTICASONE NASAL SPRAY 50 MCG/SPRY 120 SPRAY/16 GM NAREB SCH (11:33)
[2018-05-04 12:41] VITALS: BP 136/92
== END 2018-05-04 14:10 | DRG 698 ==
LOC: ER 08:20 → EH 14:39 → 3S 16:35
PROVIDERS: ADMIT Internal Medicine Geriatric Medicine; ATTEND Internal Medicine Geriatric Medicine
DX: T83.510A Infection and inflammatory reaction due to cystostomy catheter, initial encounter (principal); N17.0 Acute kidney failure with tubular necrosis; G92 Toxic encephalopathy; N39.0 Urinary tract infection, site not specified; E87.2 Acidosis; B96.20 Unspecified Escherichia coli [E. coli] as the cause of diseases classified elsewhere; B96.1 Klebsiella pneumoniae [K. pneumoniae] as the cause of diseases classified elsewhere; E11.9 Type 2 diabetes mellitus without complications; I10 Essential (primary) hypertension; E78.00 Pure hypercholesterolemia, unspecified; K21.9 Gastro-esophageal reflux disease without esophagitis; D63.1 Anemia in chronic kidney disease; I25.10 Atherosclerotic heart disease of native coronary artery without angina pectoris; F32.9 Major depressive disorder, single episode, unspecified; M19.90 Unspecified osteoarthritis, unspecified site; E87.5 Hyperkalemia; M10.9 Gout, unspecified; E83.51 Hypocalcemia; Z79.82 Long term (current) use of aspirin; Z79.4 Long term (current) use of insulin; Z79.899 Other long term (current) drug therapy; Z85.3 Personal history of malignant neoplasm of breast; Z90.11 Acquired absence of right breast and nipple; Z90.49 Acquired absence of other specified parts of digestive tract; Z90.710 Acquired absence of both cervix and uterus; Z88.0 Allergy status to penicillin; Z88.2 Allergy status to sulfonamides
CPT/HCPCS: 36415; 36430; 36591; 71045; 74176; 80048; 80053; 81001; 82570; 82607; 82728; 82746; 82803; 82962; 83036; 83540; 83550; 83605; 83970; 84156; 84550; 85025; 85027; 85045; 85610; 86850; 86900; 86901; 86920; 87040; 87086; 87088; 87186; 87493; 93005; 93010; 96361; 96365; 96375; 99291; G8978-GP; G8979-GP; G8987-GO; G8988-GO; J0610; J1642; J1644; J1815; J1956; J2405; J2920; J3490; J7030; J7040; P9016

== ENCOUNTER 2018-07-01 17:01 | Inpatient (IN) | payer MEDICARE, MEDICAID ==
[2018-07-01] MEDS ORDERED: NORMAL SALINE 500 ML IV ONE (17:24)
--- NOTE | 2018-07-01 17:27 | ER Document Report ---
ED Medical Screen (RME) - General Chief Complaint: Urinary Problem Stated Complaint: URINARY PROBLEMS Time Seen by Provider: 07/01/18 17:18 TRAVEL OUTSIDE OF THE [place] IN LAST 30 DAYS: No - HPI Notes: 07/01/18 17:26 decreased urine output of suprapubic catheter - Related Data Allergies/Adverse Reactions: Penicillins Allergy (Severe, Verified 08/03/17 12:51) rash/swelling Sulfa (Sulfonamide Antibiotics) Allergy (Severe, Verified 08/03/17 12:51) rash/swelling Past Medical History - Past Medical History Cardiac Medical History: Reports: Hx Coronary Artery Disease, Hx Hypercholesterolemia - meds x 10 years, Hx Hypertension - meds x 10 years, Hx Heart Murmur - denies echo Denies: Hx Atrial Fibrillation, Hx Congestive Heart Failure, Hx Heart Attack, Hx Peripheral Vascular Disease, Hx Pulmonary Embolism Pulmonary Medical History: Reports: Hx Sleep Apnea - CPAP DC'ed x 1 year Denies: Hx Asthma, Hx Bronchitis, Hx COPD, Hx Pneumonia, Hx Respiratory Failure, Hx Tuberculosis Neurological Medical History: Reports: Hx Seizures - LAST SEIZURE 6 MONTHS AGO. Denies: Hx Cerebrovascular Accident Endocrine Medical History: Reports: Hx Diabetes Mellitus Type 1, Hx Diabetes Mellitus Type 2. Denies: Hx Graves' Disease, Hx Hyperthyroidism, Hx Hypothyroidism Renal/ Medical History: Reports: Hx Ovarian Cysts. Denies: Hx Peritoneal Dialysis Malignancy Medical History: Reports: Hx Breast Cancer - RT. Denies: Hx Cervical Cancer, Hx Leukemia, Hx Lung Cancer, Hx Ovarian Cancer GI Medical History: Reports: Hx Gastroesophageal Reflux Disease - meds x 15 years, Hx Ulcer - approx 15 years ago. Denies: Hx Crohn's Disease, Hx Hiatal Hernia, Hx Irritable Bowel, Hx Liver Failure, Hx Pancreatitis Musculoskeltal Medical History: Reports Hx Arthritis, Denies Hx Fibromyalgia, Denies Hx Multiple Sclerosis, Denies Hx Muscular Dystrophy Psychiatric Medical History: Reports: Hx Depression - meds x 30 years Denies: Hx Bipolar Disorder, Hx Dementia, Hx Post Traumatic Stress Disorder, Hx Schizophrenia Traumatic Medical History: Reports: Hx Fractures - hx clavicle fx & rib fx's Infectious Medical History: Denies: Hx HIV Past Surgical History: Reports: Hx Appendectomy, Hx Cholecystectomy, Hx Hysterectomy, Hx Mastectomy - "partial RIGHT" with lymph node dissection (20). Denies: Hx Bowel Surgery, Hx Section, Hx Colostomy, Hx Coronary Artery Bypass Graft, Hx Gastric Bypass Surgery, Hx Herniorrhaphy, Hx Pacemaker, Hx Tonsillectomy, Hx Tubal Ligation - Immunizations Hx Diphtheria, Pertussis, Tetanus Vaccination: No Influenza Administration Date for 03/2017 - 07/2017 Season: 04/01/17 Review of Systems - Review of Systems Genitourinary: Other - decreased urine output Physical Exam - Vital signs Vitals: Temp Pulse Resp BP Pulse Ox 98.6 F 79 14 111/43 L 96 07/01/18 17:10 07/01/18 17:10 07/01/18 17:10 07/01/18 17:10 07/01/18 17:10 Course - Vital Signs Vital signs: Temp Pulse Resp BP Pulse Ox 98.6 F 79 14 111/43 L 96 07/01/18 17:10 07/01/18 17:10 07/01/18 17:10 07/01/18 17:10 07/01/18 17:10
--- NOTE | 2018-07-01 18:19 | ER Document Report ---
ED General - General Chief Complaint: Urinary Problem Stated Complaint: URINARY PROBLEMS Time Seen by Provider: 07/01/18 17:18 Notes: 83-year-old female to the emergency department for evaluation of decreased urinary output. Patient is a suprapubic catheter. Is cloudy. Family member states that on occasion she has this and will decrease her urine output. Has been on dialysis in the past but not as a regular dialysis patient. Followed by Dr. Hilton. Patient states that she feels weak and tired all the time. Nu[place] any bright red blood per rectum but does have black tarry colored stools but on iron. TRAVEL OUTSIDE OF THE [place] IN LAST 30 DAYS: No - HPI Onset: This morning Onset/Duration: Gradual, Worse - Related Data Allergies/Adverse Reactions: Penicillins Allergy (Severe, Verified 08/03/17 12:51) rash/swelling Sulfa (Sulfonamide Antibiotics) Allergy (Severe, Verified 08/03/17 12:51) rash/swelling Past Medical History - General Information source: Patient, Relative, [facility] Records - Social History Smoking Status: Former Smoker Frequency of alcohol use: None Drug Abuse: None Lives with: Family Family History: Reviewed & Not Pertinent Patient has suicidal ideation: No Patient has homicidal ideation: No - Past Medical History Cardiac Medical History: Reports: Hx Coronary Artery Disease, Hx Hype rcholesterolemia - meds x 10 years, Hx Hypertension - meds x 10 years, Hx Heart Murmur - denies echo Denies: Hx Atrial Fibrillation, Hx Congestive Heart Failure, Hx Heart Attack, Hx Peripheral Vascular Disease, Hx Pulmonary Embolism Pulmonary Medical History: Reports: Hx Sleep Apnea - CPAP DC'ed x 1 year Denies: Hx Asthma, Hx Bronchitis, Hx COPD, Hx Pneumonia, Hx Respiratory Failure, Hx Tuberculosis Neurological Medical History: Reports: Hx Seizures - LAST SEIZURE 6 MONTHS AGO. Denies: Hx Cerebrovascular Accident Endocrine Medical History: Reports: Hx Diabetes Mellitus Type 1, Hx Diabetes Mellitus Type 2. Denies: Hx Graves' Disease, Hx Hyperthyroidism, Hx Hypothyroidism Renal/ Medical History: Reports: Hx Ovarian Cysts. Denies: Hx Peritoneal Dialysis Malignancy Medical History: Reports: Hx Breast Cancer - RT. Denies: Hx Cervical Cancer, Hx Leukemia, Hx Lung Cancer, Hx Ovarian Cancer GI Medical History: Reports: Hx Gastroesophageal Reflux Disease - meds x 15 years, Hx Ulcer - approx 15 years ago. Denies: Hx Crohn's Disease, Hx Hiatal Hernia, Hx Irritable Bowel, Hx Liver Failure, Hx Pancreatitis Musculoskeletal Medical History: Reports Hx Arthritis, Denies Hx Fibromyalgia, Denies Hx Multiple Sclerosis, Denies Hx Muscular Dystrophy Psychiatric Medical History: Reports: Hx Depression - meds x 30 years Denies: Hx Bipolar Disorder, Hx Dementia, Hx Post Traumatic Stress Disorder, Hx Schizophrenia Traumatic Medical History: Reports: Hx Fractures - hx clavicle fx & rib fx's Infectious Medical History: Denies: Hx HIV Past Surgical History: Reports: Hx Appendectomy, Hx Cholecystectomy, Hx Hysterectomy, Hx Mastectomy - "partial RIGHT" with lymph node dissection (20). Denies: Hx Bowel Surgery, Hx Section, Hx Colostomy, Hx Coronary Artery Bypass Graft, Hx Gastric Bypass Surgery, Hx Herniorrhaphy, Hx Pacemaker, Hx Tonsillectomy, Hx Tubal Ligation - Immunizations Hx Diphtheria, Pertussis, Tetanus Vaccination: No Hx Pneumococcal Vaccination: 02/19/09 Review of Systems - Review of Systems Notes: Constitutional: denies: Chills, Diaphoresis, Fever, +Malaise, +Weakness EENT: denies: Eye discharge, Blurred vision, Tearing, Double vision, Nose congestion, Nose discharge, Throat swelling, Mouth pain Cardiovascular: denies: Palpitations, Heart racing, Orthopnea, Dyspnea, Chest pain Respiratory: denies: Cough, Hurts to breathe, Wheezing, Shortness of breath Gastrointestinal: denies: Abdominal pain, Diarrhea, Nausea, Vomiting, Black stools, bright red blood in stool Genitourinary: denies: Burning, Dysuria, Discharge, decreased Frequency, Flank pain, Hematuria. Decreased urinary output from suprapubic Adan catheter Musculoskeletal: denies: Joint pain, Joint swelling, Muscle pain, Muscle stiffness, back pain Hematologic/Lymphatic: denies: Anemia, Easy bleeding, Easy bruising, Blood clots Neurological/Psychological: denies: Confusion, Dementia, Depression, Loss of consciousness Skin: No lesions, no masses, no skin breakdown, no abscesses Physical Exam - Vital signs Vitals: Temp Pulse Resp BP Pulse Ox 98.6 F 79 14 111/43 L 96 07/01/18 17:10 07/01/18 17:10 07/01/18 17:10 07/01/18 17:10 07/01/18 17:10 Interpretation: Normal - General General appearance: Appears well, Alert - HEENT Head: Normocephalic, Atraumatic Eyes: Normal Pupils: PERRL - Respiratory Respiratory status: No respiratory distress Chest status: Nontender Breath sounds: Normal Chest palpation: Normal - Cardiovascular Rhythm: Regular Heart sounds: Normal auscultation Murmur: No - Abdominal Inspection: Normal Distension: No distension Bowel sounds: Normal Tenderness: Nontender Organomegaly: No organomegaly Notes: Suprapubic catheter in place. No signs of infection. Bedside ultrasound performed which did not show a large dilated bladder. - Rectal Tenderness: No Stool: Heme positive Hemorrhoids: None - Back Back: Normal, Nontender - Extremities General upper extremity: Normal inspection, Nontender, Normal color, Normal ROM, Normal temperature General lower extremity: Normal inspection, Nontender, Normal color, Normal ROM, Normal temperature. No: Eda's sign - Neurological Neuro grossly intact: Yes Cognition: Normal Orientation: AAOx4 Lizz Coma Scale Eye Opening: Spontaneous Lizz Coma Scale Verbal: Oriented Lizz Coma Scale Motor: Obeys Commands [place] Coma Scale Total: 15 Speech: Normal Motor strength normal: LUE, RUE, LLE, RLE Sensory: Normal - Psychological Associated symptoms: Normal affect, Normal mood - Skin Skin Temperature: Warm Skin Moisture: Dry Skin Color: Pale Course - Re-evaluation Re-evalutation: 07/02/18 00:27 Laboratory 07/01/18 07/01/18 07/01/18 18:04 18:04 20:04 WBC 4.7 RBC 2.47 L Hgb 7.6 L Hct 22.9 L MCV 93 MCH 30.7 MCHC 33.1 RDW 17.2 H Plt Count 228 Seg Neutrophils % 63.5 Lymphocytes % 24.5 Monocytes % 9.1 Eosinophils % 2.6 Basophils % 0.3 Absolute Neutrophils 3.0 Absolute Lymphocytes 1.2 Absolute Monocytes 0.4 Absolute Eosinophils 0.1 Absolute Basophils 0.0 Sodium 127.9 L Potassium 4.5 Chloride 94 L Carbon Dioxide 21 L Anion Gap 13 BUN 34 H Creatinine 1.61 H Est GFR ( Amer) 37 L Est GFR (Non-Af Amer) 31 L Glucose 125 H Calcium 8.3 L Urine Color YELLOW Urine Appearance CLOUDY Urine pH 5.0 Ur Specific Byron 1.006 Urine Protein NEGATIVE Urine Glucose (UA) NEGATIVE Urine Ketones NEGATIVE Urine Blood NEGATIVE Urine Nitrite NEGATIVE Urine Bilirubin NEGATIVE Urine Urobilinogen NEGATIVE Ur Leukocyte Esterase SMALL H Urine WBC (Auto) 5 Urine RBC (Auto) 1 Urine Bacteria (Auto) 3+ Urine Mucus (Auto) RARE Urine Ascorbic Acid NEGATIVE Patient has low H&H with a positive occult blood. Decreased urine output with acute renal insufficiency with hyponatremia. Consulted after [place]. Will continue with hydration admit her to the hospital. - Vital Signs Vital signs: Temp Pulse Resp BP Pulse Ox 98.6 F 79 14 131/58 H 97 07/01/18 22:14 07/01/18 17:10 07/01/18 22:11 07/01/18 22:11 07/01/18 22:11 - Laboratory Result Diagrams: 07/01/18 18:04 07/01/18 18:04 Laboratory results interpreted by me: 07/01/18 07/01/18 07/01/18 18:04 18:04 20:04 RBC 2.47 L Hgb 7.6 L Hct 22.9 L RDW 17.2 H Sodium 127.9 L Chloride 94 L Carbon Dioxide 21 L BUN 34 H Creatinine 1.61 H Est GFR ( Amer) 37 L Est GFR (Non-Af Amer) 31 L Glucose 125 H Calcium 8.3 L Ur Leukocyte Esterase SMALL H Discharge - Discharge Clinical Impression: Acute kidney injury, Acute hyponatremia Anemia Qualifiers: Anemia type: unspecified type Qualified Code(s): D64.9 - Anemia, unspecified Condition: Good Disposition: ADMITTED INPATIENT Admitting Provider: Lida Unit Admitted: [facility]
[2018-07-01 18:21] LABS: ABSOLUTE EOSINOPHILS # (AUTO) 0.1 10^3/uL (0.0-0.6); ABSOLUTE LYMPHOCYTES (AUTO) 1.2 10^3/uL (0.5-4.7); ABSOLUTE MONOCYTES (AUTO) 0.4 10^3/uL (0.1-1.4); BASOPHILS % (AUTO) 0.3 % (0-2); EOSINOPHILS % (AUTO) 2.6 % (0-6); HEMATOCRIT 22.9 % (36.0-47.0); LYMPHOCYTES % (AUTO) 24.5 % (13-45); MEAN CORPUSCULAR HEMOGLOBIN 30.7 pg (27.0-33.4); MEAN CORPUSCULAR HGB CONC 33.1 g/dL (32.0-36.0); MEAN CORPUSCULAR VOLUME 93 fl (80-97); MONOCYTES % (AUTO) 9.1 % (3-13); PLATELET COUNT 228 10^3/uL (150-450); RED BLOOD COUNT 2.47 10^6/uL (3.72-5.28); RED CELL DISTRIBUTION WIDTH 17.2 % (11.5-14.0); SEGMENTED NEUTROPHILS % (AUTO) 63.5 % (42-78); TOTAL CELLS COUNTED % (AUTO) 100 %; WHITE BLOOD COUNT 4.7 10^3/uL (4.0-10.5)
[2018-07-01 18:25] LABS: HEMOGLOBIN 7.6 g/dL (12.0-15.5)
[2018-07-01 18:38] LABS: ANION GAP 13 (5-19); BLOOD UREA NITROGEN 34 mg/dL (7-20); CALCIUM 8.3 mg/dL (8.4-10.2); CARBON DIOXIDE 21 mmol/L (22-30); CHLORIDE 94 mmol/L (98-107); GLUCOSE 125 mg/dL (75-110); POTASSIUM 4.5 mmol/L (3.6-5.0); SODIUM 127.9 mmol/L (137-145)
[2018-07-01] MEDS ORDERED: NORMAL SALINE 1000 ML 1,000 ML IV ONE (20:26)
[2018-07-01 22:27] LABS: APPEARANCE,URINE CLOUDY; BILIRUBIN,URINE NEGATIVE (NEGATIVE); COLOR,URINE YELLOW; GLUCOSE, URINE NEGATIVE (NEGATIVE); KETONES,URINE NEGATIVE (NEGATIVE); LEUKOCYTE ESTERASE,URINE SMALL (NEGATIVE); NITRITE,URINE NEGATIVE (NEGATIVE); PROTEIN,URINE NEGATIVE (NEGATIVE); URINE SPECIFIC GRAVITY 1.006; UROBILINOGEN,URINE NEGATIVE mg/dL (<2.0)
[2018-07-02] MEDS ORDERED: CETIRIZINE 10 MG TABLET PO PRN (02:16)
[2018-07-02] MEDS ORDERED: DEXTROSE 40% GEL 15 GM TUBE X 2 PO PRN (02:30)
[2018-07-02] MEDS ORDERED: INSULIN LISPRO PROTAMIN SQ SCH (02:30)
[2018-07-02] MEDS ORDERED: DEXTROSE 40% GEL 15 GM TUBE PO PRN (02:30)
[2018-07-02] MEDS ORDERED: LISPRO SQ SCH (02:30)
[2018-07-02] MEDS ORDERED: [UNRECOGNIZED DRUG - OTHER] SQ SCH (02:30)
[2018-07-02] MEDS ORDERED: DEXTROSE 50%-WATER SYRINGE 25 GM/50 ML DOSE IV PRN (02:30)
[2018-07-02] MEDS ORDERED: GLUCAGON,HUMAN RECOMB 1 MG INJ IM PRN (02:30)
[2018-07-02] MEDS ORDERED: DEXTROSE 50%-WATER SYRINGE 12.5 GM/25 ML DOSE IV PRN (02:30)
[2018-07-02] MEDS ORDERED: NORMAL SALINE 250 ML IV PRN ×2 (04:45)
[2018-07-02] MEDS ORDERED: GABAPENTIN 300 MG CAPSULE PO SCH (06:00)
[2018-07-02] MEDS: OXYCODONE-ACETAMINOPHEN 5-325 MG TABLET PO PRN ×2 (06:09→21:21)
[2018-07-02] MEDS: INSULIN LISPRO 100 UNIT/ML 3 ML VIAL SUBCUT SCH ×4 (08:04→21:22)
[2018-07-02] MEDS ORDERED: (PENDING PHARMACY ID) (Mirabegron [Myrbetriq] 25 MG) PO SCH (10:00)
[2018-07-02] MEDS: VALSARTAN 160 MG TABLET PO SCH (11:15)
[2018-07-02] MEDS: APIXABAN 2.5 MG TABLET PO SCH ×2 (11:15→18:06)
[2018-07-02] MEDS: LISINOPRIL 5 MG TABLET PO SCH (11:16)
[2018-07-02] MEDS: SERTRALINE HCL 50 MG TABLET PO SCH (11:55)
[2018-07-02] MEDS: DONEPEZIL HCL 5 MG TABLET PO SCH (11:55)
[2018-07-02] MEDS: MEMANTINE HCL 10 MG TABLET PO SCH (11:56)
[2018-07-02] MEDS: LANSOPRAZOLE 30 MG TAB.RAP.DR PO SCH (11:56)
[2018-07-02] MEDS: SITAGLIPTIN PHOSPHATE 25 MG TABLET PO SCH (11:56)
[2018-07-02] MEDS: IBUPROFEN 400 MG TABLET PO SCH ×3 (11:57→18:11)
[2018-07-02] MEDS: FLUTICASONE NASAL SPRAY 50 MCG/SPRY 120 SPRAY/16 GM NASL SCH (11:59)
[2018-07-02] MEDS: MONTELUKAST SODIUM 10 MG TABLET PO SCH (12:00)
[2018-07-02] MEDS: LACOSAMIDE 100 MG TABLET PO SCH ×2 (14:14→23:17)
[2018-07-02] MEDS: HYDROCHLOROTHIAZIDE 25 MG TABLET PO SCH (14:14)
[2018-07-02 15:29] LABS: ABSOLUTE EOSINOPHILS # (AUTO) 0.1 10^3/uL (0.0-0.6); ABSOLUTE LYMPHOCYTES (AUTO) 0.7 10^3/uL (0.5-4.7); ABSOLUTE MONOCYTES (AUTO) 0.4 10^3/uL (0.1-1.4); ABSOLUTE NEUT (AUTO) 2.7 10^3/uL (1.7-8.2); BASOPHILS % (AUTO) 0.5 % (0-2); EOSINOPHILS % (AUTO) 2.9 % (0-6); HEMATOCRIT 28.7 % (36.0-47.0); LYMPHOCYTES % (AUTO) 18.4 % (13-45); MEAN CORPUSCULAR HEMOGLOBIN 30.6 pg (27.0-33.4); MEAN CORPUSCULAR HGB CONC 34.1 g/dL (32.0-36.0); MEAN CORPUSCULAR VOLUME 90 fl (80-97); MONOCYTES % (AUTO) 10.5 % (3-13); PLATELET COUNT 186 10^3/uL (150-450); RED CELL DISTRIBUTION WIDTH 16.4 % (11.5-14.0); SEGMENTED NEUTROPHILS % (AUTO) 67.7 % (42-78); TOTAL CELLS COUNTED % (AUTO) 100 %
[2018-07-02 15:30] LABS: HEMOGLOBIN 9.8 g/dL (12.0-15.5)
--- NOTE | 2018-07-02 15:33 | PDOC H&P ---
History of Present Illness Admission Date/PCP: 07/01/18 20:33 History of Present Illness: ANI PELAYO is a 83 year old female patient known to my practice who presented to the ED with complaint of decrease urinary output. she admitted to decrease fluid intake for quite sometime. she admitted to cloudy and malodor urine. She denied any fever or chills. No nausea, vomiting, or abdominal pain. She reported associated fatigue, weakness, and poor appetite. Her initial ED evaluation was s ignificant for hyponatremia, significant anemia and abnormal urinalysis. Her morbidities include Diabetes Mellitus Type 2, Hypertension, Coronary Artery Disease, Hyperlipidemia, Gastroesophageal Reflux Disease, Sleep Apnea off CPAP machine usage, Seizure disorder, Depression, and suprapubic catheterization for outlet obstruction. She was advised hospitalization for further evaluation and management. Past Medical History Cardiac Medical History: Reports: Coronary Artery Disease, Hyperlipidema - meds x 10 years, Hypertension - meds x 10 years, Heart Murmur - denies echo Denies: Atrial Fibrillation, Congestive Heart Failure, Myocardial Infarction, Peripheral Vascular Disease, Pulmonary Embolism Pulmonary Medical History: Reports: Sleep Apnea - CPAP DC'ed x 1 year Denies: Asthma, Bronchitis, Chronic Obstructive Pulmonary Disease (COPD), Pneumonia, Respiratory Failure, Tuberculosis Neurological Medical History: Reports: Seizures - LAST SEIZURE 6 MONTHS AGO Endocrine Medical History: Reports: Diabetes Mellitus Type 1, Diabetes Mellitus Type 2 Denies: Hyperthyroidism, Hypothyroidism Malignancy Medical History: Reports: Breast Cancer - RT Denies: Cervical Cancer, Leukemia, Lung Cancer, Ovarian Cancer GI Medical History: Reports: Gastroesophageal Reflux Disease - meds x 15 years Denies: Crohn's Disease, Hiatal Hernia Musculoskeltal Medical History: Reports: Arthritis Denies: Fibromyalgia Psychiatric Medical History: Reports: Depression - meds x 30 years Denies: Bipolar Disorder, Dementia, Post Traumatic Stress Disorder Hematology: Reports: Anemia Denies: Hemophilia, Sickle Cell Disease Infectious Medical History: Denies: HIV Past Surgical History Past Surgical History: Reports: Appendectomy, Cholecystectomy, Hysterectomy, Mastectomy - "partial RIGHT" with lymph node dissection (20) Denies: Amputation, Section, Colostomy, Coronary Artery Bypass Graft, Gastric Bypass Surgery, Herniorrhaphy, Pacemaker, Tonsillectomy, Tubal Ligation Social History Lives with: Family Smoking Status: Former Smoker Cigarettes Packs Per Day: 1 Number of Years Smokin Last Time Smoked: 1967 Frequency of Alcohol Use: None Hx Recreational Drug Use: No Drugs: None Hx Prescription Drug Abuse: No Family History Family History: Reviewed & Not Pertinent Parental Family History Reviewed: Yes Children Family History Reviewed: Yes Sibling(s) Family History Reviewed.: Yes Medication/Allergy Home Medications: Apixaban [Eliquis 2.5 mg Tablet] 2.5 mg PO BID 07/01/18 Donepezil HCl [Aricept 5 mg Tablet] 5 mg PO DAILY 07/01/18 Fluticasone Propionate [Flonase Nasal [place] 50 Mcg/[place] 16 gm] 2 sprays NASL DAILY 07/01/18 Gabapentin [Neurontin 300 mg Capsule] 300 mg PO Q6 07/01/18 Ibuprofen [Motrin 400 mg Tablet] 400 mg PO TID 07/01/18 Insulin Lispro Protamin/Lispro [Humalog Mix 50-50 Vial] 0 unit SQ .SLD SCALE 07/01/18 Lacosamide [Vimpat 100 mg Tablet] 100 mg PO Q12 07/01/18 Levocetirizine Dihydrochloride [Allergy Relief] 5 mg PO DAILYP PRN 07/01/18 Linagliptin [Tradjenta] 5 mg PO DAILY 07/01/18 Lisinopril [Prinivil 5 mg Tablet] 5 mg PO DAILY 07/01/18 Memantine HCl/Donepezil HCl [Namzaric 28 mg-10 mg Capsule] 1 each PO DAILY 07/01/18 Metformin HCl [Glucophage] 1,000 mg PO BID 07/01/18 Mirabegron [Myrbetriq] 25 mg PO DAILY 07/01/18 Montelukast Sodium [Singulair 10 mg Tablet] 10 mg PO DAILY 07/01/18 Oxycodone HCl/Acetaminophen [Percocet 5-325 mg Tablet] 1 tab PO Q6HP PRN 07/01/18 Pantoprazole Sodium [Protonix] 40 mg PO DAILY 07/01/18 Rosuvastatin Calcium [Crestor 10 mg Tablet] 10 mg PO DAILY 07/01/18 Sertraline HCl [Zoloft] 100 mg PO DAILY 07/01/18 Valsartan/Hydrochlorothiazide [Valsartan-Hctz 320-25 mg Tab] 1 each PO DAILY 07/01/18 Allergies/Adverse Reactions: Penicillins Allergy (Severe, Verified 08/03/17 12:51) rash/swelling Sulfa (Sulfonamide Antibiotics) Allergy (Severe, Verified 08/03/17 12:51) rash/swelling Review of Systems Constitutional: PRESENT: fatigue, weakness Eyes: ABSENT: visual disturbances Ears: ABSENT: hearing changes Nose, Mouth, and Throat: ABSENT: as per HPI, headache(s), mouth pain, sore throat, vertigo, other Cardiovascular: ABSENT: chest pain, dyspnea on exertion, edema, orthropnea, palpitations Respiratory: ABSENT: cough, hemoptysis Gastrointestinal: ABSENT: abdominal pain, constipation, diarrhea, hematemesis, hematochezia, nausea, vomiting Musculoskeletal: ABSENT: as per HPI, back pain, deformity, joint swelling, muscle weakness, other Integumentary: ABSENT: rash, wounds Neurological: ABSENT: abnormal gait, abnormal speech, confusion, dizziness, focal weakness, syncope Psychiatric: ABSENT: anxiety, depression, homidical ideation, suicidal ideation Endocrine: ABSENT: cold intolerance, heat intolerance, menstrual abnormalities, polydipsia, polyuria Hematologic/Lymphatic: ABSENT: easy bleeding, easy bruising, lymphadenopathy Allergic/Immunologic: ABSENT: seasonal rhinorrhea Physical Exam Vital Signs: Temp Pulse Resp BP Pulse Ox 98.5 F 66 20 104/40 L 93 07/02/18 06:24 07/02/18 07:00 07/02/18 06:24 07/02/18 06:24 07/02/18 06:24 Intake & Output 07/01/18 07/02/18 07/03/18 06:59 06:59 06:59 Intake Total 707 Output Total 30 Balance 677 Weight 63.4 kg General appearance: PRESENT: no acute distress, well-developed, well-nourished Head exam: PRESENT: atraumatic, normocephalic Eye exam: PRESENT: conjunctiva pink, EOMI, PERRLA. ABSENT: scleral icterus Ear exam: PRESENT: normal external ear exam Mouth exam: PRESENT: moist - fairly Throat exam: ABSENT: post pharyngeal erythema, tonsillar erythema, tonsillar exudate, tonsillogmegaly, other Neck exam: PRESENT: full ROM. ABSENT: carotid bruit, JVD, lymphadenopathy, thyromegaly Respiratory exam: PRESENT: clear to auscultation adenike, decreased breath sounds Cardiovascular exam: PRESENT: RRR. ABSENT: diastolic murmur, rubs, systolic murmur Pulses: PRESENT: +1 pedal pulses bilateral Vascular exam: PRESENT: normal capillary refill. ABSENT: pallor GI/Abdominal exam: PRESENT: normal bowel sounds, soft. ABSENT: distended, guarding, mass, organolmegaly, rebound, tenderness Rectal exam: PRESENT: deferred Gentrourinary exam: PRESENT: indwelling catheter - suprapubic region Extremities exam: ABSENT: pedal edema Musculoskeletal exam: PRESENT: ambulatory Neurological exam: PRESENT: alert, awake, oriented to person, oriented to place, oriented to time, oriented to situation, CN II-XII grossly intact. ABSENT: motor sensory deficit Psychiatric exam: PRESENT: appropriate affect, normal mood. ABSENT: homicidal ideation, suicidal ideation Skin exam: PRESENT: dry, warm Results Laboratory Results: 07/01/18 18:04 07/01/18 18:04 07/01/18 07/01/18 07/01/18 18:04 18:04 20:04 WBC 4.7 RBC 2.47 L Hgb 7.6 L Hct 22.9 L MCV 93 MCH 30.7 MCHC 33.1 RDW 17.2 H Plt Count 228 Seg Neutrophils % 63.5 Lymphocytes % 24.5 Monocytes % 9.1 Eosinophils % 2.6 Basophils % 0.3 Absolute Neutrophils 3.0 Absolute Lymphocytes 1.2 Absolute Monocytes 0.4 Absolute Eosinophils 0.1 Absolute Basophils 0.0 Sodium 127.9 L Potassium 4.5 Chloride 94 L Carbon Dioxide 21 L Anion Gap 13 BUN 34 H Creatinine 1.61 H Est GFR ( Amer) 37 L Est GFR (Non-Af Amer) 31 L Glucose 125 H Calcium 8.3 L Urine Color YELLOW Urine Appearance CLOUDY Urine pH 5.0 Ur Specific [place] 1.006 Urine Protein NEGATIVE Urine Glucose (UA) NEGATIVE Urine Ketones NEGATIVE Urine Blood NEGATIVE Urine Nitrite NEGATIVE Ur Leukocyte Esterase SMALL H Urine WBC (Auto) 5 Urine RBC (Auto) 1 Blood Type Antibody Screen 07/01/18 21:00 WBC RBC Hgb Hct MCV MCH MCHC RDW Plt Count Seg Neutrophils % Lymphocytes % Monocytes % Eosinophils % Basophils % Absolute Neutrophils Absolute Lymphocytes Absolute Monocytes Absolute Eosinophils Absolute Basophils Sodium Potassium Chloride Carbon Dioxide Anion Gap BUN Creatinine Est GFR ( Amer) Est GFR (Non-Af Amer) Glucose Calcium Urine Color Urine Appearance Urine pH Ur Specific [place] Urine Protein Urine Glucose (UA) Urine Ketones Urine Blood Urine Nitrite Ur Leukocyte Esterase Urine WBC (Auto) Urine RBC (Auto) Blood Type O POSITIVE Antibody Screen NEGATIVE Assessment & Plan - Diagnosis (1) Symptomatic anemia Is this a current diagnosis for this admission?: Yes Plan: She will be transfused 2 units PRBC and follow up consult with welding machine operator helper arc. Hold Eliquis for now. (2) Anemia of chronic disease Is this a current diagnosis for this admission?: Yes Plan: Probably related to her associated chronic disease. Continue to monitor response to treatment. (3) Hyponatremia with extracellular fluid depletion Is this a current diagnosis for this admission?: Yes Plan: Maintain on IV Normal saline infusion. Obtain BMP to monitor response. (4) Diabetes mellitus type 2 in nonobese Is this a current diagnosis for this admission?: Yes Plan: Continue accuchek qachs with sliding scale coverage. Continue preadmission medication management and encouraged compliance with dietary restrictions. (5) HTN (hypertension) Qualifiers: Hypertension type: essential hypertension Qualified Code(s): I10 - Essential (primary) hypertension Is this a current diagnosis for this admission?: Yes Plan: Continue preadmission medication management and encouraged compliance with dietary restrictions. (6) HLD (hyperlipidemia) Qualifiers: Hyperlipidemia type: unspecified Qualified Code(s): E78.5 - Hyperlipidemia, unspecified Is this a current diagnosis for this admission?: Yes Plan: Continue preadmission medication management and encouraged compliance with dietary restrictions. (7) History of DVT (deep vein thrombosis) Is this a current diagnosis for this admission?: Yes Plan: Hold Eliquis in view of her significant anemia and positive occult blood stool test. (8) History of pulmonary embolism Is this a current diagnosis for this admission?: Yes Plan: Hold Eliquis in view of her significant anemia and positive occult blood stool test. - Time Time Spent: 50 to 70 Minutes Medications reviewed and adjusted accordingly: Yes Anticipated discharge: Home with Homehealth Within: Other - Inpatient Certification Based on my medical assessment, after consideration of the patient's comorbidities, presenting symptoms, or acuity I expect that the services needed warrant INPATIENT care.: Yes I certify that my determination is in accordance with my understanding of Medicare's requirements for reasonable and necessary INPATIENT services [42 CFR 412.3e].: Yes Medical Necessity: Need Close Monitoring Due to Risk of Patient Decompensation, Need For IV Fluids, Need For Continuous Telemetry Monitoring, Risk of Complication if Not Cared For in Hospital, Risk of Diagnosis Which Will Require Inpatient Eval/Care/Monitoring Post Hospital Care: D/C Assistant Director Of Nursing Documentation - Plan Summary Plan Summary: See admitting attending physician orders as per above outlined care plan.
[2018-07-02] MEDS: ATORVASTATIN CALCIUM 20 MG TABLET PO SCH (21:21)
[2018-07-03] MEDS: OXYCODONE-ACETAMINOPHEN 5-325 MG TABLET PO PRN ×2 (06:44→23:43)
[2018-07-03] MEDS: INSULIN LISPRO 100 UNIT/ML 3 ML VIAL SUBCUT SCH ×4 (10:34→21:30)
[2018-07-03] MEDS: MEMANTINE HCL 10 MG TABLET PO SCH (10:40)
[2018-07-03] MEDS: GABAPENTIN 300 MG CAPSULE PO SCH ×3 (10:40→21:06)
[2018-07-03] MEDS: VALSARTAN 160 MG TABLET PO SCH (10:40)
[2018-07-03] MEDS: HYDROCHLOROTHIAZIDE 25 MG TABLET PO SCH (10:40)
[2018-07-03] MEDS: DONEPEZIL HCL 5 MG TABLET PO SCH (10:41)
[2018-07-03] MEDS: SERTRALINE HCL 50 MG TABLET PO SCH (10:41)
[2018-07-03] MEDS: LISINOPRIL 5 MG TABLET PO SCH (10:41)
[2018-07-03] MEDS: SITAGLIPTIN PHOSPHATE 25 MG TABLET PO SCH (10:41)
[2018-07-03] MEDS: LANSOPRAZOLE 30 MG TAB.RAP.DR PO SCH (10:41)
[2018-07-03] MEDS: MONTELUKAST SODIUM 10 MG TABLET PO SCH (10:41)
[2018-07-03] MEDS: FLUTICASONE NASAL SPRAY 50 MCG/SPRY 120 SPRAY/16 GM NASL SCH (10:43)
[2018-07-03] MEDS: LACOSAMIDE 100 MG TABLET PO SCH ×2 (10:48→21:30)
[2018-07-03] MEDS: IBUPROFEN 400 MG TABLET PO SCH ×3 (13:17→17:40)
[2018-07-03] MEDS: ATORVASTATIN CALCIUM 20 MG TABLET PO SCH (21:29)
[2018-07-03] MEDS: GUAIFENESIN SYRP 200 MG/10 ML UDC PO PRN (23:41)
[2018-07-03] MEDS: NORMAL SALINE 1000 ML 1,000 ML IV PRN (23:50)
[2018-07-03] MEDS: CETIRIZINE 10 MG TABLET PO PRN (23:50)
[2018-07-04] MEDS: INSULIN LISPRO 100 UNIT/ML 3 ML VIAL SUBCUT SCH ×4 (08:02→21:35)
[2018-07-04] MEDS: MONTELUKAST SODIUM 10 MG TABLET PO SCH (09:10)
[2018-07-04] MEDS: SITAGLIPTIN PHOSPHATE 25 MG TABLET PO SCH (09:10)
[2018-07-04] MEDS: MEMANTINE HCL 10 MG TABLET PO SCH (09:10)
[2018-07-04] MEDS: HYDROCHLOROTHIAZIDE 25 MG TABLET PO SCH (09:10)
[2018-07-04] MEDS: FLUTICASONE NASAL SPRAY 50 MCG/SPRY 120 SPRAY/16 GM NASL SCH (09:10)
[2018-07-04] MEDS: DONEPEZIL HCL 5 MG TABLET PO SCH (09:10)
[2018-07-04] MEDS: SERTRALINE HCL 50 MG TABLET PO SCH (09:10)
[2018-07-04] MEDS: VALSARTAN 160 MG TABLET PO SCH (09:10)
[2018-07-04] MEDS: GABAPENTIN 300 MG CAPSULE PO SCH ×4 (09:11→17:53)
[2018-07-04] MEDS: IBUPROFEN 400 MG TABLET PO SCH ×2 (09:11→13:15)
[2018-07-04] MEDS: LISINOPRIL 5 MG TABLET PO SCH (09:11)
[2018-07-04] MEDS: LANSOPRAZOLE 30 MG TAB.RAP.DR PO SCH (09:14)
[2018-07-04] MEDS: LACOSAMIDE 100 MG TABLET PO SCH ×2 (09:17→21:31)
[2018-07-04] MEDS: NORMAL SALINE 1000 ML 1,000 ML IV PRN ×2 (09:17→17:43)
[2018-07-04] MEDS: GUAIFENESIN SYRP 200 MG/10 ML UDC PO PRN (13:15)
--- NOTE | 2018-07-04 16:43 | PDOC PROGRESS REPORT ---
Subjective Progress Note for:: 07/03/18 Subjective:: Patient reported no chest pain or difficulty with breathing. No nausea, vomiting or abdominal pain. Tolerating oral feeding. Remain on IV fluid support with improvement in her urine output. Reason For Visit: ACUTE KIDNEY INJURY/ACUTE HYPONATREMIA/ANEMIA Physical Exam Vital Signs: Temp Pulse Resp BP Pulse Ox 98.5 F 64 16 153/55 H 97 07/03/18 15:30 07/03/18 15:30 07/03/18 15:30 07/03/18 15:30 07/03/18 15:30 Intake & Output 07/02/18 07/03/18 07/04/18 06:59 06:59 06:59 Intake Total 707 1140 1267 Output Total 30 2150 1350 Balance 677 -1010 -83 Weight 63.4 kg 62.3 kg General appearance: PRESENT: no acute distress, well-developed, well-nourished Head exam: PRESENT: atraumatic, normocephalic Eye exam: PRESENT: conjunctiva pink, EOMI, PERRLA. ABSENT: scleral icterus Ear exam: PRESENT: normal external ear exam Mouth exam: PRESENT: moist Respiratory exam: PRESENT: clear to auscultation adenike Cardiovascular exam: PRESENT: RRR. ABSENT: diastolic murmur, rubs, systolic murmur GI/Abdominal exam: PRESENT: normal bowel sounds, soft, other - supreapubic magallanes catheter site is okay.. ABSENT: distended, guarding, mass, organolmegaly, rebound, tenderness Extremities exam: ABSENT: pedal edema Neurological exam: PRESENT: alert, awake, oriented to person, oriented to place, oriented to time, oriented to situation, CN II-XII grossly intact. ABSENT: motor sensory deficit Skin exam: PRESENT: dry, warm Results Laboratory Results: 07/02/18 14:00 07/01/18 18:04 Assessment & Plan - Diagnosis (1) Symptomatic anemia Is this a current diagnosis for this admission?: Yes (2) Anemia of chronic disease Is this a current diagnosis for this admission?: Yes (3) Hyponatremia with extracellular fluid depletion Is this a current diagnosis for this admission?: Yes (4) Diabetes mellitus type 2 in nonobese Is this a current diagnosis for this admission?: Yes (5) HTN (hypertension) Qualifiers: Hypertension type: essential hypertension Qualified Code(s): I10 - Essential (primary) hypertension Is this a current diagnosis for this admission?: Yes (6) HLD (hyperlipidemia) Qualifiers: Hyperlipidemia type: unspecified Qualified Code(s): E78.5 - Hyperlipidemia, unspecified Is this a current diagnosis for this admission?: Yes (7) History of DVT (deep vein thrombosis) Is this a current diagnosis for this admission?: Yes (8) History of pulmonary embolism Is this a current diagnosis for this admission?: Yes - Time Time Spent with patient: 25-34 minutes Medications reviewed and adjusted accordingly: Yes Anticipated discharge: Home with Homehealth Within: Other - Inpatient Certification Based on my medical assessment, after consideration of the patient's comorbidities, presenting symptoms, or acuity I expect that the services needed warrant INPATIENT care.: Yes I certify that my determination is in accordance with my understanding of Medicare's requirements for reasonable and necessary INPATIENT services [42 CFR 412.3e].: Yes Medical Necessity: Need Close Monitoring Due to Risk of Patient Decompensation, Need For IV Fluids, Need For Continuous Telemetry Monitoring, Risk of Complication if Not Cared For in Hospital, Risk of Diagnosis Which Will Require Inpatient Eval/Care/Monitoring Post Hospital Care: D/C Personnel Security Assistant Documentation - Plan Summary Plan Summary: Continue IV fluid support and other current medication management. Follow up on urine culture findings.
--- NOTE | 2018-07-04 16:55 | PDOC PROGRESS REPORT ---
Subjective Progress Note for:: 07/04/18 Subjective:: Patient reported no chest pain or difficulty with breathing. No nausea, vomiting or abdominal pain. Patient expressed concern about constipation. Remain on IV fluid support with improvement in her urine output. Reason For Visit: ACUTE KIDNEY INJURY/ACUTE HYPONATREMIA/ANEMIA Physical Exam Vital Signs: Temp Pulse Resp BP Pulse Ox 98.0 F 72 16 123/55 L 97 07/04/18 15:18 07/04/18 15:18 07/04/18 15:18 07/04/18 15:18 07/04/18 15:18 Intake & Output 07/03/18 07/04/18 07/05/18 06:59 06:59 06:59 Intake Total 1140 2 2239 Output Total 2150 3150 800 Balance -1010 -1128 1439 Weight 62.3 kg 64 kg Physical Exam: General appearance: PRESENT: no acute distress, well-developed, well-nourished Head exam: PRESENT: atraumatic, normocephalic Eye exam: PRESENT: conjunctiva pink, EOMI, PERRLA. ABSENT: pallor, scleral icterus Ear exam: PRESENT: normal external ear exam Mouth exam: PRESENT: moist Respiratory exam: PRESENT: clear to auscultation adenike Cardiovascular exam: PRESENT: RRR. ABSENT: diastolic murmur, rubs, systolic murmur GI/Abdominal exam: PRESENT: normal bowel sounds, soft, other - suprapubic magallanes catheter site is okay.. ABSENT: distended, guarding, mass, organomegaly, rebound, tenderness Extremities exam: ABSENT: pedal edema Neurological exam: PRESENT: alert, awake, oriented to person, oriented to place, oriented to time, oriented to situation, CN II-XII grossly intact. ABSENT: motor sensory deficit Skin exam: PRESENT: dry, warm Results Laboratory Results: 07/02/18 14:00 07/01/18 18:04 Assessment & Plan - Diagnosis (1) Symptomatic anemia Is this a current diagnosis for this admission?: Yes (2) Anemia of chronic disease Is this a current diagnosis for this admission?: Yes Plan: Probably related to her associated chronic disease but in view iof her advance age ad microcytic picture, I will request GI consultation with Dr Link. Patient had EGD in 2017 without significant findings but we will consider colonoscopy evaluation. (3) Hyponatremia with extracellular fluid depletion Is this a current diagnosis for this admission?: Yes (4) Diabetes mellitus type 2 in nonobese Is this a current diagnosis for this admission?: Yes (5) HTN (hypertension) Qualifiers: Hypertension type: essential hypertension Qualified Code(s): I10 - Essential (primary) hypertension Is this a current diagnosis for this admission?: Yes (6) HLD (hyperlipidemia) Qualifiers: Hyperlipidemia type: unspecified Qualified Code(s): E78.5 - Hyperlipidemia, unspecified Is this a current diagnosis for this admission?: Yes (7) History of DVT (deep vein thrombosis) Is this a current diagnosis for this admission?: Yes (8) History of pulmonary embolism Is this a current diagnosis for this admission?: Yes (9) UTI due to Klebsiella species Is this a current diagnosis for this admission?: Yes Plan: Start on IV Levofloxacin 250 mg daily. She will benefit from prophylactic Nitrofurantoin coverage at discharge due to indwelling magallanes catheter. (10) Constipation Qualifiers: Constipation type: drug induced constipation Qualified Code(s): K59.03 - D rug induced constipation Is this a current diagnosis for this admission?: Yes Plan: Start on Colace 200 mg po qhs. Consider Amitiza usage if constipation persist. - Time Time Spent with patient: 25-34 minutes Medications reviewed and adjusted accordingly: Yes Anticipated discharge: Home with Homehealth Within: Other - Inpatient Certification Based on my medical assessment, after consideration of the patient's comorbidities, presenting symptoms, or acuity I expect that the services needed warrant INPATIENT care.: Yes I certify that my determination is in accordance with my understanding of Medicare's requirements for reasonable and necessary INPATIENT services [42 CFR 412.3e].: Yes Medical Necessity: Significant Comorbidiites Make Outpatient Treatment Too Risky, Need Close Monitoring Due to Risk of Patient Decompensation, Need For IV Fluids, Need For Continuous Telemetry Monitoring, Need for IV Antibiotics, Risk of Complication if Not Cared For in Hospital, Risk of Diagnosis Which Will Require Inpatient Eval/Care/Monitoring Post Hospital Care: D/C Kiss Machine Operator Documentation
[2018-07-04] MEDS ORDERED: LEVOFLOXACIN 250 MG/D5W RTU 250 MG/50 ML RTUPB IV ONE (17:42)
[2018-07-04] MEDS: LEVOFLOXACIN 250 MG/D5W RTU 250 MG/50 ML RTUPB IV SCH (17:47)
[2018-07-04] MEDS ORDERED: DOCUSATE SODIUM 100 MG CAPSULE PO ONE (18:00)
[2018-07-04] MEDS: CETIRIZINE 10 MG TABLET PO PRN (21:22)
[2018-07-04] MEDS: OXYCODONE-ACETAMINOPHEN 5-325 MG TABLET PO PRN (21:22)
[2018-07-04] MEDS: ATORVASTATIN CALCIUM 20 MG TABLET PO SCH (21:22)
[2018-07-05] MEDS: NORMAL SALINE 1000 ML 1,000 ML IV PRN ×2 (04:47→16:13)
[2018-07-05] MEDS: OXYCODONE-ACETAMINOPHEN 5-325 MG TABLET PO PRN ×3 (04:47→21:55)
[2018-07-05] MEDS: INSULIN LISPRO 100 UNIT/ML 3 ML VIAL SUBCUT SCH ×4 (08:54→21:56)
[2018-07-05] MEDS ORDERED: DOCUSATE SODIUM 100 MG CAPSULE PO SCH (10:00)
[2018-07-05] MEDS: LACOSAMIDE 100 MG TABLET PO SCH ×2 (10:11→21:56)
[2018-07-05] MEDS: FLUTICASONE NASAL SPRAY 50 MCG/SPRY 120 SPRAY/16 GM NASL SCH (10:11)
[2018-07-05] MEDS: DONEPEZIL HCL 5 MG TABLET PO SCH (10:12)
[2018-07-05] MEDS: VALSARTAN 160 MG TABLET PO SCH (10:12)
[2018-07-05] MEDS: GABAPENTIN 300 MG CAPSULE PO SCH ×3 (10:12→17:23)
[2018-07-05] MEDS: HYDROCHLOROTHIAZIDE 25 MG TABLET PO SCH (10:12)
[2018-07-05] MEDS: MONTELUKAST SODIUM 10 MG TABLET PO SCH (10:13)
[2018-07-05] MEDS: SITAGLIPTIN PHOSPHATE 25 MG TABLET PO SCH (10:13)
[2018-07-05] MEDS: SERTRALINE HCL 50 MG TABLET PO SCH (10:13)
[2018-07-05] MEDS: MEMANTINE HCL 10 MG TABLET PO SCH (10:14)
[2018-07-05] MEDS: LISINOPRIL 5 MG TABLET PO SCH (10:14)
[2018-07-05] MEDS: LANSOPRAZOLE 30 MG TAB.RAP.DR PO SCH (10:14)
--- NOTE | 2018-07-05 14:12 | PDOC PROGRESS REPORT ---
Subjective Progress Note for:: 07/05/18 Subjective:: No chest pain or difficulty with breathing. No nausea, vomiting or abdominal pain. No bowel movement so far. Remain on IV antibiotic and fluid support with improvement in her urine output. Reason For Visit: ACUTE KIDNEY INJURY/ACUTE HYPONATREMIA/ANEMIA Physical Exam Vital Signs: Temp Pulse Resp BP Pulse Ox 98.4 F 63 18 163/64 H 99 07/05/18 11:11 07/05/18 11:11 07/05/18 11:11 07/05/18 11:11 07/05/18 11:11 Intake & Output 07/04/18 07/05/18 07/06/18 06:59 06:59 06:59 Intake Total 2021 4540 375 Output Total 3150 3900 600 Balance -1128 640 -225 Weight 64 kg 63.8 kg Physical Exam: General appearance: PRESENT: no acute distress, well-developed, well-nourished Head exam: PRESENT: atraumatic, normocephalic Eye exam: PRESENT: conjunctiva pink, EOMI, PERRLA. ABSENT: pallor, scleral icterus Ear exam: PRESENT: normal external ear exam Mouth exam: PRESENT: moist Respiratory exam: PRESENT: clear to auscultation adenike Cardiovascular exam: PRESENT: RRR. ABSENT: diastolic murmur, rubs, systolic murmur GI/Abdominal exam: PRESENT: normal bowel sounds, soft, other - suprapubic magallanes catheter site is okay. ABSENT: distended, guarding, mass, organomegaly, rebound, tenderness Extremities exam: ABSENT: pedal edema Neurological exam: PRESENT: alert, awake, oriented to person, oriented to place, oriented to time, oriented to situation, CN II-XII grossly intact. ABSENT: motor sensory deficit Skin exam: PRESENT: dry, warm Results Laboratory Results: 07/02/18 14:00 07/01/18 18:04 07/01/18 20:04 Suprapubic Catheter Urine Culture - Final Klebsiella Pneumoniae Assessment & Plan - Diagnosis (1) Symptomatic anemia Is this a current diagnosis for this admission?: Yes (2) Anemia of chronic disease Is this a current diagnosis for this admission?: Yes (3) Hyponatremia with extracellular fluid depletion Is this a current diagnosis for this admission?: Yes (4) Diabetes mellitus type 2 in nonobese Is this a current diagnosis for this admission?: Yes (5) HTN (hypertension) Qualifiers: Hypertension type: essential hypertension Qualified Code(s): I10 - Essential (primary) hypertension Is this a current diagnosis for this admission?: Yes (6) HLD (hyperlipidemia) Qualifiers: Hyperlipidemia type: unspecified Qualified Code(s): E78.5 - Hyperlipidemia, unspecified Is this a current diagnosis for this admission?: Yes (7) History of DVT (deep vein thrombosis) Is this a current diagnosis for this admission?: Yes (8) History of pulmonary embolism Is this a current diagnosis for this admission?: Yes (9) UTI due to Klebsiella species Is this a current diagnosis for this admission?: Yes (10) Constipation Qualifiers: Constipation type: drug induced constipation Qualified Code(s): K59.03 - Drug induced constipation Is this a current diagnosis for this admission?: Yes - Time Time Spent with patient: 25-34 minutes Medications reviewed and adjusted accordingly: Yes Anticipated discharge: Home with Homehealth Within: Other - Inpatient Certification Based on my medical assessment, after consideration of the patient's comorbidities, presenting symptoms, or acuity I expect that the services needed warrant INPATIENT care.: Yes I certify that my determination is in accordance with my understanding of Medicare's requirements for reasonable and necessary INPATIENT services [42 CFR 412.3e].: Yes Medical Necessity: Significant Comorbidiites Make Outpatient Treatment Too Risky, Need Close Monitoring Due to Risk of Patient Decompensation, Need For IV Fluids, Need For Continuous Telemetry Monitoring, Need for IV Antibiotics, Risk of Complication if Not Cared For in Hospital, Risk of Diagnosis Which Will Require Inpatient Eval/Care/Monitoring Post Hospital Care: D/C Nursing Secretary Documentation - Plan Summary Plan Summary: Continue current medication management. Change magallanes catheter. Dulcolax suppository 10 mg [place] x 1 dose. Follow up on GI consultation request.
[2018-07-05] MEDS ORDERED: LISINOPRIL 5 MG TABLET PO ONE (15:00)
[2018-07-05] MEDS ORDERED: BISACODYL 10 MG SUPP.RECT PR ONE (15:00)
[2018-07-05] MEDS ORDERED: METFORMIN HCL 500 MG TABLET PO SCH (16:00)
[2018-07-05] MEDS: LEVOFLOXACIN 250 MG/D5W RTU 250 MG/50 ML RTUPB IV SCH (17:23)
[2018-07-05] MEDS ORDERED: MAGNESIUM HYDROXIDE SUSP 30 ML UDCUP PO ONE (19:01)
[2018-07-05] MEDS: ATORVASTATIN CALCIUM 20 MG TABLET PO SCH (21:55)
[2018-07-05] MEDS: CETIRIZINE 10 MG TABLET PO PRN (21:56)
[2018-07-05] MEDS ORDERED: MAGNESIUM HYDROXIDE SUSP 30 ML UDCUP ONE (21:59)
[2018-07-06] MEDS: OXYCODONE-ACETAMINOPHEN 5-325 MG TABLET PO PRN ×3 (03:22→22:04)
[2018-07-06] MEDS: NORMAL SALINE 1000 ML 1,000 ML IV PRN ×2 (03:23→11:45)
[2018-07-06 03:58] LABS: ABSOLUTE EOSINOPHILS # (AUTO) 0.2 10^3/uL (0.0-0.6); ABSOLUTE LYMPHOCYTES (AUTO) 1.1 10^3/uL (0.5-4.7); ABSOLUTE MONOCYTES (AUTO) 0.6 10^3/uL (0.1-1.4); ABSOLUTE NEUT (AUTO) 3.4 10^3/uL (1.7-8.2); BASOPHILS % (AUTO) 0.4 % (0-2); EOSINOPHILS % (AUTO) 3.8 % (0-6); HEMATOCRIT 29.1 % (36.0-47.0); HEMOGLOBIN 9.7 g/dL (12.0-15.5); MEAN CORPUSCULAR HEMOGLOBIN 30.4 pg (27.0-33.4); MEAN CORPUSCULAR HGB CONC 33.5 g/dL (32.0-36.0); MEAN CORPUSCULAR VOLUME 91 fl (80-97); PLATELET COUNT 213 10^3/uL (150-450); RED CELL DISTRIBUTION WIDTH 16.3 % (11.5-14.0); SEGMENTED NEUTROPHILS % (AUTO) 63.8 % (42-78); TOTAL CELLS COUNTED % (AUTO) 100 %; WHITE BLOOD COUNT 5.4 10^3/uL (4.0-10.5)
[2018-07-06 04:17] LABS: ANION GAP 7 (5-19); BLOOD UREA NITROGEN 19 mg/dL (7-20); CALCIUM 8.5 mg/dL (8.4-10.2); CARBON DIOXIDE 28 mmol/L (22-30); CHLORIDE 104 mmol/L (98-107); GLUCOSE 148 mg/dL (75-110); POTASSIUM 4.2 mmol/L (3.6-5.0); SODIUM 138.6 mmol/L (137-145)
[2018-07-06] MEDS ORDERED: BISACODYL 5 MG TABEC PO ONE (07:00)
[2018-07-06] MEDS ORDERED: MAGNESIUM CITRATE 296 ML BOTTLE PO ONE (08:00)
--- NOTE | 2018-07-06 08:11 | PDOC PROGRESS REPORT ---
Subjective Progress Note for:: 07/06/18 Subjective:: No chest pain or difficulty with breathing. No nausea, vomiting or abdominal pain. Remain on IV antibiotic and fluid support. She is scheduled for colonoscopy later today. Reason For Visit: ACUTE KIDNEY INJURY/ACUTE HYPONATREMIA/ANEMIA Physical Exam Vital Signs: Temp Pulse Resp BP Pulse Ox 97.9 F 62 16 120/57 L 100 07/06/18 07:18 07/06/18 07:18 07/06/18 07:18 07/06/18 07:18 07/06/18 07:18 Intake & Output 07/05/18 07/06/18 07/07/18 06:59 06:59 06:59 Intake Total 4590 3117 Output Total 3900 2625 Balance 690 492 Weight 63.8 kg 64.5 kg Physical Exam: General appearance: PRESENT: no acute distress, well-developed, well-nourished Head exam: PRESENT: atraumatic, normocephalic Eye exam: PRESENT: conjunctiva pink, EOMI, PERRLA. ABSENT: pallor, scleral icterus Ear exam: PRESENT: normal external ear exam Mouth exam: PRESENT: moist Respiratory exam: PRESENT: clear to auscultation adenike Cardiovascular exam: PRESENT: RRR. ABSENT: diastolic murmur, rubs, systolic murmur GI/Abdominal exam: PRESENT: normal bowel sounds, soft, other - suprapubic magallanes catheter site is okay. ABSENT: distended, guarding, mass, organomegaly, rebound, tenderness Extremities exam: ABSENT: pedal edema Neurological exam: PRESENT: alert, awake, oriented to person, oriented to place, oriented to time, oriented to situation, CN II-XII grossly intact. ABSENT: motor sensory deficit Skin exam: PRESENT: dry, warm Results Laboratory Results: 07/06/18 03:28 07/06/18 03:28 07/06/18 07/06/18 03:28 03:28 WBC 5.4 RBC 3.20 L Hgb 9.7 L Hct 29.1 L MCV 91 MCH 30.4 MCHC 33.5 RDW 16.3 H Plt Count 213 Seg Neutrophils % 63.8 Lymphocytes % 21.0 Monocytes % 11.0 Eosinophils % 3.8 Basophils % 0.4 Absolute Neutrophils 3.4 Absolute Lymphocytes 1.1 Absolute Monocytes 0.6 Absolute Eosinophils 0.2 Absolute Basophils 0.0 Sodium 138.6 Potassium 4.2 Chloride 104 Carbon Dioxide 28 Anion Gap 7 BUN 19 Creatinine 0.81 Est GFR ( Amer) > 60 Est GFR (Non-Af Amer) > 60 Glucose 148 H Calcium 8.5 07/01/18 20:04 Suprapubic Catheter Urine Culture - Final Klebsiella Pneumoniae Assessment & Plan - Diagnosis (1) Symptomatic anemia Is this a current diagnosis for this admission?: Yes (2) Anemia of chronic disease Is this a current diagnosis for this admission?: Yes (3) Hyponatremia with extracellular fluid depletion Is this a current diagnosis for this admission?: Yes (4) Diabetes mellitus type 2 in nonobese Is this a current diagnosis for this admission?: Yes (5) HTN (hypertension) Qualifiers: Hypertension type: essential hypertension Qualified Code(s): I10 - Essential (primary) hypertension Is this a current diagnosis for this admission?: Yes (6) HLD (hyperlipidemia) Qualifiers: Hyperlipidemia type: unspecified Qualified Code(s): E78.5 - Hyperlipidemia, unspecified Is this a current diagnosis for this admission?: Yes (7) History of DVT (deep vein thrombosis) Is this a current diagnosis for this admission?: Yes (8) History of pulmonary embolism Is this a current diagnosis for this admission?: Yes (9) UTI due to Klebsiella species Is this a current diagnosis for this admission?: Yes (10) Constipation Qualifiers: Constipation type: drug induced constipation Qualified Code(s): K59.03 - Drug induced constipation Is this a current diagnosis for this admission?: Yes - Time Time Spent with patient: 25-34 minutes Medications reviewed and adjusted accordingly: Yes Anticipated discharge: Home with Homehealth Within: Other - Inpatient Certification Based on my medical assessment, after consideration of the patient's comorbidities, presenting symptoms, or acuity I expect that the services needed warrant INPATIENT care.: Yes I certify that my determination is in accordance with my understanding of Medicare's requirements for reasonable and necessary INPATIENT services [42 CFR 412.3e].: Yes Medical Necessity: Significant Comorbidiites Make Outpatient Treatment Too Risky, Need Close Monitoring Due to Risk of Patient Decompensation, Need For IV Fluids, Need For Continuous Telemetry Monitoring, Need for IV Antibiotics, Risk of Complication if Not Cared For in Hospital, Risk of Diagnosis Which Will Require Inpatient Eval/Care/Monitoring 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 Follow up on colonoscopy findings.
[2018-07-06] MEDS: INSULIN LISPRO 100 UNIT/ML 3 ML VIAL SUBCUT SCH ×4 (08:24→22:36)
[2018-07-06] MEDS: MONTELUKAST SODIUM 10 MG TABLET PO SCH (09:51)
[2018-07-06] MEDS: METFORMIN HCL 500 MG TABLET PO SCH ×2 (09:51→22:05)
[2018-07-06] MEDS: LACOSAMIDE 100 MG TABLET PO SCH ×2 (09:52→22:05)
[2018-07-06] MEDS: GABAPENTIN 300 MG CAPSULE PO SCH ×3 (09:52→22:04)
[2018-07-06] MEDS: MEMANTINE HCL 10 MG TABLET PO SCH (09:52)
[2018-07-06] MEDS: HYDROCHLOROTHIAZIDE 25 MG TABLET PO SCH (09:52)
[2018-07-06] MEDS: SERTRALINE HCL 50 MG TABLET PO SCH (09:52)
[2018-07-06] MEDS: LISINOPRIL 10 MG TABLET PO SCH (09:52)
[2018-07-06] MEDS: SITAGLIPTIN PHOSPHATE 25 MG TABLET PO SCH (09:53)
[2018-07-06] MEDS: DONEPEZIL HCL 5 MG TABLET PO SCH (09:53)
[2018-07-06] MEDS: VALSARTAN 160 MG TABLET PO SCH (09:53)
[2018-07-06] MEDS: LANSOPRAZOLE 30 MG TAB.RAP.DR PO SCH (09:53)
[2018-07-06] MEDS: FLUTICASONE NASAL SPRAY 50 MCG/SPRY 120 SPRAY/16 GM NASL SCH (09:54)
[2018-07-06] MEDS ORDERED: ONDANSETRON HCL INJ/PF 4 MG/2 ML SDV ONE (15:08)
[2018-07-06] MEDS ORDERED: NALOXONE HCL INJ/PF 0.4 MG/1 ML SDV ONE (15:08)
[2018-07-06] MEDS ORDERED: DIPHENHYDRAMINE HCL 50 MG/ML VIAL ONE (15:08)
[2018-07-06] MEDS ORDERED: GLUCAGON,HUMAN RECOMB 1 MG INJ ONE (15:09)
[2018-07-06] MEDS ORDERED: FLUMAZENIL INJ 0.5 MG/5 ML VIAL ONE (15:09)
[2018-07-06] MEDS ORDERED: EPINEPHRINE INJ 1 MG/10 ML DISP.SYRIN ONE (15:09)
--- NOTE | 2018-07-06 17:21 | PDOC CONSULTATION ---
Consultation Consult Date: 07/05/18 History of Present Illness Admission Date/PCP: 07/01/18 20:33 History of Present Illness: ANI PELAYO is a 83 year old female Patient who was admitted on 07/01/2018 with renal failure, anemia, and heme-positive stool. Consultation was requested to rule out GI bleed. On admission hemoglobin was 7.6 with normal red cell indices. I saw her in March 2017 for dysphagia and she had an EGD that showed mild antral gastritis. She denies abdominal pain, rectal bleeding, or black stools. She had an unremarkable CT of the abdomen and pelvis without contrast in March. Past Medical History Cardiac Medical History: Reports: Coronary Artery Disease, Hyperlipidema - meds x 10 years, Hypertension - meds x 10 years, Heart Murmur - denies echo Denies: Atrial Fibrillation, Congestive Heart Failure, Myocardial Infarction, Peripheral Vascular Disease, Pulmonary Embolism Pulmonary Medical History: Reports: Sleep Apnea - CPAP DC'ed x 1 year Denies: Asthma, Bronchitis, Chronic Obstructive Pulmonary Disease (COPD), Pneumonia, Respiratory Failure, Tuberculosis Neurological Medical History: Reports: Seizures - LAST SEIZURE 6 MONTHS AGO Endocrine Medical History: Reports: Diabetes Mellitus Type 1, Diabetes Mellitus Type 2 Denies: Hyperthyroidism, Hypothyroidism Malignancy Medical History: Reports: Breast Cancer - RT Denies: Cervical Cancer, Leukemia, Lung Cancer, Ovarian Cancer GI Medical History: Reports: Gastroesophageal Reflux Disease - meds x 15 years Denies: Crohn's Disease, Hiatal Hernia Musculoskeltal Medical History: Reports: Arthritis Denies: Fibromyalgia Psychiatric Medical History: Reports: Depression - meds x 30 years Denies: Bipolar Disorder, Dementia, Post Traumatic Stress Disorder Hematology: Reports: Anemia Denies: Hemophilia, Sickle Cell Disease Infectious Medical History: Denies: HIV Past Surgical History Past Surgical History: Reports: Appendectomy, Cholecystectomy, Hysterectomy, Mastectomy - "partial RIGHT" with lymph node dissection (20) Denies: Amputation, Section, Colostomy, Coronary Artery Bypass Graft, Gastric Bypass Surgery, Herniorrhaphy, Pacemaker, Tonsillectomy, Tubal Ligation Social History Lives with: Family Smoking Status: Former Smoker Cigarettes Packs Per Day: 1 Number of Years Smokin Last Time Smoked: 1968 Frequency of Alcohol Use: None Hx Recreational Drug Use: No Drugs: None Hx Prescription Drug Abuse: No Family History Family History: Reviewed & Not Pertinent Parental Family History Reviewed: No Children Family History Reviewed: NA Sibling(s) Family History Reviewed.: NA Medication/Allergy Home Medications: Apixaban [Eliquis 2.5 mg Tablet] 2.5 mg PO BID 07/01/18 Donepezil HCl [Aricept 5 mg Tablet] 5 mg PO DAILY 07/01/18 Fluticasone Propionate [Flonase Nasal [place] 50 Mcg/[place] 16 gm] 2 sprays NASL DAILY 07/01/18 Gabapentin [Neurontin 300 mg Capsule] 300 mg PO Q6 07/01/18 Ibuprofen [Motrin 400 mg Tablet] 400 mg PO TID 07/01/18 Insulin Lispro Protamin/Lispro [Humalog Mix 50-50 Vial] 0 unit SQ .SLD SCALE 07/01/18 Lacosamide [Vimpat 100 mg Tablet] 100 mg PO Q12 07/01/18 Levocetirizine Dihydrochloride [Allergy Relief] 5 mg PO DAILYP PRN 07/01/18 Linagliptin [Tradjenta] 5 mg PO DAILY 07/01/18 Lisinopril [Prinivil 5 mg Tablet] 5 mg PO DAILY 07/01/18 Memantine HCl/Donepezil HCl [Namzaric 28 mg-10 mg Capsule] 1 each PO DAILY 07/01/18 Metformin HCl [Glucophage] 1,000 mg PO BID 07/01/18 Mirabegron [Myrbetriq] 25 mg PO DAILY 07/01/18 Montelukast Sodium [Singulair 10 mg Tablet] 10 mg PO DAILY 07/01/18 Oxycodone HCl/Acetaminophen [Percocet 5-325 mg Tablet] 1 tab PO Q6HP PRN 07/01/18 Pantoprazole Sodium [Protonix] 40 mg PO DAILY 07/01/18 Rosuvastatin Calcium [Crestor 10 mg Tablet] 10 mg PO DAILY 07/01/18 Sertraline HCl [Zoloft] 100 mg PO DAILY 07/01/18 Valsartan/Hydrochlorothiazide [Valsartan-Hctz 320-25 mg Tab] 1 each PO DAILY 07/01/18 Allergies/Adverse Reactions: Penicillins Allergy (Severe, Verified 08/03/17 12:51) rash/swelling Sulfa (Sulfonamide Antibiotics) Allergy (Severe, Verified 08/03/17 12:51) rash/swelling Review of Systems All systems: reviewed and no additional remarkable complaints except as stated Physical Exam Vital Signs: Temp Pulse Resp BP Pulse Ox 97.9 F 62 16 131/44 H 100 07/06/18 15:03 07/06/18 15:03 07/06/18 15:03 07/06/18 15:03 07/06/18 15:03 Intake & Output 07/05/18 07/06/18 07/07/18 06:59 06:59 06:59 Intake Total 4590 3117 837 Output Total 3900 2625 Balance 690 492 837 Weight 63.8 kg 64.5 kg Exam: General: Patient is alert and obese HEENT: There is some pallor but no jaundice. PERRLA. Oropharynx normal Respiratory: No chest deformity. No respiratory distress. Chest wall palpitation was unremarkable. Breath sounds were normal Cardiovascular: Heart sounds 1 and 2 normal with no murmurs. Abdominal: Soft, obese and nontender. Liver and spleen not palpable. No ascites demonstrated. Bowel sounds active. Rectal examination was deferred. Extremities: Some bilateral edema Neurological: Alert and oriented x4. Not fully examined Skin: No significant rash Psychological: Normal affect Results Laboratory Results: 07/06/18 03:28 07/06/18 03:28 07/06/18 07/06/18 03:28 03:28 WBC 5.4 RBC 3.20 L Hgb 9.7 L Hct 29.1 L MCV 91 MCH 30.4 MCHC 33.5 RDW 16.3 H Plt Count 213 Seg Neutrophils % 63.8 Lymphocytes % 21.0 Monocytes % 11.0 Eosinophils % 3.8 Basophils % 0.4 Absolute Neutrophils 3.4 Absolute Lymphocytes 1.1 Absolute Monocytes 0.6 Absolute Eosinophils 0.2 Absolute Basophils 0.0 Sodium 138.6 Potassium 4.2 Chloride 104 Carbon Dioxide 28 Anion Gap 7 BUN 19 Creatinine 0.81 Est GFR ( Amer) > 60 Est GFR (Non-Af Amer) > 60 Glucose 148 H Calcium 8.5 Assessment & Plan - Diagnosis (1) Anemia Qualifiers: Anemia type: unspecified type Qualified Code(s): D64.9 - Anemia, unspecified Is this a current diagnosis for this admission?: Yes Plan: Anemia is likely of chronic diseases but she will undergo an EGD and colonoscopy to rule out GI pathology. (2) Heme positive stool Is this a current diagnosis for this admission?: Yes Plan: She does have a history of hemorrhoids that may explain this (4) Anemia of chronic disease Is this a current diagnosis for this admission?: Yes
[2018-07-06] MEDS: MIDAZOLAM 2 MG/2 ML INJ ONE ×2 (18:16→18:23)
[2018-07-06] MEDS: FENTANYL CITRATE INJ/PF 100 MCG/2 ML AMPUL ONE ×2 (18:18→18:35)
--- NOTE | 2018-07-06 19:00 | Operative Report ---
Operative Report DATE OF SURGERY: 07/06/18 Operative Report: Pre-op diagnosis: Rectal bleeding and anemia Post-op diagnosis: 1. Antral gastritis 2. Transverse colon polyp 3. Pancolonic diverticulosis 4. Large internal and external hemorrhoids 5. Slightly limited view of the left colon Surgery: Upper endoscopy with biopsy and Colonoscopy and Polypectomy Medications: Versed 2mg, Fentanyl 75mcg IV push Tissue removed: Antral and gastric body biopsy, colon polyp Procedure: After informed consent obtained from patient, patient's pharynx was sprayed with Hurricane and conscious sedation was achieved. The upper endoscope was then inserted into the esophagus under direct vision and advanced into the stomach and further into the duodenum. Detailed examination of the duodenum, stomach and the esophagus was then performed. A digital rectal examination was performed and this was unremarkable. The colo noscope was inserted into the rectum and advanced to the cecum. The appendiceal orifice and the terminal ileum were both identified. The mucosa was examined into details as the colonoscope was slowly pulled out of the patient. The endoscope was retroflexed in the rectum. Patient tolerated the procedure well. Findings Esophagus: Normal Stomach: Mild antral gastritis Duodenum: Normal Cecum: Single diverticuli Ascending colon: Normal Transverse colon: Few diverticuli. 9 mm sessile polyp removed behind a fold in the mid transverse colon with a hot polypectomy snare Descending colon: Few diverticuli Sigmoid colon: Multiple diverticuli Rectum: Normal except for internal and external hemorrhoids. Hemorrhoids were prolapsing but reducible Plan: Await pathology. Hold Eliquis for 3 more days if possible. Fiber supplements daily OPERATION: .
[2018-07-06] MEDS: ATORVASTATIN CALCIUM 20 MG TABLET PO SCH (22:04)
[2018-07-06] MEDS: LEVOFLOXACIN 250 MG/D5W RTU 250 MG/50 ML RTUPB IV SCH (22:05)
[2018-07-07] MEDS: OXYCODONE-ACETAMINOPHEN 5-325 MG TABLET PO PRN ×3 (03:29→21:20)
[2018-07-07] MEDS: NORMAL SALINE 1000 ML 1,000 ML IV PRN ×2 (08:51→21:30)
--- NOTE | 2018-07-07 09:06 | PDOC PROGRESS REPORT ---
Subjective Progress Note for:: 07/07/18 Subjective:: Patient denied chest pain or difficulty with breathing. s/p colonoscopy and endoscopy evaluation with findings of internal and external hemorrhoid, pancolonic diverticular disease without active bleeding of inflammation and antral gastritis. No fever or chills. Reason For Visit: ACUTE KIDNEY INJURY/ACUTE HYPONATREMIA/ANEMIA Physical Exam Vital Signs: Temp Pulse Resp BP Pulse Ox 98.3 F 66 16 138/51 H 97 07/07/18 00:12 07/07/18 02:00 07/07/18 00:12 07/07/18 00:12 07/07/18 00:12 Intake & Output 07/06/18 07/07/18 07/08/18 06:59 06:59 06:59 Intake Total 3117 1074 Output Total 2625 850 Balance 492 224 Weight 64.5 kg 67.6 kg Physical Exam: General appearance: PRESENT: no acute distress, well-developed, well-nourished Head exam: PRESENT: atraumatic, normocephalic Eye exam: PRESENT: conjunctiva pink, EOMI, PERRLA. ABSENT: pallor, scleral icterus Ear exam: PRESENT: normal external ear exam Mouth exam: PRESENT: moist Respiratory exam: PRESENT: clear to auscultation adenike Cardiovascular exam: PRESENT: RRR. ABSENT: diastolic murmur, rubs, systolic murmur GI/Abdominal exam: PRESENT: normal bowel sounds, soft, other - suprapubic magallanes catheter site is okay. ABSENT: distended, guarding, mass, organomegaly, rebound, tenderness Extremities exam: ABSENT: pedal edema Neurological exam: PRESENT: alert, awake, oriented to person, oriented to place, oriented to time, oriented to situation, CN II-XII grossly intact. ABSENT: motor sensory deficit Skin exam: PRESENT: dry, warm Results Laboratory Results: 07/06/18 03:28 07/06/18 03:28 Assessment & Plan - Diagnosis (1) Symptomatic anemia Is this a current diagnosis for this admission?: Yes (2) Anemia of chronic disease Is this a current diagnosis for this admission?: Yes (3) Hyponatremia with extracellular fluid depletion Is this a current diagnosis for this admission?: Yes (4) Diabetes mellitus type 2 in nonobese Is this a current diagnosis for this admission?: Yes (5) HTN (hypertension) Qualifiers: Hypertension type: essential hypertension Qualified Code(s): I10 - Essential (primary) hypertension Is this a current diagnosis for this admission?: Yes (6) HLD (hyperlipidemia) Qualifiers: Hyperlipidemia type: unspecified Qualified Code(s): E78.5 - Hyperlipidemia, unspecified Is this a current diagnosis for this admission?: Yes (7) History of DVT (deep vein thrombosis) Is this a current diagnosis for this admission?: Yes (8) History of pulmonary embolism Is this a current diagnosis for this admission?: Yes (9) UTI due to Klebsiella species Is this a current diagnosis for this admission?: Yes (10) Constipation Qualifiers: Constipation type: drug induced constipation Qualified Code(s): K59.03 - Drug induced constipation Is this a current diagnosis for this admission?: Yes (11) Antral gastritis Is this a current diagnosis for this admission?: Yes Plan: Maintain on Lansoprazole therapy and advise increase fiber in diet. (12) Internal and external hemorrhoids without complication Is this a current diagnosis for this admission?: Yes Plan: Maintain on high fiber diet and stool softener. - Time Time Spent with patient: 25-34 minutes Medications reviewed and adjusted accordingly: Yes Anticipated discharge: Home with Homehealth Within: Other - Inpatient Certification Based on my medical assessment, after consideration of the patient's comorbidities, presenting symptoms, or acuity I expect that the services needed warrant INPATIENT care.: Yes I certify that my determination is in accordance with my understanding of Medicare's requirements for reasonable and necessary INPATIENT services [42 CFR 412.3e].: Yes Medical Necessity: Significant Comorbidiites Make Outpatient Treatment Too Risky, Need Close Monitoring Due to Risk of Patient Decompensation, Need For IV Fluids, Need For Continuous Telemetry Monitoring, Need for IV Antibiotics, Risk of Complication if Not Cared For in Hospital, Risk of Diagnosis Which Will Require Inpatient Eval/Care/Monitoring 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 Follow up on polypectomy pathology findings. Transition to oral levofloxacin therapy.
[2018-07-07] MEDS: INSULIN LISPRO 100 UNIT/ML 3 ML VIAL SUBCUT SCH ×4 (09:11→21:16)
[2018-07-07] MEDS: VALSARTAN 160 MG TABLET PO SCH (09:13)
[2018-07-07] MEDS: LISINOPRIL 10 MG TABLET PO SCH (09:13)
[2018-07-07] MEDS: SERTRALINE HCL 50 MG TABLET PO SCH (09:13)
[2018-07-07] MEDS: GABAPENTIN 300 MG CAPSULE PO SCH ×3 (09:14→18:38)
[2018-07-07] MEDS: SITAGLIPTIN PHOSPHATE 25 MG TABLET PO SCH (09:14)
[2018-07-07] MEDS: DONEPEZIL HCL 5 MG TABLET PO SCH (09:14)
[2018-07-07] MEDS: LANSOPRAZOLE 30 MG TAB.RAP.DR PO SCH (09:14)
[2018-07-07] MEDS: MEMANTINE HCL 10 MG TABLET PO SCH (09:14)
[2018-07-07] MEDS: FLUTICASONE NASAL SPRAY 50 MCG/SPRY 120 SPRAY/16 GM NASL SCH (09:14)
[2018-07-07] MEDS: METFORMIN HCL 500 MG TABLET PO SCH ×2 (09:14→18:38)
[2018-07-07] MEDS: HYDROCHLOROTHIAZIDE 25 MG TABLET PO SCH (09:19)
[2018-07-07] MEDS: MONTELUKAST SODIUM 10 MG TABLET PO SCH (09:19)
[2018-07-07] MEDS: LACOSAMIDE 100 MG TABLET PO SCH ×2 (09:24→21:16)
[2018-07-07] MEDS: LEVOFLOXACIN 250 MG/D5W RTU 250 MG/50 ML RTUPB IV SCH (18:38)
[2018-07-07] MEDS: ATORVASTATIN CALCIUM 20 MG TABLET PO SCH (21:16)
--- NOTE | 2018-07-08 08:41 | PDOC DISCHARGE SUMMARY ---
General - Admit/Disc Date/PCP Admission Date/Primary Care Provider: 07/01/18 20:33 Discharge Date: 07/08/18 - Discharge Diagnosis (1) Symptomatic anemia Is this a current diagnosis for this admission?: Yes (2) Anemia of chronic disease Is this a current diagnosis for this admission?: Yes (3) Hyponatremia with extracellular fluid depletion Is this a current diagnosis for this admission?: Yes (4) Diabetes mellitus type 2 in nonobese Is this a current diagnosis for this admission?: Yes (5) HTN (hypertension) Is this a current diagnosis for this admission?: Yes (6) HLD (hyperlipidemia) Is this a current diagnosis for this admission?: Yes (7) History of DVT (deep vein thrombosis) Is this a current diagnosis for this admission?: Yes (8) History of pulmonary embolism Is this a current diagnosis for this admission?: Yes (9) UTI due to Klebsiella species Is this a current diagnosis for this admission?: Yes (10) Constipation Is this a current diagnosis for this admission?: Yes (11) Antral gastritis Is this a current diagnosis for this admission?: Yes (12) Internal and external hemorrhoids without complication Is this a current diagnosis for this admission?: Yes - Additional Information Resuscitation Status: Full Code Prescriptions: Lisinopril [Prinivil 10 mg Tablet] 10 mg PO DAILY #30 tablet Nitrofurantoin Macrocrystal [Nitrofurantoin] 50 mg PO QHS #30 capsule Home Medications: Apixaban [Eliquis 2.5 mg Tablet] 2.5 mg PO BID 07/01/18 Donepezil HCl [Aricept 5 mg Tablet] 5 mg PO DAILY 07/01/18 Fluticasone Propionate [Flonase Nasal [place] 50 Mcg/[place] 16 gm] 2 sprays NASL DAILY 07/01/18 Gabapentin [Neurontin 300 mg Capsule] 300 mg PO Q6 07/01/18 Insulin Lispro Protamin/Lispro [Humalog Mix 50-50 100 unit/mL] 0 unit SQ .SLD SCALE 07/01/18 Lacosamide [Vimpat 100 mg Tablet] 100 mg PO Q12 07/01/18 Levocetirizine Dihydrochloride [Allergy Relief] 5 mg PO DAILYP PRN 07/01/18 Linagliptin [Tradjenta] 5 mg PO DAILY 07/01/18 Lisinopril [Prinivil 5 mg Tablet] 5 mg PO DAILY 07/01/18 Memantine HCl/Donepezil HCl [Namzaric 28 mg-10 mg Capsule] 1 each PO DAILY 07/01/18 Metformin HCl [Glucophage] 1,000 mg PO BID 07/01/18 Mirabegron [Myrbetriq] 25 mg PO DAILY 07/01/18 Montelukast Sodium [Singulair 10 mg Tablet] 10 mg PO DAILY 07/01/18 Oxycodone HCl/Acetaminophen [Percocet 5-325 mg Tablet] 1 tab PO Q6HP PRN 07/01/18 Pantoprazole Sodium [Protonix] 40 mg PO DAILY 07/01/18 Rosuvastatin Calcium [Crestor 10 mg Tablet] 10 mg PO DAILY 07/01/18 Sertraline HCl [Zoloft] 100 mg PO DAILY 07/01/18 Valsartan/Hydrochlorothiazide [Valsartan-Hctz 320-25 mg Tab] 1 each PO DAILY 07/01/18 Apixaban [Eliquis 2.5 mg Tablet] 2.5 mg PO BID tablet 07/08/18 Lisinopril [Prinivil 10 mg Tablet] 10 mg PO DAILY #30 tablet 07/08/18 Nitrofurantoin Macrocrystal [Nitrofurantoin] 50 mg PO QHS #30 capsule 07/08/18 History of Present Illness Patient complains of: Decrease urinary output History of Present Illness: ANI PELAYO is a 83 year old female patient known to my practice who presented to the ED with complaint of decrease urinary output. she admitted to decrease fluid intake for quite sometime. she admitted to cloudy and malodor urine. She denied any fever or chills. No nausea, vomiting, or abdominal pain. She reported associated fatigue, weakness, and poor appetite. Her initial ED evaluation was significant for hyponatremia, significant anemia and abnormal urinalysis. Her morbidities include Diabetes Mellitus Type 2, Hypertension, Coronary Artery Disease, Hyperlipidemia, GERD Sleep Apnea off CPAP machine usage, Seizure disorder, Depression, and suprapubic catheterization for outlet obstruction. She was advised hospitalization for further evaluation and management. Hospital Course Hospital Course: Patient was managed with IV fluid and antibiotic., Her urine culture grew Klebsiella aeruginosa with adequate coverage on IV Levofloxacin. Her presenting hyponatremia did improved on IV fluid support. She developed significant anemia necessitating transfusion of 2 units PRBC. she was een in consultation by Dr. Link, porcelain slusher, and eventually had EGD and colonoscopy evaluation on 07/06/2018 that revealed antral gastritis, colonic diverticular disease without active bleeding and hemorrhoid. Her hemoglobin have been stable and her work up for anemia so far not indicative of cause. She will remain off Eliquis usage until 07/10/2018. She will be discharged home today on Nitrofurantoin prophylactic coverage due to her suprapubic indwelling Magallanes catheter Physical Exam Vital Signs: Temp Pulse Resp BP Pulse Ox 98.0 F 59 L 12 163/60 H 99 07/08/18 04:36 07/08/18 04:36 07/08/18 04:36 07/08/18 04:36 07/08/18 04:36 Intake & Output 07/07/18 07/08/18 07/09/18 06:59 06:59 06:59 Intake Total 2124 1290 Output Total 850 3600 Balance 1274 -2310 Weight 67.6 kg 68.1 kg Physical Exam: General appearance: PRESENT: no acute distress, well-developed, well-nourished Head exam: PRESENT: atraumatic, normocephalic Eye exam: PRESENT: conjunctiva pink, EOMI, PERRLA. ABSENT: pallor, scleral icterus Ear exam: PRESENT: normal external ear exam Mouth exam: PRESENT: moist Respiratory exam: PRESENT: clear to auscultation adenike Cardiovascular exam: PRESENT: RRR. ABSENT: diastolic murmur, rubs, systolic murmur GI/Abdominal exam: PRESENT: normal bowel sounds, soft, other - suprapubic magallanes catheter site is okay. ABSENT: distended, guarding, mass, organomegaly, rebound, tenderness Extremities exam: ABSENT: pedal edema Neurological exam: PRESENT: alert, awake, oriented to person, oriented to place, oriented to time, oriented to situation, CN II-XII grossly intact. ABSENT: motor sensory deficit Skin exam: PRESENT: dry, warm Results Laboratory Results: 07/06/18 03:28 07/06/18 03:28 Qualifiers - * PATIENT BEING DISCHARGED WITH ANY OF THE FOLLOWING DIAGNOSIS: No Plan Discharge Plan: D/C home today. Follow up in the office as directed upon discharge.
[2018-07-08] MEDS: MONTELUKAST SODIUM 10 MG TABLET PO SCH (10:10)
[2018-07-08] MEDS: SITAGLIPTIN PHOSPHATE 25 MG TABLET PO SCH (10:10)
[2018-07-08] MEDS: HYDROCHLOROTHIAZIDE 25 MG TABLET PO SCH (10:10)
[2018-07-08] MEDS: LACOSAMIDE 100 MG TABLET PO SCH (10:10)
[2018-07-08] MEDS: DONEPEZIL HCL 5 MG TABLET PO SCH (10:10)
[2018-07-08] MEDS: MEMANTINE HCL 10 MG TABLET PO SCH (10:10)
[2018-07-08] MEDS: METFORMIN HCL 500 MG TABLET PO SCH (10:10)
[2018-07-08] MEDS: SERTRALINE HCL 50 MG TABLET PO SCH (10:10)
[2018-07-08] MEDS: LISINOPRIL 10 MG TABLET PO SCH (10:10)
[2018-07-08] MEDS: VALSARTAN 160 MG TABLET PO SCH (10:10)
[2018-07-08] MEDS: GABAPENTIN 300 MG CAPSULE PO SCH (10:10)
[2018-07-08] MEDS: LANSOPRAZOLE 30 MG TAB.RAP.DR PO SCH (10:10)
[2018-07-08] MEDS: INSULIN LISPRO 100 UNIT/ML 3 ML VIAL SUBCUT SCH (10:11)
[2018-07-08] MEDS: FLUTICASONE NASAL SPRAY 50 MCG/SPRY 120 SPRAY/16 GM NASL SCH (10:11)
[2018-07-08 11:40] VITALS: BP 131/44
== END 2018-07-08 11:10 | disposition home or self-care (01) | DRG 699 ==
LOC: ER 17:01 → EH 20:33 → 3S 23:29
PROVIDERS: ADMIT Internal Medicine Geriatric Medicine; ATTEND Internal Medicine Gastroenterology
PROC: 30233N1 Transfusion of Nonautologous Red Blood Cells into Peripheral Vein, Percutaneous Approach (ICD-10-PCS; 2018-07-02)
PROC: 0DBL8ZX Excision of Transverse Colon, Via Natural or Artificial Opening Endoscopic, Diagnostic (ICD-10-PCS; principal; 2018-07-06 17:30)
PROC: 0DD68ZX Extraction of Stomach, Via Natural or Artificial Opening Endoscopic, Diagnostic (ICD-10-PCS; 2018-07-06 17:30)
DX: T83.511A Infection and inflammatory reaction due to indwelling urethral catheter, initial encounter (principal); E87.1 Hypo-osmolality and hyponatremia; N17.9 Acute kidney failure, unspecified; D63.8 Anemia in other chronic diseases classified elsewhere; E11.9 Type 2 diabetes mellitus without complications; B96.1 Klebsiella pneumoniae [K. pneumoniae] as the cause of diseases classified elsewhere; G40.909 Epilepsy, unspecified, not intractable, without status epilepticus; E66.9 Obesity, unspecified; E78.5 Hyperlipidemia, unspecified; N39.0 Urinary tract infection, site not specified; I10 Essential (primary) hypertension; I25.10 Atherosclerotic heart disease of native coronary artery without angina pectoris; K21.9 Gastro-esophageal reflux disease without esophagitis; G47.30 Sleep apnea, unspecified; F32.9 Major depressive disorder, single episode, unspecified; N32.0 Bladder-neck obstruction; M19.90 Unspecified osteoarthritis, unspecified site; K29.70 Gastritis, unspecified, without bleeding; K63.5 Polyp of colon; K57.90 Diverticulosis of intestine, part unspecified, without perforation or abscess without bleeding; R19.5 Other fecal abnormalities; K59.03 Drug induced constipation; K64.4 Residual hemorrhoidal skin tags; K64.8 Other hemorrhoids; Z85.3 Personal history of malignant neoplasm of breast; Z90.11 Acquired absence of right breast and nipple; Z87.891 Personal history of nicotine dependence; Z79.01 Long term (current) use of anticoagulants; Z79.4 Long term (current) use of insulin; Z88.0 Allergy status to penicillin; Z88.2 Allergy status to sulfonamides; Z86.718 Personal history of other venous thrombosis and embolism; Z86.711 Personal history of pulmonary embolism; Z68.23 Body mass index [BMI] 23.0-23.9, adult
CPT/HCPCS: 36415; 36430; 36591; 43239; 45385; 80048; 81001; 82962; 85025; 86850; 86900; 86901; 86920; 87086; 87088; 87186; 88305; 88342; 96360; 99284; J0171; J1200; J1610; J1815; J1956; J2250; J2310; J2405; J3010; J3490; J7030; J7040; P9016

== ENCOUNTER → 2018-08-16 | Outpatient (CLI) | payer MEDICARE, MEDICAID ==
[2018-08-16 11:08] LABS: HEMATOCRIT 24.6 % (36.0-47.0); HEMOGLOBIN 8.3 g/dL (12.0-15.5); MEAN CORPUSCULAR HEMOGLOBIN 30.9 pg (27.0-33.4); MEAN CORPUSCULAR HGB CONC 33.6 g/dL (32.0-36.0); MEAN CORPUSCULAR VOLUME 92 fl (80-97); PLATELET COUNT 262 10^3/uL (150-450); RED BLOOD COUNT 2.67 10^6/uL (3.72-5.28); RED CELL DISTRIBUTION WIDTH 16.7 % (11.5-14.0); WHITE BLOOD COUNT 5.1 10^3/uL (4.0-10.5)
[2018-08-16 11:25] LABS: IRON(TIBC) 48.6 ug/dL (37-170)
== END ==
LOC: OD 10:00
PROVIDERS: ATTEND Physician Assistant Surgical
DX: D50.0 Iron deficiency anemia secondary to blood loss (chronic) (principal)
CPT/HCPCS: 36415; 82728; 83540; 83550; 85027

== ENCOUNTER 2018-09-07 14:41 | Day surgery (SDC) | payer MEDICARE, MEDICAID ==
[2018-09-07 15:43] LABS: HEMOGLOBIN 10.6 g/dL (12.0-15.5); MEAN CORPUSCULAR HEMOGLOBIN 29.7 pg (27.0-33.4); MEAN CORPUSCULAR VOLUME 90 fl (80-97); PLATELET COUNT 232 10^3/uL (150-450); RED BLOOD COUNT 3.56 10^6/uL (3.72-5.28); RED CELL DISTRIBUTION WIDTH 15.9 % (11.5-14.0); WHITE BLOOD COUNT 7.1 10^3/uL (4.0-10.5)
[2018-09-07 15:51] LABS: INTERNATIONAL RATION (INR) 0.92; PROTHROMBIN TIME 12.8 SEC (11.4-15.4)
[2018-09-07] MEDS ORDERED: ONDANSETRON HCL INJ/PF 4 MG/2 ML SDV ONE (17:03)
[2018-09-07] MEDS ORDERED: DIPHENHYDRAMINE HCL 50 MG/ML VIAL ONE (17:03)
[2018-09-07] MEDS ORDERED: EPINEPHRINE INJ 1 MG/10 ML DISP.SYRIN ONE (17:04)
[2018-09-07] MEDS ORDERED: FLUMAZENIL INJ 0.5 MG/5 ML VIAL ONE (17:04)
[2018-09-07] MEDS ORDERED: NALOXONE HCL INJ/PF 0.4 MG/1 ML SDV ONE (17:04)
[2018-09-07] MEDS ORDERED: FENTANYL CITRATE INJ/PF 100 MCG/2 ML AMPUL ONE (17:04)
[2018-09-07] MEDS ORDERED: GLUCAGON,HUMAN RECOMB 1 MG INJ ONE (17:04)
[2018-09-07] MEDS: MIDAZOLAM 2 MG/2 ML INJ ONE ×2 (18:00→18:15)
--- NOTE | 2018-09-07 18:44 | Operative Report ---
Operative Report DATE OF SURGERY: 09/07/18 Operative Report: Pre-op diagnosis: EGD with enteroscopy and argon plasma coagulation Post-op diagnosis: 1. Duodenal angiodysplasia Surgery: Esophagogastroduodenoscopy with argon plasma coagulation Medications: Versed 3mg Fentanyl 50mcg IV push Tissue removed: None Procedure: After informed consent obtained from patient, the throat was sprayed with Hurricane and conscious sedation was achieved. The upper endoscope was inserted into the esophagus under direct vision and advanced into the stomach. The duodenum was entered and examined to the second part. Endoscope was then slowly pulled out of the patient as the mucosa was examined into details. Patient tolerated procedure well. Findings Esophagus: Normal Antrum: Normal Body: Normal Fundus: Normal Duodenum first part: Normal Duodenum second part: 2 small angiodysplasias were cauterized in the top part of the duodenum. Plan: I discussed her case with Dr. Hilton who agrees that she should hold her Eliquis. She can continue with baby aspirin daily. Her hemoglobin was 10.6 t juliette OPERATION: .
[2018-09-07 20:01] VITALS: BP 176/77
== END 2018-09-07 19:50 | disposition home or self-care (01) ==
LOC: END 14:41
PROVIDERS: ATTEND Internal Medicine Gastroenterology
DX: K31.819 Angiodysplasia of stomach and duodenum without bleeding (principal); D50.0 Iron deficiency anemia secondary to blood loss (chronic); E11.9 Type 2 diabetes mellitus without complications; D64.9 Anemia, unspecified; K21.9 Gastro-esophageal reflux disease without esophagitis; I10 Essential (primary) hypertension; E78.00 Pure hypercholesterolemia, unspecified; G40.909 Epilepsy, unspecified, not intractable, without status epilepticus; Z85.3 Personal history of malignant neoplasm of breast; Z86.711 Personal history of pulmonary embolism; Z79.899 Other long term (current) drug therapy; Z79.84 Long term (current) use of oral hypoglycemic drugs; Z79.82 Long term (current) use of aspirin; Z79.01 Long term (current) use of anticoagulants; Z79.4 Long term (current) use of insulin
CPT/HCPCS: 44378; 36415; 82962; 85027; 85610; J2250; J3010; J0171; J1200; J1610; J2310; J2405; J3490

== ENCOUNTER 2019-04-04 08:51 | Emergency (ER) | payer MEDICARE, MEDICAID ==
[2019-04-04 09:45] LABS: APPEARANCE,URINE CLOUDY; BILIRUBIN,URINE NEGATIVE (NEGATIVE); COLOR,URINE AMBER; GLUCOSE, URINE NEGATIVE (NEGATIVE); KETONES,URINE NEGATIVE (NEGATIVE); LEUKOCYTE ESTERASE,URINE LARGE (NEGATIVE); NITRITE,URINE POSITIVE (NEGATIVE); PROTEIN,URINE 100 mg/dL (NEGATIVE); URINE SPECIFIC GRAVITY 1.018; UROBILINOGEN,URINE NEGATIVE mg/dL (<2.0)
[2019-04-04 09:50] LABS: ADD MANUAL MICROSCOPIC YES
[2019-04-04 09:52] LABS: AMORPHOUS SEDIMENT,UR TRACE; BACTERIA,URINE 1+ /HPF
--- NOTE | 2019-04-04 10:38 | ER Document Report ---
ED GI/ - General Chief Complaint: Vaginal Pain Stated Complaint: POSSIBLE UTI Time Seen by Provider: 04/04/19 10:00 Primary Care Provider: LATOYA ALEXANDER MD [Primary Care Provider] - Follow up as needed Notes: Patient is a 83-year-old female presents to the emergency department for dysuria and lower abdominal discomfort. Patient voices she does have a suprapubic catheter. States she has noted some irritation in her vaginal region for the last 24 hours. Patient is also complaining of pressure in her left lower abdominal quadrant. She is denying any fevers or vomiting. She is denying any back pain. She is denying any change in her suprapubic catheter recently. TRAVEL OUTSIDE OF THE [place] IN LAST 30 DAYS: No - Related Data Allergies/Adverse Reactions: Penicillins Allergy (Severe, Verified 04/04/19 09:04) rash/swelling Sulfa (Sulfonamide Antibiotics) Allergy (Severe, Verified 04/04/19 09:04) rash/swelling Home Medications: GABAPENTIN MONTELUKAST SODIUMNITROFURANTOIN MACRO VIMPAT. TRADJENTA DONEPEZIL METFORMIN OXYCODONE/ACETAMINOPHEN SERTALINE ROSUVASTATIN LISINOPRIL SERTRALINE FERROUS SULFATE MYRBETRIQ NAMZARIC PANTOPRAZOLE FENTANYL TRASDERMAL. LEVOCETIRIZINE VITAMIN C/TATIANA HIPS MULTIVITAMIN LOSARTAN/HCTZ Past Medical History - General Information source: Patient, Relative - Social History Smoking Status: Unknown if Ever Smoked Chew tobacco use (# tins/day): No Frequency of alcohol use: None Drug Abuse: None Family History: Reviewed & Not Pertinent Patient has suicidal ideation: No Patient has homicidal ideation: No - Past Medical History Cardiac Medical History: Reports: Hx Coronary Artery Disease, Hx Hypercholesterolemia - meds x 10 years, Hx Hypertension, Hx Heart Murmur - denies echo Denies: Hx Atrial Fibrillation, Hx Congestive Heart Failure, Hx Heart Attack, Hx Peripheral Vascular Disease, Hx Pulmonary Embolism Pulmonary Medical History: Reports: Hx Sleep Apnea - CPAP DC'ed x 1 year Denies: Hx Asthma, Hx Bronchitis, Hx COPD, Hx Pneumonia, Hx Respiratory Failure, Hx Tuberculosis Neurological Medical History: Reports: Hx Seizures. Denies: Hx Cerebrovascular Accident, Hx Parkinson's Disease Endocrine Medical History: Reports: Hx Diabetes Mellitus Type 1, Hx Diabetes Mellitus Type 2. Denies: Hx Graves' Disease, Hx Hyperthyroidism, Hx Hypothyroidism Renal/ Medical History: Reports: Hx Ovarian Cysts. Denies: Hx Peritoneal Dialysis Malignancy Medical History: Reports: Hx Breast Cancer - RT. Denies: Hx Cervical Cancer, Hx Leukemia, Hx Lung Cancer, Hx Ovarian Cancer GI Medical History: Reports: Hx Gastroesophageal Reflux Disease - meds x 15 years, Hx Ulcer - approx 15 years ago. Denies: Hx Crohn's Disease, Hx Hiatal Hernia, Hx Irritable Bowel, Hx Liver Failure, Hx Pancreatitis Musculoskeletal Medical History: Reports Hx Arthritis, Denies Hx Fibromyalgia, Denies Hx Multiple Sclerosis, Denies Hx Muscular Dystrophy, Denies Hx Systemic Lupus Erythematosus Psychiatric Medical History: Reports: Hx Depression - meds x 30 years Denies: Hx Bipolar Disorder, Hx Dementia, Hx Post Traumatic Stress Disorder, Hx Schizophrenia Traumatic Medical History: Reports: Hx Fractures - hx clavicle fx & rib fx's Infectious Medical History: Denies: Hx HIV Past Surgical History: Reports: Hx Appendectomy, Hx Breast Surgery - mastectomy, Hx Cholecystectomy, Hx Hysterectomy, Hx Mastectomy - "partial RIGHT" with lymph node dissection (20), Hx Orthopedic Surgery - shoulder replacement. Denies: Hx Bowel Surgery, Hx Section, Hx Colostomy, Hx Coronary Artery Bypass Graft, Hx Gastric Bypass Surgery, Hx Herniorrhaphy, Hx Pacemaker, Hx Tonsillectomy, Hx Tubal Ligation - Immunizations Hx Diphtheria, Pertussis, Tetanus Vaccination: No Hx Pneumococcal Vaccination: 02/19/09 Review of Systems - Review of Systems Constitutional: denies: Fever EENT: No symptoms reported Cardiovascular: No symptoms reported Respiratory: No symptoms reported Gastrointestinal: See HPI Genitourinary: See HPI Female Genitourinary: See HPI Musculoskeletal: No symptoms reported Skin: No symptoms reported Hematologic/Lymphatic: No symptoms reported Neurological/Psychological: No symptoms reported Physical Exam - Vital signs Vitals: Temp Pulse Resp BP Pulse Ox 97.9 F 73 15 148/58 H 99 04/04/19 08:55 04/04/19 08:55 04/04/19 08:55 04/04/19 08:55 04/04/19 08:55 - Notes Notes: GENERAL: Alert, interacts well. No acute distress. HEAD: Normocephalic, atraumatic. EYES: Extraocular movements intact. ENT: Oral mucosa moist, tongue midline. NECK: Full range of motion. Supple. Trachea midline. LUNGS: Clear to auscultation bilaterally, no wheezes, rales, or rhonchi. No respiratory distress. HEART: Regular rate and rhythm. No murmur ABDOMEN: Soft, suprapubic catheter noted, intact, no surrounding erythema or discharge noted. Generalized pain noted left lower quadrant, otherwise abdominal exam benign. Non-distended. Bowel sounds present in all 4 quadrants. EXTREMITIES: Moves all 4 extremities spontaneously. No edema, normal radial and dorsalis pedis pulses bilaterally. No cyanosis. BACK: no cervical, thoracic, lumbar midline tenderness. No saddle anesthesia, normal distal neurovascular exam. NEUROLOGICAL: Alert and oriented x3. Normal speech. PSYCH: Normal affect, normal mood. SKIN: Warm, dry, normal turgor. No rashes or lesions noted. Course - Re-evaluation Re-evalutation: Laboratory 04/04/19 04/04/19 04/04/19 09:19 10:39 10:39 WBC 4.0 RBC 4.07 Hgb 12.3 Hct 37.1 MCV 91 MCH 30.3 MCHC 33.2 RDW 13.1 Plt Count 218 Lymph % (Auto) 28.6 [place] % (Auto) 11.0 Eos % (Auto) 3.4 Baso % (Auto) 0.2 Absolute Neuts (auto) 2.3 Absolute Lymphs (auto) 1.2 Absolute Monos (auto) 0.4 Absolute Eos (auto) 0.1 Absolute Basos (auto) 0.0 Seg Neutrophils % 56.8 Sodium 132.6 L Potassium 4.2 Chloride 95 L Carbon Dioxide 27 Anion Gap 11 BUN 15 Creatinine 0.84 Est GFR ( Amer) > 60 Est GFR (MDRD) Non-Af > 60 Glucose 218 H Calcium 10.2 Total Bilirubin 0.2 Direct Bilirubin 0.0 Neonat Total Bilirubin Not Reportable Neonat Direct Bilirubin Not Reportable Neonat Indirect Bili Not Reportable AST 42 H ALT 20 Alkaline Phosphatase 102 Total Protein 6.8 Albumin 3.8 Lipase 914.8 H Urine Color DAMARIS Urine Appearance CLOUDY Urine pH 6.0 Ur Specific [place] 1.018 Urine Protein 100 H Urine Glucose (UA) NEGATIVE Urine Ketones NEGATIVE Urine Blood MODERATE H Urine Nitrite POSITIVE H Urine Bilirubin NEGATIVE Urine Urobilinogen NEGATIVE Ur Leukocyte Esterase LARGE H Urine RBC 1-5 Urine WBC 5-10 Amorphous Sediment TRACE Urine Bacteria 1+ Urine Mucus TRACE Urine Ascorbic Acid 40 H Epi Cells (Wet Prep) Bacteria (Wet Prep) Trichomonas (Wet Prep) Vaginal WBC Vaginal Yeast 04/04/19 14:25 WBC RBC Hgb Hct MCV MCH MCHC RDW Plt Count Lymph % (Auto) [place] % (Auto) Eos % (Auto) Baso % (Auto) Absolute Neuts (auto) Absolute Lymphs (auto) Absolute Monos (auto) Absolute Eos (auto) Absolute Basos (auto) Seg Neutrophils % Sodium Potassium Chloride Carbon Dioxide Anion Gap BUN Creatinine Est GFR ( Amer) Est GFR (MDRD) Non-Af Glucose Calcium Total Bilirubin Direct Bilirubin Neonat Total Bilirubin Neonat Direct Bilirubin Neonat Indirect Bili AST ALT Alkaline Phosphatase Total Protein Albumin Lipase Urine Color Urine Appearance Urine pH Ur Specific [place] Urine Protein Urine Glucose (UA) Urine Ketones Urine Blood Urine Nitrite Urine Bilirubin Urine Urobilinogen Ur Leukocyte Esterase Urine RBC Urine WBC Amorphous Sediment Urine Bacteria Urine Mucus Urine Ascorbic Acid Epi Cells (Wet Prep) 3+ EPITHELIALS SEEN Bacteria (Wet Prep) 4+ BACTERIA SEEN Trichomonas (Wet Prep) NO TRICHOMONAS SEEN Vaginal WBC 4+ WBCS SEEN Vaginal Yeast NO YEAST SEEN Abdomen/Pelvis CT 04/04/19 10:22 IMPRESSION: No acute findings. Sigmoid diverticulosis without evidence of diverticulitis. Patient's urine does show signs of infection, sent for culture. Patient's wet mount shows shows signs of bacterial vaginosis, will treat for same. 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 Otherwise patient shows no signs of leukocytosis, continues without vomiting, continues to be hemodynamically stable, stable for discharge. - Vital Signs Vital signs: Temp Pulse Resp BP Pulse Ox 98.5 F 77 18 152/59 H 96 04/04/19 14:36 04/04/19 14:36 04/04/19 14:36 04/04/19 14:36 04/04/19 14:36 - Laboratory Result Diagrams: 04/04/19 10:39 04/04/19 10:39 Laboratory results interpreted by me: 04/04/19 04/04/19 09:19 10:39 Sodium 132.6 L Chloride 95 L Glucose 218 H AST 42 H Lipase 914.8 H Urine Protein 100 H Urine Blood MODERATE H Urine Nitrite POSITIVE H Ur Leukocyte Esterase LARGE H Urine Ascorbic Acid 40 H Discharge - Discharge Clinical Impression: Bacterial vaginosis Urinary tract infection Qualifiers: Urinary tract infection type: acute cystitis Hematuria presence: without hematuria Qualified Code(s): N30.00 - Acute cystitis without hematuria Condition: Stable Disposition: HOME, SELF-CARE Instructions: Urinary Tract Infection ([facility]), Cephalexin ([facility]), Vaginosis, Bacterial ([facility]) Additional Instructions: As we discussed you have been seen and treated in the emergency department for bacterial vaginosis and urinary tract infection. Please make sure you are taking antibiotics as prescribed. Please also make sure you stay well-hydrated. Please follow-up with your primary care provider in the next 12 to 24 hours. Return to the emergency room for any concerns. Prescriptions: Metronidazole [Flagyl 500 mg Tablet] 500 mg PO BID #14 tablet Cephalexin Monohydrate [Keflex 500 mg Capsule] 500 mg PO BID 7 Days #14 capsule Referrals: LATOYA ALEXANDER MD [Primary Care Provider] - Follow up as needed
[2019-04-04 11:05] LABS: ABSOLUTE EOSINOPHILS # (AUTO) 0.1 10^3/uL (0.0-0.6); ABSOLUTE LYMPHOCYTES (AUTO) 1.2 10^3/uL (0.5-4.7); ABSOLUTE MONOCYTES (AUTO) 0.4 10^3/uL (0.1-1.4); ABSOLUTE NEUT (AUTO) 2.3 10^3/uL (1.7-8.2); BASOPHILS % (AUTO) 0.2 % (0-2); EOSINOPHILS % (AUTO) 3.4 % (0-6); HEMATOCRIT 37.1 % (36.0-47.0); HEMOGLOBIN 12.3 g/dL (12.0-15.5); LYMPHOCYTES % (AUTO) 28.6 % (13-45); MEAN CORPUSCULAR HEMOGLOBIN 30.3 pg (27.0-33.4); MEAN CORPUSCULAR HGB CONC 33.2 g/dL (32.0-36.0); MEAN CORPUSCULAR VOLUME 91 fl (80-97); PLATELET COUNT 218 10^3/uL (150-450); RED BLOOD COUNT 4.07 10^6/uL (3.72-5.28); RED CELL DISTRIBUTION WIDTH 13.1 % (11.5-14.0); SEGMENTED NEUTROPHILS % (AUTO) 56.8 % (42-78); TOTAL CELLS COUNTED % (AUTO) 100 %
[2019-04-04 11:28] LABS: ALBUMIN 3.8 g/dL (3.5-5.0); ALKALINE PHOSPHATASE 102 U/L (38-126); ANION GAP 11 (5-19); ASPARTATE AMINO TRANSFERASE 42 U/L (14-36); BILIRUBIN,TOTAL 0.2 mg/dL (0.2-1.3); BLOOD UREA NITROGEN 15 mg/dL (7-20); CALCIUM 10.2 mg/dL (8.4-10.2); CARBON DIOXIDE 27 mmol/L (22-30); CHLORIDE 95 mmol/L (98-107); GLUCOSE 218 mg/dL (75-110); POTASSIUM 4.2 mmol/L (3.6-5.0); TOTAL PROTEIN 6.8 g/dL (6.3-8.2)
--- NOTE | 2019-04-04 13:05 | RADIOLOGY REPORT (SQ) ---
EXAM DESCRIPTION: CT ABD/PELVIS WITH IV ONLY COMPLETED DATE/TIME: 04/04/2019 12:35 pm REASON FOR STUDY: general pain COMPARISON: 06/23/2017, 04/12/2018 TECHNIQUE: CT scan of the abdomen and pelvis performed using helical scanning technique with dynamic intravenous contrast injection. No oral contrast. Images reviewed with lung, soft tissue, and bone windows. Reconstructed coronal and sagittal MPR images reviewed. Delayed images for evaluation of the urinary system also acquired. All images stored on PACS. All CT scanners at this facility use dose modulation, iterative reconstruction, and/or weight based d osing when appropriate to reduce radiation dose to as low as reasonably achievable (ALARA). [facility]: Dose Right [facility]: CareDose [facility]: Dose Right [facility]: Teradose 4D [facility]: PANOSOL CONTRAST TYPE AND DOSE: contrast/concentration: Isovue 350.00 mg/ml; Total Contrast Delivered: 78.0 ml; Total Saline Delivered: 25.4 ml RENAL FUNCTION: GFR > 60. RADIATION DOSE: CT Rad equipment meets quality standard of care and radiation dose reduction techniq ues were employed. CTDIvol: 8.6 - 12.2 mGy. DLP: 1856 mGy-cm.. LIMITATIONS: None. FINDINGS: LOWER CHEST: Stable 4 mm ground-glass nodule right lower lobe image 3. LIVER: Normal size. No masses. No dilated ducts. SPLEEN: Normal size. No focal lesions. PANCREAS: No masses. No significant calcifications. No adjacent inflammation or peripancreatic fluid collections. Pancreatic duct not dilated. GALLBLADDER: Surgically absent. ADRENAL GLANDS: No significant masses or asymmetry. RIGHT KIDNEY AND URETER: No solid masses. No significant calcifications. No hydronephrosis or hyd roureter. LEFT KIDNEY AND URETER: No solid masses. No significant calcifications. No hydronephrosis or hydr oureter. AORTA AND VESSELS: No aneurysm. RETROPERITONEUM: No retroperitoneal adenopathy, hemorrhage or masses. BOWEL AND PERITONEAL CAVITY: Sigmoid diverticulosis. No masses or inflammatory changes. No free flui d or peritoneal masses. APPENDIX: Surgically absent. PELVIS: Adan catheter in urinary bladder. ABDOMINAL WALL: Small fat containing umbilical hernia. BONES: Nothing acute. OTHER: No other significant finding. IMPRESSION: No acute findings. Sigmoid diverticulosis without evidence of diverticulitis. TECHNICAL DOCUMENTATION: JOB ID: [id number] Quality ID # [id number]: Final reports with documentation of one or more dose reduction techniques (e.g., Au tomated exposure control, adjustment of the mA and/or kV according to patient size, use of iterative reconstruction technique) 2010 [employer]- All Rights Reserved Reading location - IP/workstation name: [email or web address]
[2019-04-04] MEDS ORDERED: CEFTRIAXONE 1 GM/D5W RTU 1 GM/50 ML RTUPB IV ONE (13:18)
[2019-04-04 14:42] LABS: BACTERIA (WET MOUNT) 4+ BACTERIA SEEN; EPITHELIALS (WET MOUNT) 3+ EPITHELIALS SEEN; T.VAGINALIS (WET MOUNT) NO TRICHOMONAS SEEN; WBCS (WET MOUNT) 4+ WBCS SEEN; YEAST (WET MOUNT) NO YEAST SEEN
[2019-04-04 16:24] VITALS: BP 140/57
== END 2019-04-04 16:24 | disposition home or self-care (01) ==
LOC: ER 08:51
DX: N30.00 Acute cystitis without hematuria (principal); N76.0 Acute vaginitis; B96.89 Other specified bacterial agents as the cause of diseases classified elsewhere; I25.10 Atherosclerotic heart disease of native coronary artery without angina pectoris; E78.00 Pure hypercholesterolemia, unspecified; I10 Essential (primary) hypertension; E11.9 Type 2 diabetes mellitus without complications; Z85.3 Personal history of malignant neoplasm of breast; Z90.710 Acquired absence of both cervix and uterus; Z90.49 Acquired absence of other specified parts of digestive tract; Z88.0 Allergy status to penicillin; Z88.2 Allergy status to sulfonamides
CPT/HCPCS: 99284; 96365; 36415; 87040; 87086; 87210; 83690; 85025; 87088; 80053; 81001; 87186; 74177; J0696

== ENCOUNTER 2019-09-22 13:42 | Emergency (ER) | payer MEDICARE, MEDICAID ==
--- NOTE | 2019-09-22 14:12 | ER Document Report ---
ED Medical Screen (RME) - General Chief Complaint: Flank Pain Stated Complaint: LEFT FLANK/ABDOMINAL PAIN Time Seen by Provider: 09/22/19 14:09 Primary Care Provider: LATOYA ALEXANDER MD [Primary Care Provider] - Follow up as needed Mode of Arrival: Wheelchair Information source: Patient Notes: 84-year-old female presents to ED for complaint of left flank pain x2 weeks. She states she has had nausea and vomiting for the last 2 weeks but none today. She states that they called her primary care doctor Lida and he told her to come to the emergency room. She does have a history of diabetes high blood pressure she has had a hysterectomy and a cholecystectomy. She is alert oriented respirations regular nonlabored speaking in full sentences. She states she is not nauseated at this time. I have greeted and performed a rapid initial assessment of this patient. A comprehensive ED assessment and evaluation of the patient, analysis of test results and completion of medical decision making process will be conducted by an additional ED providers. TRAVEL OUTSIDE OF THE [place] IN LAST 30 DAYS: No - Related Data Allergies/Adverse Reactions: Penicillins Allergy (Severe, Verified 04/04/19 09:04) rash/swelling Sulfa (Sulfonamide Antibiotics) Allergy (Severe, Verified 04/04/19 09:04) rash/swelling Past Medical History - Past Medical History Cardiac Medical History: Reports: Hx Coronary Artery Disease, Hx Hyperchole sterolemia - meds x 10 years, Hx Hypertension, Hx Heart Murmur - denies echo Denies: Hx Atrial Fibrillation, Hx Congestive Heart Failure, Hx Heart Attack, Hx Peripheral Vascular Disease, Hx Pulmonary Embolism Pulmonary Medical History: Reports: Hx Sleep Apnea - CPAP DC'ed x 1 year Denies: Hx Asthma, Hx Bronchitis, Hx COPD, Hx Pneumonia, Hx Respiratory Failure, Hx Tuberculosis Neurological Medical History: Reports: Hx Seizures. Denies: Hx Cerebrovascular Accident, Hx Parkinson's Disease Endocrine Medical History: Reports: Hx Diabetes Mellitus Type 1, Hx Diabetes Mellitus Type 2. Denies: Hx Graves' Disease, Hx Hyperthyroidism, Hx Hypothyroidism Renal/ Medical History: Reports: Hx Ovarian Cysts. Denies: Hx Peritoneal Dialysis Malignancy Medical History: Reports: Hx Breast Cancer - RT. Denies: Hx Cervical Cancer, Hx Leukemia, Hx Lung Cancer, Hx Ovarian Cancer GI Medical History: Reports: Hx Gastroesophageal Reflux Disease - meds x 15 years, Hx Ulcer - approx 15 years ago. Denies: Hx Crohn's Disease, Hx Hiatal Hernia, Hx Irritable Bowel, Hx Liver Failure, Hx Pancreatitis Musculoskeltal Medical History: Reports Hx Arthritis, Denies Hx Fibromyalgia, Denies Hx Multiple Sclerosis, Denies Hx Muscular Dystrophy, Denies Hx Systemic Lupus Erythematosus Psychiatric Medical History: Reports: Hx Depression - meds x 30 years Denies: Hx Bipolar Disorder, Hx Dementia, Hx Post Traumatic Stress Disorder, Hx Schizophrenia Traumatic Medical History: Reports: Hx Fractures - hx clavicle fx & rib fx's Infectious Medical History: Denies: Hx HIV Past Surgical History: Reports: Hx Appendectomy, Hx Breast Surgery - mastectomy, Hx Cholecystectomy, Hx Hysterectomy, Hx Mastectomy - "partial RIGHT" with lymph node dissection (20), Hx Orthopedic Surgery - shoulder replacement. Denies: Hx Bowel Surgery, Hx Section, Hx Colostomy, Hx Coronary Artery Bypass Graft, Hx Gastric Bypass Surgery, Hx Herniorrhaphy, Hx Pacemaker, Hx Tonsillectomy, Hx Tubal Ligation - Immunizations Hx Diphtheria, Pertussis, Tetanus Vaccination: No Physical Exam - Vital signs Vitals: Temp Pulse Resp BP Pulse Ox 98.7 F 73 16 126/58 H 94 09/22/19 13:49 09/22/19 13:49 09/22/19 13:49 09/22/19 13:49 09/22/19 13:49 Course - Vital Signs Vital signs: Temp Pulse Resp BP Pulse Ox 98.7 F 74 16 126/58 H 96 09/22/19 14:05 09/22/19 14:05 09/22/19 13:49 09/22/19 13:49 09/22/19 14:05 Doctor's Discharge - Discharge Referrals: LATOYA ALEXANDER MD [Primary Care Provider] - Follow up as needed
--- NOTE | 2019-09-22 14:51 | RADIOLOGY REPORT (SQ) ---
EXAM DESCRIPTION: CT ABD/PELVIS NO ORAL OR IV IMAGES COMPLETED DATE/TIME: 09/22/2019 2:35 pm REASON FOR STUDY: Left flank and abdominal pain COMPARISON: 04/04/2019 TECHNIQUE: CT scan of the abdomen and pelvis performed without intravenous or oral contrast. Images reviewed with lung, soft tissue, and bone windows. Reconstructed coronal and sagittal MPR images revi ewed. All images stored on PACS. All CT scanners at this facility use dose modulation, iterative reconstruction, and/or weight based d osing when appropriate to reduce radiation dose to as low as reasonably achievable (ALARA). [facility]: Dose Right [facility]: CareDose [facility]: Dose Right [facility]: Teradose 4D [facility]: Offerboard RADIATION DOSE: CT Rad equipment meets quality standard of care and radiation dose reduction techniq ues were employed. CTDIvol: 7.1 mGy. DLP: 385 mGy-cm.mGy. LIMITATIONS: None. FINDINGS: LOWER CHEST: No significant findings. No nodules or infiltrates. NON-CONTRASTED LIVER, SPLEEN, ADRENALS: Evaluation limited by lack of IV contrast. No identified sign ificant masses. PANCREAS: No masses. No peripancreatic inflammatory changes. GALLBLADDER: Surgically absent. RIGHT KIDNEY AND URETER: No suspicious masses. Assessment limited by lack of IV contrast. No signif icant calcifications. No hydronephrosis or hydroureter. LEFT KIDNEY AND URETER: No suspicious masses. Assessment limited by lack of IV contrast. Vascular c alcifications. No renal calculi. No hydronephrosis or hydroureter. AORTA AND RETROPERITONEUM: No aneurysm. No retroperitoneal masses or adenopathy. BOWEL AND PERITONEAL CAVITY: Sigmoid diverticulosis. No obvious masses or inflammatory changes. No f ree fluid. APPENDIX: Normal. PELVIS, BLADDER, AND ABDOMINAL WALL:Suprapubic urinary bladder catheter. BONES: Nothing acute. OTHER: No other significant finding. IMPRESSION: No acute findings. COMMENT: Quality ID # [id number]: Final reports with documentation of one or more dose reduction techniques (e.g., Automated exposure control, adjustment of the mA and/or kV according to patient size, use of iterative reconstruction technique) TECHNICAL DOCUMENTATION: JOB ID: [id number] 2010 [employer]- All Rights Reserved Reading location - IP/workstation name: [email or web address]
[2019-09-22 14:58] LABS: ALBUMIN 3.8 g/dL (3.5-5.0); ALKALINE PHOSPHATASE 82 U/L (38-126); ANION GAP 9 (5-19); ASPARTATE AMINO TRANSFERASE 24 U/L (14-36); BILIRUBIN,TOTAL 0.2 mg/dL (0.2-1.3); BLOOD UREA NITROGEN 19 mg/dL (7-20); CALCIUM 9.6 mg/dL (8.4-10.2); CARBON DIOXIDE 28 mmol/L (22-30); CHLORIDE 93 mmol/L (98-107); GLUCOSE 212 mg/dL (75-110); POTASSIUM 4.6 mmol/L (3.6-5.0); TOTAL PROTEIN 6.7 g/dL (6.3-8.2)
[2019-09-22 16:00] LABS: ABSOLUTE EOSINOPHILS # (AUTO) 0.1 10^3/uL (0.0-0.6); ABSOLUTE LYMPHOCYTES (AUTO) 0.7 10^3/uL (0.5-4.7); ABSOLUTE MONOCYTES (AUTO) 0.5 10^3/uL (0.1-1.4); ABSOLUTE NEUT (AUTO) 4.1 10^3/uL (1.7-8.2); BASOPHILS % (AUTO) 0.2 % (0-2); EOSINOPHILS % (AUTO) 2.5 % (0-6); HEMATOCRIT 33.6 % (36.0-47.0); HEMOGLOBIN 11.7 g/dL (12.0-15.5); LYMPHOCYTES % (AUTO) 13.4 % (13-45); MEAN CORPUSCULAR HEMOGLOBIN 31.2 pg (27.0-33.4); MEAN CORPUSCULAR HGB CONC 34.8 g/dL (32.0-36.0); MEAN CORPUSCULAR VOLUME 90 fl (80-97); MONOCYTES % (AUTO) 9.1 % (3-13); PLATELET COUNT 217 10^3/uL (150-450); RED BLOOD COUNT 3.75 10^6/uL (3.72-5.28); RED CELL DISTRIBUTION WIDTH 13.4 % (11.5-14.0); SEGMENTED NEUTROPHILS % (AUTO) 74.8 % (42-78); TOTAL CELLS COUNTED % (AUTO) 100 %; WHITE BLOOD COUNT 5.5 10^3/uL (4.0-10.5)
[2019-09-22 16:29] LABS: APPEARANCE,URINE SLIGHTLY-CLOUDY; BILIRUBIN,URINE NEGATIVE (NEGATIVE); COLOR,URINE YELLOW; GLUCOSE, URINE NEGATIVE (NEGATIVE); KETONES,URINE NEGATIVE (NEGATIVE); PROTEIN,URINE NEGATIVE (NEGATIVE); URINE SPECIFIC GRAVITY 1.017; UROBILINOGEN,URINE NEGATIVE mg/dL (<2.0)
--- NOTE | 2019-09-22 17:06 | ER Document Report ---
ED General - General Chief Complaint: Flank Pain Stated Complaint: LEFT FLANK/ABDOMINAL PAIN Time Seen by Provider: 09/22/19 14:09 Primary Care Provider: LATOYA ALEXANDER MD [Primary Care Provider] - Follow up as needed Mode of Arrival: Wheelchair Notes: 84 year old female presents to the ED complaining of constant left flank pain that is described as a dull pain that is associated with 2 weeks of intermittent vomiting and constipation, but not diarrhea or fevers. Denies dysuria or freq uency. Denies falls or trauma. TRAVEL OUTSIDE OF THE [place] IN LAST 30 DAYS: No - Related Data Allergies/Adverse Reactions: Penicillins Allergy (Severe, Verified 04/04/19 09:04) rash/swelling Sulfa (Sulfonamide Antibiotics) Allergy (Severe, Verified 04/04/19 09:04) rash/swelling Past Medical History - General Information source: Patient - Social History Smoking Status: Never Smoker Frequency of alcohol use: None Drug Abuse: None Family History: Reviewed & Not Pertinent Patient has suicidal ideation: No Patient has homicidal ideation: No - Past Medical History Cardiac Medical History: Reports: Hx Coronary Artery Disease, Hx Hypercholesterolemia - meds x 10 years, Hx Hypertension, Hx Heart Murmur - denies echo Denies: Hx Atrial Fibrillation, Hx Congestive Heart Failure, Hx Heart Attack, Hx Peripheral Vascular Disease, Hx Pulmonary Embolism Pulmonary Medical History: Reports: Hx Sleep Apnea - CPAP DC'ed x 1 year Denies: Hx Asthma, Hx Bronchitis, Hx COPD, Hx Pneumonia, Hx Respiratory Failure, Hx Tuberculosis Neurological Medical History: Reports: Hx Seizures. Denies: Hx Cerebrovascular Accident, Hx Parkinson's Disease Endocrine Medical History: Reports: Hx Diabetes Mellitus Type 2. Denies: Hx Graves' Disease, Hx Hyperthyroidism, Hx Hypothyroidism Renal/ Medical History: Reports: Hx Ovarian Cysts. Denies: Hx Peritoneal Dialysis Malignancy Medical History: Reports: Hx Breast Cancer - RT. Denies: Hx Cervical Cancer, Hx Leukemia, Hx Lung Cancer, Hx Ovarian Cancer GI Medical History: Reports: Hx Gastroesophageal Reflux Disease - meds x 15 years, Hx Ulcer - approx 15 years ago. Denies: Hx Crohn's Disease, Hx Hiatal Hernia, Hx Irritable Bowel, Hx Liver Failure, Hx Pancreatitis Musculoskeletal Medical History: Reports Hx Arthritis, Denies Hx Fibromyalgia, Denies Hx Multiple Sclerosis, Denies Hx Muscular Dystrophy, Denies Hx Systemic Lupus Erythematosus Psychiatric Medical History: Reports: Hx Depression - meds x 30 years Denies: Hx Bipolar Disorder, Hx Dementia, Hx Post Traumatic Stress Disorder, Hx Schizophrenia Traumatic Medical History: Reports: Hx Fractures - hx clavicle fx & rib fx's Infectious Medical History: Denies: Hx HIV Past Surgical History: Reports: Hx Appendectomy, Hx Breast Surgery - mastectomy, Hx Cholecystectomy, Hx Hysterectomy, Hx Mastectomy - "partial RIGHT" with lymph node dissection (20), Hx Orthopedic Surgery - shoulder replacement. Denies: Hx Bowel Surgery, Hx Section, Hx Colostomy, Hx Coronary Artery Bypass Graft, Hx Gastric Bypass Surgery, Hx Herniorrhaphy, Hx Pacemaker, Hx Tonsillectomy, Hx Tubal Ligation - Immunizations Hx Diphtheria, Pertussis, Tetanus Vaccination: No Hx Pneumococcal Vaccination: 02/19/09 Review of Systems - Review of Systems Constitutional: No symptoms reported EENT: No symptoms reported Cardiovascular: No symptoms reported Respiratory: No symptoms reported Gastrointestinal: See HPI Genitourinary: No symptoms reported -: Yes All other systems reviewed and negative Physical Exam - Vital signs Vitals: Temp Pulse Resp BP Pulse Ox 98.7 F 73 16 126/58 H 94 09/22/19 13:49 09/22/19 13:49 09/22/19 13:49 09/22/19 13:49 09/22/19 13:49 Interpretation: Normal - Notes Notes: GENERAL: Alert, interacts well. No acute distress. HEAD: Normocephalic, atraumatic EYES: Pupils equal, round and reactive to light, extraocular movements intact. ENT: Oral mucosa moist, tongue midline. NECK: Full range of motion, supple, trachea midline. LUNGS: Clear to auscultation bilaterally, no wheezes, rales or rhonchi, no respiratory distress. HEART: Regular rate and rhythm, no murmurs, gallops, rubs. ABDOMEN: Soft, minimally tender palpation of the left lower quadrant, nondistended, bowel sounds present in all 4 quadrants. EXTREMITIES: Moves all 4 extremities spontaneously, no edema, radial and dorsalis pedis pulses 2/4 bilaterally. No cyanosis. NEUROLOGICAL: Alert and oriented x3, normal speech. PSYCH: Normal mood, normal affect. SKIN: Warm, Dry, normal turgor, no rashes or lesions noted. Course - Re-evaluation Re-evalutation: 09/22/19 17:06 CBC shows mild anemia with hemoglobin 11.7, CMP shows hyponatremia with a sodium of 130.2, this is relatively chronic for the patient, glucose elevated 212, urinalysis shows large leukocyte esterase, trace bacteria, 32 WBCs and no detectable squamous epithelial cells. At this time I am inclined to treat this is a true urinary tract infection rather than colonization given her left-sided pain and her lack of findings on CAT scan. Patient will be treated with Keflex and discharged to home. 09/22/19 17:07 Abdomen/Pelvis CT 09/22/19 14:09 IMPRESSION: No acute findings. - Vital Signs Vital signs: Temp Pulse Resp BP Pulse Ox 98.7 F 74 16 126/58 H 96 09/22/19 14:05 09/22/19 14:05 09/22/19 13:49 09/22/19 13:49 09/22/19 14:05 - Laboratory Result Diagrams: 09/22/19 15:35 09/22/19 14:20 Laboratory results interpreted by me: 09/22/19 09/22/19 09/22/19 14:20 15:35 16:02 Hgb 11.7 L Hct 33.6 L Sodium 130.2 L Chloride 93 L Glucose 212 H Leukocyte Esterase Rfl LARGE H Urine Ascorbic Acid 40 H Discharge - Discharge Clinical Impression: UTI (urinary tract infection) due to urinary indwelling catheter Qualifiers: Indwelling urinary catheter type: cystostomy catheter Encounter type: initial encounter Qualified Code(s): T83.510A - Infection and inflammatory reaction due to cystostomy catheter, initial encounter; N39.0 - Urinary tract infection, site not specified Condition: Stable Disposition: HOME, SELF-CARE Additional Instructions: You have a urinary tract infection that is likely causing the pain on your left side. There is no evidence of abdominal infection. We are going to treat your infection with Keflex, an antibiotic that you will take for 7 days. Please take it as directed untli it is gone. Please return for fevers, worsening pain, confusion, nausea and vomiting that is not controlled by occasional doses of Zofran. Prescriptions: Cephalexin Monohydrate [Keflex 500 mg Capsule] 500 mg PO Q6H #28 capsule Referrals: LATOYA ALEXANDER MD [Primary Care Provider] - Follow up as needed
[2019-09-22] MEDS ORDERED: CEPHALEXIN 500 MG CAPSULE PO ONE (17:11)
[2019-09-22 17:37] VITALS: BP 139/65
== END 2019-09-22 17:45 | disposition home or self-care (01) ==
LOC: ER 13:42
DX: T83.510A Infection and inflammatory reaction due to cystostomy catheter, initial encounter (principal); N39.0 Urinary tract infection, site not specified; R10.9 Unspecified abdominal pain; R11.10 Vomiting, unspecified; K59.00 Constipation, unspecified; Z88.0 Allergy status to penicillin; Z88.1 Allergy status to other antibiotic agents; I25.10 Atherosclerotic heart disease of native coronary artery without angina pectoris; I10 Essential (primary) hypertension; Z79.899 Other long term (current) drug therapy; E11.9 Type 2 diabetes mellitus without complications
CPT/HCPCS: 99284; 36415; 87086; 85025; 87088; 80053; 81001; 87186; 74176; A9270

== ENCOUNTER 2020-04-12 13:53 | Inpatient (IN) | payer MEDICARE, MEDICAID ==
--- NOTE | 2020-04-12 14:13 | ER Document Report ---
ED Medical Screen (RME) - General Chief Complaint: General Weakness Stated Complaint: Weakness Time Seen by Provider: 04/12/20 14:06 Primary Care Provider: LATOYA ALEXANDER MD [Primary Care Provider] - Follow up as needed Mode of Arrival: Medic Information source: Patient, Relative Notes: 88-year-old female presented to ED for increasing weakness inability to walk and no ability to do her normal daily tasks. Daughter states that she has had numbness to her feet but she has been getting more more weak over the last week. She states she does not get out of herself she sleeps most of the day and she is not able to bear weight on her feet. She states when she sits her up in the bed she flops over. She states this has been gradual over the last week or so. She states they went to Dr. Alexander was and there is no new acute changes is just a gradual change. She does have a history of diabetes seizures high blood pressure cholesterol and goes to the pain clinic for back pain. Dr. Alexander sent her to the emergency room to be evaluated. I have greeted and performed a rapid initial assessment of this patient. A comprehensive ED assessment and evaluation of the patient, analysis of test results and completion of medical decision making process will be conducted by an additional ED providers. TRAVEL OUTSIDE OF THE [place] IN LAST 30 DAYS: No - Related Data Allergies/Adverse Reactions: Penicillins Allergy (Severe, Verified 04/12/20 14:03) rash/swelling Sulfa (Sulfonamide Antibiotics) Allergy (Severe, Verified 04/12/20 14:03) rash/swelling Past Medical History - Past Medical History Cardiac Medical History: Reports: Hx Coronary Artery Disease, Hx Hypercholesterolemia - meds x 10 years, Hx Hypertension, Hx Heart Murmur - denies echo Denies: Hx Atrial Fibrillation, Hx Congestive Heart Failure, Hx Heart Attack, Hx Peripheral Vascular Disease, Hx Pulmonary Embolism Pulmonary Medical History: Reports: Hx Sleep Apnea - CPAP DC'ed x 1 year Denies: Hx Asthma, Hx Bronchitis, Hx COPD, Hx Pneumonia, Hx Respiratory Failure, Hx Tuberculosis Neurological Medical History: Reports: Hx Seizures. Denies: Hx Cerebrovascular Accident, Hx Parkinson's Disease Endocrine Medical History: Reports: Hx Diabetes Mellitus Type 1, Hx Diabetes Mellitus Type 2. Denies: Hx Graves' Disease, Hx Hyperthyroidism, Hx Hypothyroidism Renal/ Medical History: Reports: Hx Ovarian Cysts. Denies: Hx Peritoneal Dialysis Malignancy Medical History: Reports: Hx Breast Cancer - RT. Denies: Hx Cervical Cancer, Hx Leukemia, Hx Lung Cancer, Hx Ovarian Cancer GI Medical History: Reports: Hx Gastroesophageal Reflux Disease - meds x 15 years, Hx Ulcer - approx 15 years ago. Denies: Hx Crohn's Disease, Hx Hiatal Hernia, Hx Irritable Bowel, Hx Liver Failure, Hx Pancreatitis Musculoskeltal Medical History: Reports Hx Arthritis, Denies Hx Fibromyalgia, Denies Hx Multiple Sclerosis, Denies Hx Muscular Dystrophy, Denies Hx Systemic Lupus Erythematosus Psychiatric Medical History: Reports: Hx Depression - meds x 30 years Denies: Hx Bipolar Disorder, Hx Dementia, Hx Post Traumatic Stress Disorder, Hx Schizophrenia Traumatic Medical History: Reports: Hx Fractures - hx clavicle fx & rib fx's Infectious Medical History: Denies: Hx HIV Past Surgical History: Reports: Hx Appendectomy, Hx Breast Surgery - mastectomy, Hx Cholecystectomy, Hx Hysterectomy, Hx Mastectomy - "partial RIGHT" with lymph node dissection (20), Hx Orthopedic Surgery - shoulder replacement. Denies: Hx Bowel Surgery, Hx Section, Hx Colostomy, Hx Coronary Artery Bypass [place] t, Hx Gastric Bypass Surgery, Hx Herniorrhaphy, Hx Pacemaker, Hx Tonsillectomy, Hx Tubal Ligation - Immunizations Hx Diphtheria, Pertussis, Tetanus Vaccination: No Physical Exam - Vital signs Vitals: Temp Pulse Resp BP Pulse Ox 98.4 F 73 16 143/61 H 99 04/12/20 13:59 04/12/20 13:59 04/12/20 13:59 04/12/20 13:59 04/12/20 13:59 Course - Vital Signs Vital signs: Temp Pulse Resp BP Pulse Ox 98.4 F 73 16 143/61 H 99 04/12/20 13:59 04/12/20 13:59 04/12/20 13:59 04/12/20 13:59 04/12/20 13:59 Doctor's Discharge - Discharge Referrals: LATOYA ALEXANDER MD [Primary Care Provider] - Follow up as needed
[2020-04-12 14:44] LABS: ABSOLUTE EOSINOPHILS # (AUTO) 0.1 10^3/uL (0.0-0.6); ABSOLUTE LYMPHOCYTES (AUTO) 1.2 10^3/uL (0.5-4.7); ABSOLUTE MONOCYTES (AUTO) 0.4 10^3/uL (0.1-1.4); ABSOLUTE NEUT (AUTO) 2.5 10^3/uL (1.7-8.2); BASOPHILS % (AUTO) 0.3 % (0-2); EOSINOPHILS % (AUTO) 3.1 % (0-6); HEMOGLOBIN 11.5 g/dL (12.0-15.5); LYMPHOCYTES % (AUTO) 27.9 % (13-45); MEAN CORPUSCULAR HEMOGLOBIN 30.2 pg (27.0-33.4); MEAN CORPUSCULAR HGB CONC 33.7 g/dL (32.0-36.0); MEAN CORPUSCULAR VOLUME 90 fl (80-97); MONOCYTES % (AUTO) 8.6 % (3-13); PLATELET COUNT 210 10^3/uL (150-450); RED BLOOD COUNT 3.79 10^6/uL (3.72-5.28); RED CELL DISTRIBUTION WIDTH 13.2 % (11.5-14.0); SEGMENTED NEUTROPHILS % (AUTO) 60.1 % (42-78); TOTAL CELLS COUNTED % (AUTO) 100 %; WHITE BLOOD COUNT 4.2 10^3/uL (4.0-10.5)
[2020-04-12 15:05] LABS: ALBUMIN 3.7 g/dL (3.5-5.0); ALKALINE PHOSPHATASE 68 U/L (38-126); ANION GAP 13 (5-19); ASPARTATE AMINO TRANSFERASE 23 U/L (14-36); BILIRUBIN,TOTAL 0.2 mg/dL (0.2-1.3); BLOOD UREA NITROGEN 22 mg/dL (7-20); CALCIUM 9.9 mg/dL (8.4-10.2); CARBON DIOXIDE 26 mmol/L (22-30); CHLORIDE 93 mmol/L (98-107); GLUCOSE 163 mg/dL (75-110); POTASSIUM 4.3 mmol/L (3.6-5.0); TOTAL PROTEIN 6.3 g/dL (6.3-8.2)
--- NOTE | 2020-04-12 15:17 | RADIOLOGY REPORT (SQ) ---
EXAM DESCRIPTION: CHEST 2 VIEWS IMAGES COMPLETED DATE/TIME: 04/12/2020 2:45 pm REASON FOR STUDY: Weakness COMPARISON: 04/12/2018. EXAM PARAMETERS: NUMBER OF VIEWS: two views TECHNIQUE: Digital Frontal and Lateral radiographic views of the chest acquired. RADIATION DOSE: NA LIMITATIONS: none FINDINGS: LUNGS AND PLEURA: Chronic elevation left diaphragm. No opacities, masses or pneumothorax. No pleural effusion. MEDIASTINUM AND HILAR STRUCTURES: No masses or contour abnormalities. HEART AND VASCULAR STRUCTURES: Heart normal size. No evidence for failure. BONES: No acute findings. HARDWARE: Left shoulder arthroplasty. Right axillary clips. OTHER: Right mastectomy. IMPRESSION: NO ACUTE RADIOGRAPHIC FINDING IN THE CHEST. TECHNICAL DOCUMENTATION: JOB ID: [id number] 2010 [employer]- All Rights Reserved Reading location - IP/workstation name: [email or web address]
[2020-04-12] MEDS ORDERED: NORMAL SALINE 1000 ML 1,000 ML IV ONE (22:05)
[2020-04-12 22:41] LABS: APPEARANCE,URINE CLOUDY; BILIRUBIN,URINE NEGATIVE (NEGATIVE); COLOR,URINE YELLOW; GLUCOSE, URINE NEGATIVE (NEGATIVE); KETONES,URINE NEGATIVE (NEGATIVE); LEUKOCYTE ESTERASE,URINE LARGE (NEGATIVE); NITRITE,URINE NEGATIVE (NEGATIVE); PROTEIN,URINE 100 mg/dL (NEGATIVE); URINE SPECIFIC GRAVITY 1.019; UROBILINOGEN,URINE NEGATIVE mg/dL (<2.0)
--- NOTE | 2020-04-12 23:11 | RADIOLOGY REPORT (SQ) ---
EXAM DESCRIPTION: Site: CT HEAD WITHOUT RP: CT HEAD WITHOUT IV CONTRAST CLINICAL HISTORY: 84 years Female; headache; TECHNIQUE: Noncontrast CT head. All CT scans at this facility use dose modulation, iterative reconstruction, and/or weight based dosing when appropriate to reduce radiation dose to as low as reasonably achievable. COMPARISON: 04/15/2016 FINDINGS: Brain: No acute hemorrhage or mass effect. Low-density changes in the cerebral white matter bilaterally are nonspecific, but typical for chronic small vessel disease. This has not changed since 2016. Hyperdense material in the right globe as on prior study. Sinuses: Right sphenoid sinus is opacified as on prior exam, likely a large chronic mucous retention cyst. No sinus air-fluid levels. No mastoid effusion. Calvarium: No acute calvarial fractures or focal lesion. IMPRESSION: 1. No acute intracranial findings. 2. Chronic ischemic changes as on prior exam 3. Chronic right sphenoid sinusitis
[2020-04-12 23:13] LABS: A TYPE INFLUENZA AG NEGATIVE (NEGATIVE); B INFLUENZA AG NEGATIVE (NEGATIVE)
[2020-04-12 23:38] LABS: PHOSPHORUS 3.7 mg/dL (2.5-4.5)
[2020-04-12 23:40] LABS: CREATINE KINASE < 20 U/L (30-135)
--- NOTE | 2020-04-13 00:37 | EKG REPORT ---
SEVERITY:- OTHERWISE NORMAL ECG - SINUS RHYTHM BORDERLINE LEFT AXIS DEVIATION : Confirmed by: Carla Wallace 13-Apr-2020 00:36:01
--- NOTE | 2020-04-13 00:37 | EKG REPORT ---
SEVERITY:- ABNORMAL ECG - SINUS RHYTHM NONSPECIFIC T ABNORMALITIES, LATERAL LEADS : Confirmed by: Carla Wallace 13-Apr-2020 00:35:51
[2020-04-13] MEDS ORDERED: NITROFURANTOIN MONOHYD/M-CRYST 100 MG CAPSULE PO ONE (01:13)
--- NOTE | 2020-04-13 01:21 | ER Document Report ---
ED General - General Chief Complaint: General Weakness Stated Complaint: Weakness Time Seen by Provider: 04/12/20 14:06 Mode of Arrival: Medic Notes: 84-year-old female with epilepsy, diabetes, hypertension, CAD presents with few days of generalized weakness, fatigue, she says she feels "lousy". Patient had episode of vomiting and diaphoresis in the ED, but denies having had any similar symptoms prior to being here. Patient denies any headache, neck pain or stiffness, chest pain, shortness of breath, cough, abdominal pain, other vomiting, diarrhea, black stools, bloody stools, constipation, unexplained weight loss, lower extremity edema, dysuria, frequency, hematuria, fever, recent illness hospitalization or antibiotics, trauma, syncope, sick contacts TRAVEL OUTSIDE OF THE [place] IN LAST 30 DAYS: No - Related Data Allergies/Adverse Reactions: Penicillins Allergy (Severe, Verified 04/12/20 14:03) rash/swelling Sulfa (Sulfonamide Antibiotics) Allergy (Severe, Verified 04/12/20 14:03) rash/swelling Past Medical History - General Information source: Patient, Relative, [facility] Records - Social History Smoking Status: Never Smoker Chew tobacco use (# tins/day): No Frequency of alcohol use: None Drug Abuse: None Family History: Reviewed & Not Pertinent - Past Medical History Cardiac Medical History: Reports: Hx Coronary Artery Disease, Hx Hypercholesterolemia - meds x 10 years, Hx Hypertension, Hx Heart Murmur - denies echo Denies: Hx Atrial Fibrillation, Hx Congestive Heart Failure, Hx Heart Attack, Hx Peripheral Vascular Disease, Hx Pulmonary Embolism Pulmonary Medical History: Reports: Hx Sleep Apnea - CPAP DC'ed x 1 year Denies: Hx Asthma, Hx Bronchitis, Hx COPD, Hx Pneumonia, Hx Respiratory Failure, Hx Tuberculosis Neurological Medical History: Reports: Hx Seizures. Denies: Hx Cerebrovascular Accident, Hx Parkinson's Disease Endocrine Medical History: Reports: Hx Diabetes Mellitus Type 1, Hx Diabetes Mellitus Type 2. Denies: Hx Graves' Disease, Hx Hyperthyroidism, Hx Hypothyroidism Renal/ Medical History: Reports: Hx Ovarian Cysts. Denies: Hx Peritoneal Dialysis Malignancy Medical History: Reports: Hx Breast Cancer - RT. Denies: Hx Cervical Cancer, Hx Leukemia, Hx Lung Cancer, Hx Ovarian Cancer GI Medical History: Reports: Hx Gastroesophageal Reflux Disease - meds x 15 years, Hx Ulcer - approx 15 years ago. Denies: Hx Crohn's Disease, Hx Hiatal Hernia, Hx Irritable Bowel, Hx Liver Failure, Hx Pancreatitis Musculoskeletal Medical History: Reports Hx Arthritis, Denies Hx Fibromyalgia, Denies Hx Multiple Sclerosis, Denies Hx Muscular Dystrophy, Denies Hx Systemic Lupus Erythematosus Psychiatric Medical History: Reports: Hx Depression - meds x 30 years Denies: Hx Bipolar Disorder, Hx Dementia, Hx Post Traumatic Stress Disorder, Hx Schizophrenia Traumatic Medical History: Reports: Hx Fractures - hx clavicle fx & rib fx's Infectious Medical History: Denies: Hx HIV Past Surgical History: Reports: Hx Appendectomy, Hx Breast Surgery - mastectomy, Hx Cholecystectomy, Hx Hysterectomy, Hx Mastectomy - "partial RIGHT" with lymph node dissection (20), Hx Orthopedic Surgery - shoulder replacement. Denies: Hx Bowel Surgery, Hx Section, Hx Colostomy, Hx Coronary Artery Bypass Graft, Hx Gastric Bypass Surgery, Hx Herniorrhaphy, Hx Pacemaker, Hx Tonsillectomy, Hx Tubal Ligation - Immunizations Hx Diphtheria, Pertussis, Tetanus Vaccination: No Hx Pneumococcal Vaccination: 02/19/09 Review of Systems - Review of Systems Notes: REVIEW OF SYSTEMS: CONSTITUTIONAL : Denies fever, chills, or sweats. EENT: Denies recent cold/sinus symptoms, denies throat pain CARDIOVASCULAR: Denies chest pain, ANA RESPIRATORY: Denies cough, denies shortness of breath. GASTROINTESTINAL: Denies abdominal pain, nausea/vomiting. GENITOURINARY: Denies difficulty urinating, painful urination. FEMALE GENITOURINARY: Denies abnormal vaginal bleeding, vaginal discharge. MUSCULOSKELETAL: Denies neck pain, back pain. SKIN: Denies rash or skin lesions. HEMATOLOGIC : Denies easy bruising or bleeding. LYMPHATIC: Denies swollen, enlarged glands. NEUROLOGICAL: Denies headache, denies vertigo PSYCHIATRIC: Denies anxiety or stress or depression. Physical Exam - Vital signs Vitals: Temp Pulse Resp BP Pulse Ox 98.4 F 73 16 143/61 H 99 04/12/20 13:59 04/12/20 13:59 04/12/20 13:59 04/12/20 13:59 04/12/20 13:59 - Notes Notes: PHYSICAL EXAMINATION: GENERAL: Awake alert mildly fatigued appearing elderly woman sitting up in stretcher in no acute distress HEAD: Atraumatic, normocephalic. EYES: Pupils equal round and appropriate constriction, sclera anicteric, conjunctiva are normal. ENT: nares patent, moist mucous membranes. NECK: Normal range of motion, supple without lymphadenopathy LUNGS: Breath sounds clear to auscultation bilaterally and equal. No wheezes rales or rhonchi. Normal respiratory rate and effort. HEART: Regular rate and rhythm, systolic murmur ABDOMEN: Soft, nontender, no guarding, no masses, no CVAT EXTREMITIES: Normal range of motion, no pitting or edema. No cyanosis. NEUROLOGICAL: Awake, alert, conversing appropriately, moves all extremities spontaneously. PSYCH: Normal mood, normal affect. SKIN: Warm, Dry, normal turgor, no rashes or lesions noted. Course - Re-evaluation Re-evalutation: 04/13/20 01:23 Patient with few days of generalized weakness without any specific symptoms. One episode of diaphoresis and vomiting in ED. No specific findings on exam. Rule out atypical ACS, electrolyte abnormalities, rhabdomyolysis, occult bleeding, UTI, pneumonia, COVID-19, flu. Patient's work-up shows few mild abnormalities that could contribute to patient's weakness including low magnesium and sodium and large LE and WBCs on urinalysis which I will treat. Patient feels too weak to go home and also requires ACS rule out for episodes diaphoresis with additional troponin. Patient's EKG was repeated after her episode and had no ischemic changes. Discussed case with Dr. Hilton who has accepted patient to medical floor. Patient reevaluated by myself and felt tired but no other change in symptoms. Exam remained benign. Informed her of disposition decision. The patient was evaluated during the global COVID-19 pandemic and that diagnosis was suspected/considered upon their initial presentation. Their evaluation, treatment and testing was consistent with current guidelines for patients who present with complaints or symptoms that may be related to COVID-19. - Vital Signs Vital signs: Temp Pulse Resp BP Pulse Ox 97.5 F 89 9 L 151/60 H 99 04/12/20 21:26 04/12/20 21:26 04/12/20 23:01 04/12/20 23:01 04/12/20 23:01 - Laboratory Result Diagrams: 04/12/20 14:30 04/12/20 14:30 Laboratory results interpreted by me: 04/12/20 04/12/20 04/12/20 14:30 14:30 14:30 Hgb 11.5 L Hct 34.0 L Sodium 131.5 L Chloride 93 L BUN 22 H Glucose 163 H Magnesium 1.3 L Creatine Kinase < 20 L Urine Protein Urine Blood Ur Leukocyte Esterase Urine Ascorbic Acid 04/12/20 22:19 Hgb Hct Sodium Chloride BUN Glucose Magnesium Creatine Kinase Urine Protein 100 H Urine Blood SMALL H Ur Leukocyte Esterase LARGE H Urine Ascorbic Acid 40 H - EKG Interpretation by Me Additional EKG results interpreted by me: 04/13/20 02:08 Sinus rhythm, no significant ST elevations or depressions, no significant T wave abnormalities, QTc 410 Discharge - Discharge Clinical Impression: Weakness, Acute hyponatremia, Hypomagnesemia, Dehydration UTI (urinary tract infection) Qualifiers: Urinary tract infection type: acute cystitis Hematuria presence: with hematuria Qualified Code(s): N30.01 - Acute cystitis with hematuria Disposition: ADMITTED OBSERVATION Admitting Provider: [facility] Unit Admitted: Medical Floor
[2020-04-13] MEDS ORDERED: MAGNESIUM SULFATE/D5W 1 GM/100 ML RTUPB IV ONE (02:07)
[2020-04-13] MEDS ORDERED: AZTREONAM 0.75 GM in DEXTROSE 5%-WATER 50 ML IV SCH (09:00)
[2020-04-13] MEDS: NITROFURANTOIN MONOHYD/M-CRYST 100 MG CAPSULE PO SCH ×2 (10:59→18:13)
[2020-04-13] MEDS: ENOXAPARIN SODIUM INJ 40 MG/0.4 ML DISP.SYRIN SUBCUT SCH (10:59)
[2020-04-13] MEDS: PANTOPRAZOLE SODIUM 40 MG TABLET.DR PO SCH (10:59)
[2020-04-13 11:46] LABS: ABSOLUTE EOSINOPHILS # (AUTO) 0.1 10^3/uL (0.0-0.6); ABSOLUTE LYMPHOCYTES (AUTO) 1.2 10^3/uL (0.5-4.7); ABSOLUTE MONOCYTES (AUTO) 0.6 10^3/uL (0.1-1.4); ABSOLUTE NEUT (AUTO) 4.2 10^3/uL (1.7-8.2); BASOPHILS % (AUTO) 0.1 % (0-2); EOSINOPHILS % (AUTO) 1.3 % (0-6); HEMATOCRIT 31.9 % (36.0-47.0); HEMOGLOBIN 10.6 g/dL (12.0-15.5); LYMPHOCYTES % (AUTO) 19.3 % (13-45); MEAN CORPUSCULAR HEMOGLOBIN 30.1 pg (27.0-33.4); MEAN CORPUSCULAR HGB CONC 33.3 g/dL (32.0-36.0); MEAN CORPUSCULAR VOLUME 90 fl (80-97); MONOCYTES % (AUTO) 9.8 % (3-13); PLATELET COUNT 193 10^3/uL (150-450); RED BLOOD COUNT 3.53 10^6/uL (3.72-5.28); RED CELL DISTRIBUTION WIDTH 13.4 % (11.5-14.0); SEGMENTED NEUTROPHILS % (AUTO) 69.5 % (42-78); TOTAL CELLS COUNTED % (AUTO) 100 %; WHITE BLOOD COUNT 6.1 10^3/uL (4.0-10.5)
[2020-04-13 12:14] LABS: ALBUMIN 3.5 g/dL (3.5-5.0); ALKALINE PHOSPHATASE 64 U/L (38-126); ANION GAP 10 (5-19); ASPARTATE AMINO TRANSFERASE 23 U/L (14-36); BILIRUBIN,DIRECT 0.1 mg/dL (0.0-0.4); BILIRUBIN,TOTAL 0.3 mg/dL (0.2-1.3); BLOOD UREA NITROGEN 29 mg/dL (7-20); CALCIUM 9.8 mg/dL (8.4-10.2); CARBON DIOXIDE 27 mmol/L (22-30); CHLORIDE 97 mmol/L (98-107); GLUCOSE 175 mg/dL (75-110); POTASSIUM 3.9 mmol/L (3.6-5.0); TOTAL PROTEIN 6.1 g/dL (6.3-8.2)
[2020-04-13] MEDS: OXYCODONE-ACETAMINOPHEN 5-325 MG TABLET PO PRN (14:29)
--- NOTE | 2020-04-13 17:09 | PDOC H&P ---
History of Present Illness Admission Date/PCP: 04/13/20 01:45 [facility] Patient complains of: Generalized weakness and difficulty with ambulation History of Present Illness: ANI PELAYO is a 84 year old female patient known to my practice who presented to the ED with daughter reporting worsening generalized weakness and difficulty with walking and transferring from bed. She reported associated poor appetite and oral intake. No reported difficulty with breathing or exposure to acutely ill person, travel outside her immediate environment. No reported associated fever or chills. No nausea or vomiting, abdominal pain, diarrhea, or constipation. She has suprapubic Adan catheter. No reported hematuria or flank pain. There is usual suprapubic discomfort from her catheter. She denied any headache or dizziness. No reported focal weakness. Her initial ED evaluation was significant for reported episode of diaphoresis, electrolytes imbalance with hypomagnesemia, hyponatremia, azotemia, and hyperglycemia. She was advised hospitalization for further evaluation and management due to concern for probable infection with generalized decondition. Her morbidities are as listed below. Past Medical History Cardiac Medical History: Reports: Coronary Artery Disease, Hyperlipidema - meds x 10 years, Hypertension, Heart Murmur - denies echo Denies: Atrial Fibrillation, Congestive Heart Failure, Myocardial Infarction, Peripheral Vascular Disease, Pulmonary Embolism Pulmonary Medical History: Reports: Sleep Apnea - CPAP DC'ed x 1 year Denies: Asthma, Bronchitis, Chronic Obstructive Pulmonary Disease (COPD), Pneumonia, Respiratory Failure, Tuberculosis Neurological Medical History: Reports: Seizures Endocrine Medical History: Reports: Diabetes Mellitus Type 1, Diabetes Mellitus Type 2 Denies: Hyperthyroidism, Hypothyroidism Malignancy Medical History: Reports: Breast Cancer - RT Denies: Cervical Cancer, Leukemia, Lung Cancer, Ovarian Cancer GI Medical History: Reports: Gastroesophageal Reflux Disease - meds x 15 years Denies: Crohn's Disease, Hiatal Hernia Musculoskeltal Medical History: Reports: Arthritis Denies: Fibromyalgia Psychiatric Medical History: Reports: Depression - meds x 30 years Denies: Bipolar Disorder, Dementia, Post Traumatic Stress Disorder Hematology: Reports: Anemia Denies: Hemophilia, Sickle Cell Disease Infectious Medical History: Denies: HIV Past Surgical History Past Surgical History: Reports: Appendectomy, Cholecystectomy, Hysterectomy, Mastectomy - "partial RIGHT" with lymph node dissection (20), Orthopedic Surgery - shoulder replacement Denies: Amputation, Section, Colostomy, Coronary Artery Bypass Graft, Gastric Bypass Surgery, Herniorrhaphy, Pacemaker, Tonsillectomy, Tubal Ligation Social History Smoking Status: Never Smoker Electronic Cigarette use?: No Frequency of Alcohol Use: None Hx Recreational Drug Use: No Drugs: None Hx Prescription Drug Abuse: No - Advance Directive Resuscitation Status: Full Code Family History Family History: Reviewed & Not Pertinent Parental Family History Reviewed: Yes Children Family History Reviewed: Yes Sibling(s) Family History Reviewed.: Yes Medication/Allergy Home Medications: Fluticasone Propionate [Flonase Nasal Cass 50 Mcg/Cass 16 gm] 2 sprays NASL DAILY 07/01/18 Gabapentin [Neurontin 300 mg Capsule] 600 mg PO TID 07/01/18 Levocetirizine Dihydrochloride [Allergy Relief] 5 mg PO DAILYP PRN 07/01/18 Linagliptin [Tradjenta] 5 mg PO DAILY 07/01/18 Memantine HCl/Donepezil HCl [Namzaric 28 mg-10 mg Capsule] 1 each PO DAILY 07/01/18 Metformin HCl [Glucophage] 1,000 mg PO BID 07/01/18 Mirabegron [Myrbetriq] 25 mg PO DAILY 07/01/18 Montelukast Sodium [Singulair 10 mg Tablet] 10 mg PO DAILY 07/01/18 Oxycodone HCl/Acetaminophen [Percocet 5-325 mg Tablet] 1 tab PO Q6HP PRN 07/01/18 Pantoprazole Sodium [Protonix] 40 mg PO DAILY 07/01/18 Rosuvastatin Calcium [Crestor 10 mg Tablet] 10 mg PO QHS 07/01/18 Sertraline HCl [Zoloft] 100 mg PO DAILY 07/01/18 Donepezil HCl [Aricept 5 mg Tablet] 5 mg PO DAILY 09/07/18 Ferrous Sulfate [Ferosul] 325 mg PO DAILY 09/07/18 Lacosamide [Vimpat 100 mg Tablet] 150 mg PO Q12 09/07/18 Fentanyl [Duragesic 12 Mcg/Hr Transdermal Patch] 1 patch TOP Q3DAYS 04/13/20 Insulin Lispro [Humalog Kwikpen U-100] See Protocol SQ ACHS 04/13/20 Lisinopril [Prinivil 10 mg Tablet] 10 mg PO DAILY 04/13/20 Losartan/Hydrochlorothiazide [Losartan-Hctz 100-25 mg Tab] 1 tab PO DAILY 04/13/20 Nitrofurantoin Macrocrystal [Nitrofurantoin] 50 mg PO QHS 04/13/20 Allergies/Adverse Reactions: Penicillins Allergy (Severe, Verified 04/12/20 14:03) rash/swelling Sulfa (Sulfonamide Antibiotics) Allergy (Severe, Verified 04/12/20 14:03) rash/swelling Review of Systems Constitutional: PRESENT: fatigue, weakness. ABSENT: chills, fever(s), headache(s) Eyes: PRESENT: visual disturbances - corrected with glasses Ears: ABSENT: hearing changes Nose, Mouth, and Throat: ABSENT: headache(s) Cardiovascular: ABSENT: chest pain, dyspnea on exertion, edema, orthropnea, pal pitations Respiratory: ABSENT: cough, hemoptysis Gastrointestinal: ABSENT: abdominal pain, constipation, diarrhea, hematemesis, hematochezia, nausea, vomiting Genitourinary: ABSENT: dysuria, hematuria Musculoskeletal: ABSENT: joint swelling Integumentary: ABSENT: rash, wounds Neurological: ABSENT: abnormal gait, abnormal speech, confusion, dizziness, focal weakness, syncope Psychiatric: ABSENT: anxiety, depression, homidical ideation, suicidal ideation Endocrine: ABSENT: cold intolerance, heat intolerance, polydipsia, polyuria Hematologic/Lymphatic: ABSENT: easy bleeding, easy bruising, lymphadenopathy Allergic/Immunologic: ABSENT: seasonal rhinorrhea Physical Exam Vital Signs: Temp Pulse Resp BP Pulse Ox 98.5 F 69 18 129/53 H 96 04/13/20 15:07 04/13/20 15:07 04/13/20 15:07 04/13/20 15:07 04/13/20 15:07 Intake & Output 04/12/20 04/13/20 04/14/20 06:59 06:59 06:59 Intake Total 1100 Balance 1100 Weight 65.2 kg General appearance: PRESENT: no acute distress, disheveled - and chronically ill-looking Head exam: PRESENT: atraumatic, normocephalic Eye exam: PRESENT: conjunctiva pink, EOMI, PERRLA. ABSENT: scleral icterus Ear exam: PRESENT: normal external ear exam Mouth exam: PRESENT: moist - fairly, tongue midline Neck exam: PRESENT: full ROM. ABSENT: carotid bruit, JVD, lymphadenopathy, thyromegaly Respiratory exam: PRESENT: clear to auscultation adenike, decreased breath sounds - atr lung bases Cardiovascular exam: PRESENT: RRR, +S1, +S2. ABSENT: diastolic murmur, rubs, systolic murmur Pulses: PRESENT: normal dorsalis pedis pul, +2 pedal pulses bilateral Vascular exam: PRESENT: normal capillary refill. ABSENT: pallor GI/Abdominal exam: PRESENT: normal bowel sounds, soft. ABSENT: distended, guarding, mass, organolmegaly, rebound, tenderness Rectal exam: PRESENT: deferred Gentrourinary exam: PRESENT: indwelling catheter - suprapubic catheter Extremities exam: ABSENT: pedal edema Musculoskeletal exam: ABSENT: ambulatory Neurological exam: PRESENT: alert, awake, oriented to person, oriented to place, oriented to time, oriented to situation, CN II-XII grossly intact. ABSENT: motor sensory deficit Psychiatric exam: PRESENT: appropriate affect, normal mood. ABSENT: homicidal ideation, suicidal ideation Skin exam: PRESENT: dry, intact, warm. ABSENT: cyanosis, rash Results Laboratory Results: 04/13/20 11:20 04/13/20 11:20 04/12/20 04/12/20 04/13/20 14:30 22:19 11:20 WBC 6.1 RBC 3.53 L Hgb 10.6 L Hct 31.9 L MCV 90 MCH 30.1 MCHC 33.3 RDW 13.4 Plt Count 193 Seg Neutrophils % 69.5 Sodium Potassium Chloride Carbon Dioxide Anion Gap BUN Creatinine Est GFR ( Amer) Glucose Calcium Phosphorus 3.7 Magnesium 1.3 L Total Bilirubin AST Alkaline Phosphatase Total Protein Albumin Urine Color YELLOW Urine Appearance CLOUDY Urine pH 6.0 Ur Specific [place] 1.019 Urine Protein 100 H Urine Glucose (UA) NEGATIVE Urine Ketones NEGATIVE Urine Blood SMALL H Urine Nitrite NEGATIVE Ur Leukocyte Esterase LARGE H Urine WBC (Auto) 76 Urine RBC (Auto) 24 04/13/20 11:20 WBC RBC Hgb Hct MCV MCH MCHC RDW Plt Count Seg Neutrophils % Sodium 134.0 L Potassium 3.9 Chloride 97 L Carbon Dioxide 27 Anion Gap 10 BUN 29 H Creatinine 0.89 Est GFR ( Amer) > 60 Glucose 175 H Calcium 9.8 Phosphorus Magnesium 1.8 Total Bilirubin 0.3 AST 23 Alkaline Phosphatase 64 Total Protein 6.1 L Albumin 3.5 Urine Color Urine Appearance Urine pH Ur Specific [place] Urine Protein Urine Glucose (UA) Urine Ketones Urine Blood Urine Nitrite Ur Leukocyte Esterase Urine WBC (Auto) Urine RBC (Auto) 04/12/20 04/12/20 14:30 22:03 Creatine Kinase < 20 L Troponin I < 0.012 Impressions: Chest X-Ray 04/12/20 14:25 IMPRESSION: NO ACUTE RADIOGRAPHIC FINDING IN THE CHEST. Head CT 04/12/20 22:03 IMPRESSION: 1. No acute intracranial findings. 2. Chronic ischemic changes as on prior exam 3. Chronic right sphenoid sinusitis Assessment & Plan - Diagnosis (1) Probable sepsis Is this a current diagnosis for this admission?: Yes Plan: See admitting attending physician orders for details about care plan. (2) Dehydration Is this a current diagnosis for this admission?: Yes Plan: See admitting attending physician orders for details about care plan. (3) Hypomagnesemia Is this a current diagnosis for this admission?: Yes Plan: See admitting attending physician orders for details about care plan. (4) Hyponatremia with extracellular fluid depletion Is this a current diagnosis for this admission?: Yes Plan: See admitting attending physician orders for details about care plan. (5) Physical debility Is this a current diagnosis for this admission?: Yes Plan: See admitting attending physician orders for details about care plan. (6) Diabetes mellitus type 2 in nonobese Is this a current diagnosis for this admission?: Yes Plan: See admitting attending physician orders for details about care plan. (7) HTN (hypertension) Qualifiers: Hypertension type: essential hypertension Qualified Code(s): I10 - Essential (primary) hypertension Is this a current diagnosis for this admission?: Yes Plan: See admitting attending physician orders for details about care plan. (8) HLD (hyperlipidemia) Qualifiers: Hyperlipidemia type: unspecified Qualified Code(s): E78.5 - Hyperlipidemia, unspecified Is this a current diagnosis for this admission?: Yes Plan: See admitting attending physician orders for details about care plan. (9) Seizure Is this a current diagnosis for this admission?: Yes Plan: See admitting attending physician orders for details about care plan. (10) GERD (gastroesophageal reflux disease) Qualifiers: Esophagitis presence: without esophagitis Qualified Code(s): K21.9 - Gastro-esophageal reflux disease without esophagitis Is this a current diagnosis for this admission?: Yes Plan: See admitting attending physician orders for details about care plan. (11) Seasonal allergic rhinitis Qualifiers: Allergic rhinitis trigger: unspecified Qualified Code(s): J30.2 - Other seasonal allergic rhinitis Is this a current diagnosis for this admission?: Yes Plan: See admitting attending physician orders for details about care plan. (12) Chronic use of opiate drug for therapeutic purpose Is this a current diagnosis for this admission?: Yes Plan: See admitting attending physician orders for details about care plan. - Time Time Spent: 50 to 70 Minutes Medications reviewed and adjusted accordingly: Yes Anticipated Discharge Disposition: Home with Home Health Anticipated Discharge Timeframe: within 72 hours - Inpatient Certification Based on my medical assessment, after consideration of the patient's comorbidities, presenting symptoms, or acuity I expect that the services needed warrant INPATIENT care.: Yes I certify that my determination is in accordance with my understanding of Medicare's requirements for reasonable and necessary INPATIENT services [42 CFR 412.3e].: Yes Medical Necessity: Significant Comorbidiites Make Outpatient Treatment Too Risky, Need Close Monitoring Due to Risk of Patient Decompensation, Need For IV Fluids, Need For Continuous Telemetry Monitoring, Need for Pain Control, Need for IV Antibiotics, Risk of Complication if Not Cared For in Hospital, Risk of Diagnosis Which Will Require Inpatient Eval/Care/Monitoring Post Hospital Care: D/C Tobacco Scrap Sifter Documentation - Plan Summary Plan Summary: See admitting attending physician orders for details about care plan.
[2020-04-13] MEDS: GABAPENTIN 300 MG CAPSULE PO SCH (18:13)
[2020-04-13] MEDS: FENTANYL 12 MCG/HR PATCH.TD72 TOP SCH (18:13)
[2020-04-13] MEDS: LACOSAMIDE 100 MG TABLET PO SCH (22:42)
[2020-04-13] MEDS: ATORVASTATIN CALCIUM 20 MG TABLET PO SCH (22:42)
[2020-04-14] MEDS ORDERED: DEXTROSE 40% GEL 15 GM TUBE X 2 PO PRN (00:30)
[2020-04-14] MEDS ORDERED: DEXTROSE 50%-WATER SYRINGE 12.5 GM/25 ML DOSE IV PRN (00:30)
[2020-04-14] MEDS ORDERED: GLUCAGON,HUMAN RECOMB 1 MG INJ IM PRN (00:30)
[2020-04-14] MEDS ORDERED: DEXTROSE 40% GEL 15 GM TUBE PO PRN (00:30)
[2020-04-14] MEDS ORDERED: DEXTROSE 50%-WATER SYRINGE 25 GM/50 ML DOSE IV PRN (00:30)
[2020-04-14] MEDS: PANTOPRAZOLE SODIUM 40 MG TABLET.DR PO SCH (06:15)
[2020-04-14] MEDS: OXYCODONE-ACETAMINOPHEN 5-325 MG TABLET PO PRN (06:22)
[2020-04-14] MEDS: INSULIN LISPRO 100 UNIT/ML 3 ML VIAL SUBCUT SCH ×4 (08:25→22:00)
[2020-04-14] MEDS ORDERED: [UNRECOGNIZED DRUG - OTHER] PO SCH (10:00)
[2020-04-14] MEDS ORDERED: DONEPEZIL HCL PO SCH (10:00)
[2020-04-14] MEDS ORDERED: MEMANTINE HCL PO SCH (10:00)
[2020-04-14] MEDS: GABAPENTIN 300 MG CAPSULE PO SCH ×3 (10:12→17:55)
[2020-04-14] MEDS: SERTRALINE HCL 50 MG TABLET PO SCH (10:12)
[2020-04-14] MEDS: LISINOPRIL 10 MG TABLET PO SCH (10:13)
[2020-04-14] MEDS: LACOSAMIDE 100 MG TABLET PO SCH ×2 (10:13→22:01)
[2020-04-14] MEDS: NITROFURANTOIN MONOHYD/M-CRYST 100 MG CAPSULE PO SCH (10:13)
[2020-04-14] MEDS: ENOXAPARIN SODIUM INJ 40 MG/0.4 ML DISP.SYRIN SUBCUT SCH (10:13)
[2020-04-14] MEDS: FERROUS SULFATE 325 MG TABLET PO SCH (10:13)
--- NOTE | 2020-04-14 14:03 | PDOC PROGRESS REPORT ---
Subjective Date:: 04/14/20 Subjective:: Patient seen by the bedside, she is a patient under investigation for Covid, she UTI, urine culture grew Pseudomonas Reason For Visit: GENERALIZED WEAKNESS, DEHYDRATION, ELECTROLYTE Physical Exam Vital Signs: Temp Pulse Resp BP Pulse Ox 97.9 F 61 16 130/52 H 96 04/14/20 10:58 04/14/20 10:58 04/14/20 10:58 04/14/20 10:58 04/14/20 10:58 Intake & Output 04/13/20 04/14/20 04/15/20 06:59 06:59 06:59 Intake Total 1100 120 Output Total 2000 350 Balance 1100 -2000 -230 Weight 65.2 kg 69.7 kg General appearance: PRESENT: no acute distress Eye exam: PRESENT: PERRLA Respiratory exam: PRESENT: clear to auscultation adenike Cardiovascular exam: PRESENT: +S1, +S2 GI/Abdominal exam: PRESENT: soft Neurological exam: PRESENT: alert Results Laboratory Results: 04/13/20 11:20 04/13/20 11:20 04/12/20 22:19 Adan Catheter Urine Culture - Final Pseudomonas Aeruginosa 04/12/20 04/12/20 14:30 22:03 Creatine Kinase < 20 L Troponin I < 0.012 Impressions: Chest X-Ray 04/12/20 14:25 IMPRESSION: NO ACUTE RADIOGRAPHIC FINDING IN THE CHEST. Head CT 04/12/20 22:03 IMPRESSION: 1. No acute intracranial findings. 2. Chronic ischemic changes as on prior exam 3. Chronic right sphenoid sinusitis Assessment & Plan - Diagnosis (1) Pseudomonas urinary tract infection Is this a current diagnosis for this admission?: Yes Plan: Patient presently on Macrobid, DC Macrobid start ciprofloxacin (2) Hyperosmolality and hypernatremia Is this a current diagnosis for this admission?: Yes (3) Dehydration Is this a current diagnosis for this admission?: Yes - Time Time Spent with patient: 25-34 minutes Level of Care: IMCU Medications reviewed and adjusted accordingly: Yes Anticipated discharge: Home Anticipated DC Timeframe: within 72 hours
[2020-04-14] MEDS: CIPROFLOXACIN 400 MG/D5W RTU 400 MG/200 ML RTUPB IV SCH (16:22)
[2020-04-14] MEDS: NORMAL SALINE 1000 ML 1,000 ML IV PRN (16:23)
[2020-04-14] MEDS: ATORVASTATIN CALCIUM 20 MG TABLET PO SCH (22:01)
[2020-04-15] MEDS: CIPROFLOXACIN 400 MG/D5W RTU 400 MG/200 ML RTUPB IV SCH ×2 (05:03→17:01)
[2020-04-15] MEDS: PANTOPRAZOLE SODIUM 40 MG TABLET.DR PO SCH (05:04)
[2020-04-15] MEDS: NORMAL SALINE 1000 ML 1,000 ML IV PRN ×2 (05:04→15:30)
[2020-04-15] MEDS: INSULIN LISPRO 100 UNIT/ML 3 ML VIAL SUBCUT SCH ×4 (08:09→21:32)
[2020-04-15] MEDS: ENOXAPARIN SODIUM INJ 40 MG/0.4 ML DISP.SYRIN SUBCUT SCH (09:11)
[2020-04-15] MEDS: LISINOPRIL 10 MG TABLET PO SCH (09:11)
[2020-04-15] MEDS: SERTRALINE HCL 50 MG TABLET PO SCH (09:11)
[2020-04-15] MEDS: LACOSAMIDE 100 MG TABLET PO SCH ×2 (09:11→21:32)
[2020-04-15] MEDS: FERROUS SULFATE 325 MG TABLET PO SCH (09:11)
[2020-04-15] MEDS: GABAPENTIN 300 MG CAPSULE PO SCH ×3 (09:11→17:00)
[2020-04-15] MEDS: OXYCODONE-ACETAMINOPHEN 5-325 MG TABLET PO PRN (13:51)
--- NOTE | 2020-04-15 15:13 | PDOC PROGRESS REPORT ---
Subjective Date:: 04/15/20 Subjective:: Patient seen by the bedside no new complaints Reason For Visit: GENERALIZED WEAKNESS, DEHYDRATION, ELECTROLYTE Physical Exam Vital Signs: Temp Pulse Resp BP Pulse Ox 98.0 F 65 17 149/55 H 97 04/15/20 11:19 04/15/20 14:00 04/15/20 11:19 04/15/20 11:19 04/15/20 11:19 Intake & Output 04/14/20 04/15/20 04/16/20 06:59 06:59 06:59 Intake Total 2362 120 Output Total 1999 1520 1325 Balance -1999 842 -1205 Weight 69.7 kg 69.3 kg General appearance: PRESENT: no acute distress Eye exam: PRESENT: PERRLA Respiratory exam: PRESENT: clear to auscultation adenike Cardiovascular exam: PRESENT: +S1, +S2 GI/Abdominal exam: PRESENT: soft Neurological exam: PRESENT: alert, CN II-XII grossly intact Results Laboratory Results: 04/13/20 11:20 04/13/20 11:20 04/12/20 04/12/20 14:30 22:03 Creatine Kinase < 20 L Troponin I < 0.012 Impressions: Chest X-Ray 04/12/20 14:25 IMPRESSION: NO ACUTE RADIOGRAPHIC FINDING IN THE CHEST. Head CT 04/12/20 22:03 IMPRESSION: 1. No acute intracranial findings. 2. Chronic ischemic changes as on prior exam 3. Chronic right sphenoid sinusitis Assessment & Plan - Diagnosis (1) Pseudomonas urinary tract infection Is this a current diagnosis for this admission?: Yes Plan: continue ciprofloxacin (2) Hyperosmolality and hypernatremia Is this a current diagnosis for this admission?: Yes (3) Dehydration Is this a current diagnosis for this admission?: Yes - Time Time Spent with patient: 15-24 minutes Level of Care: IMCU Medications reviewed and adjusted accordingly: Yes Anticipated discharge: Home Anticipated DC Timeframe: within 72 hours
[2020-04-15] MEDS: ATORVASTATIN CALCIUM 20 MG TABLET PO SCH (21:33)
[2020-04-16] MEDS: NORMAL SALINE 1000 ML 1,000 ML IV PRN ×2 (03:32→16:04)
[2020-04-16] MEDS: OXYCODONE-ACETAMINOPHEN 5-325 MG TABLET PO PRN (03:32)
[2020-04-16] MEDS: PANTOPRAZOLE SODIUM 40 MG TABLET.DR PO SCH (06:19)
[2020-04-16] MEDS: CIPROFLOXACIN 400 MG/D5W RTU 400 MG/200 ML RTUPB IV SCH (06:19)
[2020-04-16] MEDS: GABAPENTIN 300 MG CAPSULE PO SCH ×3 (09:01→17:03)
[2020-04-16] MEDS: SERTRALINE HCL 50 MG TABLET PO SCH (09:02)
[2020-04-16] MEDS: FERROUS SULFATE 325 MG TABLET PO SCH (09:02)
[2020-04-16] MEDS: LACOSAMIDE 100 MG TABLET PO SCH ×2 (09:02→23:13)
[2020-04-16] MEDS: LISINOPRIL 10 MG TABLET PO SCH (09:02)
[2020-04-16] MEDS: ENOXAPARIN SODIUM INJ 40 MG/0.4 ML DISP.SYRIN SUBCUT SCH (09:03)
[2020-04-16] MEDS: INSULIN LISPRO 100 UNIT/ML 3 ML VIAL SUBCUT SCH ×4 (09:03→23:23)
[2020-04-16 12:03] LABS: ABSOLUTE EOSINOPHILS # (AUTO) 0.2 10^3/uL (0.0-0.6); ABSOLUTE LYMPHOCYTES (AUTO) 0.9 10^3/uL (0.5-4.7); ABSOLUTE MONOCYTES (AUTO) 0.5 10^3/uL (0.1-1.4); ABSOLUTE NEUT (AUTO) 2.4 10^3/uL (1.7-8.2); BASOPHILS % (AUTO) 0.3 % (0-2); EOSINOPHILS % (AUTO) 5.7 % (0-6); HEMATOCRIT 31.1 % (36.0-47.0); HEMOGLOBIN 10.4 g/dL (12.0-15.5); LYMPHOCYTES % (AUTO) 22.2 % (13-45); MEAN CORPUSCULAR HGB CONC 33.3 g/dL (32.0-36.0); MEAN CORPUSCULAR VOLUME 90 fl (80-97); MONOCYTES % (AUTO) 11.5 % (3-13); PLATELET COUNT 188 10^3/uL (150-450); RED BLOOD COUNT 3.45 10^6/uL (3.72-5.28); RED CELL DISTRIBUTION WIDTH 13.4 % (11.5-14.0); SEGMENTED NEUTROPHILS % (AUTO) 60.3 % (42-78); TOTAL CELLS COUNTED % (AUTO) 100 %; WHITE BLOOD COUNT 4.1 10^3/uL (4.0-10.5)
[2020-04-16 12:19] LABS: ANION GAP 7 (5-19); BLOOD UREA NITROGEN 12 mg/dL (7-20); CALCIUM 8.7 mg/dL (8.4-10.2); CARBON DIOXIDE 28 mmol/L (22-30); CHLORIDE 101 mmol/L (98-107); GLUCOSE 241 mg/dL (75-110); POTASSIUM 3.8 mmol/L (3.6-5.0)
[2020-04-16] MEDS: FENTANYL 12 MCG/HR PATCH.TD72 TOP SCH (17:04)
--- NOTE | 2020-04-16 18:28 | PDOC PROGRESS REPORT ---
Subjective Date:: 04/16/20 Subjective:: patient report perceived tearing sensation on her right foot. There is noted zakia d stool. No nausea or vomiting. No abdominal pain. No chest pain or difficulty with breathing. no fever or chills. Reason For Visit: GENERALIZED WEAKNESS, DEHYDRATION, ELECTROLYTE Physical Exam Vital Signs: Temp Pulse Resp BP Pulse Ox 98.1 F 66 16 130/63 H 96 04/16/20 03:15 04/16/20 07:00 04/16/20 03:15 04/16/20 03:15 04/16/20 03:15 Intake & Output 04/15/20 04/16/20 04/17/20 06:59 06:59 06:59 Intake Total 2362 3350 200 Output Total 1520 3850 Balance 842 -500 200 Weight 69.3 kg 71.5 kg General appearance: PRESENT: no acute distress Head exam: PRESENT: atraumatic, normocephalic Eye exam: PRESENT: conjunctiva pink. ABSENT: scleral icterus Mouth exam: PRESENT: moist Respiratory exam: PRESENT: clear to auscultation adenike, decreased breath sounds - at lung bases Cardiovascular exam: PRESENT: RRR. ABSENT: diastolic murmur, rubs, systolic murmur Vascular exam: ABSENT: pallor GI/Abdominal exam: PRESENT: normal bowel sounds, soft. ABSENT: distended, guarding, mass, organolmegaly, rebound, tenderness Gentrourinary exam: PRESENT: indwelling catheter - suprapubic catheter Extremities exam: ABSENT: pedal edema Neurological exam: PRESENT: alert, awake Skin exam: PRESENT: dry, warm Results Laboratory Results: 04/13/20 11:20 04/13/20 11:20 04/12/20 04/12/20 14:30 22:03 Creatine Kinase < 20 L Troponin I < 0.012 Impressions: Chest X-Ray 04/12/20 14:25 IMPRESSION: NO ACUTE RADIOGRAPHIC FINDING IN THE CHEST. Head CT 04/12/20 22:03 IMPRESSION: 1. No acute intracranial findings. 2. Chronic ischemic changes as on prior exam 3. Chronic right sphenoid sinusitis Assessment & Plan - Diagnosis (1) Probable sepsis Is this a current diagnosis for this admission?: Yes (2) Dehydration Is this a current diagnosis for this admission?: Yes (3) Hypomagnesemia Is this a current diagnosis for this admission?: Yes (4) Hyponatremia with extracellular fluid depletion Is this a current diagnosis for this admission?: Yes (5) Physical debility Is this a current diagnosis for this admission?: Yes (6) Diabetes mellitus type 2 in nonobese Is this a current diagnosis for this admission?: Yes (7) HTN (hypertension) Qualifiers: Hypertension type: essential hypertension Qualified Code(s): I10 - Essential (primary) hypertension Is this a current diagnosis for this admission?: Yes (8) HLD (hyperlipidemia) Qualifiers: Hyperlipidemia type: unspecified Qualified Code(s): E78.5 - Hyperlipidemia, unspecified Is this a current diagnosis for this admission?: Yes (9) Seizure Is this a current diagnosis for this admission?: Yes (10) GERD (gastroesophageal reflux disease) Qualifiers: Esophagitis presence: without esophagitis Qualified Code(s): K21.9 - Gastro-esophageal reflux disease without esophagitis Is this a current diagnosis for this admission?: Yes (11) Seasonal allergic rhinitis Qualifiers: Allergic rhinitis trigger: unspecified Qualified Code(s): J30.2 - Other seasonal allergic rhinitis Is this a current diagnosis for this admission?: Yes (12) Chronic use of opiate drug for therapeutic purpose Is this a current diagnosis for this admission?: Yes - Time Time Spent with patient: 25-34 minutes Level of Care: IMCU Medications reviewed and adjusted accordingly: Yes Anticipated DC Timeframe: within 72 hours - Inpatient Certification Based on my medical assessment, after consideration of the patient's comorbidities, presenting symptoms, or acuity I expect that the services needed warrant INPATIENT care.: Yes I certify that my determination is in accordance with my understanding of Medicare's requirements for reasonable and necessary INPATIENT services [42 CFR 412.3e].: Yes Medical Necessity: Significant Comorbidiites Make Outpatient Treatment Too Ri inga, Need Close Monitoring Due to Risk of Patient Decompensation, Need For IV Fluids, Need For Continuous Telemetry Monitoring, Need for IV Antibiotics, Risk of Complication if Not Cared For in Hospital, Risk of Diagnosis Which Will Require Inpatient Eval/Care/Monitoring Post Hospital Care: D/C Paper Ruler Documentation - Plan Summary Plan Summary: Continue current medication management. Start on Colace 200 mg po daily. PT evaluation and ambulation rehabilitation.
[2020-04-16] MEDS: DOCUSATE SODIUM 100 MG CAPSULE PO SCH (23:12)
[2020-04-16] MEDS: ATORVASTATIN CALCIUM 20 MG TABLET PO SCH (23:12)
[2020-04-16] MEDS: CIPROFLOXACIN HCL 500 MG TABLET PO SCH (23:13)
[2020-04-17] MEDS: PANTOPRAZOLE SODIUM 40 MG TABLET.DR PO SCH (05:40)
[2020-04-17] MEDS: CIPROFLOXACIN HCL 500 MG TABLET PO SCH ×2 (09:15→23:08)
[2020-04-17] MEDS: ENOXAPARIN SODIUM INJ 40 MG/0.4 ML DISP.SYRIN SUBCUT SCH (09:15)
[2020-04-17] MEDS: SERTRALINE HCL 50 MG TABLET PO SCH (09:15)
[2020-04-17] MEDS: DOCUSATE SODIUM 100 MG CAPSULE PO SCH (09:15)
[2020-04-17] MEDS: LACOSAMIDE 100 MG TABLET PO SCH ×2 (09:15→23:05)
[2020-04-17] MEDS: GABAPENTIN 300 MG CAPSULE PO SCH ×4 (09:15→17:31)
[2020-04-17] MEDS: LISINOPRIL 10 MG TABLET PO SCH (09:15)
[2020-04-17] MEDS: INSULIN LISPRO 100 UNIT/ML 3 ML VIAL SUBCUT SCH ×4 (09:16→23:19)
[2020-04-17] MEDS: OXYCODONE-ACETAMINOPHEN 5-325 MG TABLET PO PRN ×3 (10:34→23:19)
[2020-04-17] MEDS: FERROUS SULFATE 325 MG TABLET PO SCH (12:01)
[2020-04-17] MEDS: NORMAL SALINE 1000 ML 1,000 ML IV PRN ×2 (12:04→23:08)
--- NOTE | 2020-04-17 17:33 | PDOC PROGRESS REPORT ---
Subjective Date:: 04/17/20 Subjective:: Patient denied chest pain or difficulty with breathing. No nausea or vomiting. No abdominal pain. No fever or chills. Reason For Visit: GENERALIZED WEAKNESS, DEHYDRATION, ELECTROLYTE Physical Exam Vital Signs: Temp Pulse Resp BP Pulse Ox 98.2 F 61 15 124/50 L 98 04/17/20 15:46 04/17/20 15:46 04/17/20 15:46 04/17/20 15:46 04/17/20 15:46 Intake & Output 04/16/20 04/17/20 04/18/20 06:59 06:59 06:59 Intake Total 3350 3362 480 Output Total 3850 3525 700 Balance -500 -163 -220 Weight 71.5 kg 70 kg Physical Exam: General appearance: PRESENT: no acute distress Head exam: PRESENT: atraumatic, normocephalic Eye exam: PRESENT: conjunctiva pink. ABSENT: pallor, sclera icterus Mouth exam: PRESENT: moist Respiratory exam: PRESENT: clear to auscultation adenike, decreased breath sounds - at lung bases Cardiovascular exam: PRESENT: RRR. ABSENT: diastolic murmur, rubs, systolic murmur GI/Abdominal exam: PRESENT: normal bowel sounds, soft. ABSENT: distended, guarding, mass, organomegaly, rebound, tenderness Genitourinary exam: PRESENT: indwelling catheter - suprapubic catheter Extremities exam: ABSENT: pedal edema Neurological exam: PRESENT: alert, awake Skin exam: PRESENT: dry, warm Results Laboratory Results: 04/16/20 11:35 04/16/20 11:35 04/12/20 04/12/20 14:30 22:03 Creatine Kinase < 20 L Troponin I < 0.012 Impressions: Chest X-Ray 04/12/20 14:25 IMPRESSION: NO ACUTE RADIOGRAPHIC FINDING IN THE CHEST. Head CT 04/12/20 22:03 IMPRESSION: 1. No acute intracranial findings. 2. Chronic ischemic changes as on prior exam 3. Chronic right sphenoid sinusitis Assessment & Plan - Diagnosis (1) Probable sepsis Is this a current diagnosis for this admission?: Yes (2) Dehydration Is this a current diagnosis for this admission?: Yes (3) Hypomagnesemia Is this a current diagnosis for this admission?: Yes (4) Hyponatremia with extracellular fluid depletion Is this a current diagnosis for this admission?: Yes (5) Physical debility Is this a current diagnosis for this admission?: Yes (6) Diabetes mellitus type 2 in nonobese Is this a current diagnosis for this admission?: Yes (7) HTN (hypertension) Qualifiers: Hypertension type: essential hypertension Qualified Code(s): I10 - Essential (primary) hypertension Is this a current diagnosis for this admission?: Yes (8) HLD (hyperlipidemia) Qualifiers: Hyperlipidemia type: unspecified Qualified Code(s): E78.5 - Hyperlipidemia, unspecified Is this a current diagnosis for this admission?: Yes (9) Seizure Is this a current diagnosis for this admission?: Yes (10) GERD (gastroesophageal reflux disease) Qualifiers: Esophagitis presence: without esophagitis Qualified Code(s): K21.9 - Gastro-esophageal reflux disease without esophagitis Is this a current diagnosis for this admission?: Yes (11) Seasonal allergic rhinitis Qualifiers: Allergic rhinitis trigger: unspecified Qualified Code(s): J30.2 - Other seasonal allergic rhinitis Is this a current diagnosis for this admission?: Yes (12) Chronic use of opiate drug for therapeutic purpose Is this a current diagnosis for this admission?: Yes - Time Time Spent with patient: 25-34 minutes Level of Care: IMCU Medications reviewed and adjusted accordingly: Yes Anticipated discharge: Home with Homehealth Anticipated DC Timeframe: within 72 hours - Inpatient Certification Based on my medical assessment, after consideration of the patient's jolly rbidities, presenting symptoms, or acuity I expect that the services needed warrant INPATIENT care.: Yes I certify that my determination is in accordance with my understanding of Medicare's requirements for reasonable and necessary INPATIENT services [42 CFR 412.3e].: Yes Medical Necessity: Significant Comorbidiites Make Outpatient Treatment Too Risky, Need Close Monitoring Due to Risk of Patient Decompensation, Need For IV Fluids, Need For Continuous Telemetry Monitoring, Need for IV Antibiotics, Risk of Complication if Not Cared For in Hospital, Risk of Diagnosis Which Will Require Inpatient Eval/Care/Monitoring Post Hospital Care: D/C 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 I discussed possible discharge home with Pt service versus SNF for short term rehabilitation with patient and daughter. awaiting decision.
[2020-04-17] MEDS: ATORVASTATIN CALCIUM 20 MG TABLET PO SCH (23:08)
[2020-04-18] MEDS: PANTOPRAZOLE SODIUM 40 MG TABLET.DR PO SCH (05:26)
[2020-04-18] MEDS: INSULIN LISPRO 100 UNIT/ML 3 ML VIAL SUBCUT SCH ×4 (08:46→23:26)
[2020-04-18] MEDS: NORMAL SALINE 1000 ML 1,000 ML IV PRN (08:46)
[2020-04-18] MEDS: LISINOPRIL 10 MG TABLET PO SCH (10:58)
[2020-04-18] MEDS: GABAPENTIN 300 MG CAPSULE PO SCH ×3 (10:58→17:15)
[2020-04-18] MEDS: LACOSAMIDE 100 MG TABLET PO SCH ×2 (10:58→23:26)
[2020-04-18] MEDS: CIPROFLOXACIN HCL 500 MG TABLET PO SCH ×2 (10:58→23:26)
[2020-04-18] MEDS: SERTRALINE HCL 50 MG TABLET PO SCH (10:58)
[2020-04-18] MEDS: ENOXAPARIN SODIUM INJ 40 MG/0.4 ML DISP.SYRIN SUBCUT SCH (10:58)
[2020-04-18] MEDS: DOCUSATE SODIUM 100 MG CAPSULE PO SCH (10:58)
[2020-04-18] MEDS: FERROUS SULFATE 325 MG TABLET PO SCH (11:41)
--- NOTE | 2020-04-18 17:15 | PDOC PROGRESS REPORT ---
Subjective Date:: 04/18/20 Subjective:: Patient denied chest pain or difficulty with breathing. No nausea, vomiting, or abdominal pain. No fever or chills. Reason For Visit: GENERALIZED WEAKNESS, DEHYDRATION, ELECTROLYTE Physical Exam Vital Signs: Temp Pulse Resp BP Pulse Ox 97.6 F 66 15 149/59 H 98 04/18/20 03:57 04/18/20 07:00 04/18/20 03:57 04/18/20 03:57 04/18/20 03:57 Intake & Output 04/17/20 04/18/20 04/19/20 06:59 06:59 06:59 Intake Total 3362 2380 Output Total 3525 3800 Balance -163 -1420 Weight 70 kg 68.7 kg Physical Exam: General appearance: PRESENT: no acute distress Head exam: PRESENT: atraumatic, normocephalic Eye exam: PRESENT: conjunctiva pink. ABSENT: pallor, sclera icterus Mouth exam: PRESENT: moist Respiratory exam: PRESENT: clear to auscultation adenike, decreased breath sounds - at lung bases Cardiovascular exam: PRESENT: RRR. ABSENT: diastolic murmur, rubs, systolic murmur GI/Abdominal exam: PRESENT: normal bowel sounds, soft. ABSENT: distended, guarding, mass, organomegaly, rebound, tenderness Genitourinary exam: PRESENT: indwelling catheter - suprapubic catheter Extremities exam: ABSENT: pedal edema Neurological exam: PRESENT: alert, awake Skin exam: PRESENT: dry, warm Results Laboratory Results: 04/16/20 11:35 04/16/20 11:35 04/12/20 04/12/20 14:30 22:03 Creatine Kinase < 20 L Troponin I < 0.012 Impressions: Chest X-Ray 04/12/20 14:25 IMPRESSION: NO ACUTE RADIOGRAPHIC FINDING IN THE CHEST. Head CT 04/12/20 22:03 IMPRESSION: 1. No acute intracranial findings. 2. Chronic ischemic changes as on prior exam 3. Chronic right sphenoid sinusitis Assessment & Plan - Diagnosis (1) Probable sepsis Is this a current diagnosis for this admission?: Yes (2) Dehydration Is this a current diagnosis for this admission?: Yes (3) Hypomagnesemia Is this a current diagnosis for this admission?: Yes (4) Hyponatremia with extracellular fluid depletion Is this a current diagnosis for this admission?: Yes (5) Physical debility Is this a current diagnosis for this admission?: Yes (6) Diabetes mellitus type 2 in nonobese Is this a current diagnosis for this admission?: Yes (7) HTN (hypertension) Qualifiers: Hypertension type: essential hypertension Qualified Code(s): I10 - Essential (primary) hypertension Is this a current diagnosis for this admission?: Yes (8) HLD (hyperlipidemia) Qualifiers: Hyperlipidemia type: unspecified Qualified Code(s): E78.5 - Hyperlipidemia, unspecified Is this a current diagnosis for this admission?: Yes (9) Seizure Is this a current diagnosis for this admission?: Yes (10) GERD (gastroesophageal reflux disease) Qualifiers: Esophagitis presence: without esophagitis Qualified Code(s): K21.9 - Gastro-esophageal reflux disease without esophagitis Is this a current diagnosis for this admission?: Yes (11) Seasonal allergic rhinitis Qualifiers: Allergic rhinitis trigger: unspecified Qualified Code(s): J30.2 - Other seasonal allergic rhinitis Is this a current diagnosis for this admission?: Yes (12) Chronic use of opiate drug for therapeutic purpose Is this a current diagnosis for this admission?: Yes - Time Time Spent with patient: 25-34 minutes Level of Care: IMCU Medications reviewed and adjusted accordingly: Yes Anticipated discharge: SNF Anticipated DC Timeframe: within 72 hours - Inpatient Certification Based on my medical assessment, after consideration of the patient's comorbidities, presenting symptoms, or acuity I expect that the services needed warrant INPATIENT care.: Yes I certify that my determination is in accordance with my understanding of Medicare's requirements for reasonable and necessary INPATIENT services [42 CFR 412.3e].: Yes Medical Necessity: Significant Comorbidiites Make Outpatient Treatment Too Risky, Need Close Monitoring Due to Risk of Patient Decompensation, Need For IV Fluids, Need For Continuous Telemetry Monitoring, Need for IV Antibiotics, Risk of Complication if Not Cared For in Hospital, Risk of Diagnosis Which Will Require Inpatient Eval/Care/Monitoring Post Hospital Care: D/C or Transfer Summary - Plan Summary Plan Summary: Continue current medication management. Follow up on SNF placement for short term rehabilitation.
[2020-04-18] MEDS: OXYCODONE-ACETAMINOPHEN 5-325 MG TABLET PO PRN (23:25)
[2020-04-18] MEDS: ATORVASTATIN CALCIUM 20 MG TABLET PO SCH (23:26)
[2020-04-19] MEDS: NORMAL SALINE 1000 ML 1,000 ML IV PRN (05:54)
[2020-04-19] MEDS: PANTOPRAZOLE SODIUM 40 MG TABLET.DR PO SCH (05:55)
[2020-04-19] MEDS: INSULIN LISPRO 100 UNIT/ML 3 ML VIAL SUBCUT SCH ×3 (08:20→16:02)
[2020-04-19] MEDS: SERTRALINE HCL 50 MG TABLET PO SCH (10:18)
[2020-04-19] MEDS: DOCUSATE SODIUM 100 MG CAPSULE PO SCH (10:18)
[2020-04-19] MEDS: GABAPENTIN 300 MG CAPSULE PO SCH ×2 (10:18→14:14)
[2020-04-19] MEDS: LACOSAMIDE 100 MG TABLET PO SCH (10:19)
[2020-04-19] MEDS: CIPROFLOXACIN HCL 500 MG TABLET PO SCH (10:20)
[2020-04-19] MEDS: ENOXAPARIN SODIUM INJ 40 MG/0.4 ML DISP.SYRIN SUBCUT SCH (10:20)
[2020-04-19] MEDS: LISINOPRIL 10 MG TABLET PO SCH (10:20)
[2020-04-19 12:11] VITALS: BP 136/60
[2020-04-19] MEDS: FERROUS SULFATE 325 MG TABLET PO SCH (12:12)
--- NOTE | 2020-04-19 13:30 | PDOC TRANSFER SUMMARY ---
Impression - Admit/DC Date/PCP Admission Date/Primary Care Provider: 04/13/20 01:45 LATOYA ALEXANDER Discharge Date: 04/19/20 - Discharge Diagnosis (1) Probable sepsis Is this a current diagnosis for this admission?: Yes (2) Dehydration Is this a current diagnosis for this admission?: Yes (3) Hypomagnesemia Is this a current diagnosis for this admission?: Yes (4) Hyponatremia with extracellular fluid depletion Is this a current diagnosis for this admission?: Yes (5) Physical debility Is this a current diagnosis for this admission?: Yes (6) Diabetes mellitus type 2 in nonobese Is this a current diagnosis for this admission?: Yes (7) HTN (hypertension) Is this a current diagnosis for this admission?: Yes (8) HLD (hyperlipidemia) Is this a current diagnosis for this admission?: Yes (9) Seizure Is this a current diagnosis for this admission?: Yes (10) GERD (gastroesophageal reflux disease) Is this a current diagnosis for this admission?: Yes (11) Seasonal allergic rhinitis Is this a current diagnosis for this admission?: Yes (12) Chronic use of opiate drug for therapeutic purpose Is this a current diagnosis for this admission?: Yes - Assessment Summary: Patient was admitted for generalized weakness with dehydration and electrolyte imbalance. Her urine culture did grew pseudomonas aeruginosa sensitive to Ciprofloxacin. She was managed with IV fluid and electrolyte replacement and appropriate antibiotic coverage. She was subsequently transition to oral antibiotic. She participated in physical rehabilitation session while on admission and did agree with short term rehabilitation upon discharge. Patient has suprapubic Adan catheter for management of her longstanding outflow problem. The catheter was changed before discharge and she will continue on a 30 days change program. She will be transferred to SNF for short term rehabilitation today. She will follow up in the office as instructed upon discharge from the SNF. The staff at the SNF will call office before her discharge to coordinate her office follow up appointment. - Additional Information Resuscitation Status: Full Code Discharge Diet: Diabetic Discharge Activity: Activity As Tolerated, Slowly Increase Activity, Supervised Activity Referrals: LATOYA ALEXANDER MD [Primary Care Provider] - Follow up as needed (SNF staff should call office for follow up appointment before discharge from the facility.) Home Medications: Fluticasone Propionate [Flonase Nasal [place] 50 Mcg/[place] 16 gm] 2 sprays NASL DAILY 07/01/18 Gabapentin [Neurontin 300 mg Capsule] 600 mg PO TID 07/01/18 Levocetirizine Dihydrochloride [Allergy Relief] 5 mg PO DAILYP PRN 07/01/18 Linagliptin [Tradjenta] 5 mg PO DAILY 07/01/18 Memantine HCl/Donepezil HCl [Namzaric 28 mg-10 mg Capsule] 1 each PO DAILY 07/01/18 Metformin HCl [Glucophage] 1,000 mg PO BID 07/01/18 Mirabegron [Myrbetriq] 25 mg PO DAILY 07/01/18 Montelukast Sodium [Singulair 10 mg Tablet] 10 mg PO DAILY 07/01/18 Oxycodone HCl/Acetaminophen [Percocet 5-325 mg Tablet] 1 tab PO Q6HP PRN 07/01/18 Pantoprazole Sodium [Protonix] 40 mg PO DAILY 07/01/18 Rosuvastatin Calcium [Crestor 10 mg Tablet] 10 mg PO QHS 07/01/18 Sertraline HCl [Zoloft] 100 mg PO DAILY 07/01/18 Donepezil HCl [Aricept 5 mg Tablet] 5 mg PO DAILY 09/07/18 Ferrous Sulfate [Ferosul] 325 mg PO DAILY 09/07/18 Lacosamide [Vimpat 100 mg Tablet] 150 mg PO Q12 09/07/18 Fentanyl [Duragesic 12 Mcg/Hr Transdermal Patch] 1 patch TOP Q3DAYS 04/13/20 Insulin Lispro [Humalog Kwikpen U-100] See Protocol SQ ACHS 04/13/20 Lisinopril [Prinivil 10 mg Tablet] 10 mg PO DAILY 04/13/20 Nitrofurantoin Macrocrystal [Nitrofurantoin] 50 mg PO QHS 04/13/20 Ciprofloxacin HCl [Cipro 500 mg Tablet] 500 mg PO Q12 4 Days tablet 04/19/20 Docusate Sodium [Colace 100 mg Capsule] 200 mg PO DAILY capsule 04/19/20 History of Present Illiness History of Present Illness: ANI PELAYO is a 84 year old female patient known to my practice who presented to the ED with daughter reporting worsening generalized weakness and difficulty with walking and transferring from bed. She reported associated poor appetite and oral intake. No reported difficulty with breathing or exposure to acutely ill person, travel outside her immediate environment. No reported associated fever or chills. No nausea or vomiting, abdominal pain, diarrhea, or co nstipation. She has suprapubic Adan catheter. No reported hematuria or flank pain. There is usual suprapubic discomfort from her catheter. She denied any headache or dizziness. No reported focal weakness. Her initial ED evaluation was significant for reported episode of diaphoresis, electrolytes imbalance with hypomagnesemia, hyponatremia, azotemia, and hyperglycemia. She was advised hospitalization for further evaluation and management due to concern for probable infection with generalized decondition. Her morbidities are as listed below. Hospital Course Hospital Course: Patient was admitted for generalized weakness with dehydration and electrolyte imbalance. Her urine culture did grew pseudomonas aeruginosa sensitive to Ciprofloxacin. She was managed with IV fluid and electrolyte replacement and appropriate antibiotic coverage. She was subsequently transition to oral antibiotic. She participated in physical rehabilitation session while on a dmission and did agree with short term rehabilitation upon discharge. Patient has suprapubic Adan catheter for management of her longstanding outflow problem. The catheter was changed before discharge and she will continue on a 30 days change program. She will be transferred to SNF for short term rehabilitation today. She will follow up in the office as instructed upon discharge from the SNF. The staff at the SNF will call office before her discharge to coordinate her office follow up appointment. Physical Exam Vital Signs: Temp Pulse Resp BP Pulse Ox 98.2 F 61 18 136/60 H 98 04/19/20 12:00 04/19/20 12:00 04/19/20 12:00 04/19/20 12:00 04/19/20 12:00 Intake & Output 04/18/20 04/19/20 04/20/20 06:59 06:59 06:59 Intake Total 2380 3275 Output Total 3800 2100 Balance -1420 1175 Weight 68.7 kg 71.4 kg General appearance: PRESENT: no acute distress Head exam: PRESENT: atraumatic, normocephalic Eye exam: PRESENT: conjunctiva pink. ABSENT: pallor, sclera icterus Mouth exam: PRESENT: moist Respiratory exam: PRESENT: clear to auscultation adenike, decreased breath sounds - at lung bases Cardiovascular exam: PRESENT: RRR. ABSENT: diastolic murmur, rubs, systolic murmur GI/Abdominal exam: PRESENT: normal bowel sounds, soft. ABSENT: distended, guarding, mass, organomegaly, rebound, tenderness Genitourinary exam: PRESENT: indwelling catheter - suprapubic catheter Extremities exam: ABSENT: pedal edema Neurological exam: PRESENT: alert, awake Skin exam: PRESENT: dry, warm Results Laboratory Results: WBC 4.1 10^3/uL (4.0-10.5) 04/16/20 11:35 RBC 3.45 10^6/uL (3.72-5.28) L 04/16/20 11:35 Hgb 10.4 g/dL (12.0-15.5) L 04/16/20 11:35 Hct 31.1 % (36.0-47.0) L 04/16/20 11:35 MCV 90 fl (80-97) 04/16/20 11:35 MCH 30.0 pg (27.0-33.4) 04/16/20 11:35 MCHC 33.3 g/dL (32.0-36.0) 04/16/20 11:35 RDW 13.4 % (11.5-14.0) 04/16/20 11:35 Plt Count 188 10^3/uL (150-450) 04/16/20 11:35 Lymph % (Auto) 22.2 % (13-45) 04/16/20 11:35 [place] % (Auto) 11.5 % (3-13) 04/16/20 11:35 Eos % (Auto) 5.7 % (0-6) 04/16/20 11:35 Baso % (Auto) 0.3 % (0-2) 04/16/20 11:35 Absolute Neuts (auto) 2.4 10^3/uL (1.7-8.2) 04/16/20 11:35 Absolute Lymphs (auto) 0.9 10^3/uL (0.5-4.7) 04/16/20 11:35 Absolute Monos (auto) 0.5 10^3/uL (0.1-1.4) 04/16/20 11:35 Absolute Eos (auto) 0.2 10^3/uL (0.0-0.6) 04/16/20 11:35 Absolute Basos (auto) 0.0 10^3/uL (0.0-0.2) 04/16/20 11:35 Seg Neutrophils % 60.3 % (42-78) 04/16/20 11:35 Sodium 136.4 mmol/L (137-145) L 04/16/20 11:35 Potassium 3.8 mmol/L (3.6-5.0) 04/16/20 11:35 Chloride 101 mmol/L (98-107) 04/16/20 11:35 Carbon Dioxide 28 mmol/L (22-30) 04/16/20 11:35 Anion Gap 7 (5-19) 04/16/20 11:35 BUN 12 mg/dL (7-20) 04/16/20 11:35 Creatinine 0.78 mg/dL (0.52-1.25) 04/16/20 11:35 Est GFR ( Amer) > 60 (>60) 04/16/20 11:35 Est GFR (MDRD) Non-Af > 60 (>60) 04/16/20 11:35 Glucose 241 mg/dL (75-110) H 04/16/20 11:35 POC Glucose 205 mg/dL (70-110) H 04/19/20 11:43 Calcium 8.7 mg/dL (8.4-10.2) 04/16/20 11:35 Phosphorus 3.7 mg/dL (2.5-4.5) 04/12/20 14:30 Magnesium 1.8 mg/dL (1.6-2.3) 04/13/20 11:20 Total Bilirubin 0.3 mg/dL (0.2-1.3) 04/13/20 11:20 Direct Bilirubin 0.1 mg/dL (0.0-0.4) 04/13/20 11:20 Neonat Total Bilirubin Not Reportable 04/13/20 11:20 Neonat Direct Bilirubin Not Reportable 04/13/20 11:20 Neonat Indirect Bili Not Reportable 04/13/20 11:20 AST 23 U/L (14-36) 04/13/20 11:20 ALT 14 U/L (<35) 04/13/20 11:20 Alkaline Phosphatase 64 U/L (38-126) 04/13/20 11:20 Creatine Kinase < 20 U/L (30-135) L 04/12/20 14:30 Troponin I < 0.012 ng/mL 04/12/20 22:03 Total Protein 6.1 g/dL (6.3-8.2) L 04/13/20 11:20 Albumin 3.5 g/dL (3.5-5.0) 04/13/20 11:20 Lipase 169.0 U/L (23-300) 04/12/20 14:30 Urine Color YELLOW 04/12/20 22:19 Urine Appearance CLOUDY 04/12/20 22:19 Urine pH 6.0 (5.0-9.0) 04/12/20 22:19 Ur Specific [place] 1.019 04/12/20 22:19 Urine Protein 100 mg/dL (NEGATIVE) H 04/12/20 22:19 Urine Glucose (UA) NEGATIVE mg/dL (NEGATIVE) 04/12/20 22:19 Urine Ketones NEGATIVE mg/dL (NEGATIVE) 04/12/20 22:19 Urine Blood SMALL (NEGATIVE) H 04/12/20 22:19 Urine Nitrite NEGATIVE (NEGATIVE) 04/12/20 22:19 Urine Bilirubin NEGATIVE (NEGATIVE) 04/12/20 22:19 Urine Urobilinogen NEGATIVE mg/dL (<2.0) 04/12/20 22:19 Ur Leukocyte Esterase LARGE (NEGATIVE) H 04/12/20 22:19 Urine WBC (Auto) 76 /HPF 04/12/20 22:19 Urine RBC (Auto) 24 /HPF 04/12/20 22:19 U Hyaline Cast (Auto) 4 /LPF 04/12/20 22:19 Urine Bacteria (Auto) TRACE /HPF 04/12/20 22:19 Urine Mucus (Auto) RARE /LPF 04/12/20 22:19 Urine Ascorbic Acid 40 (NEGATIVE) H 04/12/20 22:19 COVID-19 Source See comment 04/13/20 00:41 COVID-19 (IRMA) Not Detected (Not Detect) 04/13/20 00:41 Influenza A (Rapid) NEGATIVE (NEGATIVE) 04/12/20 22:37 Influenza B (Rapid) NEGATIVE (NEGATIVE) 04/12/20 22:37 04/12/20 22:03 Troponin I < 0.012 Impressions: Chest X-Ray 04/12/20 14:25 IMPRESSION: NO ACUTE RADIOGRAPHIC FINDING IN THE CHEST. Head CT 04/12/20 22:03 IMPRESSION: 1. No acute intracranial findings. 2. Chronic ischemic changes as on prior exam 3. Chronic right sphenoid sinusitis Plan Health Concerns: High risk for readmission. Plan of Treatment: Short term rehabilitation and subsequent home health services for continued physical rehabilitation upon discharge form SNF and visiting nurse service to manage her suprapubic Adan catheter. Goals: Reduce readmission risk level Time Spent: Greater than 30 Minutes Stroke Is this a Stroke Patient?: No Acute Heart Failure Is this a Heart Failure Patient?: No
--- NOTE | 2020-04-30 17:05 | Progress Note ---
Provider Note Provider Note: Response to query: Sepsis Unable to determine. Her urinalysis and urine culture are indicative of urinary tract infection although her clinical indices did not support it.
== END 2020-04-19 16:00 | DRG 690 ==
LOC: ER 13:53 → EH 04-13 01:45 → 3W 04-13 06:16 → 5 04-16 18:56
PROVIDERS: ADMIT Internal Medicine Geriatric Medicine; ATTEND Internal Medicine Geriatric Medicine
DX: N39.0 Urinary tract infection, site not specified (principal); N17.9 Acute kidney failure, unspecified; E87.1 Hypo-osmolality and hyponatremia; E86.0 Dehydration; Z20.828 Contact with and (suspected) exposure to other viral communicable diseases; E83.42 Hypomagnesemia; E11.9 Type 2 diabetes mellitus without complications; I10 Essential (primary) hypertension; E78.5 Hyperlipidemia, unspecified; K21.9 Gastro-esophageal reflux disease without esophagitis; J30.2 Other seasonal allergic rhinitis; E87.8 Other disorders of electrolyte and fluid balance, not elsewhere classified; B96.5 Pseudomonas (aeruginosa) (mallei) (pseudomallei) as the cause of diseases classified elsewhere; I25.10 Atherosclerotic heart disease of native coronary artery without angina pectoris; D64.9 Anemia, unspecified; G47.30 Sleep apnea, unspecified; Z96.619 Presence of unspecified artificial shoulder joint; F32.9 Major depressive disorder, single episode, unspecified; Z79.891 Long term (current) use of opiate analgesic; Z79.899 Other long term (current) drug therapy; Z79.4 Long term (current) use of insulin; Z85.3 Personal history of malignant neoplasm of breast; Z88.0 Allergy status to penicillin; Z88.2 Allergy status to sulfonamides
CPT/HCPCS: 36415; 70450; 71046; 80048; 80053; 81001; 82550; 82962; 83690; 83735; 84100; 84484; 85025; 87086; 87088; 87186; 87635; 87804; 93005; 93010; 96360; 96361; 99285; C9803; J0744; J1642; J1650; J1815; J3475; J3490; J7030; J8499